=== PATIENT | male | born 1950 | race Caucasian/White ===

== ENCOUNTER 2017-06-06 14:00 | Inpatient (IN) | payer MEDICARE ==
[2017-06-06] MEDS ORDERED: HEPARIN SODIUM,PORCINE 5,000 UNIT/ML 1 ML VIAL IV STA (14:20)
[2017-06-06] MEDS ORDERED: NITROGLYCERIN SL TABS 0.4 MG TAB SUBLINGUAL STA (14:20)
[2017-06-06] MEDS ORDERED: ATORVASTATIN 80 MG TAB PO STA (14:28)
[2017-06-06] MEDS ORDERED: NALOXONE 0.4 MG/ML 1 ML VIAL IV PRN (14:31)
[2017-06-06 14:36] LABS: Basophils # (A) 0.1 k/uL (0-0.2); Basophils % (A) 1 %; Eosinophils # (A) 0.3 k/uL (0-0.7); Eosinophils % (A) 3 %; HGB 15.5 gm/dL (13.0-17.5); Lymphocytes # (A) 1.7 k/uL (1.0-4.8); Lymphocytes % (A) 17 %; MCH 31.9 pg (25.0-35.0); MCHC 33.7 g/dL (31.0-37.0); MCV 94.5 fL (80.0-100.0); Mean Platelet Volume 7.3; Monocytes # (A) 0.6 k/uL (0-1.0); Monocytes % (A) 6 %; Neutrophils # (A) 7.4 k/uL (1.3-7.7); Neutrophils % (A) 74 %; Platelet Count 209 k/uL (150-450); RBC 4.87 m/uL (4.30-5.90); RDW 13.5 % (11.5-15.5); WBC 10.1 k/uL (3.8-10.6)
--- NOTE | 2017-06-06 14:39 | ED ---
General Adult HPI - General Chief complaint: Chest Pain Stated complaint: chest pain Time Seen by Provider: 06/06/17 14:10 Source: patient, family, RN notes reviewed, old records reviewed Mode of arrival: EMS Limitations: no limitations - History of Present Illness Initial comments: 66-year-old male presenting with one hour history of anterior chest pain. Pain is nonradiating. Describes it as a squeezing pressure. Patient had an outpatient stress test earlier today, he states he left this feeling well, symptoms began abruptly approximately one hour ago. This was associated with diaphoresis and nausea. Patient has no known history of coronary artery disease. He is otherwise healthy, no chronic medical problems. Patient is a nonsmoker. - Related Data Home Medications Medication Instructions Recorded Confirmed Aspirin EC [Ecotrin Low Dose] 243 mg PO ONCE PRN 06/06/17 06/06/17 Allergies Allergy/AdvReac Type Severity Reaction Status Date / Time No Known Allergies Allergy Verified 06/06/17 14:19 Review of Systems ROS Statement: Those systems with pertinent positive or pertinent negative responses have been documented in the HPI. ROS Other: All systems not noted in ROS Statement are negative. Past Medical History Past Medical History: No Reported History, Cancer Additional Past Medical History / Comment(s): prostate History of Any Multi-Drug Resistant Organisms: None Reported Past Surgical History: Prostate Surgery Past Psychological History: No Psychological Hx Reported Smoking Status: Never smoker Past Alcohol Use History: None Reported Past Drug Use History: None Reported General Exam Limitations: no limitations General appearance: alert, in distress Head exam: Present: atraumatic Eye exam: Present: normal appearance, PERRL, EOMI ENT exam: Present: normal exam Neck exam: Present: normal inspection. Absent: tenderness, meningismus Respiratory exam: Present: normal lung sounds bilaterally. Absent: respiratory distress, wheezes Cardiovascular Exam: Present: regular rate, normal rhythm, normal heart sounds, other (Bilateral radial pulses, bilateral posterior tibial pulses, symmetric.) GI/Abdominal exam: Present: soft. Absent: distended, tenderness, guarding Extremities exam: Present: normal inspection, normal capillary refill. Absent: pedal edema Neurological exam: Present: alert, oriented X3, CN II-XII intact. Absent: motor sensory deficit Psychiatric exam: Present: normal affect, normal mood Skin exam: Present: warm, intact, diaphoretic. Absent: cyanosis Course Vital Signs 06/06/17 14:03 Temperature 97.2 F L Pulse Rate 83 Respiratory 18 Rate Blood Pressure 182/93 O2 Sat by Pulse 97 Oximetry - Reevaluation(s) Reevaluation #1: 06/06/17 14:15 EKG shows left bundle branch, only EKG shows fascicular block, findings discussed with Dr. Cazares, given the character the patient's pain and new EKG changes he will be taken to the [facility] as ST segment elevation OR. EKG Findings - EKG Comments: EKG Findings:: EKG obtained at 1411, sinus rhythm with occasional PVC, left axis deviation, left bundle branch block, ventricular rate 82, LA interval 194, QRS duration 148, QTC 476, this does not meet Scarbossa criteria. EKG obtained at 1423, sinus rhythm with frequent PVC left axis deviation, left bundle branch block, no progression of ischemic changes compared to EKG obtained at 1411, ventricular rate 76, LA interval 192, QRS duration 146, QTC 456. Medical Decision Making - Medical Decision Making 66-year-old male presenting with chest pain, nausea and diaphoresis. EKG shows left bundle which is new compared to EKG in 2014. Given the symptoms and EKG changes patient is taken to the [facility] for angiography. All laboratory studies and x-rays are pending. Case discussed with cardiology, Dr. Cazares, and accepting physician Dr. Martinez. Disposition Clinical Impression: Left bundle branch block (LBBB), Chest pain Disposition: ADMITTED IP TO THIS [facility] Condition: Serious Referrals: Chad Anders DO [Primary Care Provider] - 1-2 days Decision to Admit Reason: Admit from [facility] Decision Date: 06/06/17 Decision Time: 14:39
[2017-06-06] MEDS ORDERED: SODIUM CHLORIDE 0.9% 1,000 ML IV ONE (14:40)
[2017-06-06 14:42] LABS: Calcium 9.5 mg/dL (8.4-10.2); Potassium 4.2 mmol/L (3.5-5.1); Total Bilirubin 0.4 mg/dL (0.2-1.3); Total Protein 6.8 g/dL (6.3-8.2)
[2017-06-06] MEDS ORDERED: LIDOCAINE 2% INJ 20 MG/ML SQ ONE (14:43)
[2017-06-06] MEDS ORDERED: MIDAZOLAM 2 MG/2 ML VIAL ONE (14:44)
[2017-06-06 14:45] LABS: Partial Thromboplastin Time 22.3 sec (22.0-30.0)
--- NOTE | 2017-06-06 14:46 | XR ---
EXAMINATION TYPE: XR chest 1V portable DATE OF EXAM: 06/06/2017 COMPARISON: Chest x-ray and CTA chest March 17, 2013. HISTORY: Chest pain. ST elevated myocardial infarction. TECHNIQUE: Single AP portable frontal upright view of the chest is obtained. FINDINGS: There is no focal air space opacity, pleural effusion, or pneumothorax seen. The cardiac silhouette size is upper limits of normal. The osseous structures are intact. IMPRESSION: No acute process on current study.
[2017-06-06] MEDS ORDERED: MIDAZOLAM 2 MG/2 ML VIAL IV ONE (14:47)
[2017-06-06] MEDS ORDERED: fentaNYL (PF) 50 MCG/ML 2 ML AMP IV ONE (14:51)
[2017-06-06] MEDS ORDERED: fentaNYL (PF) 50 MCG/ML 2 ML AMP ONE (14:51)
[2017-06-06] MEDS ORDERED: BIVALIRUDIN BOLUS 250 MG/50 ML IV ONE (15:07)
[2017-06-06] MEDS ORDERED: PRASUGREL 10 MG TAB ONE (15:07)
[2017-06-06] MEDS ORDERED: BIVALIRUDIN 250 MG in SODIUM CHLORIDE 0.9% 40 ML IV ONE (15:08)
[2017-06-06] MEDS ORDERED: PRASUGREL 10 MG TAB PO ONE (15:09)
[2017-06-06 15:15] LABS: Creatine Kinase MB 3.1 ng/mL (0.0-2.4); Troponin I 0.064 ng/mL (0.000-0.034)
[2017-06-06] MEDS ORDERED: NITROGLYCERIN 1000MCG/10ML SYRINGE INTRACORON ONE (15:16)
[2017-06-06] MEDS ORDERED: IOPAMIDOL-370 125ML BTL INJ ONE (15:18)
[2017-06-06] MEDS ORDERED: MORPHINE SULFATE 4 MG/ML SYRINGE ONE (15:20)
[2017-06-06] MEDS ORDERED: MORPHINE SULFATE 4 MG/ML SYRINGE IV ONE (15:20)
[2017-06-06] MEDS ORDERED: IOPAMIDOL-370 100ML BTL INJ ONE (15:35)
[2017-06-06] MEDS ORDERED: ATROPINE SULFATE 0.1 MG/ML 10ML SYRINGE IV PRN (15:46)
[2017-06-06] MEDS ORDERED: MAG HYDROX/AL HYDROX/SIMETH 30 ML CUP PO PRN (15:46)
[2017-06-06] MEDS ORDERED: RX INFO: IV CONTRAST WAS GIVEN 1 EACH MISC MISCELLANE PRN (15:46)
[2017-06-06] MEDS ORDERED: ZOLPIDEM 5 MG TAB PO PRN (15:46)
[2017-06-06] MEDS ORDERED: NITROGLYCERIN SL TABS 0.4 MG TAB SUBLINGUAL PRN (15:46)
--- NOTE | 2017-06-06 15:48 | CC ---
CARDIAC CATHETERIZATION REPORT INDICATION: Acute ischemic syndrome. This is a 66-year-old gentleman who has been having episodes of exertional chest pressure and shortness of breath. He underwent a stress test in our hospital this morning wherein he walked for 6-1/2 minutes, did not have chest pain, and the EKG changes were inconclusive secondary to left bundle branch block. After going home he had lunch, was sleeping, and suddenly woke up and had severe chest pressure. He describes it as 8 out of 10 in intensity, associated with diaphoresis and shortness of breath. He came to the ER, where his EKG showed left bundle branch block, and the ER physician felt that the patient was having ST-segment elevation IL and this was a new onset left bundle branch block. However, his EKG from stress test also shows left bundle but his clinical presentation was consistent with an acute coronary syndrome. I advised the patient to undergo emergent cardiac catheterization. Understanding the risks and benefits, he wished to proceed with it. PROCEDURE NOTE: After obtaining informed consent, left heart catheterization and coronary angiogram are performed via the right femoral artery using standard Alessandra catheters. The patient tolerated the procedure well without any obvious immediate complications. Patient received moderate conscious sedation. Total sedation time was 13 minutes. FINDINGS: 1. HEMODYNAMICS: Left ventricular end-diastolic pressure is 10 to 12 mm. There is no significant gradient across the aortic valve. 2. LEFT VENTRICULOGRAM: Left ventriculogram was not performed. 3. ANGIOGRAPHIC DATA: 4. Left main coronary artery. Left main coronary artery is a normal-sized vessel and is free of stenosis. It divides into left anterior descending coronary artery, circumflex coronary artery and ramus intermedius. LAD shows mild atherosclerotic plaque, as does the circumflex coronary artery. Ramus intermedius appears totally occluded in its proximal part. There are no collaterals going to the distal part of the vessel. Right coronary artery is a large dominant vessel. It shows mild atherosclerotic plaque without any focal areas of stenosis. CONCLUSIONS: Occluded ramus intermedius, which is probably responsible for patient's chest pain and could be an acutely occluded vessel. Dr. Nevarez, the on-call picker feeder, has reviewed the angiographic data and will attempt angioplasty of the ramus. I discussed the findings with the patient. MMODL / IJN: [id number] /
--- NOTE | 2017-06-06 15:48 | P.CRDCN ---
History of Present Illness Consult date: 06/06/17 Requesting physician: Ashley Odom Consult reason: chest pain Chief complaint: Chest pain History of present illness: This is 66-year-old gentleman with no prior documented history of hypertension, nondiabetic, no high cholesterol, who presented to the hospital with severe midsternal chest pain. Patient described his pain as a tight squeezing feeling in his chest. He states that the symptoms started approximately an hour before coming to the emergency room. Patient was quite diaphoretic, he also was short of breath and nauseated. Earlier today patient was here at [facility] and underwent a stress echocardiographic study. He stated that during the stress test he was short of breath, no other significant symptoms. His EKG on arrival here showed a normal sinus rhythm with a left bundle-branch block pattern and nonspecific ST-T wave changes. Patient was given 4 baby aspirins as well as Lipitor, and he was initiated on IV heparin. Patient was seen by Dr. Cazares in the emergency room and recommended to go to the cardiac catheterization lab, the risks and the benefits were explained to the patient in detail. Past Medical History Past Medical History: No Reported History, Cancer Additional Past Medical History / Comment(s): prostate History of Any Multi-Drug Resistant Organisms: None Reported Past Surgical History: Prostate Surgery Past Psychological History: No Psychological Hx Reported Smoking Status: Never smoker Past Alcohol Use History: None Reported Past Drug Use History: None Reported Medications and Allergies Home Medications Medication Instructions Recorded Confirmed Type Aspirin EC [Ecotrin Low Dose] 243 mg PO ONCE PRN 06/06/17 06/06/17 History Allergies Allergy/AdvReac Type Severity Reaction Status Date / Time No Known Allergies Allergy Verified 06/06/17 14:19 Physical Exam Vitals: Vital Signs Temp Pulse Resp BP Pulse Ox 06/06/17 14:35 92 24 161/72 98 06/06/17 14:25 99 22 154/94 97 06/06/17 14:03 97.2 F L 83 18 182/93 97 Intake and Output 06/06/17 06/06/17 06/06/17 06:59 14:59 22:59 Intake Total 100 40 Balance 100 40 Intake: IV 100 40 Other: Weight 126.099 kg PHYSICAL EXAMINATION: HEENT: Head is atraumatic, normocephalic. Pupils equal, round. Neck is supple. There is no elevated jugular venous pressure. HEART EXAMINATION: Heart S1, S2 normal. No murmur or gallop heard. CHEST EXAMINATION:[ Lungs are clear to auscultation and precussion. Patient complaining of midsternal chest tightness rating it at an 8 on a scale of 1-10. Positive diaphoresis ABDOMEN: Soft, nontender. Bowel sounds are heard. No organomegaly noted. Positive nausea EXTREMITIES: 2+ peripheral pulses with no evidence of peripheral edema and no calf tenderness noted. NEUROLOGIC patient is awake, alert and oriented -3. . Results 06/06/17 14:25 06/06/17 14:25 Cardiac Enzymes 06/06/17 06/06/17 Range/Units 14:25 14:25 AST 25 (17-59) U/L CK-MB (CK-2) 3.1 H* (0.0-2.4) ng/mL Troponin I 0.064 H* (0.000-0.034) ng/mL Coagulation 06/06/17 Range/Units 14:25 PT 10.0 (9.0-12.0) sec APTT 22.3 (22.0-30.0) sec CBC 06/06/17 Range/Units 14:25 WBC 10.1 (3.8-10.6) k/uL RBC 4.87 (4.30-5.90) m/uL Hgb 15.5 (13.0-17.5) gm/dL Hct 46.0 (39.0-53.0) % Plt Count 209 (150-450) k/uL Comprehensive Metabolic Panel 06/06/17 Range/Units 14:25 Sodium 142 (137-145) mmol/L Potassium 4.2 (3.5-5.1) mmol/L Chloride 106 (98-107) mmol/L Carbon Dioxide 23 (22-30) mmol/L BUN 22 H (9-20) mg/dL Creatinine 1.14 (0.66-1.25) mg/dL Glucose 128 H (74-99) mg/dL Calcium 9.5 (8.4-10.2) mg/dL AST 25 (17-59) U/L ALT 18 L (21-72) U/L Alkaline Phosphatase 66 (38-126) U/L Total Protein 6.8 (6.3-8.2) g/dL Albumin 4.0 (3.5-5.0) g/dL Current Medications Generic Name Dose Route Start Last Admin Trade Name Freq PRN Reason Stop Dose Admin Naloxone HCl 0.2 mg 06/06/17 14:31 Narcan IV Q2M PRN Opioid Reversal Intake and Output 06/06/17 06/06/17 06/06/17 06:59 14:59 22:59 Intake Total 100 40 Balance 100 40 Intake: IV 100 40 Other: Weight 126.099 kg Patient Weight 06/07/17 06:59 Weight 126.099 kg 06/06/17 14:25 06/06/17 14:25 EKG Interpretations (text) EKG showed a normal sinus rhythm with a left bundle-branch block pattern and nonspecific ST-T wave changes Assessment and Plan Plan: Assessment and plan #1 symptoms of severe midsternal chest tightness and heaviness with associated diaphoresis nausea and shortness of breath, EKG shows a normal sinus rhythm with a left bundle-branch block pattern and nonspecific ST-T wave changes possible myocardial infarction. #2 Cardiac risk factors are negative for hypertension, no diabetes, no hyperlipidemia, patient is a nonsmoker. Plan Patient was advised to go to and her goal cardiac catheterization to rule out underlying coronary artery disease. The risks and benefits were explained to the patient and his in detail. He was initiated on IV heparin, patient was also given aspirin at 80 of Lipitor. Further recommendations will be based on these findings and the patient's clinical course. DNP note has been reviewed, I agree with a documented findings and plan of care. Patient was seen and examined.
[2017-06-06] MEDS ORDERED: SODIUM CHLORIDE 0.9% 1,000 ML IV SCH (16:00)
[2017-06-06 16:04] LABS: Glucose,Whole Blood 127 mg/dL (75-99)
--- NOTE | 2017-06-06 17:29 | PTCA ---
PERCUTANEOUSTRANS CORORONARY ANGIOGRAPHY DATE OF PROCEDURE: 06/06/2017 Mr. Parnell is a 66-year-old male who has been complaining of chest discomfort. He presented to the emergency room with persistent chest discomfort. His EKG showed left bundle branch block. He underwent cardiac catheterization by Dr. Cazares and was found to have totally occluded ramus intermedius. In view of that, recommendation was made regarding angioplasty and stenting. The procedure, as well as risks and complications, were discussed with the patient, who was in full understanding and agreement. PROCEDURE: A 6-Danish FL4 guiding catheter was introduced into the system. After cannulating the left main, a 0.014 advanced medium-weight J-wire was advanced across the lesion and positioned distally. Then a 2.5 x 12 mm Trek balloon was advanced. Two inflations at 10 atmospheres were done. Following that, a 2.25 x 18 mm Xience Alpine stent was deployed and post dilated at 16 atmospheres. Distal to it, a 2.25 x 8 mm Xience Alpine stent was deployed, post dilated at 14 atmospheres. Subsequently an inflation in the overlap segment at 16 atmospheres was done. Following that, the balloon and the guidewire were withdrawn back into the guiding catheter. Images were obtained and repeated. Those images revealed stable successful stenting. At that point, the guiding catheter, the balloon and the guidewire were removed. The sheath was removed. Hemostasis was obtained with deployment of an Angio-Seal. There was no immediate complication. Patient was returned to his room in stable condition. Of note, the patient had chest discomfort with the inflation that improved at the end of the procedure. RESULTS: Successful stenting of the ramus intermedius with reduction of stenosis from 100% to 0%. RECOMMENDATION: Patient will be continued on aspirin, Effient, beta carine, MARIEL inhibitor and statin. The importance of dual antiplatelet treatment was discussed with the patient and his family, who are in full understanding and agreement. DURATION OF PROCEDURE: 31 minutes. MMODL / IJN: [id number] /
--- NOTE | 2017-06-06 17:32 | LTR ---
June 06, 2017 To: Dr. Anders Re: Andrea Parnell (52) Dear Dr. Anders, I had the pleasure of performing coronary angioplasty on Mr. Parnell at [facility] on June 06, and a full copy of the procedure note will be forwarded to you. In brief, he underwent successful stenting of the ramus intermedius using a drug- eluting stent. I am hopeful this procedure will stabilize his status. Thank you again for allowing me to participate in his care. Please feel free to call with any questions. Sincerely yours, Latasha Nevarez MD MMFRIDAL / RIKKIN: [id number] /
[2017-06-06] MEDS ORDERED: ACETAMINOPHEN TAB 325 MG TAB PO PRN (18:42)
--- NOTE | 2017-06-06 18:51 | P.HPIM ---
History of Present Illness H&P Date: 06/06/17 Chief Complaint: chest pain Patient is a 66-year-old male with prostate cancer, prior tobacco abuse, and morbid obesity who presented to the ER with complaints of chest pain. Earlier in the day he underwent outpatient stress testing and had some shortness of breath but no significant abnormalities, after he arrived back home the chest pain started. On arrival to the ER his blood pressure was slightly elevated at 182/93. EKG showed left bundle branch block. His troponin was slightly elevated. His laboratory analysis was otherwise unremarkable. A code STEMI was called and cardiology proceeded to the ER. He went directly from the ER to the labor delivery rn and received a drug-eluting stent to the ramus intermedius. He has since been admitted to the ICU. Patient seen and examined at bedside in the ICU. He is currently chest pain- free and not short of breath. He denies any nausea or vomiting. He states that after he came back home from his stress test he got sudden onset chest pain with dyspnea. He became diaphoretic and nauseated and had left arm tingling. He has been having shortness of breath for the last 2 months but today shortness did not get better. His shortness of breath has been worse with exertion and better with rest up by his outpatient primary care provider set up stress test. He does suffer from chronic constipation. Review of Systems General: no fever/chills, no rigors, no weight loss/weight gain, + easy fatigability Eyes: no noticeable visual changes, no loss of vision ENT: no rhinorrhea, no congestion, no sore throat Cardiovascular: + chest pain, + palpitations, no preyncope/syncope, no edema, + diaphoresis Pulmonary: + shortness of breath, no wheezing, no cough Abdominal: no abdominal pain, no constipation, no diarrhea, no vomiting, no nausea Genitourinary: no dysuria, no urinary frequency, no unusual discharge/odor Neuro: no unusual paresthesias, no unusual paresis/paralysis, no headache Dermatologic: no unusual rashes, no unusual lesions, no unusual changes in nails Hematologic: no hemoptysis, no hematuria, no melena/hematochezia Psychiatric: no changes in mood or behaviors, no changes in sleep pattern Past Medical History Past Medical History: No Reported History, Cancer Additional Past Medical History / Comment(s): prostate History of Any Multi-Drug Resistant Organisms: None Reported Past Surgical History: Prostate Surgery, Tonsillectomy Past Psychological History: No Psychological Hx Reported Smoking Status: Former smoker Past Alcohol Use History: None Reported Past Drug Use History: None Reported Additional History: Lives at home with , no assistive devices, 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 No significant issues noted on an osteopathic structural exam other than those noted in the History and Physical/Consult. Vitals: Vital Signs Temp Pulse Resp BP Pulse Ox 06/06/17 18:00 63 12 140/78 99 06/06/17 17:40 62 16 140/78 98 06/06/17 17:20 54 L 20 129/74 98 06/06/17 17:15 51 L 11 L 129/74 99 06/06/17 17:00 51 L 15 122/66 98 06/06/17 16:45 59 L 15 128/66 96 06/06/17 16:30 57 L 16 127/68 96 06/06/17 16:20 11 L 06/06/17 16:15 62 16 122/73 96 06/06/17 16:00 98.0 F 65 14 119/68 97 06/06/17 14:35 92 24 161/72 98 06/06/17 14:25 99 22 154/94 97 06/06/17 14:03 97.2 F L 83 18 182/93 97 Intake and Output 06/06/17 06/06/17 06/06/17 06:59 14:59 22:59 Intake Total 100 240 Output Total 300 Balance 100 -60 Intake: IV 100 240 Sodium Chloride 0.9% 1, 200 000 ml @ 100 mls/hr IV . Q10H [facility] Rx#:[id number] Output: Urine 300 Other: Voiding Method Urinal Weight 126.099 kg 123.9 kg General: non toxic, no distress, appears at stated age, obese Derm: no unusual rashes/lesions no unusual ecchymoses, warm, dry Head: atraumatic, normocephalic, symmetric Eyes: EOMI, no lid lag, anicteric sclera, pupils equal round reactive to light ENT: Nose and ears atraumatic, no thrush, no pharyngeal erythema Neck: No thyromegaly, no cervical lymphadenopathy, trachea midline, supple Mouth: no lip lesion, mucus membranes moist Cardiovascular: S1S2 reg, no murmur, positive posterior tibial pulse bilateral, no edema, capillary refill less than 2 seconds Lungs: CTA bilateral, no rhonchi, no rales , no accessory muscle use Abdominal: soft, nontender to palpation, no guarding, no appreciable organomegaly, normal bowel sounds Ext: no gross muscle atrophy, muscle strength 5 out of 5 in all 4 extremities grossly, no contractures, Neuro: CN II-XI grossly intact, light touch intact all 4 extremities, finger to nose within normal limits, Psych: Alert, oriented, appropriate affect Results CBC & Chem 7: 06/06/17 14:25 06/06/17 14:25 Labs: Abnormal Lab Results - Last 24 Hours (Table) 06/06/17 06/06/17 06/06/17 Range/Units 14:25 14:25 16:00 BUN 22 H (9-20) mg/dL Glucose 128 H (74-99) mg/dL POC Glucose (mg/dL) 127 H (75-99) mg/dL ALT 18 L (21-72) U/L Total Creatine Kinase 191 H (55-170) U/L CK-MB (CK-2) 3.1 H* (0.0-2.4) ng/mL Troponin I 0.064 H* (0.000-0.034) ng/mL Chest x-ray: report reviewed Thrombosis Risk Factor Assmnt - DVT/VTE Prophylaxis DVT/VTE Prophylaxis: Pharmacologic Prophylaxis ordered Assessment and Plan Assessment: STEMI status post PCI to ramus intermedius -Aspirin, Lipitor, Effient line-no beta carine at this time due to low heart rate -Cardiology consultation -Check lipid profile and hemoglobin A1c for risk stratification Pretense of urgency -Patient states his blood pressure home is typically 130/90 -Continue with lisinopril -Follow blood pressures Morbid obesity -Structured outpatient weight loss Remote History of tobacco abuse -Continue with smoking cessation Surrogate decision-maker: CODE STATUS:Full DVT prophylaxis: Heparin Discussed with: Patient, nursing Anticipated discharge: 48-[address]: home A total of 60 minutes was spent on the care of this complex patient more than 50 % of the time was spent in counseling and care coordination.
[2017-06-07 05:53] LABS: Anion Gap 9 mmol/L; Carbon Dioxide 26 mmol/L (22-30); Chloride 105 mmol/L (98-107); Cholesterol 181 mg/dL (<200); Glucose 100 mg/dL (74-99); Potassium 4.9 mmol/L (3.5-5.1); Sodium 140 mmol/L (137-145); Triglycerides 81 mg/dL (<150)
[2017-06-07 05:54] LABS: Blood Urea Nitrogen 19 mg/dL (9-20); HDL Cholesterol 55 mg/dL (40-60); LDL Cholesterol,Calculated 110 mg/dL (0-99)
[2017-06-07] MEDS: ASPIRIN 81 MG PO SCH (08:24)
[2017-06-07] MEDS: LISINOPRIL 5 MG TAB PO SCH (08:24)
--- NOTE | 2017-06-07 09:32 | P.PN ---
Subjective Progress Note Date: 06/07/17 Principal diagnosis: chest pain Patient is a 66-year-old male with prostate cancer, prior tobacco abuse, and morbid obesity who presented to the ER with complaints of chest pain. Earlier in the day he underwent outpatient stress testing and had some shortness of breath but no significant abnormalities, after he arrived back home the chest pain started. On arrival to the ER his blood pressure was slightly elevated at 182/93. EKG showed left bundle branch block. His troponin was slightly elevated. His laboratory analysis was otherwise unremarkable. A code STEMI was called and cardiology proceeded to the ER. He went directly from the ER to the [facility] lab[facility] and received a drug-eluting stent to the ramus intermedius. He was than admitted to the ICU. His blood pressures improved overnight. Patient seen and examined at bedside. He denies any chest pain, shortness of breath, nausea, or vomiting. He has not had a bowel movement since being admitted to the hospital. He states he does not like to take medications and is concerned about the number of medications he will need to take on discharge. We discussed that his cholesterol profile is suboptimal that he would benefit from statin therapy but with diet and exercise this jez be able to be discontinued in the future. We did discuss the need for continued aspirin and Effient on discharge. Objective - Vital Signs Vital signs: Vital Signs Temp 98.1 F 06/07/17 08:00 Pulse 66 06/07/17 09:00 Resp 18 06/07/17 09:00 BP 136/81 06/07/17 09:00 Pulse Ox 96 06/07/17 09:00 Intake & Output 06/06/17 06/07/17 06/07/17 18:59 06:59 18:59 Intake Total 340 940 350 Output Total 300 1150 430 Balance 40 -210 -80 Weight 123.9 kg 123.6 kg Intake: IV 340 700 Sodium Chloride 0.9% 1, 200 700 000 ml @ 100 mls/hr IV . Q10H [facility] Rx#:[id number] Oral 240 350 Output: Urine 300 1150 430 Other: Voiding Method Urinal Urinal # Voids 0 - Exam General:, Obese, no distress, appears at stated age, nontoxic Derm: warm, dry Head: atraumatic, normocephalic, symmetric Eyes: EOMI, no lid lag, anicteric sclera Mouth: no lip lesion, mucus membranes moist Cardiovascular: S1S2 reg, no murmur, positive posterior tibial pulse bilateral, Lungs: CTA bilateral, no rhonchi, no rales , no accessory muscle use Abdominal: soft, nontender to palpation, no guarding, no appreciable organomegaly Ext: no gross muscle atrophy, no edema, no contractures Neuro: CN II-XI grossly intact, no focal neuro deficits Psych: Alert, oriented, appropriate affect - Labs CBC & Chem 7: 06/06/17 14:25 06/07/17 05:20 Labs: Abnormal Lab Results - Last 24 Hours (Table) 06/06/17 06/06/17 06/06/17 Range/Units 14:25 14:25 16:00 BUN 22 H (9-20) mg/dL Glucose 128 H (74-99) mg/dL POC Glucose (mg/dL) 127 H (75-99) mg/dL ALT 18 L (21-72) U/L Total Creatine Kinase 191 H (55-170) U/L CK-MB (CK-2) 3.1 H* (0.0-2.4) ng/mL Troponin I 0.064 H* (0.000-0.034) ng/mL LDL Cholesterol, Calc (0-99) mg/dL 06/07/17 Range/Units 05:20 BUN (9-20) mg/dL Glucose 100 H (74-99) mg/dL POC Glucose (mg/dL) (75-99) mg/dL ALT (21-72) U/L Total Creatine Kinase (55-170) U/L CK-MB (CK-2) (0.0-2.4) ng/mL Troponin I (0.000-0.034) ng/mL LDL Cholesterol, Calc 110 H (0-99) mg/dL Assessment and Plan Assessment: STEMI status post PCI to ramus intermedius -Aspirin, Lipitor, Effient, -no beta carine at this time due to low heart rate -Cardiology recs appreciated -await A1C Dyslipidemia - statin therapy Hypertensive urgency, improved -Patient states his blood pressure home is typically 130/90 -Continue with lisinopril -Follow blood pressures Morbid obesity -Structured outpatient weight loss Remote History of tobacco abuse -Continue with smoking cessation Transfer to [facility] in cardio in agreement DVT prophylaxis: Heparin Discussed with: Patient, nursing Anticipated discharge: [address]: home A total of 35 minutes was spent on the care of this complex patient more than 50 % of the time was spent in counseling and care coordination.
[2017-06-07 10:51] VITALS: BMI 39.1
[2017-06-07 11:17] LABS: Hemoglobin A1C 5.6 % (4.0-6.0)
[2017-06-07] MEDS: METOPROLOL TARTRATE 12.5 MG TAB PO SCH ×2 (11:59→21:12)
[2017-06-07] MEDS ORDERED: PRASUGREL 10 MG TAB PO SCH (12:00)
--- NOTE | 2017-06-07 12:18 | ECHOF ---
Referral Reason:pa MEASUREMENTS -------- HEIGHT: 177.8 cm WEIGHT: 123.4 kg BP: 140/70 RVIDd: 3.4 cm (< 3.3) IVSd: 1.3 cm (0.6 - 1.1) LVIDd: 5.3 cm (3.9 - 5.3) LVPWd: 1.2 cm (0.6 - 1.1) IVSs: 1.7 cm LVIDs: 3.6 cm LVPWs: 1.8 cm LA Diam: 4.0 cm (2.7 - 3.8) LAESV Index (A-L): 25.37 ml/m Ao Diam: 3.4 cm (2.0 - 3.7) AV Cusp: 2.4 cm (1.5 - 2.6) MV EXCURSION: 19.913 mm (> 18.000) MV EF SLOPE: 102 mm/s (70 - 150) EPSS: 1.0 cm MV E Efra: 0.65 m/s MV DecT: 323 ms MV A Efra: 0.65 m/s MV E/A Ratio: 1.01 RAP: 5.00 mmHg RVSP: 24.03 mmHg FINDINGS -------- Sinus rhythm. This was a technically adequate study. The left ventricular size is normal. There is mild concentric left ventricular hypertrophy. Overa ll left ventricular systolic function is low-normal with, an EF between 50 - 55 %. Septal wall jason on is delayed, and consistent with conduction delay/bundle branch block. The right ventricle is mildly enlarged. Normal LA size by volume 22+/-6 ml/m2. The right atrium is normal in size. The aortic valve is trileaflet and appears structurally normal. The mitral valve is normal. Mild tricuspid regurgitation present. Right ventricular systolic pressure is normal at < 35 mmHg. There is no pulmonic regurgitation present. The aortic root size is normal. Normal inferior vena cava with normal inspiratory collapse consistent with estimated right atrial pre ssure of 5 mmHg. There is no pericardial effusion. CONCLUSIONS -------- 1. Sinus rhythm. 2. This was a technically adequate study. 3. The left ventricular size is normal. 4. There is mild concentric left ventricular hypertrophy. 5. Septal wall motion is delayed, and consistent with conduction delay/bundle branch block. 6. The right ventricle is mildly enlarged. 7. Normal LA size by volume 22+/-6 ml/m2. 8. The right atrium is normal in size. 9. The aortic valve is trileaflet and appears structurally normal. 10. The mitral valve is normal. 11. Mild tricuspid regurgitation present. 12. Right ventricular systolic pressure is normal at < 35 mmHg. 13. There is no pulmonic regurgitation present. 14. The aortic root size is normal. 15. Normal inferior vena cava with normal inspiratory collapse consistent with estimated right atrial pressure of 5 mmHg. 16. There is no pericardial effusion. CONSUMER LOAN OFFICER: Tiffanie Orantes RDCS
[2017-06-07 12:24] LABS: Creatine Kinase MB 65.2 ng/mL (0.0-2.4); Troponin I 44.8 ng/mL (0.000-0.034)
[2017-06-07] MEDS ORDERED: CLOPIDOGREL 75 MG TAB PO STA (13:53)
--- NOTE | 2017-06-07 15:27 | P.PN ---
Subjective Progress Note Date: 06/07/17 This is 66-year-old gentleman with no prior documented history of hypertension, nondiabetic, no high cholesterol, who presented to the hospital with severe midsternal chest pain. Patient described his pain as a tight squeezing feeling in his chest. He states that the symptoms started approximately an hour before coming to the emergency room. Patient was quite diaphoretic, he also was short of breath and nauseated. Earlier today patient was here at [facility] and underwent a stress echocardiographic study. He stated that during the stress test he was short of breath, no other significant symptoms. His EKG on arrival here showed a normal sinus rhythm with a left bundle-branch block pattern and nonspecific ST-T wave changes. Patient was given 4 baby aspirins as well as Lipitor, and he was initiated on IV heparin. Patient was seen by Dr. Cazares in the emergency room and recommended to go to the cardiac catheterization lab, the risks and the benefits were explained to the patient in detail. 06/07/2017 Patient was taken to the cardiac catheterization lab yesterday by Dr. Cazares her he was found to have an occluded ramus intermediate, he underwent angioplasty and stenting of that vessel by Dr. Nevarez. Echocardiogram with Doppler study was performed which revealed an ejection fraction of 50-55%. Patient was seen and examined this morning, denies any chest pain or difficulty in breathing. Blood pressure 118/40 with a heart rate in the 60s, respirations 20. We will start the patient today on a low-dose of beta carine. Continue aspirin 81 mg daily, Lipitor 80 mg daily, patient was also on Effient, there is no longer a free month supply of Effient, and the cost to the patient is quite substantial, therefore from tomorrow we will give the patient a loading dose of Plavix, and discharge him home on Saturday with Plavix 75 mg daily. Patient is also on lisinopril 5 mg daily. Objective - Vital Signs Vital signs: Vital Signs Temp 97.9 F 06/07/17 12:00 Pulse 67 06/07/17 12:00 Resp 20 06/07/17 12:00 BP 118/49 06/07/17 15:17 Pulse Ox 97 06/07/17 15:17 Intake & Output 06/06/17 06/07/17 06/07/17 18:59 06:59 18:59 Intake Total 971 051 6147 Output Total 300 1150 1785 Balance 40 -210 -785 Weight 123.9 kg 123.6 kg 123.6 kg Intake: IV 340 700 Sodium Chloride 0.9% 1, 200 700 000 ml @ 100 mls/hr IV . Q10H [facility] Rx#:[id number] Oral 240 1000 Output: Urine 300 1150 1785 Other: Voiding Method Urinal Urinal Urinal # Voids 0 5 # Bowel Movements 1 - Exam PHYSICAL EXAMINATION: HEENT: Head is atraumatic, normocephalic. Pupils equal, round. Neck is supple. There is no elevated jugular venous pressure. HEART EXAMINATION: Heart S1, S2 normal. No murmur or gallop heard. CHEST EXAMINATION: Lungs are clear to auscultation and precussion. No chest wall tenderness is noted on palpation or with deep breathing. ABDOMEN: Soft, nontender. Bowel sounds are heard. No organomegaly noted. Right groin soft, no evidence of any hematoma. EXTREMITIES: 2+ peripheral pulses with no evidence of peripheral edema and no calf tenderness noted. NEUROLOGIC patient is awake, alert and oriented -3. . - Labs CBC & Chem 7: 06/06/17 14:25 06/07/17 05:20 Labs: Abnormal Lab Results - Last 24 Hours (Table) 06/06/17 06/07/17 06/07/17 Range/Units 16:00 05:20 05:20 Glucose 100 H (74-99) mg/dL POC Glucose (mg/dL) 127 H (75-99) mg/dL Total Creatine Kinase 934 H (55-170) U/L CK-MB (CK-2) 65.2 H* (0.0-2.4) ng/mL Troponin I 44.800 H* (0.000-0.034) ng/mL LDL Cholesterol, Calc 110 H (0-99) mg/dL Assessment and Plan Plan: Assessment and plan #1 acute myocardial infarction, status post angioplasty and stenting of the ramus intermediate artery. Echocardiogram with Doppler study revealed a normal left ventricular systolic function #2 hyperlipidemia Plan We'll add metoprolol 12-1/2 mg twice a day to the medication regime, if blood pressure and heart rate tolerate we will increase that tomorrow. Patient was initially started on Effient, but because of the cost the patient will incur on discharge we will give the patient a loading dose of Plavix tomorrow morning and initiate Plavix 75 mg daily. Plan for possible discharge home on Saturday. Patient's second troponin came back at 44.8. DNP note has been reviewed, I agree with a documented findings and plan of care. Patient was seen and examined.
[2017-06-07] MEDS: ATORVASTATIN 80 MG TAB PO SCH (21:12)
[2017-06-08 06:27] LABS: Anion Gap 10 mmol/L; Blood Urea Nitrogen 15 mg/dL (9-20); Calcium 9.5 mg/dL (8.4-10.2); Carbon Dioxide 25 mmol/L (22-30); Chloride 104 mmol/L (98-107); Glucose 100 mg/dL (74-99); Potassium 4.5 mmol/L (3.5-5.1); Sodium 139 mmol/L (137-145)
[2017-06-08] MEDS ORDERED: HEPARIN SODIUM,PORCINE 5,000 UNIT/ML 1 ML VIAL IV PRN (07:52)
[2017-06-08] MEDS ORDERED: HEPARIN SODIUM,PORCINE 5,000 UNIT/ML 1 ML VIAL IV ONE (07:52)
[2017-06-08] MEDS: ASPIRIN 81 MG PO SCH (07:59)
[2017-06-08] MEDS: METOPROLOL TARTRATE 12.5 MG TAB PO SCH (07:59)
[2017-06-08] MEDS ORDERED: HEPARIN SOD,PORK IN 0.45% NACL 25,000 UNIT in 0.45% NACL 1 500ML.BAG IV SCH (08:00)
[2017-06-08 08:30] LABS: Basophils # (A) 0.1 k/uL (0-0.2); Basophils % (A) 1 %; Eosinophils # (A) 0.2 k/uL (0-0.7); Eosinophils % (A) 2 %; HCT 47.6 % (39.0-53.0); HGB 16.5 gm/dL (13.0-17.5); Lymphocytes # (A) 1.7 k/uL (1.0-4.8); Lymphocytes % (A) 17 %; MCHC 34.7 g/dL (31.0-37.0); MCV 94.9 fL (80.0-100.0); Mean Platelet Volume 7.3; Monocytes # (A) 0.7 k/uL (0-1.0); Monocytes % (A) 6 %; Neutrophils # (A) 7.5 k/uL (1.3-7.7); Neutrophils % (A) 73 %; Platelet Count 207 k/uL (150-450); RBC 5.02 m/uL (4.30-5.90); RDW 13.5 % (11.5-15.5); WBC 10.2 k/uL (3.8-10.6)
[2017-06-08] MEDS ORDERED: CLOPIDOGREL 75 MG TAB PO ONE (09:00)
[2017-06-08] MEDS ORDERED: CLOPIDOGREL 75 MG TAB PO SCH (09:00)
[2017-06-08 09:14] LABS: Partial Thromboplastin Time 22.8 sec (22.0-30.0); Prothrombin Time 10.3 sec (9.0-12.0)
--- NOTE | 2017-06-08 09:41 | P.PN ---
Subjective Progress Note Date: 06/08/17 Principal diagnosis: chest pain Patient is a 66-year-old male with prostate cancer, prior tobacco abuse, and morbid obesity who presented to the ER with complaints of chest pain. Earlier in the day he underwent outpatient stress testing and had some shortness of breath but no significant abnormalities, after he arrived back home the chest pain started. On arrival to the ER his blood pressure was slightly elevated at 182/93. EKG showed left bundle branch block. His troponin was slightly elevated. His laboratory analysis was otherwise unremarkable. A code STEMI was called and cardiology proceeded to the ER. He went directly from the ER to the [facility] and received a drug-eluting stent to the ramus intermedius. He was than admitted to the ICU. His blood pressures improved overnight. On 06/07 he was able to be transferred to the selective care unit. Echo showed preserved ejection fraction. He went into A fib on the morning of 06/08 with a heart rate of 120. he was stated on a heparin gtt adn coumadin was started due to no insurnance coverage for medications. Patient seen and examined at bedside. This morning felt nauseated but better now. No chest pain, shortness of breath, palpitation. No nausea or vomiting. Objective - Vital Signs Vital signs: Vital Signs Temp 97.6 F 06/08/17 07:51 Pulse 120 H 06/08/17 07:51 Resp 16 06/08/17 07:51 BP 127/94 06/08/17 07:51 Pulse Ox 98 06/08/17 07:51 Intake & Output 06/07/17 06/08/17 06/08/17 18:59 06:59 18:59 Intake Total 1360 510 360 Output Total 2110 150 Balance -750 360 360 Weight 123.6 kg 121.2 kg Intake: IV 30 Invasive Line 2 30 Oral 1360 480 360 Output: Urine 2110 150 Other: Voiding Method Urinal Urinal # Voids 5 1 # Bowel Movements 1 - Exam General:, Obese, no distress, appears at stated age, nontoxic Derm: warm, dry Head: atraumatic, normocephalic, symmetric Eyes: EOMI, no lid lag, anicteric sclera Mouth: no lip lesion, mucus membranes moist Cardiovascular: S1S2 irreg, no murmur, positive posterior tibial pulse bilateral , Lungs: CTA bilateral, no rhonchi, no rales , no accessory muscle use Abdominal: soft, nontender to palpation, no guarding, no appreciable organomegaly Ext: no gross muscle atrophy, no edema, no contractures Neuro: CN II-XI grossly intact, no focal neuro deficits Psych: Alert, oriented, appropriate affect - Labs CBC & Chem 7: 06/08/17 05:53 06/08/17 05:57 Labs: Abnormal Lab Results - Last 24 Hours (Table) 06/07/17 06/08/17 Range/Units 05:20 05:57 Glucose 100 H (74-99) mg/dL Total Creatine Kinase 934 H (55-170) U/L CK-MB (CK-2) 65.2 H* (0.0-2.4) ng/mL Troponin I 44.800 H* (0.000-0.034) ng/mL Assessment and Plan Assessment: STEMI status post PCI to ramus intermedius -Aspirin, Lipitor, Effient, metorpolol -Cardiology recs appreciated -echo with preserved ejection fraction A fib with RVR - heparin gtt, plan on coumadin at discharge as patient does not have medication coverage - tele - metoprolol - cardio recs Dyslipidemia - statin therapy Hypertensive urgency, improved -Patient states his blood pressure home is typically 130/90 -Continue with lisinopril and metoprolol -Follow blood pressures Morbid obesity -Structured outpatient weight loss Remote History of tobacco abuse -Continue with smoking cessation DVT prophylaxis: Heparin Discussed with: Patient, nursing Anticipated discharge: [address]: home A total of 35 minutes was spent on the care of this complex patient more than 50 % of the time was spent in counseling and care coordination.
--- NOTE | 2017-06-08 10:28 | P.PN ---
Subjective Progress Note Date: 06/08/17 This is 66-year-old gentleman with no prior documented history of hypertension, nondiabetic, no high cholesterol, who presented to the hospital with severe midsternal chest pain. Patient described his pain as a tight squeezing feeling in his chest. He states that the symptoms started approximately an hour before coming to the emergency room. Patient was quite diaphoretic, he also was short of breath and nauseated. Earlier today patient was here at [facility] and underwent a stress echocardiographic study. He stated that during the stress test he was short of breath, no other significant symptoms. His EKG on arrival here showed a normal sinus rhythm with a left bundle-branch block pattern and nonspecific ST-T wave changes. Patient was given 4 baby aspirins as well as Lipitor, and he was initiated on IV heparin. Patient was seen by Dr. Cazares in the emergency room and recommended to go to the cardiac catheterization lab, the risks and the benefits were explained to the patient in detail. 06/07/2017 Patient was taken to the cardiac catheterization lab yesterday by Dr. Cazares her he was found to have an occluded ramus intermediate, he underwent angioplasty and stenting of that vessel by Dr. Nevarez. Echocardiogram with Doppler study was performed which revealed an ejection fraction of 50-55%. Patient was seen and examined this morning, denies any chest pain or difficulty in breathing. Blood pressure 118/40 with a heart rate in the 60s, respirations 20. We will start the patient today on a low-dose of beta carine. Continue aspirin 81 mg daily, Lipitor 80 mg daily, patient was also on Effient, there is no longer a free month supply of Effient, and the cost to the patient is quite substantial, therefore from tomorrow we will give the patient a loading dose of Plavix, and discharge him home on Saturday with Plavix 75 mg daily. Patient is also on lisinopril 5 mg daily. 06/08/2017 Patient was and examined this morning, went into atrial fibrillation with rapid ventricular response, after he received his beta carine heart rate down into the 80s and 90s. He continues to be in A. fib at the time of my examination. IV heparin drip was initiated. Patient will need to be initiated also on anticoagulation. Therefore he will be on a triple therapy for a period of time. He is not covered for xarelto, however Eliquis will be provided to the patient had no charge. Therefore we will initiate Eliquis on him. Overall the patient feels well, he denies any chest pain, no difficulty in breathing. Echocardiogram with Doppler study revealed an ejection fraction of 50-55%. CBC is normal. Sodium 139, potassium 4.5, BUN 15, creatinine 0.9. Objective - Vital Signs Vital signs: Vital Signs Temp 97.6 F 06/08/17 07:51 Pulse 120 H 06/08/17 07:51 Resp 16 06/08/17 07:51 BP 127/94 06/08/17 07:51 Pulse Ox 98 06/08/17 07:51 Intake & Output 06/07/17 06/08/17 06/08/17 18:59 06:59 18:59 Intake Total 1360 510 360 Output Total 2110 150 Balance -750 360 360 Weight 123.6 kg 121.2 kg Intake: IV 30 Invasive Line 2 30 Oral 1360 480 360 Output: Urine 2110 150 Other: Voiding Method Urinal Urinal # Voids 5 1 # Bowel Movements 1 - Exam PHYSICAL EXAMINATION: HEENT: Head is atraumatic, normocephalic. Pupils equal, round. Neck is supple. There is no elevated jugular venous pressure. HEART EXAMINATION: Heart S1, S2 irregularly irregular . No murmur or gallop heard. CHEST EXAMINATION: Lungs are clear to auscultation and precussion. No chest wall tenderness is noted on palpation or with deep breathing. ABDOMEN: Soft, nontender. Bowel sounds are heard. No organomegaly noted. Right groin soft, no evidence of any hematoma. EXTREMITIES: 2+ peripheral pulses with no evidence of peripheral edema and no calf tenderness noted. NEUROLOGIC patient is awake, alert and oriented -3. . - Labs CBC & Chem 7: 06/08/17 05:53 06/08/17 05:57 Labs: Abnormal Lab Results - Last 24 Hours (Table) 06/07/17 06/08/17 Range/Units 05:20 05:57 Glucose 100 H (74-99) mg/dL Total Creatine Kinase 934 H (55-170) U/L CK-MB (CK-2) 65.2 H* (0.0-2.4) ng/mL Troponin I 44.800 H* (0.000-0.034) ng/mL Assessment and Plan Plan: Assessment and plan #1 acute myocardial infarction, status post angioplasty and stenting of the ramus intermediate artery. Echocardiogram with Doppler study revealed a normal left ventricular systolic function #2 hyperlipidemia #3 paroxysmal atrial fibrillation Plan Patient has been initiated on IV heparin, we will start the patient on Eliquis discontinue the heparin. Continue metoprolol for heart rate control as well as post-[place], we will also continue baby aspirin along with Plavix. Patient will be on triple antiplatelet therapy on discharge. Plan for possible discharge home in 24-48 hours. DNP note has been reviewed, I agree with a documented findings and plan of care. Patient was seen and examined.
[2017-06-08] MEDS ORDERED: METOPROLOL TARTRATE 12.5 MG TAB PO STA (11:18)
[2017-06-08] MEDS: APIXABAN 2.5 MG TABLET PO SCH ×2 (12:16→19:42)
[2017-06-08] MEDS: LISINOPRIL 5 MG TAB PO SCH (15:35)
[2017-06-08] MEDS ORDERED: WARFARIN 7.5 MG TAB PO ONE (18:00)
[2017-06-08] MEDS: ATORVASTATIN 80 MG TAB PO SCH (19:42)
[2017-06-08] MEDS: METOPROLOL TARTRATE 25 MG TAB PO SCH (19:42)
[2017-06-09 05:44] VITALS: TEMP 97.1
[2017-06-09 06:49] LABS: Basophils # (A) 0.1 k/uL (0-0.2); Basophils % (A) 1 %; Eosinophils # (A) 0.2 k/uL (0-0.7); Eosinophils % (A) 2 %; HCT 50.1 % (39.0-53.0); HGB 16.3 gm/dL (13.0-17.5); Lymphocytes # (A) 1.8 k/uL (1.0-4.8); Lymphocytes % (A) 17 %; MCH 31.2 pg (25.0-35.0); MCHC 32.6 g/dL (31.0-37.0); MCV 95.6 fL (80.0-100.0); Mean Platelet Volume 7.6; Monocytes # (A) 0.7 k/uL (0-1.0); Monocytes % (A) 6 %; Neutrophils % (A) 74 %; Platelet Count 217 k/uL (150-450); RBC 5.24 m/uL (4.30-5.90); RDW 13.4 % (11.5-15.5); WBC 10.8 k/uL (3.8-10.6)
[2017-06-09] MEDS ORDERED: CLOPIDOGREL 75 MG TAB PO SCH (09:00)
--- NOTE | 2017-06-09 09:16 | P.PN ---
Subjective Progress Note Date: 06/09/17 Principal diagnosis: acute coronary event this is a pleasant 66-year-old gentleman presented to the hospital with a chest discomfort and underwent a heart catheterization and stenting of the ramus intermedius coronary artery. Subsequently he developed A. fib and he converted to normal sinus mechanism. From the cardiac vascular standpoint of view, he denies having any chest pain or discomfort or difficulty breathing or heart racing or fluttering. The patient can be discharged home. Objective - Vital Signs Vital signs: Vital Signs Temp 97.1 F L 06/09/17 04:00 Pulse 74 06/09/17 04:00 Resp 16 06/09/17 04:00 BP 112/65 06/09/17 04:00 Pulse Ox 98 06/09/17 04:00 Intake & Output 06/08/17 06/09/17 06/09/17 18:59 06:59 18:59 Intake Total 960 480 Output Total 100 300 Balance 860 180 Weight 121.5 kg Intake: Oral 960 480 Output: Urine 100 300 Other: Voiding Method Toilet Toilet Urinal Urinal # Voids 1 - Constitutional General appearance: Present: no acute distress - Respiratory Respiratory: bilateral: CTA - Cardiovascular Rhythm: regular Heart sounds: normal: S1, S2 - Labs CBC & Chem 7: 06/09/17 05:57 06/08/17 05:57 Labs: Abnormal Lab Results - Last 24 Hours (Table) 06/09/17 Range/Units 05:57 WBC 10.8 H (3.8-10.6) k/uL Neutrophils # 8.0 H (1.3-7.7) k/uL Assessment and Plan Assessment: assessment #1 CAD and status post a stenting of the ramus intermedius #2 paroxysmal atrial fibrillation Plan #1 continue the current medical treatment including dual antiplatelet as well as anticoagulation #2 the patient can be discharged home.
[2017-06-09] MEDS: APIXABAN 2.5 MG TABLET PO SCH (09:25)
[2017-06-09] MEDS: LISINOPRIL 5 MG TAB PO SCH (09:25)
[2017-06-09] MEDS: METOPROLOL TARTRATE 25 MG TAB PO SCH (09:25)
[2017-06-09] MEDS: ASPIRIN 81 MG PO SCH (09:26)
--- NOTE | 2017-06-09 09:29 | P.DS ---
Providers Date of admission: 06/06/17 14:31 Expected date of discharge: 06/09/17 Attending physician: Marvin Martinez MD Consults: 06/06/17 14:31 Consult Physician Stat Consulting Provider: Mateo Cazares Consult Reason/Comments: STEMI/ New LBBB Do you want consulting provider notified?: Already Contacted 06/06/17 15:46 Consult Physician Routine Consulting Provider: [facility] Consult Reason/Comments: Post Interventional patient Do you want consulting provider notified?: Already Contacted Primary care physician: Chad Anders - Discharge Diagnosis(es) (1) STEMI (ST elevation myocardial infarction) Current Visit: Yes Status: Acute (2) Left bundle branch block (LBBB) Current Visit: Yes Status: Acute (3) Dyslipidemia Current Visit: Yes Status: Acute (4) A-fib Current Visit: Yes Status: Acute (5) Hypertensive urgency Current Visit: Yes Status: Acute (6) Morbid obesity Current Visit: Yes Status: Acute Hospital Course: Patient is a 66-year-old male with prostate cancer, prior tobacco abuse, and morbid obesity who presented to the ER with complaints of chest pain. Earlier in the day he underwent outpatient stress testing and had some shortness of breath but no significant abnormalities, after he arrived back home the chest pain started. On arrival to the ER his blood pressure was slightly elevated at 182/93. EKG showed left bundle branch block. His troponin was slightly elevated. His laboratory analysis was otherwise unremarkable. A code STEMI was called and cardiology proceeded to the ER. He went directly from the ER to the labor relations officer and received a drug-eluting stent to the ramus intermedius. He was than admitted to the ICU. His blood pressures improved overnight. On 06/07 he was able to be transferred to the selective care unit. Echo showed preserved ejection fraction. He went into A fib on the morning of 06/08 with a heart rate of 120. He was stated on a heparin gtt and then transitioned to eliquis. He spontaneously converted to sinus rhythm. He was up ambulating and chest pain free. He was determined stable for discharge. He will need to be off work for 1 month. He will follow with Dr. Mckinley and Dr. Cazares. He has no prescription coverage at this time and was given a coupon for Eliquis and good RX coupon for plavix. He was discharged home in stable condition. Patient seen and examined at bedside. No chest pain, shortness of breath, nausea, or vomiting. Is and up and walking the hallways without difficulty. We did discuss resuming exercise after discharge. He is aware he needs to be off work. He is aware of the importance of taking his dual antiplatelet therapy. Vital signs reviewed and stable. General: non toxic, no distress, appears at stated age, obese Derm: warm, dry Head: atraumatic, normocephalic, symmetric Eyes: EOMI, no lid lag, anicteric sclera Mouth: no lip lesion, mucus membranes moist Cardiovascular: S1S2 reg, no murmur, positive posterior tibial pulse bilateral, Lungs: CTA bilateral, no rhonchi, no rales , no accessory muscle use Abdominal: soft, nontender to palpation, no guarding, no appreciable organomegaly Ext: no gross muscle atrophy, no edema, no contractures Neuro: CN II-XI grossly intact, no focal neuro deficits Psych: Alert, oriented, appropriate affect A total of 40 minutes of time were spent preparing this complex discharge summary . Pertinent Studies: Echocardiogram-preserved ejection fraction with EF 50-55%, mild LVH Procedures: Cardiac catheterization with PCI to ramus intermedius Patient Condition at Discharge: Serious Plan - Discharge Summary Discharge Rx Participant: No New Discharge Prescriptions: New Atorvastatin [Lipitor] 80 mg PO HS #30 tab Clopidogrel [Plavix] 75 mg PO DAILY #30 tab Lisinopril [Zestril] 5 mg PO DAILY #30 tab Metoprolol Tartrate [Lopressor] 12.5 mg PO BID #60 tab Nitroglycerin Sl Tabs [Nitrostat] 0.4 mg SUBLINGUAL Q5M PRN #25 tab PRN Reason: Chest Pain Apixaban [Eliquis] 2.5 mg PO BID #60 tablet Continue Aspirin EC [Ecotrin Low Dose] 243 mg PO ONCE PRN PRN Reason: Chest Pain Discharge Medication List Aspirin EC [Ecotrin Low Dose] 243 mg PO ONCE PRN 06/06/17 [History] Atorvastatin [Lipitor] 80 mg PO HS #30 tab 06/08/17 [Rx] Clopidogrel [Plavix] 75 mg PO DAILY #30 tab 06/08/17 [Rx] Lisinopril [Zestril] 5 mg PO DAILY #30 tab 06/08/17 [Rx] Metoprolol Tartrate [Lopressor] 12.5 mg PO BID #60 tab 06/08/17 [Rx] Nitroglycerin Sl Tabs [Nitrostat] 0.4 mg SUBLINGUAL Q5M PRN #25 tab 06/08/17 [Rx ] Apixaban [Eliquis] 2.5 mg PO BID #60 tablet 06/09/17 [Rx] Follow up Appointment(s)/Referral(s): Chad Anders DO [Primary Care Provider] - 1-2 days aMteo Cazares MD [STAFF PHYSICIAN] - 1 Week Patient Instructions/Handouts: A-fib (Atrial Fibrillation) (DC), Coronary Intravascular Stent Placement (DC) Activity/Diet/Wound Care/Special Instructions: Free 30 day coupon given to patient for Eliquis. Patient instructed to call [phone] to apply for patient assistance program. May obtain samples from [facility] Heart health diet Activity as tolerated Discharge/Stand Alone Forms: Work/School Release, Work/Release Restrictions Form, Work/School Release / Restrict
[2017-06-09 09:44] VITALS: BP 116/69; PULSE 73; RESP 18
== END 2017-06-09 11:55 | disposition home or self-care (01) | DRG 247 ==
LOC: EC 14:00 → 6ICU 14:31 → 6SEL 06-07 16:00
PROVIDERS: ADMIT Family Medicine; ATTEND Family Medicine
PROC: B2111ZZ Fluoroscopy of Multiple Coronary Arteries using Low Osmolar Contrast (ICD-10-PCS; 2017-06-06)
PROC: 027035Z Dilation of Coronary Artery, One Artery with Two Drug-eluting Intraluminal Devices, Percutaneous Approach (ICD-10-PCS; principal; 2017-06-06 14:35)
PROC: 4A023N7 Measurement of Cardiac Sampling and Pressure, Left Heart, Percutaneous Approach (ICD-10-PCS; 2017-06-06 14:35)
DX: I21.29 ST elevation (STEMI) myocardial infarction involving other sites (principal); E66.01 Morbid (severe) obesity due to excess calories; I48.0 Paroxysmal atrial fibrillation; I44.7 Left bundle-branch block, unspecified; E78.5 Hyperlipidemia, unspecified; I16.0 Hypertensive urgency; I25.10 Atherosclerotic heart disease of native coronary artery without angina pectoris; K59.09 Other constipation; I10 Essential (primary) hypertension; Z85.46 Personal history of malignant neoplasm of prostate; Z87.891 Personal history of nicotine dependence; Z82.49 Family history of ischemic heart disease and other diseases of the circulatory system; Z71.3 Dietary counseling and surveillance
CPT/HCPCS: 36415; 71045; 80048; 80053; 80061; 82550; 82553; 83036; 83735; 84484; 85025; 85610; 85730; 93005; 93306; 93458; 96374; 99285

== ENCOUNTER → 2017-06-06 | Outpatient (CLI) | payer MEDICARE ==
--- NOTE | 2017-06-06 22:30 | EST ---
EXERCISE STRESS DATE OF SERVICE: 06/06/17 AGE: 66 SEX: Male HT: 5'10" WT: 277 lb PROTOCOL: Stress echo/Jerrod protocol. STAGE: II DURATION OF EXERCISE: 6.20 minutes HEART RATE REST: 79 BLOOD PRESSURE REST: 138/85 MAXIMUM HEART RATE ACHIEVED: 140 MAXIMUM BLOOD PRESSURE: 168/54 85% MPHR: 132 100% MPHR: 155 METS: 7.5 INDICATIONS: Chest pain. CLINICAL INFORMATION: Chest pain. RESULTS: Baseline EKG revealed a left bundle branch block pattern with repolarization abnormality. Patient walked on a standard Jerrod protocol for 6 minutes and 20 seconds achieved a maximal heart rate of 140 beats per minute which is more than 85% of predicted maximal. He developed fatigue and shortness of breath but did not have angina. EKG remained inconclusive. By EKG criteria, this is an inconclusive stress test with underlying bundle branch block. Rare isolated PVCs were noted in the recovery. Baseline echo images revealed some asymmetric septal contractility. At peak exercise, there was improvement in contractility noted and the septal contractility remained somewhat asymmetric. There was improvement in left ventricular contractility noted in all segments except in the septum where there seems to be some asymmetric movement. IMPRESSION: 1. Fair exercise capacity with inconclusive stress test by EKG criteria. 2. Somewhat suboptimal images, but overall no clear-cut ischemia is noted on the stress echocardiogram. Septal contractility remains asymmetric and this may be related to underlying bundle branch block. MMODL / IJN: [id number] /
== END | disposition home or self-care (01) ==
LOC: RADNMMAIN 08:18
PROVIDERS: ATTEND Family Medicine
DX: R94.31 Abnormal electrocardiogram [ECG] [EKG] (principal); R07.9 Chest pain, unspecified
CPT/HCPCS: 93017; 93350

== ENCOUNTER → 2018-01-27 | Outpatient (CLI) | payer MEDICARE ==
--- NOTE | 2018-01-27 07:48 | MR ---
EXAMINATION TYPE: MR lumbar spine wo con DATE OF EXAM: 01/27/2018 COMPARISON: NONE HISTORY: Low back pain with radiculopathy per order. Constant lower back pain into buttocks and down legs for 3 months per patient. TECHNIQUE: Multiplanar, multisequence imaging of the lumbar spine is performed without IV contrast. FINDINGS: Sagittal images of the lumbar spine show vertebral body heights and alignment to appear sat isfactory. Multilevel disc desiccation is seen. There is multilevel mild disc space narrowing with re lative sparing of L3-L4 and L4-L5 levels. Multilevel small posterior disc herniations are seen on sag ittal images. In addition there is low intense projection causing significant spinal canal stenosis L 4-L5 level sagittal image 7 favoring facet arthropathy and projecting osteophyte. The conus medullari s is somewhat high in position ending at mid T12 level without suspicious signal or clumping of lumbo sacral nerve roots. The bone marrow signal intensity is within normal limits. Mild to minimal multil evel anterior spurring is seen. Axial images at T12-L1 level shows mild broad disc bulge minimally effacing anterior thecal sac, bila teral neural foramina are patent. Axial images at the L1-L2 level show mild to moderate broad disc bulge with right paracentral disc pr otrusion component effacing anterior thecal sac on axial image 22. Bilateral neural foramina remain p atent. Axial images at L2-L3 level show mild/moderate broad-based posterior disc protrusion effacing anterio r thecal sac and causing mild bilateral anterior inferior neural foraminal narrowing. Axial images at the L3-L4 level show mild facet degenerative changes bilaterally. There is mild broad disc bulge minimally effacing anterior thecal sac. There is mild to moderate bilateral anterior infe rior neural foraminal narrowing at this level identified. Some encroachment along inferior margin of both L3 nerves, right greater than left is felt present on sagittal images. Axial images at the L4-L5 level show advanced facet degenerative changes and ligamentum flavum hypert rophy with prominent osteophyte on the right significantly effacing posterior lateral aspect of spina l canal axial image 8. There is moderate broad-based posterior disc protrusion effacing anterior thec al sac. Spinal canal stenosis is noted with significant AP diameter compression on axial image 7. The re is mild to moderate bilateral anterior inferior neural foraminal narrowing encroachment along infe rior margin of both L4 nerves, right greater than left seen on sagittal images. Axial images at the L5-S1 level show mild right greater left facet degenerative changes. There is bro ad-based right paracentral disc protrusion minimally effacing anterior thecal sac. Right-sided neural foramina shows mild anterior inferior neural foraminal narrowing encroaching along inferior margin r ight L5 nerve sagittal image 10. Left-sided neural foramen is patent. No suspicious incidental retroperitoneal findings are seen. IMPRESSION: Multilevel degenerative changes in lumbar spine as detailed above, most prominent finding s are L3-L4 through the L5-S1 levels. Significant spinal canal effacement or stenosis due to facet ar thropathy noted L4-L5 level.
== END | disposition home or self-care (01) ==
LOC: RADMRIMAIN 05:59
PROVIDERS: ATTEND Family Medicine
DX: M48.061 Spinal stenosis, lumbar region without neurogenic claudication (principal); M99.73 Connective tissue and disc stenosis of intervertebral foramina of lumbar region; M51.26 Other intervertebral disc displacement, lumbar region; M47.817 Spondylosis without myelopathy or radiculopathy, lumbosacral region; M46.96 Unspecified inflammatory spondylopathy, lumbar region
CPT/HCPCS: 72148

== ENCOUNTER 2019-05-29 14:35 | Inpatient (IN) | payer MEDICARE ==
[2019-05-29] MEDS ORDERED: MORPHINE SULFATE 2 MG/ML SYRINGE IVP STA (14:42)
--- NOTE | 2019-05-29 14:45 | ED ---
General Adult HPI - General Stated complaint: chest pain Time Seen by Provider: 05/29/19 14:36 Source: patient, RN notes reviewed, old records reviewed - History of Present Illness Initial comments: 68-year-old male history of coronary artery disease presenting with substernal chest pain and pressure, initially 10 out of 10 this began approximately one hour prior to arrival. Patient has known history of coronary artery disease. He reports associated nausea and one episode of vomiting. He was diaphoretic. He was transported by EMS. Chest pain began while the patient was at work. He been given a total of 3 sublingual nitroglycerin by EMS with improvement in his pain. He was given 325 mg of aspirin and Zofran prior to arrival. He states this pain is very similar to previous [place]. He has been noncompliant with his m edications at home, is uncertain exactly when he has been prescribed but has not been taking these daily. Uncertain if he is on blood thinners. Not currently taking aspirin. - Related Data Home Medications Medication Instructions Recorded Confirmed Aspirin EC [Ecotrin Low Dose] 243 mg PO ONCE PRN 06/06/17 06/06/17 Previous Rx's Medication Instructions Recorded Atorvastatin [Lipitor] 80 mg PO HS #30 tab 06/08/17 Clopidogrel [Plavix] 75 mg PO DAILY #30 tab 06/08/17 Lisinopril [Zestril] 5 mg PO DAILY #30 tab 06/08/17 Metoprolol Tartrate [Lopressor] 12.5 mg PO BID #60 tab 06/08/17 Nitroglycerin Sl Tabs [Nitrostat] 0.4 mg SUBLINGUAL Q5M PRN #25 tab 06/08/17 Apixaban [Eliquis] 2.5 mg PO BID #60 tablet 06/09/17 Allergies Allergy/AdvReac Type Severity Reaction Status Date / Time No Known Allergies Allergy Verified 05/29/19 14:41 Review of Systems ROS Statement: Those systems with pertinent positive or pertinent negative responses have been documented in the HPI. ROS Other: All systems not noted in ROS Statement are negative. Past Medical History Past Medical History: Cancer, Pneumonia Additional Past Medical History / Comment(s): prostate cancer sx only, rt heel spur History of Any Multi-Drug Resistant Organisms: None Reported Past Surgical History: Prostate Surgery, Tonsillectomy Additional Past Surgical History / Comment(s): 06-06-17 heart cath w/2 stents to ramus.prostatectomy d/t cancer (2013) Past Anesthesia/Blood Transfusion Reactions: No Reported Reaction Smoking Status: Former smoker - Past Family History Father Family Medical History: Hypertension, Myocardial Infarction ([place]) Additional Family Medical History / Comment(s): Father with myocardial infarction at age 75 Mother Family Medical History: No Reported History Additional Family Medical History / Comment(s): broke her hip ended up in [facility]- age 95 General Exam General appearance: alert, in no apparent distress Head exam: Present: atraumatic, normocephalic Eye exam: Present: normal appearance, PERRL ENT exam: Present: normal exam Neck exam: Present: normal inspection. Absent: tenderness, meningismus Respiratory exam: Present: normal lung sounds bilaterally. Absent: respiratory distress, wheezes Cardiovascular Exam: Present: regular rate, normal rhythm GI/Abdominal exam: Present: soft. Absent: distended, tenderness, guarding Extremities exam: Present: normal inspection, normal capillary refill. Absent: pedal edema Neurological exam: Present: alert, oriented X3 Psychiatric exam: Present: normal affect, normal mood Skin exam: Present: warm, normal color, diaphoretic. Absent: cyanosis Course Vital Signs 05/29/19 05/29/19 05/29/19 14:36 15:03 15:16 Temperature 97.5 F L Pulse Rate 64 63 64 Respiratory 18 18 18 Rate Blood Pressure 112/61 120/70 108/92 O2 Sat by Pulse 97 98 98 Oximetry 05/29/19 05/29/19 05/29/19 15:29 15:43 15:53 Temperature Pulse Rate 61 60 62 Respiratory 18 18 18 Rate Blood Pressure 119/70 115/69 126/69 O2 Sat by Pulse 97 99 98 Oximetry 05/29/19 05/29/19 16:07 16:18 Temperature 97.7 F Pulse Rate 62 58 L Respiratory 18 18 Rate Blood Pressure 118/74 104/70 O2 Sat by Pulse 98 97 Oximetry - Reevaluation(s) Reevaluation #1: 05/29/19 16:10 Reevaluation #2: 05/29/19 16:47 Patient has improved pain, 1\10 on nitro infusion. EKG Findings - EKG Comments: EKG Findings:: EKG: Sinus rhythm with PVC, left axis deviation, left bundle branch block, rate of 87, DE interval 188, QRS duration 150, QTC 505 history of left bundle similar compared to previous EKG in May 2017. Medical Decision Making - Medical Decision Making 68-year-old male history of CAD noncompliant with medications presenting for evaluation of typical chest pain which began just shortly prior to arrival. EKG showed a left bundle branch block which the patient does have history of. This does not meet Scar[place] criteria. Chest x-ray performed showing concern for pulmonary edema. Patient remains symptomatic, is initiated on heparin and nitroglycerin infusion with significant improvement in his pain. Initial troponin is 0.024. Patient has normal CBC, stable hemoglobin, normal kidney function. I did discuss case both with the admitting physician Dr. Lorenzo. Patient will be admitted for serial enzymes, telemetry, cardiology consult. - Lab Data Result diagrams: 05/29/19 14:45 05/29/19 14:45 Lab Results 05/29/19 05/29/19 05/29/19 Range/Units 14:45 14:45 14:45 WBC 10.1 (3.8-10.6) k/uL RBC 4.69 (4.30-5.90) m/uL Hgb 15.0 (13.0-17.5) gm/dL Hct 45.1 (39.0-53.0) % MCV 96.1 (80.0-100.0) fL MCH 31.9 (25.0-35.0) pg MCHC 33.2 (31.0-37.0) g/dL RDW 12.9 (11.5-15.5) % Plt Count 223 (150-450) k/uL Neutrophils % 75 % Lymphocytes % 16 % Monocytes % 6 % Eosinophils % 2 % Basophils % 1 % Neutrophils # 7.6 (1.3-7.7) k/uL Lymphocytes # 1.6 (1.0-4.8) k/uL Monocytes # 0.6 (0-1.0) k/uL Eosinophils # 0.2 (0-0.7) k/uL Basophils # 0.1 (0-0.2) k/uL PT 10.3 (9.0-12.0) sec INR 1.0 (<1.2) APTT 22.7 (22.0-30.0) sec Sodium 138 (137-145) mmol/L Potassium 4.6 (3.5-5.1) mmol/L Chloride 107 (98-107) mmol/L Carbon Dioxide 19 L (22-30) mmol/L Anion Gap 12 mmol/L BUN 22 H (9-20) mg/dL Creatinine 1.18 (0.66-1.25) mg/dL Est GFR (CKD-EPI)AfAm 73 (>60 ml/min/1.73 sqM) Est GFR (CKD-EPI)NonAf 64 (>60 ml/min/1.73 sqM) Glucose 137 H (74-99) mg/dL Calcium 8.9 (8.4-10.2) mg/dL Magnesium 2.0 (1.6-2.3) mg/dL Total Bilirubin 0.5 (0.2-1.3) mg/dL AST 36 (17-59) U/L ALT 13 (4-49) U/L Alkaline Phosphatase 70 (38-126) U/L Troponin I (0.000-0.034) ng/mL NT-Pro-B Natriuret Pep pg/mL Total Protein 7.4 (6.3-8.2) g/dL Albumin 4.3 (3.5-5.0) g/dL 05/29/19 05/29/19 Range/Units 14:45 14:45 WBC (3.8-10.6) k/uL RBC (4.30-5.90) m/uL Hgb (13.0-17.5) gm/dL Hct (39.0-53.0) % MCV (80.0-100.0) fL MCH (25.0-35.0) pg MCHC (31.0-37.0) g/dL RDW (11.5-15.5) % Plt Count (150-450) k/uL Neutrophils % % Lymphocytes % % Monocytes % % Eosinophils % % Basophils % % Neutrophils # (1.3-7.7) k/uL Lymphocytes # (1.0-4.8) k/uL Monocytes # (0-1.0) k/uL Eosinophils # (0-0.7) k/uL Basophils # (0-0.2) k/uL PT (9.0-12.0) sec INR (<1.2) APTT (22.0-30.0) sec Sodium (137-145) mmol/L Potassium (3.5-5.1) mmol/L Chloride (98-107) mmol/L Carbon Dioxide (22-30) mmol/L Anion Gap mmol/L BUN (9-20) mg/dL Creatinine (0.66-1.25) mg/dL Est GFR (CKD-EPI)AfAm (>60 ml/min/1.73 sqM) Est GFR (CKD-EPI)NonAf (>60 ml/min/1.73 sqM) Glucose (74-99) mg/dL Calcium (8.4-10.2) mg/dL Magnesium (1.6-2.3) mg/dL Total Bilirubin (0.2-1.3) mg/dL AST (17-59) U/L ALT (4-49) U/L Alkaline Phosphatase (38-126) U/L Troponin I 0.024 (0.000-0.034) ng/mL NT-Pro-B Natriuret Pep 130 pg/mL Total Protein (6.3-8.2) g/dL Albumin (3.5-5.0) g/dL Critical Care Time Critical Care Time: Yes Total Critical Care Time: 35 Disposition Clinical Impression: Left bundle branch block (LBBB), Unstable angina pectoris Disposition: ADMITTED IP TO THIS [facility] Condition: Stable Is patient prescribed a controlled substance at d/c from ED?: No Decision to Admit Reason: Admit from EC Decision Date: 05/29/19 Decision Time: 16:11
[2019-05-29 14:58] LABS: Basophils # (A) 0.1 k/uL (0-0.2); Basophils % (A) 1 %; Eosinophils # (A) 0.2 k/uL (0-0.7); Eosinophils % (A) 2 %; HCT 45.1 % (39.0-53.0); Lymphocytes # (A) 1.6 k/uL (1.0-4.8); Lymphocytes % (A) 16 %; MCH 31.9 pg (25.0-35.0); MCHC 33.2 g/dL (31.0-37.0); MCV 96.1 fL (80.0-100.0); Monocytes # (A) 0.6 k/uL (0-1.0); Monocytes % (A) 6 %; Neutrophils # (A) 7.6 k/uL (1.3-7.7); Neutrophils % (A) 75 %; Platelet Count 223 k/uL (150-450); RBC 4.69 m/uL (4.30-5.90); RDW 12.9 % (11.5-15.5); WBC 10.1 k/uL (3.8-10.6)
[2019-05-29] MEDS ORDERED: NITROGLYCERIN-D5W PMX 50 MG in DEXTROSE/WATER 1 250ML.BAG IV ONE (14:59)
[2019-05-29] MEDS ORDERED: MORPHINE SULFATE 4 MG/ML SYRINGE IVP STA (15:00)
[2019-05-29] MEDS ORDERED: HEPARIN SODIUM,PORCINE 5,000 UNIT/ML 1 ML VIAL IV ONE (15:00)
[2019-05-29] MEDS ORDERED: HEPARIN SODIUM,PORCINE 5,000 UNIT/ML 1 ML VIAL IV PRN (15:00)
[2019-05-29] MEDS ORDERED: HEPARIN SOD,PORK IN 0.45% NACL 25,000 UNIT in 0.45% NACL 1 250ML.BAG IV SCH (15:00)
--- NOTE | 2019-05-29 15:02 | XR ---
EXAMINATION TYPE: XR chest 1V portable DATE OF EXAM: 05/29/2019 COMPARISON: Chest x-ray June 06, 2017. HISTORY: Chest pain. TECHNIQUE: Single frontal view of the chest is obtained. FINDINGS: The cardiac silhouette size is enlarged. There is poor inspiration with patchy bibasilar o pacities and increased bilateral and interstitial reticulonodular markings. Overlying EKG leads. The osseous structures are intact. IMPRESSION: Poor inspiration on current study. Cardiomegaly with mild interstitial edema and/or infi ltrates along with patchy right greater than left bibasilar atelectasis and/or infiltrate. Progress t wo-view chest x-ray advised.
[2019-05-29 15:08] LABS: Partial Thromboplastin Time 22.7 sec (22.0-30.0); Prothrombin Time 10.3 sec (9.0-12.0)
[2019-05-29 15:11] LABS: Albumin 4.3 g/dL (3.5-5.0); Calcium 8.9 mg/dL (8.4-10.2); Potassium 4.6 mmol/L (3.5-5.1); Total Bilirubin 0.5 mg/dL (0.2-1.3); Total Protein 7.4 g/dL (6.3-8.2)
[2019-05-29] MEDS ORDERED: ACETAMINOPHEN TAB 325 MG TAB PO PRN (16:03)
[2019-05-29] MEDS ORDERED: NALOXONE 0.4 MG/ML 1 ML VIAL IV PRN (16:03)
[2019-05-29] MEDS ORDERED: HYDROmorphone 0.5 MG/0.5 ML SYRINGE IVP PRN (16:03)
[2019-05-29] MEDS ORDERED: HYDROmorphone 0.5 MG/0.5 ML SYRINGE IVP STA (17:53)
[2019-05-29] MEDS: SODIUM CHLORIDE 0.9% 1,000 ML IV SCH (18:00)
[2019-05-29 18:31] LABS: Glucose,Whole Blood 123 mg/dL (75-99)
--- NOTE | 2019-05-29 22:10 | P.HPIM ---
History of Present Illness H&P Date: 05/29/19 Chief Complaint: Chest pain History of presenting complaint: This is a very pleasant 68 year patient of . Patient back in May 2017 had a coronary stent placed. Today while at work developed pressure across the chest. Rather significant. Became nauseated and dizzy lightheaded, broke out in a sweats felt tired. When down the left arm. Presented to the ER. Admitted with unstable angina. Starting IV heparin. Pain persisted was put on IV nitroglycerin drip. Moved to the ICU. Pain is then settled down. Cardiology was consulted. Currently chest pain-free. Patient does not take his cholesterol-lowering medication regularly Review of systems: GEN.: Tired EYES: None HEENT: None NECK: None RESPIRATORY: As above CARDIOVASCULAR: As above GASTROINTESTINAL: None GENITOURINARY: None MUSCULOSKELETAL: None LYMPHATICS: None HEMATOLOGICAL: None PSYCHIATRY: None NEUROLOGICAL: None Past medical history to include: Coronary artery disease with stent in May 2017, prostate cancer treated with surgery, hyperlipidemia, low back pain Social history: Patient smoked for about 20 years stopped in 2012. . 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 EYES: Pupils equal. Conjunctiva normal. HEENT: External appearance of nose and ears normal, oral cavity grossly normal. NECK: JVD not raised; masses not palpable. HEART: First and second heart sounds are normal; no edema. LUNGS: Respiratory rate normal; clear to auscultation. ABDOMEN: Soft, nontender, liver spleen not palpable, no masses palpable. PSYCH: Alert and oriented x3; mood and affect normal. NEUROLOGICAL: Cranial nerves grossly intact; no facial asymmetry, power and sensation grossly intact. LYMPHATICS: No lymph nodes palpable in the axilla and neck INVESTIGATIONS, reviewed in the clinical context: White count 10.1 hemoglobin 15 platelets 223 potassium 4.6 bun 23 creatinine 1.18 Troponin I 0.0-4 EKG tracing personally reviewed by me-left bundle-branch block, PVCs Chest x-ray film-not good quality. Some cardiomegaly Assessment: -Unstable angina in a patient with known coronary artery disease -Coronary artery disease a prior stent in May 2017 -Hyperlipidemia -Morbid obesity BMI 41.4 -IV heparin monitoring Plan: Patient is on IV heparin, nitroglycerin drip. We'll add aspirin, Lipitor, low- dose beta carine his heart rate is in the 60s. Spoke to nurse to keep the patient nothing by mouth after midnight for possible cardiac catheterization. Care was discussed the patient. Past Medical History Past Medical History: Cancer, Pneumonia Additional Past Medical History / Comment(s): prostate cancer sx only, rt heel spur History of Any Multi-Drug Resistant Organisms: None Reported Past Surgical History: Prostate Surgery, Tonsillectomy Additional Past Surgical History / Comment(s): 06-06-17 heart cath w/2 stents to ramus.prostatectomy d/t cancer (2012) Past Anesthesia/Blood Transfusion Reactions: No Reported Reaction Smoking Status: Former smoker - Past Family History Father Family Medical History: Hypertension, Myocardial Infarction ([place]) Additional Family Medical History / Comment(s): Father with myocardial infarction at age 75 Mother Family Medical History: No Reported History Additional Family Medical History / Comment(s): broke her hip ended up in [facility]- age 95 Medications and Allergies Home Medications Medication Instructions Recorded Confirmed Type Nitroglycerin Sl Tabs [Nitrostat] 0.4 mg SUBLINGUAL Q5M PRN #25 tab 06/08/17 05/29/19 Rx traMADol HCL [Ultram] 50 - 100 mg PO Q6H PRN 05/29/19 05/29/19 History Allergies Allergy/AdvReac Type Severity Reaction Status Date / Time No Known Allergies Allergy Verified 05/29/19 18:24 Physical Exam Vitals: Vital Signs Temp Pulse Pulse Resp BP BP Pulse Ox 05/29/19 20:00 97.8 F 59 L 8 L 105/68 92 L 05/29/19 19:30 64 19 105/68 94 L 05/29/19 19:00 62 17 105/68 94 L 05/29/19 18:30 97.6 F 61 15 116/68 96 05/29/19 18:27 68 17 05/29/19 17:08 97.7 F 73 16 119/71 96 05/29/19 16:50 66 19 97/65 95 05/29/19 16:40 68 13 78/49 95 05/29/19 16:30 64 17 104/70 96 05/29/19 16:20 65 18 104/70 95 05/29/19 16:18 97.7 F 58 L 18 104/70 97 05/29/19 16:10 58 L 14 118/74 98 05/29/19 16:07 62 18 118/74 98 05/29/19 16:00 65 9 L 126/69 99 05/29/19 15:53 62 18 126/69 98 05/29/19 15:50 68 22 126/69 99 05/29/19 15:43 60 18 115/69 99 05/29/19 15:40 60 11 L 119/70 96 05/29/19 15:30 78 9 L 97/80 97 05/29/19 15:29 61 18 119/70 97 05/29/19 15:20 61 9 L 108/92 98 05/29/19 15:16 64 18 108/92 98 05/29/19 15:10 67 10 L 120/70 98 05/29/19 15:03 63 18 120/70 98 05/29/19 15:00 65 12 112/61 98 05/29/19 14:50 68 11 L 112/61 98 05/29/19 14:40 98 05/29/19 14:36 97.5 F L 64 18 112/61 97 Intake and Output 05/29/19 05/29/19 05/29/19 06:59 14:59 22:59 Intake Total 43.100 Balance 43.100 Intake: IV 40 Sodium Chloride 0.9% 1, 40 000 ml @ 20 mls/hr IV . Q24H [facility] Rx#:[id number] Intake, IV Titration 3.100 Amount Nitroglycerin-D5w Pmx 50 3.100 mg In Dextrose/Water 1 250ml.bag @ 5 MCG/MIN 1.5 mls/hr IV .Q24H [facility] Rx#: [id number] Oral 0 Other: # Voids 0 Weight 129.274 kg 131 kg Results CBC & Chem 7: 05/29/19 14:45 05/29/19 14:45 Labs: Abnormal Lab Results - Last 24 Hours (Table) 05/29/19 05/29/19 Range/Units 14:45 18:29 Carbon Dioxide 19 L (22-30) mmol/L BUN 22 H (9-20) mg/dL Glucose 137 H (74-99) mg/dL POC Glucose (mg/dL) 123 H (75-99) mg/dL
[2019-05-29] MEDS ORDERED: METOPROLOL TARTRATE 12.5 MG TAB PO SCH (22:15)
[2019-05-29] MEDS: ATORVASTATIN 40 MG TAB PO SCH (22:41)
[2019-05-30 03:28] LABS: Basophils % (A) 0 %; Eosinophils # (A) 0.2 k/uL (0-0.7); Eosinophils % (A) 3 %; HGB 12.7 gm/dL (13.0-17.5); Lymphocytes # (A) 1.2 k/uL (1.0-4.8); Lymphocytes % (A) 14 %; MCH 32.2 pg (25.0-35.0); MCHC 33.4 g/dL (31.0-37.0); MCV 96.6 fL (80.0-100.0); Mean Platelet Volume 8.6; Monocytes # (A) 0.6 k/uL (0-1.0); Monocytes % (A) 7 %; Neutrophils # (A) 6.9 k/uL (1.3-7.7); Neutrophils % (A) 75 %; Platelet Count 188 k/uL (150-450); RBC 3.94 m/uL (4.30-5.90); RDW 13.2 % (11.5-15.5); WBC 9.1 k/uL (3.8-10.6)
[2019-05-30 04:29] LABS: Cholesterol 142 mg/dL (<200); HDL Cholesterol 51 mg/dL (40-60); LDL Cholesterol,Calculated 69 mg/dL (0-99); Triglycerides 112 mg/dL (<150)
[2019-05-30] MEDS: traMADol 50 MG TAB PO PRN ×3 (04:50→23:26)
[2019-05-30] MEDS ORDERED: ATORVASTATIN 80 MG TAB PO STA (07:52)
[2019-05-30] MEDS ORDERED: ALPRAZolam 0.25 MG TAB PO PRN (07:52)
[2019-05-30] MEDS ORDERED: NITROGLYCERIN SL TABS 0.4 MG TAB SUBLINGUAL PRN ×2 (07:52→10:13)
[2019-05-30] MEDS ORDERED: ASPIRIN 325 MG TAB PO STA (07:52)
[2019-05-30] MEDS ORDERED: SODIUM CHLORIDE 0.9% 1,000 ML in EMPTY BAG 1 BAG IV ONE (07:52)
[2019-05-30] MEDS ORDERED: ALPRAZolam 0.5 MG TAB PO PRN (07:52)
[2019-05-30] MEDS ORDERED: fentaNYL (PF) 50 MCG/ML 2 ML AMP ONE (08:58)
[2019-05-30] MEDS ORDERED: VERAPAMIL 2.5 MG/ML 2 ML AMP ONE (08:58)
[2019-05-30] MEDS ORDERED: LIDOCAINE 1% INJ 10MG/ML (20 ML MDV) ONE (08:58)
--- NOTE | 2019-05-30 09:07 | ECHOF ---
Referral Reason:increasing trops MEASUREMENTS -------- HEIGHT: 177.8 cm WEIGHT: 130.6 kg BP: 86/52 RVIDd: 3.5 cm (< 3.3) IVSd: 1.3 cm (0.6 - 1.1) LVIDd: 5.4 cm (3.9 - 5.3) LVPWd: 1.2 cm (0.6 - 1.1) IVSs: 1.8 cm LVIDs: 3.9 cm LVPWs: 1.7 cm LAESV Index (A-L): 33.34 ml/m IVSd: 1.6 cm (0.6 - 1.1) LVIDd: 6.4 cm (3.9 - 5.3) LVPWd: 1.1 cm (0.6 - 1.1) IVSs: 2.3 cm LVIDs: 5.0 cm LVPWs: 1.7 cm EDV(Teich): 208 ml ESV(Teich): 119 ml EF(Teich): 42 % %FS: 21 % SV(Teich): 88 ml Ao Diam: 3.7 cm (2.0 - 3.7) AV Cusp: 2.5 cm (1.5 - 2.6) MV EXCURSION: 22.126 mm (> 18.000) MV EF SLOPE: 90 mm/s (70 - 150) EPSS: 0.9 cm MV E Efra: 0.70 m/s MV DecT: 213 ms MV A Efra: 0.81 m/s MV E/A Ratio: 0.85 RAP: 5.00 mmHg RVSP: 25.41 mmHg FINDINGS -------- Sinus rhythm. This was a technically difficult study with suboptimal apical views. The left ventricular size is normal. There is mild concentric left ventricular hypertrophy. Overa ll left ventricular systolic function is mild-moderately impaired with, an EF between 40 - 45 %. Mi tral Doppler inflow pattern suggests diastolic filling abnormality 12.06. Basal lateral LV wall mot ion is hypokinetic. Basal inferior LV wall motion is hypokinetic. Mid lateral LV wall motion is hypokinetic. Mid inferior LV wall motion is hypokinetic. Apical lateral LV wall motion is hypo kinetic. The right ventricle is mildly enlarged. LA is midly dilated 29-33ml/m2. The right atrium is mildly enlarged. xx ml of Lumason was utilized for enhancement of images. Interatrial and interventricular septum intact. There is mild aortic valve sclerosis. There is no evidence of aortic regurgitation. There is no e vidence of aortic stenosis. Mild mitral annular calcification present. Mild mitral regurgitation is present. Mild tricuspid regurgitation present. There is no evidence of pulmonary hypertension. There is no pulmonic regurgitation present. The aortic root size is normal. IVC Not well visulized. There is no pericardial effusion. CONCLUSIONS -------- 1. Sinus rhythm. 2. This was a technically difficult study with suboptimal apical views. 3. The left ventricular size is normal. 4. There is mild concentric left ventricular hypertrophy. 5. Overall left ventricular systolic function is mild-moderately impaired with, an EF between 40 - 45 %. 6. Mitral Doppler inflow pattern suggest diastolic filling abnormality 12.06. 7. Basal lateral LV wall motion is hypokinetic. 8. Basal inferior LV wall motion is hypokinetic. 9. Mid lateral LV wall motion is hypokinetic. 10. Mid inferior LV wall motion is hypokinetic. 11. The right ventricle is mildly enlarged. 12. LA is midly dilated 29-33ml/m2. 13. The right atrium is mildly enlarged. 14. xx ml of Lumason was utilized for enhancement of images. 15. There is mild aortic valve sclerosis. 16. Mild mitral regurgitation is present. 17. Mild tricuspid regurgitation present. 18. There is no pulmonic regurgitation present. 19. IVC Not well visulized. 20. There is no pericardial effusion. SENIOR VICE PRESIDENT & GENERAL COUNSEL: Myran Villegas RDCS
[2019-05-30] MEDS ORDERED: fentaNYL (PF) 50 MCG/ML 2 ML AMP IVP ONE (09:16)
[2019-05-30] MEDS ORDERED: SODIUM CHLORIDE 0.9% 500 ML 500 ML IV ONE (09:17)
[2019-05-30] MEDS ORDERED: LIDOCAINE 1% INJ 10MG/ML (20 ML MDV) SQ ONE (09:23)
[2019-05-30] MEDS ORDERED: VERAPAMIL SYRINGE (5 MG/10 ML) INTRAARTER ONE (09:25)
[2019-05-30] MEDS ORDERED: MIDAZOLAM 2 MG/2 ML VIAL IVP ONE (09:26)
[2019-05-30] MEDS ORDERED: PRASUGREL 10 MG TAB ONE (09:35)
[2019-05-30] MEDS ORDERED: PRASUGREL 10 MG TAB PO ONE (09:37)
[2019-05-30] MEDS ORDERED: BIVALIRUDIN 250 MG in SODIUM CHLORIDE 0.9% 50 ML IV ONE (09:38)
[2019-05-30] MEDS ORDERED: BIVALIRUDIN BOLUS 250 MG/50 ML IV ONE (09:38)
[2019-05-30] MEDS ORDERED: IOPAMIDOL-370 125ML BTL INJ ONE ×2 (09:48→10:07)
--- NOTE | 2019-05-30 09:53 | CONS ---
CONSULTATION Mr. Parnell is a 68-year-old gentleman who is seen for cardiac evaluation. This patient was admitted through the emergency room with a complaint of chest discomfort. The patient was at work and he started having substernal chest discomfort. The pain was associated with some nausea and diaphoresis. As the pain persisted, he came to the emergency room. The patient was given three sublingual nitroglycerine by EMS with some improvement in the pain. The patient was in the emergency room and was started on nitroglycerin drip and was admitted. The patient has a history of prior myocardial infarction. He is noncompliant with medication. He is not even sure he is taking aspirin or Lipitor. He has been regularly followed by Dr. Heart. EKG showed evidence of left bundle branch block pattern. Initial EKG was unremarkable, however, subsequently, troponins showed a troponin of 4 and 30. The patient remains asymptomatic while in the hospital. HOME MEDICATIONS: The patient has not been taking his medications regularly. PAST MEDICAL HISTORY: Includes a history of prostate cancer, right heel spur, and a history of prior stent placement. PHYSICAL EXAMINATION: At present, reveal a 68-year-old obesely-built gentleman who is not in any acute distress. The patient's blood pressure is 110/70 mmHg. HEENT and neck examinations are unremarkable. Neck is supple. There is no increasing jugular venous pressure. Both the carotid pulses are felt. There is no bruit. Chest is symmetrical. Heart, the PMI is not felt. First and second heart sounds are normal. Lungs are clinically clear to auscultation and percussion. Abdomen was negative. Extremities, peripheral pulsations are 2+. Initial troponin was 0.024. Subsequent troponin is 4.46 and 30.0. The patient's proBNP level is 130. EKG shows left bundle branch block pattern with intermittent PVCs and PACs are noted. FINAL IMPRESSION: This patient's history is suggestive of non-ST segment elevation myocardial infarction. The patient has a past history of a stent to the ramus intermediate branch. The patient's EKG shows left bundle branch block so it is difficult to conclude left bundle branch block pattern is old. The patient is advised further evaluation with a cardiac catheterization for definite diagnosis and further management. MMODL / IJN: [id number] /
[2019-05-30] MEDS ORDERED: RX INFO: IV CONTRAST WAS GIVEN 1 EACH MISC MISCELLANE PRN (10:13)
[2019-05-30] MEDS ORDERED: ATROPINE SULFATE 0.1 MG/ML 10ML SYRINGE IV PRN (10:13)
[2019-05-30] MEDS ORDERED: MAG HYDROX/AL HYDROX/SIMETH 30 ML CUP PO PRN (10:13)
[2019-05-30] MEDS ORDERED: SODIUM CHLORIDE 0.9% 1,000 ML IV SCH (10:15)
--- NOTE | 2019-05-30 11:14 | CC ---
CARDIAC CATHETERIZATION REPORT Mr. Parnell is a 68-year-old male who 2 years ago underwent stenting of the ramus intermedius. The patient has not been compliant with his medication, stopped all his medication. He presented with symptoms of chest discomfort. He has an underlying left bundle branch block and was found to have an elevation of troponin. In view of that, recommendation made regarding cardiac catheterization. The procedure as well as risks, and complications were discussed with the patient who is in full understanding and agreement. PROCEDURE: Patient was brought to manager cath lab in a fasting state after receiving fentanyl and Benadryl and achieving moderate conscious sedated state. Using Xylocaine anesthesia and Seldinger technique, a 6-Turkmen sheath was introduced in the right radial artery. Selective right and left coronary angiography performed using 5-Turkmen 3 and half bend right and left Alessandra catheter and a 6-Turkmen FL 3.5 guiding catheter. After obtaining images of the coronary arteries, angioplasty and stenting were performed. Following that, catheter and sheath were removed. Hemostasis was obtained with deployment of a TR band. There was no immediate complications. Patient was returned to his room in stable condition. The right Alessandra catheter was used to cross the aortic valve and left ventricular end-diastolic pressure was calculated. FINDINGS: Left main: This is a short size vessel bifurcating left circumflex, left anterior descending artery and ramus intermedius. Left main coronary artery has no evidence of high-grade stenosis. Left anterior descending artery: This is a large-sized vessel reaching towards the apex with a wraparound the apex segment giving rise to a moderate diagonal branch. The left anterior descending artery and its branches have no evidence of obstructive coronary artery disease. Left circumflex: This is a nondominant vessel, large in caliber, giving rise to 2 obtuse marginal branches. The left circumflex as well as branches have no evidence of obstructive coronary artery disease. Ramus intermedius: This is a moderately-sized vessel reaching to the apical lateral wall. The mid segment of the ramus intermedius at the site of the distal stent has a 99% stenosis with appearance suggestive of acute thrombus. The rest of the vessel has no high-grade stenosis. Right coronary artery: This is a large dominant vessel, bifurcating distally into PDA and posterolateral segment and branches. The right PDA has a 20% to 30% plaque. The rest of the vessel has no high-grade stenosis. LEFT VENTRICULOGRAM: Left ventricular was not performed. HEMODYNAMICS: There was no gradient across the aortic valve. The left ventricle end-diastolic pressure was 12 to 14 mmHg. CONCLUSION: 1. Critical stenosis involving the ramus intermedius. 2. Mild disease in the right PDA. RECOMMENDATION: In view of findings and anatomy, I have recommend proceeding with angioplasty and stenting of the ramus intermedius. The procedures, risks, and complications were discussed with the patient who is in full understanding and agreement. MMODL / IJN: [id number] /
--- NOTE | 2019-05-30 11:14 | PTCA ---
PERCUTANEOUSTRANS CORORONARY ANGIOGRAPHY Mr. Parnell is a 68-year-old male with known history of coronary artery disease who has prior history of percutaneous revascularization, presented with a myocardial infarction, underwent cardiac catheterization, was found to have critical stenosis involving the ramus intermedius. In view of that, recommendations made regarding angioplasty and stenting, the procedure as well as risks and complications were discussed with the patient who is in full understanding and agreement. PROCEDURE DETAILS: Using the 6-Angolan FL 3.5 guiding catheter and after cannulating the left main a 0.014 balanced medium weight J-wire was advanced into the left circumflex and positioned distally. Subsequently another 0.014 balanced medium weight J-wire was advanced into the ramus intermedius and positioned distally. Subsequently a 2.25 x 12 mm Trek balloon was advanced and one inflation at 8 atmospheres was done. After removing the balloon, a 2.5 x 12 mm Xience Luly stent was advanced, deployed and postdilated at 14 atmospheres. After the last inflation, after appropriate wait, the balloon and the guidewire were withdrawn back in the guiding catheter. Images were obtained and repeated. Those images reveal stable successful stenting. At that point, the guiding catheter, the balloon and the guidewire were removed. The sheath was removed. Hemostasis was obtained with deployment of a TR band. There was no immediate complication. Patient is returned to his room in stable condition. Of note, the patient received Angiomax per protocol as well as oral loading dose of Effient. He had no chest discomfort or EKG changes with the inflations. RESULTS: Successful stenting of the ramus intermedius with reduction of stenosis from 99% to 0%. RECOMMENDATION: Patient will be continued on aspirin, Effient, beta blockers and statin. The importance of dual antiplatelet treatment were discussed with the patient and he is full understanding and agreement. DURATION OF PROCEDURE: 36 minutes. MMODL / IJN: [id number] /
--- NOTE | 2019-05-30 11:20 | LTR ---
DATE OF SERVICE: 05/30/[address] Anders: I had the pleasure of performing cardiac catheterization and coronary angioplasty and stenting on Mr. Parnell at [facility] on May 29 and a full copy of procedure note will be forwarded to you. In brief, he was found to have critical stenosis involving the ramus intermedius, underwent successful stenting of that vessel using drug-eluting stent. I am hopeful that this procedure will stabilize his status and thank you again for allowing me to participate in his care. Please feel free to call for any questions. Sincerely yours, MMANATOLY / IJN: [id number] /
[2019-05-30] MEDS: ASPIRIN 81 MG PO SCH (12:12)
[2019-05-30] MEDS: SODIUM CHLORIDE 0.9% 1,000 ML IV SCH (16:23)
--- NOTE | 2019-05-30 17:14 | P.PN ---
Progress Note - Text Progress Note Date: 05/30/19 Chief Complaint: Chest pain History of presenting complaint: This is a very pleasant 68 year patient of . Patient back in May 2017 had a coronary stent placed. Today while at work developed pressure across the chest. Rather significant. Became nauseated and dizzy lightheaded, broke out in a sweats felt tired. When down the left arm. Presented to the ER. Admitted with unstable angina. Starting IV heparin. Pain persisted was put on IV nitroglycerin drip. Moved to the ICU. Pain is then settled down. Cardiology was consulted. Currently chest pain-free. Patient does not take his cholesterol-lowering medication regularly Today-rule in for acute [place]. underwent cardiac catheterization. Angioplasty stenting done to ramus intermedius. Currently chest pain-free. Review of systems: Was done for constitutional, cardiovascular, GI, pulmonary. relevant finding as above Active Medications Acetaminophen (Tylenol Tab) 650 mg PO Q6HR PRN PRN Reason: Mild Pain or Fever > 100.5 Last Admin: 05/30/19 05:47 Dose: 650 mg Documented by: Al Hydroxide/Mg Hydroxide (Maalox) 30 ml PO Q4HR PRN PRN Reason: Heartburn Alprazolam (Xanax) 0.25 mg PO Q6HR PRN PRN Reason: Mild Anxiety Alprazolam (Xanax) 0.5 mg PO Q6HR PRN PRN Reason: Moderate Anxiety Aspirin (Aspirin) 81 mg PO DAILY [facility] Last Admin: 05/30/19 12:12 Dose: Not Given Documented by: Atorvastatin Calcium (Lipitor) 40 mg PO HS [facility] Last Admin: 05/29/19 22:41 Dose: 40 mg Documented by: Atropine Sulfate (Atropine) 0.5 mg IV ONCE PRN PRN Reason: Symptomatic Bradycardia Hydromorphone HCl (Dilaudid) 0.5 mg IVP Q3HR PRN PRN Reason: Moderate Pain Last Admin: 05/29/19 16:11 Dose: 0.5 mg Documented by: Sodium Chloride (Saline 0.9%) 1,000 mls @ 20 mls/hr IV .Q24H [facility] Last Admin: 05/30/19 16:23 Dose: Not Given Documented by: Metoprolol Tartrate (Lopressor) 25 mg PO BID [facility] Miscellaneous Information (Rx Info: Iv Contrast Was Given) 1 each MISCELLANE DAILY PRN PRN Reason: Per Protocol Stop: 06/01/19 10:13 Naloxone HCl (Narcan) 0.2 mg IV Q2M PRN PRN Reason: Opioid Reversal Nitroglycerin (Nitrostat) 0.4 mg SUBLINGUAL Q5M PRN PRN Reason: Chest Pain Nitroglycerin (Nitrostat) 0.4 mg SUBLINGUAL Q5M PRN PRN Reason: Chest Pain Prasugrel (Effient) 10 mg PO DAILY [facility] Tramadol HCl (Ultram) 100 mg PO QID PRN PRN Reason: Mild to Moderate Pain Last Admin: 05/30/19 04:50 Dose: 100 mg Documented by: Zolpidem Tartrate (Ambien) 5 mg PO HS PRN PRN Reason: Insomnia Physical examination: VITAL SIGNS: 98, 77, 20, blood pressure 120/62, 96% on room air GENERAL: Laying in bed, comfortable EYES: Pupils equal. Conjunctiva normal. HEENT: External appearance of nose and ears normal, oral cavity grossly normal. NECK: JVD not raised; masses not palpable. HEART: First and second heart sounds are normal; no edema. LUNGS: Respiratory rate normal; clear to auscultation. ABDOMEN: Soft, nontender, liver spleen not palpable, no masses palpable. : Alert and oriented x3; mood and affect normal. INVESTIGATIONS, reviewed in the clinical context: White count 9.1 hemoglobin 12.7 Troponin I 4.4, 30.7, LDL 69 Previous testing White count 10.1 hemoglobin 15 platelets 223 potassium 4.6 bun 23 creatinine 1.18 Troponin I 0.0-4 EKG tracing personally reviewed by me-left bundle-branch block, PVCs Chest x-ray film-not good quality. Some cardiomegaly Assessment: -Non-ST elevation, acute myocardial infarction -Angioplasty stenting to ramus intermedius -Coronary artery disease a prior stent in May 2017 -Hyperlipidemia -Morbid obesity BMI 41.4 -Morbid obesity BMI 40.8 Plan: Patient is currently on aspirin, Lipitor, Lopressor, Effient. We will add a small dose of MARIEL inhibitor
[2019-05-30] MEDS: ATORVASTATIN 40 MG TAB PO SCH (20:08)
[2019-05-30] MEDS: METOPROLOL TARTRATE 25 MG TAB PO SCH (20:08)
[2019-05-30] MEDS: LISINOPRIL 2.5 MG TAB PO SCH (20:08)
[2019-05-30] MEDS: ZOLPIDEM 5 MG TAB PO PRN (23:26)
[2019-05-31 05:18] LABS: African American GFR (CKD) >90 (>60 ml/min/1.73 sqM); Anion Gap 5 mmol/L; Blood Urea Nitrogen 16 mg/dL (9-20); Calcium 8.7 mg/dL (8.4-10.2); Carbon Dioxide 24 mmol/L (22-30); Chloride 105 mmol/L (98-107); Glucose 92 mg/dL (74-99); Non-African American GFR(CKD) >90 (>60 ml/min/1.73 sqM); Potassium 4.7 mmol/L (3.5-5.1); Sodium 134 mmol/L (137-145)
[2019-05-31] MEDS: METOPROLOL TARTRATE 25 MG TAB PO SCH ×2 (08:19→21:54)
[2019-05-31] MEDS: PRASUGREL 10 MG TAB PO SCH (08:19)
[2019-05-31] MEDS: ASPIRIN 81 MG PO SCH (08:19)
[2019-05-31] MEDS: traMADol 50 MG TAB PO PRN ×2 (08:43→21:53)
--- NOTE | 2019-05-31 11:29 | PN ---
PROGRESS NOTE This patient came with non-Q-wave myocardial infarction and underwent stent to the intermediate branch. He is doing well. Denies any chest pain or shortness of breath. Blood pressure is 115/63 mmHg, heart rate is 70 per minute. First and second heart sounds are normal. Lungs are clear to auscultation and percussion. We will ambulate the patient. If the patient is doing well, he can be discharged home tomorrow. MMODL / IJN: [id number] /
[2019-05-31 12:15] VITALS: BMI 40.5
[2019-05-31] MEDS: SODIUM CHLORIDE 0.9% 1,000 ML IV SCH (18:53)
--- NOTE | 2019-05-31 20:12 | P.PN ---
Progress Note - Text Progress Note Date: 05/31/19 Chief Complaint: Chest pain History of presenting complaint: This is a very pleasant 68 year patient of . Patient back in May 2017 had a coronary stent placed. Today while at work developed pressure across the chest. Rather significant. Became nauseated and dizzy lightheaded, broke out in a sweats felt tired. When down the left arm. Presented to the ER. Admitted with unstable angina. Starting IV heparin. Pain persisted was put on IV nitroglycerin drip. Moved to the ICU. Pain is then settled down. Cardiology was consulted. Currently chest pain-free. Patient does not take his cholesterol-lowering medication regularly. Ruled in acute [place]. cardiac catheterization- Angioplasty stenting done to ramus intermedius. Today-chest pain-free. Feeling better. Breathing stable. Out of bed.. Review of systems: Was done for constitutional, cardiovascular, GI, pulmonary. relevant finding as above Active Medications Acetaminophen (Tylenol Tab) 650 mg PO Q6HR PRN PRN Reason: Mild Pain or Fever > 100.5 Last Admin: 05/30/19 05:47 Dose: 650 mg Documented by: Al Hydroxide/Mg Hydroxide (Maalox) 30 ml PO Q4HR PRN PRN Reason: Heartburn Alprazolam (Xanax) 0.25 mg PO Q6HR PRN PRN Reason: Mild Anxiety Alprazolam (Xanax) 0.5 mg PO Q6HR PRN PRN Reason: Moderate Anxiety Aspirin (Aspirin) 81 mg PO DAILY [facility] Last Admin: 05/31/19 08:19 Dose: 81 mg Documented by: Atorvastatin Calcium (Lipitor) 40 mg PO [facility] Last Admin: 05/30/19 20:08 Dose: 40 mg Documented by: Atropine Sulfate (Atropine) 0.5 mg IV ONCE PRN PRN Reason: Symptomatic Bradycardia Hydromorphone HCl (Dilaudid) 0.5 mg IVP Q3HR PRN PRN Reason: Moderate Pain Last Admin: 05/29/19 16:11 Dose: 0.5 mg Documented by: Sodium Chloride (Saline 0.9%) 1,000 mls @ 20 mls/hr IV .Q24H [facility] Last Admin: 05/31/19 18:53 Dose: Not Given Documented by: Lisinopril (Zestril) 2.5 mg PO [facility] Last Admin: 05/30/19 20:08 Dose: 2.5 mg Documented by: Metoprolol Tartrate (Lopressor) 25 mg PO BID [facility] Last Admin: 05/31/19 08:19 Dose: 25 mg Documented by: Miscellaneous Information (Rx Info: Iv Contrast Was Given) 1 each MISCELLANE DAILY PRN PRN Reason: Per Protocol Stop: 06/01/19 10:13 Naloxone HCl (Narcan) 0.2 mg IV Q2M PRN PRN Reason: Opioid Reversal Nitroglycerin (Nitrostat) 0.4 mg SUBLINGUAL Q5M PRN PRN Reason: Chest Pain Nitroglycerin (Nitrostat) 0.4 mg SUBLINGUAL Q5M PRN PRN Reason: Chest Pain Prasugrel (Effient) 10 mg PO DAILY [facility] Last Admin: 05/31/19 08:19 Dose: 10 mg Documented by: Tramadol HCl (Ultram) 100 mg PO QID PRN PRN Reason: Mild to Moderate Pain Last Admin: 05/31/19 08:43 Dose: 100 mg Documented by: Zolpidem Tartrate (Ambien) 5 mg PO HS PRN PRN Reason: Insomnia Last Admin: 05/30/19 23:26 Dose: 5 mg Documented by: Physical examination: VITAL SIGNS: 98.2, 60, 15, blood pressure 160-64, 97% on room air GENERAL: Sitting up, comfortable EYES: Pupils equal. Conjunctiva normal. HEENT: External appearance of nose and ears normal, oral cavity grossly normal. NECK: JVD not raised; masses not palpable. HEART: First and second heart sounds are normal; no edema. LUNGS: Respiratory rate normal; clear to auscultation. ABDOMEN: Soft, nontender, liver spleen not palpable, no masses palpable. : Alert and oriented x3; mood and affect normal. INVESTIGATIONS, reviewed in the clinical context: White count 9.1 hemoglobin 12.7 Troponin I 4.4, 30.7, LDL 69 Previous testing White count 10.1 hemoglobin 15 platelets 223 potassium 4.6 bun 23 creatinine 1.18 Troponin I 0.0-4 EKG tracing personally reviewed by me-left bundle-branch block, PVCs Chest x-ray film-not good quality. Some cardiomegaly Assessment: -Non-ST elevation, acute myocardial infarction -Angioplasty stenting to ramus intermedius -Coronary artery disease a prior stent in May 2017 -Hyperlipidemia -Morbid obesity BMI 41.4 -Morbid obesity BMI 40.8 Plan: Stable. No cardiac symptoms. Continue current medication treatment plan. Encouraged to ambulate.
[2019-05-31] MEDS: LISINOPRIL 2.5 MG TAB PO SCH (21:53)
[2019-05-31] MEDS: ATORVASTATIN 40 MG TAB PO SCH (21:54)
[2019-05-31] MEDS: ZOLPIDEM 5 MG TAB PO PRN (21:54)
[2019-06-01 05:39] LABS: HGB 15.1 gm/dL (13.0-17.5); MCH 33.1 pg (25.0-35.0); MCHC 34.4 g/dL (31.0-37.0); MCV 96.4 fL (80.0-100.0); Mean Platelet Volume 8.1; Platelet Count 204 k/uL (150-450); RBC 4.56 m/uL (4.30-5.90); RDW 13.1 % (11.5-15.5)
[2019-06-01 06:17] LABS: African American GFR (CKD) >90 (>60 ml/min/1.73 sqM); Anion Gap 12 mmol/L; Blood Urea Nitrogen 19 mg/dL (9-20); Calcium 9.1 mg/dL (8.4-10.2); Carbon Dioxide 19 mmol/L (22-30); Chloride 105 mmol/L (98-107); Glucose 98 mg/dL (74-99); Non-African American GFR(CKD) 81 (>60 ml/min/1.73 sqM); Potassium 4.6 mmol/L (3.5-5.1); Sodium 136 mmol/L (137-145)
[2019-06-01] MEDS: PRASUGREL 10 MG TAB PO SCH (08:25)
[2019-06-01] MEDS: METOPROLOL TARTRATE 25 MG TAB PO SCH (08:27)
[2019-06-01] MEDS: ASPIRIN 81 MG PO SCH (08:27)
[2019-06-01 10:33] VITALS: TEMP 98.1
--- NOTE | 2019-06-01 10:42 | PN ---
PROGRESS NOTE Andrea is a 68-year-old gentleman known to me from my outpatient factors, who presented to hospital complaining of chest pain. Patient has known coronary artery disease and has been taking his medications regularly. His initial EKG showed sinus rhythm with left bundle branch block. His troponins came back elevated due to which he is admitted to hospital and underwent cardiac catheterization and angioplasty of the ramus intermedius. This was done on the at 10:00 and the patient has been doing well since that time. An echocardiogram showed an ejection fraction of 40% to 45%. The patient has been doing well and is ready to go home. On exam, comfortable at rest. Vital signs are stable. There is no jugular venous distention. Chest exam reveals good air entry bilaterally. Heart exam reveals first and second heart sounds. No gallop. Exam of extremities did not reveal any edema. Peripheral pulses are felt. The patient used to be on prasugrel, metoprolol Lipitor and Zestril which he stopped taking. ASSESSMENT: 1. Acute myocardial infarction secondary to restenosis of ramus intermedius, probably due to noncompliance. 2. Ischemic cardiomyopathy. The patient is stable for discharge. Followup with me in a week's time. MMODL / IJN: [id number] /
[2019-06-01 12:05] VITALS: BP 114/79; PULSE 62; RESP 10
--- NOTE | 2019-06-01 22:46 | P.DS ---
Providers Date of admission: 05/29/19 16:03 Expected date of discharge: 06/01/19 Attending physician: Salvador Lorenzo Consults: 05/29/19 16:09 Consult Physician Urgent Consulting Provider: Tejal Smith Consult Reason/Comments: Unstable angina Do you want consulting provider notified?: Already Contacted 05/30/19 10:13 Consult Physician Routine Consulting Provider: Cardiology Harshad Consult Reason/Comments: Post Interventional patient Do you want consulting provider notified?: Already Contacted Primary care physician: Chad Anders [place] [facility] Course: Chief Complaint: Chest pain History of presenting complaint: This is a very pleasant 68 year patient of . Patient back in May 2017 had a coronary stent placed. Today while at work developed pressure across the chest. Rather significant. Became nauseated and dizzy lightheaded, broke out in a sweats felt tired. When down the left arm. Presented to the ER. Adm itted with unstable angina. Starting IV heparin. Pain persisted was put on IV nitroglycerin drip. Moved to the ICU. Pain is then settled down. Cardiology was consulted. Currently chest pain-free. Patient does not take his cholesterol-lowering medication regularly. Ruled in acute SC. cardiac catheterization- Angioplasty stenting done to ramus intermedius. Today-no cardiac symptoms. Has been out of bed. Cleared by cardiac surgery. Discussed with patient. Consultation: Cardiogenic associates Physical examination: VITAL SIGNS: 98.1, 62, 13, 119/82, 95% on room air GENERAL: Sitting up, comfortable EYES: Pupils equal. Conjunctiva normal. HEENT: External appearance of nose and ears normal, oral cavity grossly normal. NECK: JVD not raised; masses not palpable. HEART: First and second heart sounds are normal; no edema. LUNGS: Respiratory rate normal; clear to auscultation. ABDOMEN: Soft, nontender, liver spleen not palpable, no masses palpable. : Alert and oriented x3; mood and affect normal. INVESTIGATIONS, reviewed in the clinical context: White count 9.1 hemoglobin 12.7 Troponin I 4.4, 30.7, LDL 69 Previous testing White count 10.1 hemoglobin 15 platelets 223 potassium 4.6 bun 23 creatinine 1.18 Troponin I 0.0-4 EKG tracing personally reviewed by me-left bundle-branch block, PVCs Chest x-ray film-not good quality. Some cardiomegaly Assessment: -Non-ST elevation, acute myocardial infarction -Angioplasty stenting to ramus intermedius -Coronary artery disease a prior stent in May 2017 -Hyperlipidemia -Morbid obesity BMI 40. 6 Disposition: Home Patient Condition at Discharge: Stable Plan - Discharge Summary Discharge Rx Participant: Yes New Discharge Prescriptions: New Aspirin 81 mg PO DAILY #30 chew Prasugrel [Effient] 10 mg PO DAILY #30 tab Atorvastatin [Lipitor] 40 mg PO HS #30 tab Metoprolol Tartrate [Lopressor] 25 mg PO BID #60 tab Nitroglycerin Sl Tabs [Nitrostat] 0.4 mg SUBLINGUAL Q5M PRN #25 tab PRN Reason: Chest Pain Lisinopril [Zestril] 2.5 mg PO HS #30 tab Melatonin 3 mg PO HS PRN #15 tablet PRN Reason: Insomnia Continue traMADol HCL [Ultram] 50 - 100 mg PO Q6H PRN PRN Reason: Pain Discontinued Nitroglycerin Sl Tabs [Nitrostat] 0.4 mg SUBLINGUAL Q5M PRN #25 tab PRN Reason: Chest Pain Discharge Medication List traMADol HCL [Ultram] 50 - 100 mg PO Q6H PRN 05/29/19 [History] Aspirin 81 mg PO DAILY #30 chew 06/01/19 [Rx] Atorvastatin [Lipitor] 40 mg PO HS #30 tab 06/01/19 [Rx] Lisinopril [Zestril] 2.5 mg PO HS #30 tab 06/01/19 [Rx] Melatonin 3 mg PO HS PRN #15 tablet 06/01/19 [Rx] Metoprolol Tartrate [Lopressor] 25 mg PO BID #60 tab 06/01/19 [Rx] Nitroglycerin Sl Tabs [Nitrostat] 0.4 mg SUBLINGUAL Q5M PRN #25 tab 06/01/19 [Rx] Prasugrel [Effient] 10 mg PO DAILY #30 tab 06/01/19 [Rx] Follow up Appointment(s)/Referral(s): Chda Anders DO [Primary Care Provider] - 1-2 days Mateo Cazares MD [Family Provider] - 1 Week Discharge Disposition: HOME SELF-CARE
== END 2019-06-01 14:45 | disposition home or self-care (01) | DRG 247 ==
LOC: EC 14:35 → 3SCARD 16:03 → 2SICU 18:43
PROVIDERS: ADMIT Hospitalist; ATTEND Hospitalist
PROC: B2111ZZ Fluoroscopy of Multiple Coronary Arteries using Low Osmolar Contrast (ICD-10-PCS; principal; 2019-05-30 08:23)
PROC: 027034Z Dilation of Coronary Artery, One Artery with Drug-eluting Intraluminal Device, Percutaneous Approach (ICD-10-PCS; principal; 2019-05-30 08:23)
PROC: 4A023N7 Measurement of Cardiac Sampling and Pressure, Left Heart, Percutaneous Approach (ICD-10-PCS; principal; 2019-05-30 08:23)
DX: I21.4 Non-ST elevation (NSTEMI) myocardial infarction (principal); Z68.41 Body mass index [BMI] 40.0-44.9, adult; I25.10 Atherosclerotic heart disease of native coronary artery without angina pectoris; E66.01 Morbid (severe) obesity due to excess calories; E78.5 Hyperlipidemia, unspecified; I25.2 Old myocardial infarction; I25.5 Ischemic cardiomyopathy; I44.7 Left bundle-branch block, unspecified; Z79.01 Long term (current) use of anticoagulants; Z79.02 Long term (current) use of antithrombotics/antiplatelets; Z82.49 Family history of ischemic heart disease and other diseases of the circulatory system; Z85.46 Personal history of malignant neoplasm of prostate; Z87.891 Personal history of nicotine dependence; Z91.19 Patient's noncompliance with other medical treatment and regimen; Z95.5 Presence of coronary angioplasty implant and graft; T46.6X6A Underdosing of antihyperlipidemic and antiarteriosclerotic drugs, initial encounter; Z91.128 Patient's intentional underdosing of medication regimen for other reason; I49.3 Ventricular premature depolarization; I49.1 Atrial premature depolarization
CPT/HCPCS: 36415; 71045; 80048; 80053; 80061; 83735; 83880; 84484; 85025; 85027; 85347; 85610; 85730; 93005; 93306; 93458; 96365; 96375; 96376; 99291

== ENCOUNTER → 2020-04-12 | Outpatient (CLI) | payer MEDICARE ==
[2020-04-12 15:09] LABS: Chol/HDL Ratio 3.76; LDL Cholesterol,Calculated 85.2 mg/dL (0.0-131.0); VLDL Calculation 19.8 mg/dL (5.00-40.00)
== END | disposition home or self-care (01) ==
LOC: LABWHC1 07:48
PROVIDERS: ATTEND Internal Medicine Cardiovascular Disease
DX: E78.2 Mixed hyperlipidemia (principal)
CPT/HCPCS: 36415; 80061; 84450; 84460

== ENCOUNTER → 2020-05-25 | Outpatient (CLI) | payer MEDICARE ==
[2020-05-25 09:54] LABS: ALT 13 U/L (4-49); AST 31 U/L (17-59); African American GFR (CKD) 84 (>60 ml/min/1.73 sqM); Albumin 4.5 g/dL (3.5-5.0); Alkaline Phosphatase 65 U/L (38-126); Anion Gap 7 mmol/L; Blood Urea Nitrogen 29 mg/dL (9-20); Calcium 9.4 mg/dL (8.4-10.2); Carbon Dioxide 27 mmol/L (22-30); Chloride 103 mmol/L (98-107); Glucose 103 mg/dL (74-99); Non-African American GFR(CKD) 72 (>60 ml/min/1.73 sqM); Potassium 4.9 mmol/L (3.5-5.1); Sodium 137 mmol/L (137-145); Total Bilirubin 0.8 mg/dL (0.2-1.3); Total Protein 7.5 g/dL (6.3-8.2)
--- NOTE | 2020-05-25 11:24 | CT ---
EXAMINATION TYPE: CT abdomen pelvis w con DATE OF EXAM: 05/25/2020 COMPARISON: None. HISTORY: Pelvis mass CT DLP: 1798 mGycm, Automated Exposure Control for Dose Reduction was Utilized. CONTRAST: CT scan of the abdomen and pelvis is performed with oral and with IV Contrast, patient injected with 100 ml mL of Isovue 300. FINDINGS: LUNG BASES: Mild bibasilar linear scarring and/or atelectasis. LIVER/GB: Liver diffusely low dense suggesting diffuse fatty infiltration. PANCREAS: No significant abnormality is seen. SPLEEN: No significant abnormality is seen. ADRENALS: No significant abnormality is seen. KIDNEYS: No significant abnormality is seen. BOWEL: Oral contrast reaches level of the sigmoid colon. No suspicious small or large bowel dilatatio n is seen. PROSTATE/SEMINAL VESICLES: Prostate not seen suspected surgically absent. Few scattered bilateral pel jonatan phleboliths LYMPH NODES: No greater than 1cm abdominal or pelvic lymph nodes are appreciated. OSSEOUS STRUCTURES: No significant abnormality is seen. OTHER: Lung the level of the right external iliac vessels there is 4.4 x 6.3 cm x 4.9 cm thin-walled cyst or cystic lesion axial image 76 and coronal image 68. Some local mass effect on the right aspect of bladder wall is noted. Small fat-containing right inguinal hernia. IMPRESSION: Confirmation of 6.3 cm right pelvic mass favored cystic lesion or more likely thin-walled fluid collection. Suspect prostate is surgically absent. Findings would strongly favor seroma or lym phocele. Other etiologies such as abscess and/or hematoma not entirely excluded.
[2020-05-26 02:23] LABS: PSA Annual Screen <0.1 ng/mL (0.0-4.0)
== END ==
LOC: RADCTMAIN 08:42
PROVIDERS: ATTEND Family Medicine
DX: R19.00 Intra-abdominal and pelvic swelling, mass and lump, unspecified site (principal)
CPT/HCPCS: 80053; 74177; 36415; G0103; Q9967

== ENCOUNTER → 2020-06-22 | Outpatient (CLI) | payer MEDICARE ==
[2020-06-22 18:10] LABS: African American GFR (CKD) 89.2 (60.0-200.0); Anion Gap 10.1 mmol/L (4.00-12.00); Calcium 9.8 mg/dL (8.7-10.3); Carbon Dioxide 21.9 mmol/L (21.6-31.8); Potassium 5.4 mmol/L (3.5-5.5)
[2020-06-22 18:46] LABS: HCT 45.4 % (39.6-50.0); HGB 14.5 g/dL (13.0-17.0); MCHC 31.9 g/dL (32.0-37.0); MCV 100.2 fL (80.0-97.0); Mean Platelet Volume 10.9 fL (9.5-12.2); Platelet Count 242 X 10*3/uL (140-440); RBC 4.53 X 10*6/uL (4.40-5.60); RDW 13.7 % (11.5-14.5); WBC 10.46 X 10*3/uL (4.50-10.00)
== END | disposition home or self-care (01) ==
LOC: LABWHC1 10:21
PROVIDERS: ATTEND Internal Medicine Cardiovascular Disease
DX: I48.11 Longstanding persistent atrial fibrillation (principal)
CPT/HCPCS: 36415; 80048; 84443; 85027

== ENCOUNTER → 2020-09-05 | Outpatient (CLI) | payer MEDICARE ==
[2020-09-05 10:17] LABS: HGB 14.4 gm/dL (13.0-17.5); MCHC 34.3 g/dL (31.0-37.0); MCV 96.1 fL (80.0-100.0); Mean Platelet Volume 7.6; Platelet Count 243 k/uL (150-450); RBC 4.37 m/uL (4.30-5.90); RDW 13.1 % (11.5-15.5)
[2020-09-05 10:29] LABS: Potassium 5.1 mmol/L (3.5-5.1)
== END | disposition home or self-care (01) ==
LOC: LABPAT 09:38
PROVIDERS: ATTEND Internal Medicine Cardiovascular Disease
DX: Z01.812 Encounter for preprocedural laboratory examination (principal); I48.11 Longstanding persistent atrial fibrillation
CPT/HCPCS: 36415; 80051; 82565; 84520; 85027

== ENCOUNTER 2020-09-12 10:51 | Inpatient (IN) | payer MEDICARE ==
--- NOTE | 2020-09-12 12:04 | ED ---
Chest Pain HPI - General Chief Complaint: Chest Pain Stated Complaint: Chest pain/SOB Time Seen by Provider: 09/12/20 11:16 Source: patient Mode of arrival: ambulatory Limitations: no limitations - History of Present Illness Initial Comments: Patient is a 69-year-old male with history of A. fib, hypertension, heart disease, presenting to the emergency Department with complaints of increased shortness of breath over the past week. He states yesterday he had some very mild chest pain, he denies a chest pain today. He states he has a scheduled heart cath in [address] Cazares. He states they're doing this to further investigate his A. fib. He states he's been feeling shortness of breath for the past couple weeks, been worse over the past couple days. He states he feels worse when he was sitting up or standing. He denies any dizziness, he does admit to decreased appetite, fatigue. He denies any nausea or vomiting, no abdominal pain. He states he's been trying to drink enough fluids. He denies a headache, no blurry vision. He has no further complaints at this time. Upon arrival to the ER, his vitals are stable. - Related Data Home Medications Medication Instructions Recorded Confirmed traMADol HCL [Ultram] 50 - 100 mg PO Q6H PRN 05/29/19 09/12/20 Apixaban [Eliquis] 5 mg PO BID 09/09/20 09/12/20 Amiodarone HCl [Pacerone] 200 mg PO BID 09/12/20 09/12/20 Atorvastatin [Lipitor] 40 mg PO DAILY 09/12/20 09/12/20 Metoprolol Tartrate [Lopressor] 50 mg PO BID 09/12/20 09/12/20 lisinopriL [Zestril] 2.5 mg PO DAILY 09/12/20 09/12/20 Previous Rx's Medication Instructions Recorded Nitroglycerin Sl Tabs [Nitrostat] 0.4 mg SUBLINGUAL Q5M PRN #25 tab 06/01/19 Prasugrel [Effient] 10 mg PO DAILY #30 tab 06/01/19 Allergies Allergy/AdvReac Type Severity Reaction Status Date / Time No Known Allergies Allergy Verified 09/12/20 14:07 Review of Systems ROS Statement: Those systems with pertinent positive or pertinent negative responses have been documented in the HPI. ROS Other: All systems not noted in ROS Statement are negative. EKG Findings - EKG Comments: EKG Findings:: Wide QRS rhythm with premature supraventricular complexes, left axis deviation, left BBB, no signs of acute ST segment elevation. This is similar to his previous on 05/29/2019. Ventricular rate 93, QRS duration 160, QT 398. Past Medical History Past Medical History: Atrial Fibrillation, Cancer, Hyperlipidemia, Hypertension, Myocardial Infarction (ID), Pneumonia Additional Past Medical History / Comment(s): prostate cancer sx only, rt heel spur Last Myocardial Infarction Date:: unknown History of Any Multi-Drug Resistant Organisms: None Reported Past Surgical History: Heart Catheterization With Stent, Prostate Surgery, Tonsillectomy Additional Past Surgical History / Comment(s): 06-06-17 heart cath w/2 stents to ramus 05/28/18 heart stent.prostatectomy d/t cancer (2012) Past Anesthesia/Blood Transfusion Reactions: No Reported Reaction Date of Last Stent Placement:: 2018 Past Psychological History: No Psychological Hx Reported Smoking Status: Former smoker Past Alcohol Use History: None Reported Past Drug Use History: None Reported - Past Family History Father Family Medical History: Hypertension, Myocardial Infarction (ID) Additional Family Medical History / Comment(s): Father with myocardial infarction at age 75 Mother Family Medical History: No Reported History Additional Family Medical History / Comment(s): broke her hip ended up in [facility]- age 89 General Exam - General Exam Comments Initial Comments: GENERAL: Patient is well-developed and well-nourished. Patient is nontoxic and in no acute distress. HEAD: Atraumatic, normocephalic. EYES: Pupils equal round and reactive to light, extraocular movements intact, sclera anicteric, conjunctiva are normal. Eyelids were unremarkable. ENT: TMs normal, nares patent, oropharynx clear without exudates. Moist mucous membranes. NECK: Normal range of motion, supple without lymphadenopathy or JVD. LUNGS: Unlabored respirations. Breath sounds clear to auscultation bilaterally and equal. No wheezes rales or rhonchi. HEART: Regular rate and rhythm without murmurs, rubs or gallops. ABDOMEN: Soft, nontender, normoactive bowel sounds. No guarding, no rebound. No masses appreciated. : Deferred MUSCULOSKELETAL: Normal extremities with adequate strength and normal range of motion, no pitting or edema. No clubbing or cyanosis. NEUROLOGICAL: Patient is alert and oriented x 3. Motor and sensory are also intact. Cranial nerves II through XII grossly intact. Symmetrical smile. Normal speech, normal gait. PSYCH: Normal mood, normal affect. SKIN: Warm, Dry, normal turgor, no rashes or lesions noted. Limitations: no limitations Course Vital Signs 09/12/20 09/12/20 09/12/20 11:09 11:52 13:00 Temperature 97.9 F Pulse Rate 96 82 82 Respiratory 20 20 18 Rate Blood Pressure 116/72 113/83 108/72 O2 Sat by Pulse 99 96 97 Oximetry 09/12/20 09/12/20 09/12/20 14:00 15:00 15:59 Temperature 98.1 F Pulse Rate 80 81 78 Respiratory 20 15 18 Rate Blood Pressure 107/70 109/69 105/65 O2 Sat by Pulse 96 97 99 Oximetry Chest Pain [facility] Patient is 69-year-old male with history of A. fib, heart disease, presenting with increasing shortness of breath over the last couple days, he had some chest pain yesterday but none today. His EKG shows no acute ST segment elevations, consistent with his old EKGs. He is on Eliquis. Labs are within normal limits, troponin is normal, BNP is 2600. Rapid Covid is not detected. Chest x- ray showing patch perihilar R upper lobe opacities suggestive of edema maybe represent heart failure, pneumonia is also not excluded. CT angios the chest shows no evidence of PE, correlate for pneumonia, edema or hemorrhage. It is unclear if this is pneumonia versus CHF. Patient will be admitted, given 1 dose of Lasix and started on antibiotics. Patient accepted by Dr. Lorenzo. Case discussed with Dr. Bustos. Disposition Clinical Impression: Dyspnea, Pneumonia, CHF (congestive heart failure) Disposition: ADMITTED IP TO THIS HOSP Condition: Stable Decision Date: 09/12/20 Decision Time: 15:01
[2020-09-12 12:07] LABS: Basophils % (A) 0 %; Eosinophils # (A) 0.3 k/uL (0-0.7); Eosinophils % (A) 3 %; HCT 37.5 % (39.0-53.0); HGB 12.7 gm/dL (13.0-17.5); Lymphocytes # (A) 1.1 k/uL (1.0-4.8); Lymphocytes % (A) 11 %; MCH 32.2 pg (25.0-35.0); MCHC 33.8 g/dL (31.0-37.0); MCV 95.4 fL (80.0-100.0); Mean Platelet Volume 8.1; Monocytes # (A) 0.7 k/uL (0-1.0); Monocytes % (A) 7 %; Neutrophils # (A) 7.2 k/uL (1.3-7.7); Neutrophils % (A) 77 %; Platelet Count 227 k/uL (150-450); RBC 3.94 m/uL (4.30-5.90); RDW 13.1 % (11.5-15.5); WBC 9.3 k/uL (3.8-10.6)
--- NOTE | 2020-09-12 12:24 | XR ---
EXAMINATION TYPE: XR chest 2V DATE OF EXAM: 09/12/2020 History: Shortness of breath Comparison: 05/29/2019 TECHNIQUE: Frontal and lateral views of the chest are obtained. FINDINGS: Heart size is mildly enlarged. Overlying leads. Patchy perihilar and upper lobe airspace o pacities. Patchy left basilar airspace opacity. These findings may represent edema versus infection. Probable small bilateral pleural effusions. Degenerative changes of the thoracic spine. IMPRESSION: 1. Cardiomegaly. Patchy perihilar upper lobe airspace opacities suggestive of edema. Small bilateral pleural effusions. These findings may represent congestive heart failure. Superimposed infectious/inf lammatory process, such as pneumonia is not excluded. 2. Left basilar airspace opacity suggestive of atelectasis or developing pneumonia.
[2020-09-12 12:26] LABS: Albumin 3.6 g/dL (3.5-5.0); Calcium 8.9 mg/dL (8.4-10.2); Magnesium 2.1 mg/dL (1.6-2.3); Potassium 4.6 mmol/L (3.5-5.1); Total Bilirubin 0.8 mg/dL (0.2-1.3); Total Protein 6.3 g/dL (6.3-8.2)
[2020-09-12 12:27] LABS: INR 1.1 (<1.2); Partial Thromboplastin Time 26.6 sec (22.0-30.0); Prothrombin Time 11.5 sec (9.0-12.0)
--- NOTE | 2020-09-12 14:34 | CT ---
EXAMINATION TYPE: CT chest angio for PE DATE OF EXAM: 09/12/2020 COMPARISON: Chest x-ray 09/12/2020 HISTORY: Shortness of breath and chest pain. CT DLP: 995.6 mGycm Automated exposure control for dose reduction was used. CONTRAST: CT Chest for pulmonary embolism performed with with IV Contrast, patient injected with 100 mL of Isov ue 370. Three-dimensional reconstructions performed on an alternate workstation. FINDINGS: LUNGS: The lungs show bilateral airspace disease in the upper and lower lobes. Bilateral pleural eff usions are normal. There is no pneumothorax seen. The tracheobronchial tree is patent. MEDIASTINUM: There is satisfactory enhancement of the pulmonary artery and its branches, there is no CT evidence for pulmonary embolism. There is superior mediastinal adenopathy, axial image 35 shows a paratracheal node measuring 11 mm in short axis, shotty nodes are present, suspect some hilar adenop athy. No pericardial effusion is seen. Heart is at the upper limit of normal for size. There are p rominent epicardial fat pads AORTA: No additional significant abnormality is seen. OTHER: There is thoracic spondylosis.. IMPRESSION: Correlate for pneumonia, edema or hemorrhage, there are minimal pleural effusions. No evident pulmona ry embolus. Mediastinal adenopathy, follow-up suggested.
[2020-09-12] MEDS ORDERED: PNEUMONIA PROTOCOL UTILIZED 1 EACH MISC PO PRN (14:57)
[2020-09-12] MEDS ORDERED: FUROSEMIDE 10 MG/ML 2 ML VIAL IV ONE (14:59)
[2020-09-12] MEDS ORDERED: NITROGLYCERIN SL TABS 0.4 MG TAB SUBLINGUAL PRN (17:28)
[2020-09-12] MEDS: AMIODARONE 200 MG TAB PO SCH (20:49)
[2020-09-12] MEDS: APIXABAN 5 MG TAB PO SCH (20:49)
[2020-09-12] MEDS: METOPROLOL TARTRATE 50 MG TAB PO SCH (20:49)
--- NOTE | 2020-09-12 21:05 | P.HPIM ---
History of Present Illness H&P Date: 09/12/20 Chief Complaint: Short of breath History of presenting complaint: This is a very pleasant 69 year patient of . Patient back in May 2017 had a coronary stent placed. May 2019 Ruled in acute [place]. cardiac catheterization- Angioplasty stenting done to ramus intermedius. Patient now presents with 3 weeks history of shortness of breath with exertion. Gets rather exhausted and tired. No chest process such. No fever no chills. A slight dry cough. No orthopnea. No edema. Decreased appetite tired and rundown. He does follow with Dr. Alva Pandya. He was scheduled for a cardiac cath and 3 days to further investigate his A. fib. Review of systems: GEN.: Tired, decreased appetite EYES: None HEENT: None NECK: None RESPIRATORY: As above CARDIOVASCULAR: As above GASTROINTESTINAL: None GENITOURINARY: None MUSCULOSKELETAL: None LYMPHATICS: None HEMATOLOGICAL: None PSYCHIATRY: None NEUROLOGICAL: None Past medical history to include: Coronary artery disease with stent in May 2017, May 2019, prostate cancer treated with surgery, hyperlipidemia, low back pain Social history: Patient smoked for about 20 years stopped in 2012. . Grand Scribe Physical examination: VITAL SIGNS: 98.5, 90, 16, 112/69, 94% room air GENERAL: BMI 38.7, laying in bed EYES: Pupils equal. Conjunctiva normal. HEENT: External appearance of nose and ears normal, oral cavity grossly normal. NECK: JVD not raised; masses not palpable. HEART: First and second heart sounds are normal; no edema. LUNGS: Respiratory rate normal; clear to auscultation. ABDOMEN: Soft, nontender, liver spleen not palpable, no masses palpable. PSYCH: Alert and oriented x3; mood and affect normal. NEUROLOGICAL: Cranial nerves grossly intact; no facial asymmetry, power and s ensation grossly intact. LYMPHATICS: No lymph nodes palpable in the axilla and neck INVESTIGATIONS, reviewed in the clinical context: WBC 9.3 hemoglobin 12.7 platelets 227 potassium 4.6 creatinine 1.10 Troponin I less than 0.012, proBNP 2660 Pro-calcitonin 0.012 COVID 19 negative EKG tracing personally reviewed by me-left bundle-branch block Assessment and plan: -This is a patient presents for 3 weeks of shortness of breath with exertion. Tired. No fever no chills. Has a dry cough. Decrease appetite. This could be atypical pneumonia. Patient started with IV ceftriaxone Zithromax. We'll get a pulmonary consultation. Note that the patient is on amiodarone-we will do a high resolution CT chest in the morning for pulmonary fibrosis -Coronary artery disease with stent to ramus intermedius in May 2019 Rule out underlying coronary ischemia. Troponin is negative. Continue Effient -Chronic left bundle branch block -Persistent atrial fibrillation, rate controlled Telemetry. Continue eliquis -Hyperlipidemia Lipitor -Obesity BMI 38.7 Weight loss measures, follow with PCP Resume medications. 2-D echocardiogram. Height resolution CT chest. Consultation to pulmonary and cardiology. Care was discussed with the patient. Questions answered. Past Medical History Past Medical History: Atrial Fibrillation, Cancer, Hyperlipidemia, Hypertension, Myocardial Infarction ([place]), Pneumonia Additional Past Medical History / Comment(s): prostate cancer sx only, rt heel spur Last Myocardial Infarction Date:: unknown History of Any Multi-Drug Resistant Organisms: None Reported Past Surgical History: Heart Catheterization With Stent, Prostate Surgery, Tonsillectomy Additional Past Surgical History / Comment(s): 06-06-17 heart cath w/2 stents to ramus 05/28/18 heart stent.prostatectomy d/t cancer (2012) Past Anesthesia/Blood Transfusion Reactions: No Reported Reaction Date of Last Stent Placement:: 2018 Past Psychological History: No Psychological Hx Reported Smoking Status: Former smoker Past Alcohol Use History: None Reported Additional Past Alcohol Use History / Comment(s): started smoking 2000(cigars) and quit 2012 Past Drug Use History: None Reported - Past Family History Father Family Medical History: Hypertension, Myocardial Infarction (ND) Additional Family Medical History / Comment(s): Father with myocardial infarction at age 75 Mother Family Medical History: No Reported History Additional Family Medical History / Comment(s): broke her hip ended up in [facility]- age 89 Medications and Allergies Home Medications Medication Instructions Recorded Confirmed Type traMADol HCL [Ultram] 50 - 100 mg PO Q6H PRN 05/29/19 09/12/20 History Nitroglycerin Sl Tabs [Nitrostat] 0.4 mg SUBLINGUAL Q5M PRN #25 tab 06/01/19 09/12/20 Rx Prasugrel [Effient] 10 mg PO DAILY #30 tab 06/01/19 09/12/20 Rx Apixaban [Eliquis] 5 mg PO BID 09/09/20 09/12/20 History Amiodarone HCl [Pacerone] 200 mg PO BID 09/12/20 09/12/20 History Atorvastatin [Lipitor] 40 mg PO DAILY 09/12/20 09/12/20 History Metoprolol Tartrate [Lopressor] 50 mg PO BID 09/12/20 09/12/20 History lisinopriL [Zestril] 2.5 mg PO DAILY 09/12/20 09/12/20 History Allergies Allergy/AdvReac Type Severity Reaction Status Date / Time No Known Allergies Allergy Verified 09/12/20 14:07 Physical Exam Vitals: Vital Signs Temp Pulse Pulse Resp BP BP Pulse Ox 09/12/20 19:01 98.5 F 90 16 112/69 94 L 09/12/20 16:22 97.7 F 80 20 118/74 94 L 09/12/20 15:59 98.1 F 78 18 105/65 99 09/12/20 15:00 81 15 109/69 97 09/12/20 14:00 80 20 107/70 96 09/12/20 13:00 82 18 108/72 97 09/12/20 11:52 82 20 113/83 96 09/12/20 11:09 97.9 F 96 20 116/72 99 Intake and Output 09/12/20 09/12/20 09/12/20 06:59 14:59 22:59 Intake Total 240 Balance 240 Intake: Oral 240 Other: Weight 122.47 kg 122.47 kg Results CBC & Chem 7: 09/12/20 11:46 09/12/20 11:46 Labs: Abnormal Lab Results - Last 24 Hours (Table) 09/12/20 09/12/20 09/12/20 Range/Units 11:46 11:46 15:39 RBC 3.94 L (4.30-5.90) m/uL Hgb 12.7 L (13.0-17.5) gm/dL Hct 37.5 L (39.0-53.0) % Sodium 136 L (137-145) mmol/L BUN 21 H (9-20) mg/dL Glucose 116 H (74-99) mg/dL Procalcitonin 0.12 H (0.02-0.09) ng/mL Thrombosis Risk Factor Assmnt - Choose All That Apply Any of the Below Risk Factors Present?: No Each Risk Factor Represents 2 Points: Age 61-74 years Thrombosis Risk Factor Assessment Total Risk Factor Score: 2 Thrombosis Risk Factor Assessment Level: Low Risk
[2020-09-12] MEDS ORDERED: LORazepam 0.5 MG TAB PO PRN (21:32)
--- NOTE | 2020-09-13 07:57 | XR ---
EXAMINATION TYPE: XR chest 2V DATE OF EXAM: 09/13/2020 COMPARISON: 09/12/2020 HISTORY: Pneumonia TECHNIQUE: Frontal and lateral views of the chest are obtained. FINDINGS: Heart size is at the upper limits of normal. Overlying leads. Decreased patchy airspace op acities at the upper lobes and left lung base. Small left pleural effusion. No right pleural effusion . No pneumothorax. Degenerative changes of the thoracic spine. IMPRESSION: 1. Patchy airspace opacities have decreased since prior exam. Consider resolving pneumonia.
[2020-09-13] MEDS ORDERED: SODIUM CHLORIDE 0.9% 1,000 ML IV STA (08:37)
--- NOTE | 2020-09-13 08:44 | CT ---
EXAMINATION TYPE: CT chest wo con DATE OF EXAM: 09/13/2020 COMPARISON: CTA chest from yesterday and March 17, 2013. HISTORY: Rule out pulmonary fibrosis. Patient on amiodarone CT DLP: 289 mGycm. Automated Exposure Control for Dose Reduction was Utilized. TECHNIQUE: CT scan of the thorax is performed without IV contrast. High resolution protocol with 1 m m images obtained in 10 mm intervals in both supine and prone technique FINDINGS: LUNGS: Multifocal areas of groundglass opacities and organizing consolidations bilaterally are redemo nstrated somewhat obscuring background findings. Mild bibasilar linear scarring and/or atelectasis is seen. Mild scattered areas of peripheral linear scarring and/or atelectasis bilaterally. No signific ant bronchiectasis or honeycoming. Transvaginal left pleural effusion improved from prior. Resolution of right-sided effusion. MEDIASTINUM: Lack of IV contrast an technique noted to limit evaluation for mediastinal and especiall y hilar adenopathy. There are no definitive greater than 1 cm mediastinal lymph nodes. No cardiomeg kuldip or pericardial effusion is seen. Coronary artery calcifications in the LAD and first diagonal red emonstrated. OTHER: Multilevel spurring in the spine. IMPRESSION: Mild bibasilar linear scarring and/or atelectasis. Mild to minimal scattered peripheral l inear scarring. Improving bilateral multifocal ground glass opacities and consolidations from one day earlier.
[2020-09-13] MEDS: AZITHROMYCIN 500 MG TAB PO SCH (09:17)
[2020-09-13] MEDS: APIXABAN 5 MG TAB PO SCH ×2 (09:18→21:15)
[2020-09-13] MEDS: ATORVASTATIN 40 MG TAB PO SCH (09:18)
[2020-09-13] MEDS: AMIODARONE 200 MG TAB PO SCH ×2 (09:18→21:14)
[2020-09-13] MEDS: METOPROLOL TARTRATE 50 MG TAB PO SCH ×2 (09:18→22:15)
[2020-09-13] MEDS: PRASUGREL 10 MG TAB PO SCH (09:19)
--- NOTE | 2020-09-13 11:08 | P.CRDCN ---
History of Present Illness History of present illness: HISTORY OF PRESENTING ILLNESS This is a pleasant 69-year-old male past medical history significant for coronary artery disease status post PCI to ramus intermedius, chronic persistent atrial fibrillation (on Eliquis), hypertension, ischemic cardiomyopathy. He follows in the office with Dr. Cazares. We have been asked to see in consultation for atrial fibrillatio. Patient is seen and examined at bedside, no acute distress. He is lying flat in bed. Patient presents emergency department with complaints of shortness of breath, fatigue, tired, feeling exhausted, dry cough for the past 3 weeks. Patient denies chest pain, orthopnea, PND, palpitations, lightheadedness, dizziness, fever or chills. Denies sick contacts. Patient was started on IV ceftriaxone and Zithromax for possible pneumonia. CT chest revealed concern for pneumonia, edema or hemorrhage, there are minimal pleural effusion. No pulmonary embolism. Repeat CT chest 09/13/2020 revealed mild bibasilar linear scarring or atelectasis. Improving bilateral multifocal groundglass opacities and consolidations from one day earlier. He is a former smoker. Denies family history of heart disease. Laboratory data reviewed, WBC 9.3, hemoglobin 12.7, platelets 227, sodium 136, potassium 4.6, BUN 21, serum creatinine 1.10, magnesium 2.1, troponin negative 1, proBNP 2660, pro- calcitonin is mildly elevated, COVID-19 PCR negative. Patient recently followed up with Dr. Cazares in 09/02/2020, patient underwent echocardiogram in 06/22/2020 which revealed severe LV dysfunction with EF 25- 30%, mild mitral regurgitation, mild tricuspid regurgitation. The plan was to perform a HOMER and cardioversion this , September 15 2020, LV function does not improve it would be recommended to perform a cardiac catheterization for him for AICD. DIAGNOSTICS EKG reveals atrial fibrillation, left bundle branch block, heart rate 93. Prior EKG with similar findings Telemetry tracings indicate atrial fibrillation, with controlled rates, heart rate in the 80s. Current home cardiac medications include amiodarone 200 mg twice day, Eliquis 5 mg twice a day, atorvastatin 40 mg daily, lisinopril 2.5 mg daily, Toprol titrate 50 mg twice a day, Prasugrel 10 mg daily Most recent echocardiogram in the office 06/22/2020- severe LV dysfunction with EF 25-30%, mild mitral regurgitation, mild tricuspid regurgitation. Previous echocardiogram 05/30/2019EF is 40-45% Most recent cardiac catheterization 05/2019 revealed a critical stenosis involving the ramus intermedius with stent placed, mild diseae in the right PDA Holter monitor at 06/22/2020 revealed underlying rhythm is atrial fibrillation with an average heart rate of 88 bpm, heart rate. From 56 beats per minutes to 130 beats per minutes. Frequent PVCs are noted. REVIEW OF SYSTEMS At the time of my exam: CONSTITUTIONAL: Denies fever or chills. +fatigue +exhaustion +tiredness CARDIOVASCULAR: +shortness of breath, Denies chest pain, orthopnea, PND or palpitations. RESPIRATORY: Denies cough. GASTROINTESTINAL: Denies abdominal pain, diarrhea, constipation, nausea or vomiting. MUSCULOSKELETAL: Denies myalgias. NEUROLOGIC: Denies numbness, tingling, headacbe or weakness. ENDOCRINE: Denies fatigue, weight change, polydipsia or polyurina. GENITOURINARY: Denies burning, hematuria or urgency with micturation. HEMATOLOGIC: Denies history of anemia or bleeding. PHYSICAL EXAMINATION Blood pressure 111/68 heart rate 70 afebrile and maintaining oxygen saturation on room air CONSTITUTIONAL: No apparent distress. HEENT: Head is normocephalic. Pupils are equal, round. Sclerae anicteric. Mucous membranes of the mouth are moist. No JVD. No carotid bruit. CHEST EXAMINATION: Lungs are clear to auscultation. No chest wall tenderness is noted on palpation or with deep breathing. HEART EXAMINATION: Regular rate and rhythm. S1, S2 heard. No murmurs, gallops or rub. ABDOMEN: Soft, nontender. Positive bowel sounds. EXTREMITIES: 2+ peripheral pulses, no lower extremity edema and no calf tenderness. NEUROLOGIC EXAMINATION: Patient is awake, alert and oriented x3. ASSESSMENT Shortness of breath, fatigue, decreased appetite, dry cough - currently being treated for Pneumonia Coronary artery disease status post PCI ramus intermedius 05/2019 Chronic persistent atrial fibrillation on Eliquis Hyperlipidemia Hypertension PLAN Repeat EKG this morning Repeat Echocardiogram ordered, will follow up on results Pulmonary is consulted Will start IV fluids and monitor patient Will hold off on HOMER/Cardioversion at this time. Continue amiodarone, Eliquis, atorvastatin, metoprolol titrate, lisinopril. Further recommendations based on clinical course Nurse Practitioner note has been reviewed, I agree with a documented findings and plan of care. Patient was seen and examined. Past Medical History Past Medical History: Atrial Fibrillation, Cancer, Hyperlipidemia, Hypertension, Myocardial Infarction ([place]), Pneumonia Additional Past Medical History / Comment(s): prostate cancer sx only, rt heel spur Last Myocardial Infarction Date:: unknown History of Any Multi-Drug Resistant Organisms: None Reported Past Surgical History: Heart Catheterization With Stent, Prostate Surgery, Tonsillectomy Additional Past Surgical History / Comment(s): 06-06-17 heart cath w/2 stents to ramus 05/28/18 heart stent.prostatectomy d/t cancer (2013) Past Anesthesia/Blood Transfusion Reactions: No Reported Reaction Date of Last Stent Placement:: 2018 Past Psychological History: No Psychological Hx Reported Smoking Status: Former smoker Past Alcohol Use History: None Reported Additional Past Alcohol Use History / Comment(s): started smoking 2000(cigars) and quit 2012 Past Drug Use History: None Reported - Past Family History Father Family Medical History: Hypertension, Myocardial Infarction ([place]) Additional Family Medical History / Comment(s): Father with myocardial i nfarction at age 75 Mother Family Medical History: No Reported History Additional Family Medical History / Comment(s): broke her hip ended up in [facility]- age 89 Medications and Allergies Home Medications Medication Instructions Recorded Confirmed Type traMADol HCL [Ultram] 50 - 100 mg PO Q6H PRN 05/29/19 09/12/20 History Nitroglycerin Sl Tabs [Nitrostat] 0.4 mg SUBLINGUAL Q5M PRN #25 tab 06/01/19 09/12/20 Rx Prasugrel [Effient] 10 mg PO DAILY #30 tab 06/01/19 09/12/20 Rx Apixaban [Eliquis] 5 mg PO BID 09/09/20 09/12/20 History Amiodarone HCl [Pacerone] 200 mg PO BID 09/12/20 09/12/20 History Atorvastatin [Lipitor] 40 mg PO DAILY 09/12/20 09/12/20 History Metoprolol Tartrate [Lopressor] 50 mg PO BID 09/12/20 09/12/20 History lisinopriL [Zestril] 2.5 mg PO DAILY 09/12/20 09/12/20 History Allergies Allergy/AdvReac Type Severity Reaction Status Date / Time No Known Allergies Allergy Verified 09/12/20 14:07 Physical Exam Vitals: Vital Signs Temp Pulse Pulse Resp BP BP Pulse Ox 09/13/20 07:05 98.5 F 50 L 16 111/68 94 L 09/13/20 00:25 99.2 F 70 20 104/64 93 L 09/12/20 19:01 98.5 F 90 16 112/69 94 L 09/12/20 16:22 97.7 F 80 20 118/74 94 L 09/12/20 15:59 98.1 F 78 18 105/65 99 09/12/20 15:00 81 15 109/69 97 09/12/20 14:00 80 20 107/70 96 09/12/20 13:00 82 18 108/72 97 09/12/20 11:52 82 20 113/83 96 09/12/20 11:09 97.9 F 96 20 116/72 99 Intake and Output 09/12/20 09/13/20 09/13/20 22:59 06:59 14:59 Intake Total 240 Balance 240 Intake: Oral 240 Other: Voiding Method Toilet Urinal Weight 122.47 kg 119.7 kg Results 09/12/20 11:46 09/12/20 11:46 Cardiac Enzymes 09/12/20 09/12/20 Range/Units 11:46 11:46 AST 25 (17-59) U/L Troponin I <0.012 (0.000-0.034) ng/mL Coagulation 09/12/20 Range/Units 11:46 PT 11.5 (9.0-12.0) sec APTT 26.6 (22.0-30.0) sec CBC 09/12/20 Range/Units 11:46 WBC 9.3 (3.8-10.6) k/uL RBC 3.94 L (4.30-5.90) m/uL Hgb 12.7 L (13.0-17.5) gm/dL Hct 37.5 L (39.0-53.0) % Plt Count 227 (150-450) k/uL Comprehensive Metabolic Panel 09/12/20 Range/Units 11:46 Sodium 136 L (137-145) mmol/L Potassium 4.6 (3.5-5.1) mmol/L Chloride 107 (98-107) mmol/L Carbon Dioxide 22 (22-30) mmol/L BUN 21 H (9-20) mg/dL Creatinine 1.10 (0.66-1.25) mg/dL Glucose 116 H (74-99) mg/dL Calcium 8.9 (8.4-10.2) mg/dL AST 25 (17-59) U/L ALT 9 (4-49) U/L Alkaline Phosphatase 62 (38-126) U/L Total Protein 6.3 (6.3-8.2) g/dL Albumin 3.6 (3.5-5.0) g/dL Current Medications Generic Name Dose Route Start Last Admin Trade Name Freq PRN Reason Stop Dose Admin Amiodarone HCl 200 mg 09/12/20 21:00 09/13/20 09:18 Amiodarone 200 Mg Tab PO 200 mg BID LUCAS Administration Apixaban 5 mg 09/12/20 21:00 09/13/20 09:18 Apixaban 5 Mg Tab PO 5 mg BID LUCAS Administration Protocol Atorvastatin Calcium 40 mg 09/13/20 09:00 09/13/20 09:18 Atorvastatin 40 Mg Tab PO 40 mg DAILY LUCAS Administration Azithromycin 500 mg 09/13/20 09:00 09/13/20 09:17 Azithromycin 500 Mg Tab PO 09/17/20 09:01 500 mg DAILY LUCAS Administration Sodium Chloride 1,000 mls @ 75 mls/hr 09/13/20 08:37 09/13/20 09:18 Saline 0.9% IV 09/13/20 21:56 75 mls/hr .[id number] STA Administration Lisinopril 2.5 mg 09/13/20 09:00 09/13/20 09:19 Lisinopril 2.5 Mg Tab PO 2.5 mg DAILY LUCAS Administration Lorazepam 0.5 mg 09/12/20 21:32 Lorazepam 0.5 Mg Tab PO ONCE PRN Anxiety Metoprolol Tartrate 50 mg 09/12/20 21:00 09/13/20 09:18 Metoprolol Tartrate 50 Mg Tab PO 50 mg BID LUCAS Administration Miscellaneous Information 1 each 09/12/20 14:57 Pneumonia Protocol Utilized 1 Each Misc PO ONCE PRN Per Protocol Nitroglycerin 0.4 mg 09/12/20 17:28 Nitroglycerin Sl Tabs 0.4 Mg Tab SUBLINGUAL Q5M PRN Chest Pain Prasugrel 10 mg 09/13/20 09:00 09/13/20 09:19 Prasugrel 10 Mg Tab PO 10 mg DAILY LUCAS Administration Intake and Output 09/12/20 09/13/20 09/13/20 22:59 06:59 14:59 Intake Total 240 Balance 240 Intake: Oral 240 Other: Voiding Method Toilet Urinal Weight 122.47 kg 119.7 kg 09/12/20 11:46 09/12/20 11:46
--- NOTE | 2020-09-13 12:01 | ECHOF ---
Referral Reason:Assess LV function MEASUREMENTS -------- HEIGHT: 152.4 cm WEIGHT: 119.3 kg BP: 104/64 RVIDd: 3.1 cm (< 3.3) IVSd: 1.0 cm (0.6 - 1.1) LVIDd: 5.8 cm (3.9 - 5.3) LVPWd: 1.4 cm (0.6 - 1.1) IVSs: 1.3 cm LVIDs: 4.4 cm LVPWs: 1.5 cm LAESV Index (A-L): 60.34 ml/m Ao Diam: 2.6 cm (2.0 - 3.7) AV Cusp: 1.6 cm (1.5 - 2.6) LA Diam: 4.2 cm (2.7 - 3.8) MV EXCURSION: 21.020 mm (> 18.000) MV EF SLOPE: 73 mm/s (70 - 150) EPSS: 1.6 cm RAP: 5.00 mmHg RVSP: 29.16 mmHg FINDINGS -------- Atrial fibrillation. This was a techncally difficult study with suboptimal views, , Lumason utilized for enhancement of im ages. The left ventricular size is normal. There is severe global hypokinesis of LV . Overall left vent ricular systolic function is severely impaired with, an EF < 20%. The right ventricle is normal in size. LA is severely dilated >40 ml/m2 The right atrial size is normal. The aortic valve is trileaflet, and appears structurally normal. No aortic stenosis or regurgitation. Mild mitral regurgitation is present. Mild tricuspid regurgitation present. Right ventricular systolic pressure is normal at < 35 mmHg. Trace/mild (physiologic) pulmonic regurgitation. The aortic root size is normal. There is no pericardial effusion. CONCLUSIONS -------- 1. This was a techncally difficult study with suboptimal views, , Lumason utilized for enhancement of images. 2. The left ventricular size is normal. 3. There is severe global hypokinesis of LV . 4. Overall left ventricular systolic function is severely impaired with, an EF < 20%. 5. The right ventricle is normal in size. 6. LA is severely dilated >40 ml/m2 7. The right atrial size is normal. 8. The aortic valve is trileaflet, and appears structurally normal. No aortic stenosis or regurgitati on. 9. Mild mitral regurgitation is present. 10. Mild tricuspid regurgitation present. 11. Trace/mild (physiologic) pulmonic regurgitation. 12. The aortic root size is normal. 13. There is no pericardial effusion. [employer] ENGINEER: Jael Carlisle RDCS
[2020-09-13] MEDS: FUROSEMIDE 10 MG/ML 4 ML VIAL IV SCH ×2 (12:49→16:37)
[2020-09-13] MEDS: POTASSIUM CHLORIDE ER 20 MEQ TAB.ER PO SCH (12:50)
[2020-09-13] MEDS ORDERED: LACTULOSE 20 GM/30 ML CUP PO ONE (13:35)
--- NOTE | 2020-09-13 14:46 | P.CNPUL ---
History of Present Illness Consult date: 09/13/20 Reason for consult: dyspnea History of present illness: This is a 69-year-old male patient, known history of CAD, known history of ischemic cardiomyopathy with an ejection fraction of 20%, coming in for worsening dyspnea. He denied having any chest pain. He was quite exhausted, tired and he had some slight cough without any significant sputum production. No angina. No palpitation. The patient was started on a combination of antibiotics utilizing a combination of Rocephin and Zithromax. His white cell count was at 9.3 as was nonelevated. BUN was 21 with a creatinine of 1.1. His proBNP level was 2660 and a proton syndrome and level was nonelevated at 0.12. The CT angiogram showed areas of scattered groundglass pulmonary infiltrates bilaterally. Overnight the testing is been negative patient has taken his COVID-19 vaccination. Cultures are negative thus far and the patient is responding nicely to diuretics. He is currently on Lasix 40 mg IV every 8 hours. A repeat chest x-ray was done that showed presence of patchy airspace pulmonary infiltrates although this was improving compared to the earlier chest x-ray was done on admission. Cardiac the patient is on room air oxygen. His cardiac rhythm is in atrial fibrillation. The echocardiogram shows an ejection fraction of less than 20%. Most of any chronic lung disease. No cervical emphysema and asthma. He is a nonsmoker. No supple with fibrosis. Review of Systems Constitutional: Reports fatigue, Reports weakness Eyes: denies as per HPI, denies blurred vision, denies bulging eye, denies decreased vision, denies diplopia, denies discharge, denies dry eye, denies irritation, denies itching, denies pain, denies photophobia, denies loss of peripheral vision, denies loss of vision, denies tunnel vision/blind spots Ears: deny: decreased hearing, ear discharge, earache, tinnitus Ears, nose, mouth and throat: Reports as per HPI Breasts: absent: as per HPI, gynecomastia Cardiovascular: Reports decreased exercise tolerance, Reports dyspnea on exertion, Reports irregular heart beat, Reports shortness of breath Respiratory: Reports dyspnea Gastrointestinal: Reports as per HPI Genitourinary: Reports as per HPI Musculoskeletal: Reports as per HPI Musculoskeletal: absent: ankle pain, ankle stiffness, ankle swelling Integumentary: Reports as per HPI Neurological: Reports as per HPI Psychiatric: Reports as per HPI Endocrine: Reports as per HPI Hematologic/Lymphatic: Reports as per HPI Allergic/Immunologic: Reports as per HPI Past Medical History Past Medical History: Atrial Fibrillation, Cancer, Heart Failure, Hyperlipidemia, Hypertension, Myocardial Infarction ([place]), Pneumonia Additional Past Medical History / Comment(s): prostate cancer sx only, rt heel spur Last Myocardial Infarction Date:: unknown History of Any Multi-Drug Resistant Organisms: None Reported Past Surgical History: Heart Catheterization With Stent, Prostate Surgery, Tonsillectomy Additional Past Surgical History / Comment(s): 06-06-17 heart cath w/2 stents to ramus 05/28/18 heart stent.prostatectomy d/t cancer (2012) Past Anesthesia/Blood Transfusion Reactions: No Reported Reaction Date of Last Stent Placement:: 2018 Past Psychological History: No Psychological Hx Reported Smoking Status: Former smoker Past Alcohol Use History: None Reported Past Drug Use History: None Reported - Past Family History Father Family Medical History: Hypertension, Myocardial Infarction ([place]) Additional Family Medical History / Comment(s): Father with myocardial infarction at age 75 Mother Family Medical History: No Reported History Additional Family Medical History / Comment(s): broke her hip ended up in [facility]- age 89 Medications and Allergies Home Medications Medication Instructions Recorded Confirmed Type traMADol HCL [Ultram] 50 - 100 mg PO Q6H PRN 05/29/19 09/12/20 History Nitroglycerin Sl Tabs [Nitrostat] 0.4 mg SUBLINGUAL Q5M PRN #25 tab 06/01/19 09/12/20 Rx Prasugrel [Effient] 10 mg PO DAILY #30 tab 06/01/19 09/12/20 Rx Apixaban [Eliquis] 5 mg PO BID 09/09/20 09/12/20 History Amiodarone HCl [Pacerone] 200 mg PO BID 09/12/20 09/12/20 History Atorvastatin [Lipitor] 40 mg PO DAILY 09/12/20 09/12/20 History Metoprolol Tartrate [Lopressor] 50 mg PO BID 09/12/20 09/12/20 History lisinopriL [Zestril] 2.5 mg PO DAILY 09/12/20 09/12/20 History Allergies Allergy/AdvReac Type Severity Reaction Status Date / Time No Known Allergies Allergy Verified 09/12/20 14:07 Physical Exam Vitals: Vital Signs Temp Pulse Pulse Resp BP BP Pulse Ox 09/13/20 13:55 98.1 F 70 16 106/66 93 L 09/13/20 07:05 98.5 F 50 L 16 111/68 94 L 09/13/20 00:25 99.2 F 70 20 104/64 93 L 09/12/20 19:01 98.5 F 90 16 112/69 94 L 09/12/20 16:22 97.7 F 80 20 118/74 94 L 09/12/20 15:59 98.1 F 78 18 105/65 99 09/12/20 15:00 81 15 109/69 97 Intake and Output 09/12/20 09/13/20 09/13/20 22:59 06:59 14:59 Intake Total 240 Balance 240 Intake: Oral 240 Other: Voiding Method Toilet Urinal # Voids 3 # Bowel Movements 1 Weight 122.47 kg 119.7 kg Blood pressure 111/68 heart rate 70 afebrile and maintaining oxygen saturation on room air CONSTITUTIONAL: No apparent distress. HEENT: Head is normocephalic. Pupils are equal, round. Sclerae anicteric. Mucous membranes of the mouth are moist. No JVD. No carotid bruit. CHEST EXAMINATION: Lungs are clear to auscultation. No chest wall tenderness is noted on palpation or with deep breathing. HEART EXAMINATION: Regular rate and rhythm. S1, S2 heard. No murmurs, gallops or rub. ABDOMEN: Soft, nontender. Positive bowel sounds. EXTREMITIES: 2+ peripheral pulses, no lower extremity edema and no calf tenderness. NEUROLOGIC EXAMINATION: Patient is awake, alert and oriented x3. Results - Laboratory Findings CBC and BMP: 09/12/20 11:46 09/12/20 11:46 PT/INR, D-dimer PT 11.5 sec (9.0-12.0) 09/12/20 11:46 INR 1.1 (<1.2) 09/12/20 11:46 Abnormal lab findings: Abnormal Labs 09/12/20 09/12/20 09/12/20 11:46 11:46 15:39 RBC 3.94 L Hgb 12.7 L Hct 37.5 L Sodium 136 L BUN 21 H Glucose 116 H Procalcitonin 0.12 H - Diagnostic Findings Chest x-ray: image reviewed CT scan - chest: image reviewed Assessment and Plan Plan: 1 bilateral pulmonary infiltrates, most likely consistent with CHF/interstitial edema/groundglass pulmonary infiltrates bilaterally rather than pneumonia. Patient is responding nicely to diuretics. He is currently on room air oxygen. His proBNP level was nonelevated. He has no leukocytosis. He has no fever. No significant sputum production. He is rather responding rapidly to diuretics and the patient is currently on Lasix 40 mg every 12 hours 2 coronary artery disease with previous coronary stenting 3 chronic atrial fibrillation which probably contributing to this patient's cardiomyopathy, rate is controlled for now 4 cardiomyopathy, likely ischemic with an ejection fraction of less than 20% 5 history of prostate cancer with a previous prostatectomy 6 hypertension 7 hyperlipidemia maintained on Lipitor and outpatient basis Plan Continue diuretics Repeat a chest x-ray in the morning and anticipate significant improvement in his chest x-ray which again supports the concept of CHF/interstitial edema rather than pneumonia. Meanwhile the patient is covered with antibiotics. Considered cardioversion which will help with his cardiomyopathy, this with the left upper cardiology Continue anticoagulation with Eliquis Continue Effient Echocardiogram was noted CAT scan of the chest was noted Case will be discussed with cardiology
--- NOTE | 2020-09-13 18:01 | P.PN ---
Progress Note - Text Progress Note Date: 09/13/20 Chief Complaint: Short of breath History of presenting complaint: This is a very pleasant 69 year patient of . Patient back in May 2017 had a coronary stent placed. May 2019 Ruled in acute OR. cardiac catheterization- Angioplasty stenting done to ramus intermedius. Patient now presents with 3 weeks history of shortness of breath with exertion. Gets rather exhausted and tired. No chest process such. No fever no chills. A slight dry cough. No orthopnea. No edema. Decreased appetite tired and rundown. He does follow with Dr. Alva Pandya. He was scheduled for a cardiac cath and 3 days to further investigate his A. fib. Patient be treated for CHF, questionable pneumonia. Today: Laying in bed. Short of breath with activity. Did have his breakfast. No fever no chills. On antibiotics and IV Lasix Review of systems: Was done for constitutional, cardiovascular, GI, pulmonary. relevant finding as above Active Medications Amiodarone HCl (Amiodarone 200 Mg Tab) 200 mg PO BID [facility] Last Admin: 09/13/20 09:18 Dose: 200 mg Documented by: Apixaban (Apixaban 5 Mg Tab) 5 mg PO BID [facility]; Protocol Last Admin: 09/13/20 09:18 Dose: 5 mg Documented by: Atorvastatin Calcium (Atorvastatin 40 Mg Tab) 40 mg PO DAILY [facility] Last Admin: 09/13/20 09:18 Dose: 40 mg Documented by: Azithromycin (Azithromycin 500 Mg Tab) 500 mg PO DAILY [facility] Stop: 09/17/20 09:01 Last Admin: 09/13/20 09:17 Dose: 500 mg Documented by: Furosemide (Furosemide 10 Mg/Ml 4 Ml Vial) 40 mg IV Q8HR [facility] Last Admin: 09/13/20 16:37 Dose: Not Given Documented by: Lisinopril (Lisinopril 2.5 Mg Tab) 2.5 mg PO DAILY [facility] Last Admin: 09/13/20 09:19 Dose: 2.5 mg Documented by: Lorazepam (Lorazepam 0.5 Mg Tab) 0.5 mg PO ONCE PRN PRN Reason: Anxiety Metoprolol Tartrate (Metoprolol Tartrate 50 Mg Tab) 50 mg PO BID [facility] Last Admin: 09/13/20 09:18 Dose: 50 mg Documented by: Miscellaneous Information (Pneumonia Protocol Utilized 1 Each Misc) 1 each PO ONCE PRN PRN Reason: Per Protocol Nitroglycerin (Nitroglycerin Sl Tabs 0.4 Mg Tab) 0.4 mg SUBLINGUAL Q5M PRN PRN Reason: Chest Pain Potassium Chloride (Potassium Chloride Er 20 Meq Tab.Er) 20 meq PO DAILY [facility] Last Admin: 09/13/20 12:50 Dose: 20 meq Documented by: Prasugrel (Prasugrel 10 Mg Tab) 10 mg PO DAILY [facility] Last Admin: 09/13/20 09:19 Dose: 10 mg Documented by: Past medical history to include: Coronary artery disease with stent in May 2017, May 2019, prostate cancer treated with surgery, hyperlipidemia, low back pain Social history: Patient smoked for about 20 years stopped in 2012. . 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 Conjunctiva normal. HEENT: External appearance of nose and ears normal, oral cavity grossly normal. NECK: JVD not raised; masses not palpable. HEART: First and second heart sounds are normal; no edema. LUNGS: Respiratory rate normal; clear to auscultation. ABDOMEN: Soft, nontender, liver spleen not palpable, no masses palpable. PSYCH: Alert and oriented x3; mood and affect normal. INVESTIGATIONS, reviewed in the clinical context: High resolution CT chest: Mild bibasilar laying in scarring. Improving bilateral multifocal groundglass opacities. 2-D echocardiogram: A. fib. EF less than 20% WBC 9.3 hemoglobin 12.7 platelets 227 potassium 4.6 creatinine 1.10 Troponin I less than 0.012, proBNP 2660 Pro-calcitonin 0.012 COVID 19 negative EKG tracing personally reviewed by me-left bundle-branch block Assessment and plan: -Acute congestive heart failure exacerbation from systolic dysfunction. EF less than 25%, slow to respond IV Lasix. Add Aldactone -Questionable pneumonia, with elevated procalcitonin Continue antibiotics for now -Coronary artery disease with stent to ramus intermedius in May 2019 Sister, Lopressor effient -Chronic left bundle branch block -Persistent atrial fibrillation, rate controlled Telemetry. Continue eliquis -Hyperlipidemia Lipitor -Obesity BMI 38.7 Weight loss measures, follow with PCP Repeat proBNP, procalcitonin, BMP in the morning. Care was discussed with the patient. Add Aldactone
[2020-09-13] MEDS: SPIRONOLACTONE 25 MG TAB PO SCH (18:16)
[2020-09-14] MEDS: FUROSEMIDE 10 MG/ML 4 ML VIAL IV SCH (00:13)
[2020-09-14 04:59] LABS: Basophils # (A) 0.1 k/uL (0-0.2); Basophils % (A) 1 %; Eosinophils # (A) 0.4 k/uL (0-0.7); Eosinophils % (A) 4 %; HCT 38.3 % (39.0-53.0); HGB 13.1 gm/dL (13.0-17.5); Lymphocytes # (A) 1.1 k/uL (1.0-4.8); Lymphocytes % (A) 11 %; MCH 32.6 pg (25.0-35.0); MCHC 34.3 g/dL (31.0-37.0); MCV 94.9 fL (80.0-100.0); Mean Platelet Volume 7.8; Monocytes # (A) 0.8 k/uL (0-1.0); Monocytes % (A) 8 %; Neutrophils % (A) 76 %; Platelet Count 262 k/uL (150-450); RBC 4.03 m/uL (4.30-5.90); WBC 10.6 k/uL (3.8-10.6)
[2020-09-14 05:10] LABS: African American GFR (CKD) 59 (>60 ml/min/1.73 sqM); Anion Gap 8 mmol/L; Blood Urea Nitrogen 22 mg/dL (9-20); Calcium 8.9 mg/dL (8.4-10.2); Carbon Dioxide 25 mmol/L (22-30); Chloride 103 mmol/L (98-107); Glucose 119 mg/dL (74-99); Non-African American GFR(CKD) 51 (>60 ml/min/1.73 sqM); Potassium 4.1 mmol/L (3.5-5.1); Sodium 136 mmol/L (137-145)
[2020-09-14] MEDS ORDERED: SODIUM CHLORIDE 0.9% 1,000 ML IV SCH (08:30)
[2020-09-14] MEDS: FUROSEMIDE 40 MG TAB PO SCH ×2 (09:35→17:43)
[2020-09-14] MEDS: SPIRONOLACTONE 25 MG TAB PO SCH (09:35)
[2020-09-14] MEDS: AZITHROMYCIN 500 MG TAB PO SCH (09:35)
[2020-09-14] MEDS: POTASSIUM CHLORIDE ER 20 MEQ TAB.ER PO SCH (09:35)
[2020-09-14] MEDS: APIXABAN 5 MG TAB PO SCH ×2 (09:35→20:59)
[2020-09-14] MEDS: PRASUGREL 10 MG TAB PO SCH (09:35)
[2020-09-14] MEDS: ATORVASTATIN 40 MG TAB PO SCH (09:35)
[2020-09-14] MEDS: AMIODARONE 200 MG TAB PO SCH ×2 (09:35→20:59)
--- NOTE | 2020-09-14 09:55 | XR ---
EXAMINATION TYPE: XR chest 2V DATE OF EXAM: 09/14/2020 COMPARISON: 09/13/2020 HISTORY: Shortness of breath TECHNIQUE: Frontal and lateral views of the chest are obtained. Findings: Heart size is at the within normal limits. Overlying leads. Stable mild patchy airspace op acities at the upper lobes and left lung base. Small left pleural effusion. No right pleural effusion . No pneumothorax. Degenerative changes of the thoracic spine. IMPRESSION: 1. Patchy airspace opacities are stable since prior exam. Consider resolving pneumonia.
--- NOTE | 2020-09-14 10:16 | P.PN ---
Subjective Progress Note Date: 09/14/20 This is a 69-year-old male patient, known history of CAD, known history of isch emic cardiomyopathy with an ejection fraction of 20%, coming in for worsening dyspnea. He denied having any chest pain. He was quite exhausted, tired and he had some slight cough without any significant sputum production. No angina. No palpitation. The patient was started on a combination of antibiotics utilizing a combination of Rocephin and Zithromax. His white cell count was at 9.3 as was nonelevated. BUN was 21 with a creatinine of 1.1. His proBNP level was 2660 and a proton syndrome and level was nonelevated at 0.12. The CT angiogram showed areas of scattered groundglass pulmonary infiltrates bilaterally. Overnight the testing is been negative patient has taken his COVID-19 va ccination. Cultures are negative thus far and the patient is responding nicely to diuretics. He is currently on Lasix 40 mg IV every 8 hours. A repeat chest x-ray was done that showed presence of patchy airspace pulmonary infiltrates although this was improving compared to the earlier chest x-ray was done on admission. Cardiac the patient is on room air oxygen. His cardiac rhythm is in atrial fibrillation. The echocardiogram shows an ejection fraction of less than 20%. Most of any chronic lung disease. No cervical emphysema and asthma. He is a nonsmoker. No supple with fibrosis. 09/14/2020, the patient is feeling better. Less short of breath. Diuresing well. No significant cough sputum production chest tightness or wheezing. He was switched to oral Lasix. He remains in atrial fibrillation. The plan is to undergo cardioversion tomorrow. He remains on long-term and to coagulation with Eliquis. Aldactone was added to his regimen. He is on oral Lasix for now. No nausea. No vomiting. No chest pain. No other new complaints otherwise for now. Note that on today's blood work, creatinine is up to 1.4 Objective - Vital Signs Vital signs: Vital Signs Temp 98.1 F 09/14/20 07:30 Pulse 84 09/14/20 09:25 Resp 18 09/14/20 07:30 BP 96/63 09/14/20 09:25 Pulse Ox 93 L 09/14/20 09:25 Intake & Output 09/13/20 09/14/2021 18:59 06:59 18:59 Intake Total 350 Balance 350 Weight 120.9 kg Intake: Oral 350 Other: Voiding Method Toilet Toilet Urinal Urinal # Voids 3 4 # Bowel Movements 1 - Exam CONSTITUTIONAL: No apparent distress. maintaining oxygen saturation on room air Head exam was generally normal. There was no scleral icterus or corneal arcus. Mucous membranes were moist. HEENT: Head is normocephalic. Pupils are equal, round. Sclerae anicteric. Mucous membranes of the mouth are moist. No JVD. No carotid bruit. CHEST EXAMINATION: Lungs are clear to auscultation. No chest wall tenderness is noted on palpation or with deep breathing. HEART EXAMINATION: Regular rate and rhythm. S1, S2 heard. No murmurs, gallops or rub. ABDOMEN: Soft, nontender. Positive bowel sounds. EXTREMITIES: 2+ peripheral pulses, no lower extremity edema and no calf tenderness. NEUROLOGIC EXAMINATION: Patient is awake, alert and oriented x3. - Labs CBC & Chem 7: 09/14/20 04:34 09/14/20 04:34 Labs: Abnormal Lab Results - Last 24 Hours (Table) 09/14/20 09/14/20 Range/Units 04:34 04:34 RBC 4.03 L (4.30-5.90) m/uL Hct 38.3 L (39.0-53.0) % Neutrophils # 8.0 H (1.3-7.7) k/uL Sodium 136 L (137-145) mmol/L BUN 22 H (9-20) mg/dL Creatinine 1.42 H (0.66-1.25) mg/dL Glucose 119 H (74-99) mg/dL Microbiology - Last 24 Hours (Table) 09/12/20 15:35 Blood Culture - Preliminary Blood No Growth after 24 hours 09/12/20 15:10 Blood Culture - Preliminary Blood No Growth after 24 hours Assessment and Plan Plan: 1 bilateral pulmonary infiltrates, most likely consistent with CHF/interstitial edema/groundglass pulmonary infiltrates bilaterally rather than pneumonia. Patient is responding nicely to diuretics. He is currently on room air oxygen. His proBNP level was nonelevated. He has no leukocytosis. He has no fever. No significant sputum production. He is responding rapidly to diuretics and chest x-rays improved his creatinine is up to 1.4. He was switched to oral Lasix. 2 coronary artery disease with previous coronary stenting 3 chronic atrial fibrillation which probably contributing to this patient's cardiomyopathy, rate is controlled for now 4 cardiomyopathy, likely ischemic with an ejection fraction of less than 20% 5 history of prostate cancer with a previous prostatectomy 6 hypertension 7 hyperlipidemia maintained on Lipitor and outpatient basis 8 acute kidney injury, cardiorenal factors investigation with diuresis, current creatinine is up to 1.4. Plan Continue diuretics, clinically improving and the patient is on oral Lasix for now. Discouraged the use of IV fluids based on his underlying cardiomyopathy. Creatinine was ultimately settled down as the patient is taken off the IV Lasix Monitor renal function Complete a course of Zithromax Considered cardioversion which will help with his cardiomyopathy, this with the left upper cardiology Continue anticoagulation with Eliquis Continue Effient Echocardiogram was noted CAT scan of the chest was noted Complete a course of antibiotics. Patient is currently on room air oxygen. Pulmonary critical care services we'll sign off.
[2020-09-14] MEDS: METOPROLOL TARTRATE 50 MG TAB PO SCH ×2 (11:53→20:59)
--- NOTE | 2020-09-14 15:47 | PN ---
PROGRESS NOTE Andrea Parnell is a gentleman with atrial fibrillation, moderate ventricular rate and probable nonischemic cardiomyopathy. He has not had a cardiac cath, but LV function has deteriorated significantly since his atrial fib was noted. There was a question of pneumonia, but clinically looks more like heart failure. We diuresed him aggressively. Creatinine has gone up. He feels better in terms of the breathing, but he also feels a bit dehydrated. I will cautiously hydrate him today. Continue rate control with current medications and he will have a transesophageal echo and electrical cardioversion tomorrow by Dr. Cazares. The patient understands the rationale, risks, benefits, options. Vitals signs are stable. No JVD. S1-S2 heard normally with irregularity in rhythm. Short systolic murmur. Lungs are clear. Abdomen is soft. Lower extremity edema is improved. IMPRESSION: 1. Systolic congestive heart failure with exacerbation which is improving. 2. Atrial fib moderate ventricular rate. 3. Probable nonischemic cardiomyopathy. 4. Bronchitis/pneumonia. RECOMMENDATIONS: Continue rate control. Back off on diuresis and proceed with a HOMER cardioversion tomorrow. MMODL / IJN: [id number] /
--- NOTE | 2020-09-14 19:42 | P.PN ---
Progress Note - Text Progress Note Date: 09/14/20 Chief Complaint: Short of breath History of presenting complaint: This is a very pleasant 69 year patient of . Patient back in May 2017 had a coronary stent placed. May 2019 Ruled in acute LA. cardiac catheterization- Angioplasty stenting done to ramus intermedius. Patient now presents with 3 weeks history of shortness of breath with exertion. Gets rather exhausted and tired. No chest process such. No fever no chills. A slight dry cough. No orthopnea. No edema. Decreased appetite tired and rundown. He does follow with Dr. Alva Pandya. He was scheduled for a cardiac cath and 3 days to further investigate his A. fib. Patient be treated for CHF, questionable pneumonia. Started on IV Lasix and Zithromax and ceftriaxone. Today: Breathing a bit better. A bit tired. Was a bit dizzy this morning. Given some IV fluids. IV Lasix changed to by mouth Lasix. Telemetry: Sinus tachycardia with a left bundle-branch block pattern Review of systems: Was done for constitutional, cardiovascular, GI, pulmonary. relevant finding as above Active Medications Amiodarone HCl (Amiodarone 200 Mg Tab) 200 mg PO BID [facility] Last Admin: 09/14/20 09:35 Dose: 200 mg Documented by: Apixaban (Apixaban 5 Mg Tab) 5 mg PO BID [facility]; Protocol Last Admin: 09/14/20 09:35 Dose: 5 mg Documented by: Atorvastatin Calcium (Atorvastatin 40 Mg Tab) 40 mg PO DAILY [facility] Last Admin: 09/14/20 09:35 Dose: 40 mg Documented by: Azithromycin (Azithromycin 500 Mg Tab) 500 mg PO DAILY [facility] Stop: 09/17/20 09:01 Last Admin: 09/14/20 09:35 Dose: 500 mg Documented by: Furosemide (Furosemide 40 Mg Tab) 40 mg PO BID@0900,1600 [facility] Last Admin: 09/14/20 17:43 Dose: 40 mg Documented by: Lisinopril (Lisinopril 2.5 Mg Tab) 2.5 mg PO DAILY [facility] Last Admin: 09/14/20 09:35 Dose: 2.5 mg Documented by: Lorazepam (Lorazepam 0.5 Mg Tab) 0.5 mg PO ONCE PRN PRN Reason: Anxiety Metoprolol Tartrate (Metoprolol Tartrate 50 Mg Tab) 50 mg PO BID [facility] Last Admin: 09/14/20 11:53 Dose: 50 mg Documented by: Miscellaneous Information (Pneumonia Protocol [facility] 1 each PO ONCE PRN PRN Reason: Per Protocol Nitroglycerin (Nitroglycerin Sl Tabs 0.4 Mg Tab) 0.4 mg SUBLINGUAL Q5M PRN PRN Reason: Chest Pain Potassium Chloride (Potassium Chloride Er 20 Meq Tab.Er) 20 meq PO DAILY [facility] Last Admin: 09/14/20 09:35 Dose: 20 meq Documented by: Prasugrel (Prasugrel 10 Mg Tab) 10 mg PO DAILY [facility] Last Admin: 09/14/20 09:35 Dose: 10 mg Documented by: Spironolactone (Spironolactone 25 Mg Tab) 25 mg PO DAILY [facility] Last Admin: 09/14/20 09:35 Dose: 25 mg Documented by: Past medical history to include: Coronary artery disease with stent in May 2017, May 2019, prostate cancer treated with surgery, hyperlipidemia, low back pain Social history: Patient smoked for about 20 years stopped in 2012. . [employer] Physical examination: VITAL SIGNS: 98.3, 71, 18, 99 with 64, 92% on room air GENERAL: Laying in bed, awake EYES: Pupils equal. Conjunctiva normal. HEENT: External appearance of nose and ears normal, oral cavity grossly normal. NECK: JVD not raised; masses not palpable. HEART: First and second heart sounds are normal; no edema. LUNGS: Respiratory rate normal; clear to auscultation. ABDOMEN: Soft, nontender, liver spleen not palpable, no masses palpable. PSYCH: Alert and oriented x3; mood and affect normal. INVESTIGATIONS, reviewed in the clinical context: September 14: WBC 10.6 and globin 13.1 platelets 262 potassium 4.1 BUN 22 creatinine 1.[address] chest: Mild bibasilar laying in scarring. Improving bilateral multifocal groundglass opacities. 2-D echocardiogram: A. fib. EF less than 20% WBC 9.3 hemoglobin 12.7 platelets 227 potassium 4.6 creatinine 1.10 Troponin I less than 0.012, proBNP 2660 Pro-calcitonin 0.012 COVID 19 negative EKG tracing personally reviewed by me-left bundle-branch block Assessment and plan: -Acute congestive heart failure exacerbation from systolic dysfunction. EF less than 25%, : Back to IV Lasix-changed to by mouth Lasix. Aldactone -Questionable pneumonia, with elevated procalcitonin Continue antibiotics for now -Acute kidney injury, prerenal from diuretics: New diagnosis Follow BMP. -Coronary artery disease with stent to ramus intermedius in May 2019 , Lopressor effient -Chronic left bundle branch block -Persistent atrial fibrillation, rate controlled Telemetry. Continue eliquis -Hyperlipidemia Lipitor -Obesity BMI 38.7 Weight loss measures, follow with PCP Follow BMP. Lasix changed to by mouth. Blood pressure running on the lower side. Hold Zestril. Patient is given some fluids by cardiology. Care was discussed with the patient. Given the complexity and severity of patient's condition expect the patient to be in the hospital at least for 2 overnights
[2020-09-15] MEDS ORDERED: MELATONIN 3 MG TABLET PO PRN (01:05)
[2020-09-15 05:04] LABS: African American GFR (CKD) 62 (>60 ml/min/1.73 sqM); Anion Gap 10 mmol/L; Blood Urea Nitrogen 26 mg/dL (9-20); Calcium 8.9 mg/dL (8.4-10.2); Carbon Dioxide 23 mmol/L (22-30); Chloride 103 mmol/L (98-107); Glucose 116 mg/dL (74-99); Non-African American GFR(CKD) 54 (>60 ml/min/1.73 sqM); Potassium 4.5 mmol/L (3.5-5.1); Sodium 136 mmol/L (137-145)
[2020-09-15] MEDS: AZITHROMYCIN 500 MG TAB PO SCH (09:12)
[2020-09-15] MEDS: PRASUGREL 10 MG TAB PO SCH (09:12)
[2020-09-15] MEDS: ATORVASTATIN 40 MG TAB PO SCH (09:13)
[2020-09-15] MEDS: POTASSIUM CHLORIDE ER 20 MEQ TAB.ER PO SCH (09:13)
[2020-09-15] MEDS: METOPROLOL TARTRATE 50 MG TAB PO SCH ×2 (09:14→21:00)
[2020-09-15] MEDS: SPIRONOLACTONE 25 MG TAB PO SCH (09:14)
[2020-09-15] MEDS: APIXABAN 5 MG TAB PO SCH ×2 (09:15→21:00)
[2020-09-15] MEDS: FUROSEMIDE 40 MG TAB PO SCH ×2 (09:15→15:56)
[2020-09-15] MEDS: AMIODARONE 200 MG TAB PO SCH ×2 (09:15→21:00)
[2020-09-15] MEDS ORDERED: LIDOCAINE 1% INJ 10MG/ML (20 ML MDV) ONE (11:40)
[2020-09-15] MEDS ORDERED: ONDANSETRON 4 MG/2 ML VIAL ONE (11:40)
[2020-09-15] MEDS ORDERED: MIDAZOLAM 2 MG/2 ML VIAL ONE (11:40)
[2020-09-15] MEDS ORDERED: ETOMIDATE 2 MG/ML 10 ML VIAL ONE (11:40)
[2020-09-15] MEDS ORDERED: SODIUM CHLORIDE 0.9% 1,000 ML IV ONE ×2 (11:40)
--- NOTE | 2020-09-15 11:45 | P.PN ---
Subjective Progress Note Date: 09/15/20 This is a 69-year-old male patient, known history of CAD, known history of ischemic cardiomyopathy with an ejection fraction of 20%, coming in for worsening dyspnea. He denied having any chest pain. He was quite exhausted, tired and he had some slight cough without any significant sputum production. No angina. No palpitation. The patient was started on a combination of antibiotics utilizing a combination of Rocephin and Zithromax. His white cell count was at 9.3 as was nonelevated. BUN was 21 with a creatinine of 1.1. His proBNP level was 2660 and a proton syndrome and level was nonelevated at 0.12. The CT angiogram showed areas of scattered groundglass pulmonary infiltrates bilaterally. Overnight the testing is been negative patient has taken his COVID-19 vaccination. Cultures are negative thus far and the patient is responding nicely to diuretics. He is currently on Lasix 40 mg IV every 8 hours. A repeat chest x-ray was done that showed presence of patchy airspace pulmonary infiltrates although this was improving compared to the earlier chest x-ray was done on admission. Cardiac the patient is on room air oxygen. His cardiac rhythm is in atrial fibrillation. The echocardiogram shows an ejection fraction of less than 20%. Most of any chronic lung disease. No cervical emphysema and asthma. He is a nonsmoker. No supple with fibrosis. 09/14/2020, the patient is feeling better. Less short of breath. Diuresing well. No significant cough sputum production chest tightness or wheezing. He was switched to oral Lasix. He remains in atrial fibrillation. The plan is to undergo cardioversion tomorrow. He remains on long-term and to coagulation with Eliquis. Aldactone was added to his regimen. He is on oral Lasix for now. No nausea. No vomiting. No chest pain. No other new complaints otherwise for now. Note that on today's blood work, creatinine is up to 1.4 The patient is seen today 09/15/2020 in follow-up on the regular medical floor. He is currently resting flat in bed. Awake and alert in no acute distress. No worsening shortness of breath, cough or congestion. Maintaining O2 saturation in the 90s on room air. He's afebrile. Remains in atrial fibrillation. Rate in the 110s. The plan is for HOMER and probable cardioversion today. Blood cultures reveal no growth. Sputum culture pending. Sodium 136. Potassium 4.5. Creatinine 1.35. He is anticoagulated with Eliquis. Objective - Vital Signs Vital signs: Vital Signs Temp 98.4 F 09/15/20 07:00 Pulse 103 H 09/15/20 09:15 Resp 18 09/15/20 07:00 BP 114/71 09/15/20 09:15 Pulse Ox 93 L 09/15/20 07:00 Intake & Output 09/14/20 09/15/20 09/15/20 18:59 06:59 18:59 Intake Total 350 Output Total 920 Balance -920 350 Weight 117.1 kg Intake: Oral 350 Output: Urine 920 Other: Voiding Method Toilet Toilet Urinal Urinal # Voids 3 4 # Bowel Movements 1 - Exam GENERAL EXAM: Alert, pleasant 69-year-old gentleman, on room air, comfortable in no apparent distress. HEAD: Normocephalic. EYES: Normal reaction of pupils, equal size. NOSE: Clear with pink turbinates. THROAT: No erythema or exudates. NECK: No masses, no JVD. CHEST: No chest wall deformity. LUNGS: Equal air entry with crackles in the posterior bases. CVS: S1 and S2 normal with no audible murmur, irregular rhythm. ABDOMEN: No hepatosplenomegaly, normal bowel sounds, no guarding or rigidity. SPINE: No scoliosis or deformity SKIN: No rashes CENTRAL NERVOUS SYSTEM: No focal deficits, tone is normal in all 4 extremities. EXTREMITIES: There is no peripheral edema. No clubbing, no cyanosis. Peripheral pulses are intact. - Labs CBC & Chem 7: 09/14/20 04:34 09/15/20 03:40 Labs: Abnormal Lab Results - Last 24 Hours (Table) 09/15/20 Range/Units 03:40 Sodium 136 L (137-145) mmol/L BUN 26 H (9-20) mg/dL Creatinine 1.35 H (0.66-1.25) mg/dL Glucose 116 H (74-99) mg/dL Microbiology - Last 24 Hours (Table) 09/12/20 15:35 Blood Culture - Preliminary Blood No Growth after 48 hours 09/12/20 15:10 Blood Culture - Preliminary Blood No Growth after 48 hours 09/14/20 08:08 Gram Stain - Preliminary Sputum Sputum Culture - Preliminary Assessment and Plan Assessment: 1 bilateral pulmonary infiltrates, most likely consistent with CHF/interstitial edema/groundglass pulmonary infiltrates bilaterally rather than pneumonia. Patient is responding nicely to diuretics. He is currently on room air oxygen. His proBNP level was nonelevated. He has no leukocytosis. He has no fever. Sputum culture pending. He is responding rapidly to diuretics and chest x-rays improved his creatinine is up to 1.4. He was switched to oral Lasix. 2 coronary artery disease with previous coronary stenting 3 chronic atrial fibrillation which probably contributing to this patient's cardiomyopathy, rate is controlled for now 4 cardiomyopathy, likely ischemic with an ejection fraction of less than 20% 5 history of prostate cancer with a previous prostatectomy 6 hypertension 7 hyperlipidemia maintained on Lipitor and outpatient basis 8 acute kidney injury, cardiorenal factors investigation with diuresis, current creatinine is up to 1.35. Plan The patient was seen and evaluated by Dr. Sandra Christie from the pulmonary standpoint Follow-up pro-calcitonin 0.12 Plan is for HOMER/cardioversion today I, the cosigning physician, performed a history & physical examination of the patient. Lungs sounds faint crackles in the posterior bases. Maintaining good O2 saturations in the 90s on room air. I discussed the assessment and plan of care with my nurse practitioner, Yesenia Ybarra. I attest to the above note as dictated by her.
[2020-09-15] MEDS ORDERED: SODIUM CHLORIDE 0.9% 1,000 ML IV SCH (12:15)
--- NOTE | 2020-09-15 13:05 | P.PN ---
Subjective This is a pleasant 69-year-old male past medical history significant for coronary artery disease status post PCI to ramus intermedius, chronic persistent atrial fibrillation (on Eliquis), hypertension, history of ischemic cardiomyopathy. He follows in the office with Dr. Cazares. We have been asked to see in consultation for atrial fibrillatio. Patient is seen and examined at bedside, no acute distress. He is lying flat in bed. Patient presents emergency department with complaints of shortness of breath, fatigue, tired, feeling exhausted, dry cough for the past 3 weeks. Patient denies chest pain, orthopnea, PND, palpitations, lightheadedness, dizziness, fever or chills. Denies sick contacts. Patient was started on IV ceftriaxone and Zithromax for possible pneumonia. CT chest revealed concern for pneumonia, edema or hemorrhage, there are minimal pleural effusion. No pulmonary embolism. Repeat CT chest 09/13/2020 revealed mild bibasilar linear scarring or atelectasis. Improving bilateral multifocal groundglass opacities and consolidations from one day earlier. He is a former smoker. Denies family history of heart disease. Patient recently followed up with Dr. Cazares in 09/02/2020, patient underwent echocardiogram in 06/22/2020 which revealed severe LV dysfunction with EF 25- 30%, mild mitral regurgitation, mild tricuspid regurgitation. The plan was to perform a HOMER and cardioversion this , September 15 2020, LV function does not improve it would be recommended to perform a cardiac catheterization for him for AICD. DIAGNOSTICS EKG reveals atrial fibrillation, left bundle branch block, heart rate 93. Prior EKG with similar findings Echocardiogram 09/13/2020 revealed an EF of less than 20%, LA severely dilated, mild mitral regurgitation, mild tricuspid regurgitation. Severe global hypokinesis of LV Most recent echocardiogram in the office 06/22/2020- severe LV dysfunction with EF 25-30%, mild mitral regurgitation, mild tricuspid regurgitation. Previous echocardiogram 05/30/2019EF is 40-45% Most recent cardiac catheterization 05/2019 revealed a critical stenosis involving the ramus intermedius with stent placed, mild diseae in the right PDA 09/15/2020: Patient seen and examined at bedside, no acute distress. He does state that he does feel "not great". Blood pressure 114/71, heart rate 60, afebrile, maintain ing saturations on room air. He is currently being maintained on Eliquis 5 mg twice day, amiodarone 200 mg twice a day, atorvastatin 40 mg daily, Lasix 40 mg PO BID, metoprolol titrate 50 mg twice a day, present to 10 mg daily, spironolactone 25 mg daily, potassium chloride 20 mg daily. Telemetry tracings indicate atrial fibrillation, with controlled rates. PHYSICAL EXAMINATION CONSTITUTIONAL: No apparent distress. CHEST EXAMINATION: Lungs are clear to auscultation. No chest wall tenderness is noted on palpation or with deep breathing. HEART EXAMINATION: Regular rate and rhythm. S1, S2 heard. No murmurs, gallops or rub. ABDOMEN: Soft, nontender. Positive bowel sounds. EXTREMITIES: 2+ peripheral pulses, no lower extremity edema and no calf tenderness. NEUROLOGIC EXAMINATION: Patient is awake, alert and oriented x3. ASSESSMENT Shortness of breath, fatigue, decreased appetite, dry cough - currently being treated for Pneumonia Coronary artery disease status post PCI ramus intermedius 05/2019 Probably non-ischemic cardiomyopathy- he has had a cardiac cath, but LV function has deteriorated specifically since his atrial fibrillation was noted. Non- ischemic until proven otherwise Acute systolic heart failure exacerbation with reduced ejection fraction Chronic persistent atrial fibrillation on Eliquis Hyperlipidemia Hypertension PLAN Plan for HOMER cardioversion with Dr. Cazares today. Continue current cardiac medications Patient is at risk for sudden cardiac and will need a LifeVest prior to discharge Further recommendations based on clinical course. Objective - Vital Signs Vital signs: Vital Signs Temp 98.4 F 09/15/20 07:00 Pulse 60 09/15/20 12:38 Resp 16 09/15/20 12:38 BP 117/63 09/15/20 12:38 Pulse Ox 92 L 09/15/20 12:38 Intake & Output 09/14/20 09/15/20 09/15/20 18:59 06:59 18:59 Intake Total 350 125 Output Total 920 Balance -920 350 125 Weight 117.1 kg Intake: IV 125 Oral 350 Output: Urine 920 Other: Voiding Method Toilet Toilet Urinal Urinal # Voids 3 4 # Bowel Movements 1 - Labs CBC & Chem 7: 09/14/20 04:34 09/15/20 03:40 Labs: Abnormal Lab Results - Last 24 Hours (Table) 09/15/20 Range/Units 03:40 Sodium 136 L (137-145) mmol/L BUN 26 H (9-20) mg/dL Creatinine 1.35 H (0.66-1.25) mg/dL Glucose 116 H (74-99) mg/dL Microbiology - Last 24 Hours (Table) 09/12/20 15:35 Blood Culture - Preliminary Blood No Growth after 48 hours 09/12/20 15:10 Blood Culture - Preliminary Blood No Growth after 48 hours 09/14/20 08:08 Gram Stain - Preliminary Sputum Sputum Culture - Preliminary
[2020-09-15 15:26] VITALS: RESP 18
--- NOTE | 2020-09-15 16:55 | P.PN ---
Progress Note - Text Progress Note Date: 09/15/20 Chief Complaint: Short of breath History of presenting complaint: This is a very pleasant 69 year patient of . Patient back in May 2017 had a coronary stent placed. May 2019 Ruled in acute [place]. cardiac catheterization- Angioplasty stenting done to ramus intermedius. Patient now presents with 3 weeks history of shortness of breath with exertion. Gets rather exhausted and tired. No chest process such. No fever no chills. A slight dry cough. No orthopnea. No edema. Decreased appetite tired and rundown. He does follow with Dr. Alva Pandya. He was scheduled for a cardiac cath and 3 days to further investigate his A. fib. Patient be treated for CHF, questionable pneumonia. Started on IV Lasix and Zithromax and ceftriaxone. Today: Patient was cardioverted this morning. Postprocedure laying in bed. Breathing stable. Family present. A bit tired. Review of systems: Was done for constitutional, cardiovascular, GI, pulmonary. relevant finding as above Active Medications Amiodarone HCl (Amiodarone 200 Mg Tab) 200 mg PO BID [facility] Last Admin: 09/15/20 09:15 Dose: 200 mg Documented by: Apixaban (Apixaban 5 Mg Tab) 5 mg PO BID [facility]; Protocol Last Admin: 09/15/20 09:15 Dose: 5 mg Documented by: Atorvastatin Calcium (Atorvastatin 40 Mg Tab) 40 mg PO DAILY [facility] Last Admin: 09/15/20 09:13 Dose: 40 mg Documented by: Azithromycin (Azithromycin 500 Mg Tab) 500 mg PO DAILY [facility] Stop: 09/17/20 09:01 Last Admin: 09/15/20 09:12 Dose: 500 mg Documented by: Furosemide (Furosemide 40 Mg Tab) 40 mg PO BID@0900,1600 [facility] Last Admin: 09/15/20 15:56 Dose: 40 mg Documented by: Sodium Chloride (Saline 0.9%) 1,000 mls @ 20 mls/hr IV .Q24H [facility] Last Admin: 09/15/20 15:45 Dose: Not Given Documented by: Lorazepam (Lorazepam 0.5 Mg Tab) 0.5 mg PO ONCE PRN PRN Reason: Anxiety Melatonin (Melatonin 3 Mg Tablet) 3 mg PO HS PRN PRN Reason: Insomnia Metoprolol Tartrate (Metoprolol Tartrate 50 Mg Tab) 50 mg PO BID [facility] Last Admin: 09/15/20 09:14 Dose: 50 mg Documented by: Miscellaneous Information (Pneumonia Protocol Utilized 1 Each [facility] 1 each PO ONCE PRN PRN Reason: Per Protocol Nitroglycerin (Nitroglycerin Sl Tabs 0.4 Mg Tab) 0.4 mg SUBLINGUAL Q5M PRN PRN Reason: Chest Pain Potassium Chloride (Potassium Chloride Er 20 Meq Tab.Er) 20 meq PO DAILY [facility] Last Admin: 09/15/20 09:13 Dose: 20 meq Documented by: Prasugrel (Prasugrel 10 Mg Tab) 10 mg PO DAILY [facility] Last Admin: 09/15/20 09:12 Dose: 10 mg Documented by: Spironolactone (Spironolactone 25 Mg Tab) 25 mg PO DAILY [facility] Last Admin: 09/15/20 09:14 Dose: 25 mg Documented by: Past medical history to include: Coronary artery disease with stent in May 2017, May 2019, prostate cancer treated with surgery, hyperlipidemia, low back pain Social history: Patient smoked for about 20 years stopped in 2012. . 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 Conjunctiva normal. HEENT: External appearance of nose and ears normal, oral cavity grossly normal. NECK: JVD not raised; masses not palpable. HEART: First and second heart sounds are normal; no edema. LUNGS: Respiratory rate normal; clear to auscultation. ABDOMEN: Soft, nontender, liver spleen not palpable, no masses palpable. PSYCH: Alert and oriented x3; mood and affect normal. INVESTIGATIONS, reviewed in the clinical context: September 15 dose: BUN 26 creatinine 1.35 September 14: WBC 10.6 and globin 13.1 platelets 262 potassium 4.1 BUN 22 creatinine 1.[address] chest: Mild bibasilar laying in scarring. Improving bilateral multifocal groundglass opacities. 2-D echocardiogram: A. fib. EF less than 20% WBC 9.3 hemoglobin 12.7 platelets 227 potassium 4.6 creatinine 1.10 Troponin I less than 0.012, proBNP 2660 Pro-calcitonin 0.012 COVID 19 negative EKG tracing personally reviewed by me-left bundle-branch block Assessment and plan: -Acute congestive heart failure exacerbation from systolic dysfunction. EF less than 25%, : Stabilized IV Lasix-changed to by mouth Lasix. Aldactone. LifeVest being arranged -Questionable pneumonia, with elevated procalcitonin Continue antibiotics for now -Acute kidney injury, prerenal from diuretics: Follow BMP. -Coronary artery disease with stent to ramus intermedius in May 2019 , Lopressor effient -Chronic left bundle branch block -Persistent atrial fibrillation, rate controlled-cardioverted sinus rhythm DC cardioversion today on September 15 Continue eliquis -Hyperlipidemia Lipitor -Obesity BMI 38.7 Weight loss measures, follow with PCP Continue current medication treatment plan. Increase activity as tolerated. Discussed with the patient. LifeVest being arranged
[2020-09-16 07:47] VITALS: BP 106/67; TEMP 97.7
[2020-09-16] MEDS: APIXABAN 5 MG TAB PO SCH (08:03)
[2020-09-16] MEDS: POTASSIUM CHLORIDE ER 20 MEQ TAB.ER PO SCH (08:03)
[2020-09-16] MEDS: SPIRONOLACTONE 25 MG TAB PO SCH (08:03)
[2020-09-16] MEDS: ATORVASTATIN 40 MG TAB PO SCH (08:03)
[2020-09-16] MEDS: AMIODARONE 200 MG TAB PO SCH (08:04)
[2020-09-16] MEDS: AZITHROMYCIN 500 MG TAB PO SCH (08:04)
[2020-09-16] MEDS: PRASUGREL 10 MG TAB PO SCH (08:04)
[2020-09-16] MEDS: FUROSEMIDE 40 MG TAB PO SCH (08:04)
[2020-09-16] MEDS: METOPROLOL TARTRATE 50 MG TAB PO SCH (08:04)
[2020-09-16] MEDS ORDERED: ASPIRIN 81 MG PO SCH (09:00)
[2020-09-16 11:04] LABS: African American GFR (CKD) 55 (>60 ml/min/1.73 sqM); Anion Gap 10 mmol/L; Blood Urea Nitrogen 34 mg/dL (9-20); Calcium 9.5 mg/dL (8.4-10.2); Carbon Dioxide 24 mmol/L (22-30); Chloride 100 mmol/L (98-107); Glucose 194 mg/dL (74-99); Non-African American GFR(CKD) 47 (>60 ml/min/1.73 sqM); Sodium 134 mmol/L (137-145)
--- NOTE | 2020-09-16 13:29 | P.PN ---
Subjective This is a pleasant 69-year-old male past medical history significant for coronary artery disease status post PCI to ramus intermedius, chronic persistent atrial fibrillation (on Eliquis), hypertension, history of ischemic cardiomyopathy. He follows in the office with Dr. Cazares. We have been asked to see in consultation for atrial fibrillatio. Patient is seen and examined at bedside, no acute distress. He is lying flat in bed. Patient presents emergency department with complaints of shortness of breath, fatigue, tired, feeling exhausted, dry cough for the past 3 weeks. Patient denies chest pain, orthopnea, PND, palpitations, lightheadedness, dizziness, fever or chills. Denies sick contacts. Patient was started on IV ceftriaxone and Zithromax for possible pneumonia. CT chest revealed concern for pneumonia, edema or hemorrhage, there are minimal pleural effusion. No pulmonary embolism. Repeat CT chest 09/13/2020 revealed mild bibasilar linear scarring or atelectasis. Improving bilateral multifocal groundglass opacities and consolidations from one day earlier. He is a former smoker. Denies family history of heart disease. Patient recently followed up with Dr. Cazares in 09/02/2020, patient underwent echocardiogram in 06/22/2020 which revealed severe LV dysfunction with EF 25- 30%, mild mitral regurgitation, mild tricuspid regurgitation. The plan was to perform a HOMER and cardioversion this , September 15 2020, LV function does not improve it would be recommended to perform a cardiac catheterization for him for AICD. DIAGNOSTICS EKG reveals atrial fibrillation, left bundle branch block, heart rate 93. Prior EKG with similar findings Echocardiogram 09/13/2020 revealed an EF of less than 20%, LA severely dilated, mild mitral regurgitation, mild tricuspid regurgitation. Severe global hypokinesis of LV Most recent echocardiogram in the office 06/22/2020- severe LV dysfunction with EF 25-30%, mild mitral regurgitation, mild tricuspid regurgitation. Previous echocardiogram 05/30/2019EF is 40-45% Most recent cardiac catheterization 05/2019 revealed a critical stenosis involving the ramus intermedius with stent placed, mild diseae in the right PDA 09/15/2020:Patient underwent HOMER cardioversion with Dr. Cazares with conversion to sinus rhythm 09/16/2020: Patient seen and examined at bedside, no acute distress. He is feeling a little better today. He is currently still maintaining sinus rhythm heart rate in the 60s 70s. Blood pressure 106/67, heart rate 66, afebrile, maintaining saturations on room air. Sodium 134, potassium 5, BUN 34, serum creatinine 1.5 PHYSICAL EXAMINATION CONSTITUTIONAL: No apparent distress. CHEST EXAMINATION: Lungs are clear to auscultation. No chest wall tenderness is noted on palpation or with deep breathing. HEART EXAMINATION: Regular rate and rhythm. S1, S2 heard. No murmurs, gallops or rub. ABDOMEN: Soft, nontender. Positive bowel sounds. EXTREMITIES: 2+ peripheral pulses, no lower extremity edema and no calf tenderness. NEUROLOGIC EXAMINATION: Patient is awake, alert and oriented x3. ASSESSMENT Shortness of breath, fatigue, decreased appetite, dry cough - currently being treated for Pneumonia Coronary artery disease status post PCI ramus intermedius 05/2019 Probably non-ischemic cardiomyopathy- he has had a cardiac cath, but LV function has deteriorated specifically since his atrial fibrillation was noted. Non- ischemic until proven otherwise Acute systolic heart failure exacerbation with reduced ejection fraction Chronic persistent atrial fibrillation on Eliquis Hyperlipidemia Hypertension Acute Kidney Injury PLAN: Recommend continuing spironolactone 25 mg daily, aspirin 81 mg daily, Lasix 40 mg daily, Eliquis 5 mg twice daily, metoprolol tartrate 50 mg twice a day, amiodarone 200 mg twice day, atorvastatin 40 mg daily Will discontinue patient's Prasugrel Lisinopril on hold due to CINDY Patient having a follow-up BMP within 5 days. Patient is at risk for sudden cardiac and will need a LifeVest prior to discharge. From cardiology perspective, patient stable to be discharged home with a LifeVest, which is at the patient's bedside. Follow up with Dr. Cazares within one week. Objective - Vital Signs Vital signs: Vital Signs Temp 97.7 F 09/16/20 07:47 Pulse 64 09/16/20 08:00 Resp 18 09/16/20 07:47 BP 106/67 09/16/20 07:47 Pulse Ox 92 L 09/16/20 07:47 Intake & Output 09/15/20 09/16/20 09/16/20 18:59 06:59 18:59 Intake Total 100 Balance 100 Weight 117.4 kg Intake: IV 100 Other: Voiding Method Toilet Urinal # Voids 2 3 # Bowel Movements 1 - Labs CBC & Chem 7: 09/14/20 04:34 09/16/20 10:25 Labs: Abnormal Lab Results - Last 24 Hours (Table) 09/16/20 Range/Units 10:25 Sodium 134 L (137-145) mmol/L BUN 34 H (9-20) mg/dL Creatinine 1.50 H (0.66-1.25) mg/dL Glucose 194 H (74-99) mg/dL Microbiology - Last 24 Hours (Table) 09/14/20 08:08 Gram Stain - Final Sputum Sputum Culture - Final 09/12/20 15:10 Blood Culture - Preliminary Blood No Growth after 72 hours 09/12/20 15:35 Blood Culture - Preliminary Blood No Growth after 72 hours
[2020-09-16 14:41] VITALS: PULSE 68
--- NOTE | 2020-09-16 15:53 | P.DS ---
Providers Date of admission: 09/14/20 12:25 Expected date of discharge: 09/16/20 Attending physician: Salvador Lorenzo Consults: 09/12/20 20:59 Consult Physician Routine Consulting Provider: Loida Flores Consult Reason/Comments: Abnormal CT chest Do you want consulting provider notified?: Yes 09/13/20 08:22 Consult Physician Routine Consulting Provider: Latasha Nevarez Consult Reason/Comments: A-Fib Do you want consulting provider notified?: Already Contacted Primary care physician: Chad Anders [facility] Course: Chief Complaint: Short of breath History of presenting complaint: This is a very pleasant 69 year patient of . Patient back in May 2017 had a coronary stent placed. May 2019 Ruled in acute [place]. cardiac cat heterization- Angioplasty stenting done to ramus intermedius. Patient now presents with 3 weeks history of shortness of breath with exertion. Gets rather exhausted and tired. No chest process such. No fever no chills. A slight dry cough. No orthopnea. No edema. Decreased appetite tired and rundown. He does follow with Dr. Alva Pandya. He was scheduled for a cardiac cath and 3 days to further investigate his A. fib. Patient be treated for CHF, questionable pneumonia. Started on IV Lasix and Zithromax and ceftriaxone. September 15: Patient was cardioverted this morning. Postprocedure laying in bed. Breathing stable. Family present. A bit tired. September 16: Doing better. Breathing better. Received a LifeVest. MARIEL inhibitor to be held because of renal function. She'll be followed as an outpatient. Questions were answered. cardiac catheterization possibly as an outpatient. Remained in sinus rhythm. Discussion and discharge planning more than 35 minutes Consultation: Dr. BETY Smith from cardiology Past medical history to include: Coronary artery disease with stent in May 2017, May 2019, prostate cancer treated with surgery, hyperlipidemia, low back pain Social history: Patient smoked for about 20 years stopped in 2012. . 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 Conjunctiva normal. HEENT: External appearance of nose and ears normal, oral cavity grossly normal. NECK: JVD not raised; masses not palpable. HEART: First and second heart sounds are normal; no edema. LUNGS: Respiratory rate normal; clear to auscultation. ABDOMEN: Soft, nontender, liver spleen not palpable, no masses palpable. PSYCH: Alert and oriented x3; mood and affect normal. INVESTIGATIONS, reviewed in the clinical context: September 16: Potassium 5 creatinine 1.50 September 15 dose: BUN 26 creatinine 1.35 September 14: WBC 10.6 and globin 13.1 platelets 262 potassium 4.1 BUN 22 creatinine 1.[address] chest: Mild bibasilar laying in scarring. Improving bilateral multifocal groundglass opacities. 2-D echocardiogram: A. fib. EF less than 20% WBC 9.3 hemoglobin 12.7 platelets 227 potassium 4.6 creatinine 1.10 Troponin I less than 0.012, proBNP 2660 Pro-calcitonin 0.012 COVID 19 negative EKG tracing personally reviewed by me-left bundle-branch block Assessment and plan: -Acute congestive heart failure exacerbation from systolic dysfunction. EF less than 25%,, secondary to ischemic cardiomyopathy IV Lasix-changed to by mouth Lasix. Aldactone. LifeVest given -Questionable pneumonia, with elevated procalcitonin Complete 3 days of Zithromax -Acute kidney injury, prerenal from diuretics: Follow BMP. -Coronary artery disease with stent to ramus intermedius in May 2019 , Lopressor effient -Chronic left bundle branch block -Persistent atrial fibrillation, rate controlled-cardioverted sinus rhythm DC cardioversion on September 15 Continue eliquis -Hyperlipidemia Lipitor -Obesity BMI 38.7 Weight loss measures, follow with PCP Disposition: Home Plan - Discharge Summary Discharge Rx Participant: Yes New Discharge Prescriptions: New Spironolactone [Aldactone] 25 mg PO DAILY 30 Days #30 tab Aspirin 81 mg PO DAILY #0 chew Furosemide [Lasix] 40 mg PO DAILY #30 tab Melatonin 3 mg PO HS PRN tablet PRN Reason: Insomnia Azithromycin [Zithromax] 500 mg PO DAILY #3 tab Continue traMADol HCL [Ultram] 50 - 100 mg PO Q6H PRN PRN Reason: Pain Nitroglycerin Sl Tabs [Nitrostat] 0.4 mg SUBLINGUAL Q5M PRN #25 tab PRN Reason: Chest Pain Apixaban [Eliquis] 5 mg PO BID Metoprolol Tartrate [Lopressor] 50 mg PO BID Amiodarone HCl [Pacerone] 200 mg PO BID Atorvastatin [Lipitor] 40 mg PO DAILY Discontinued Prasugrel [Effient] 10 mg PO DAILY #30 tab lisinopriL [Zestril] 2.5 mg PO DAILY Discharge Medication List traMADol HCL [Ultram] 50 - 100 mg PO Q6H PRN 05/29/19 [History] Nitroglycerin Sl Tabs [Nitrostat] 0.4 mg SUBLINGUAL Q5M PRN #25 tab 06/01/19 [Rx] Apixaban [Eliquis] 5 mg PO BID 09/09/20 [History] Amiodarone HCl [Pacerone] 200 mg PO BID 09/12/20 [History] Atorvastatin [Lipitor] 40 mg PO DAILY 09/12/20 [History] Metoprolol Tartrate [Lopressor] 50 mg PO BID 09/12/20 [History] Aspirin 81 mg PO DAILY #0 chew 09/16/20 [Rx] Azithromycin [Zithromax] 500 mg PO DAILY #3 tab 09/16/20 [Rx] Furosemide [Lasix] 40 mg PO DAILY #30 tab 09/16/20 [Rx] Melatonin 3 mg PO HS PRN tablet 09/16/20 [Rx] Spironolactone [Aldactone] 25 mg PO DAILY 30 Days #30 tab 09/16/20 [Rx] Follow up Appointment(s)/Referral(s): Chad Anders DO [Primary Care Provider] - 1-2 days Mateo Cazares MD [STAFF PHYSICIAN] - 09/21/20 9:45 am Patient Instructions/Handouts: A-fib (Atrial Fibrillation) (GEN), Heart Healthy Diet (GEN) Activity/Diet/Wound Care/Special Instructions: bmp - 5 days
== END 2020-09-16 14:22 | disposition home or self-care (01) | DRG 291 ==
LOC: EC 10:51 → 6NMEDSUR 15:08 → OBSVTOIN 09-14 12:25
PROVIDERS: ADMIT Hospitalist; ATTEND Hospitalist
PROC: 5A2204Z Restoration of Cardiac Rhythm, Single (ICD-10-PCS; principal; 2020-09-15 12:00)
PROC: B246ZZ4 Ultrasonography of Right and Left Heart, Transesophageal (ICD-10-PCS; principal; 2020-09-15 12:00)
DX: I11.0 Hypertensive heart disease with heart failure (principal); J18.9 Pneumonia, unspecified organism; I48.19 Other persistent atrial fibrillation; N17.9 Acute kidney failure, unspecified; Z85.46 Personal history of malignant neoplasm of prostate; E66.9 Obesity, unspecified; I42.8 Other cardiomyopathies; Z68.38 Body mass index [BMI] 38.0-38.9, adult; J84.10 Pulmonary fibrosis, unspecified; I50.23 Acute on chronic systolic (congestive) heart failure; E78.5 Hyperlipidemia, unspecified; E86.0 Dehydration; E87.6 Hypokalemia; I25.10 Atherosclerotic heart disease of native coronary artery without angina pectoris; I25.2 Old myocardial infarction; I25.5 Ischemic cardiomyopathy; Z79.01 Long term (current) use of anticoagulants; I44.7 Left bundle-branch block, unspecified; J40 Bronchitis, not specified as acute or chronic; I08.1 Rheumatic disorders of both mitral and tricuspid valves; M54.5 Low back pain; T50.2X5A Adverse effect of carbonic-anhydrase inhibitors, benzothiadiazides and other diuretics, initial encounter; Z20.822 Contact with and (suspected) exposure to COVID-19; Z90.89 Acquired absence of other organs; Z79.02 Long term (current) use of antithrombotics/antiplatelets; Z79.899 Other long term (current) drug therapy; Z82.49 Family history of ischemic heart disease and other diseases of the circulatory system; Z87.891 Personal history of nicotine dependence; Z90.79 Acquired absence of other genital organ(s); Z95.5 Presence of coronary angioplasty implant and graft; Z87.01 Personal history of pneumonia (recurrent); Z98.890 Other specified postprocedural states
CPT/HCPCS: 36415; 71046; 71250; 71275; 80048; 80053; 83735; 83880; 84145; 84484; 85025; 85610; 85730; 87040; 87070; 87205; 87449; 87635; 92960; 93005; 93306; 93312; 93320; 93325; 94760; 99285

== ENCOUNTER → 2020-09-22 | Outpatient (CLI) | payer MEDICARE ==
[2020-09-22 20:30] LABS: African American GFR (CKD) 59.4 (60.0-200.0); Anion Gap 9.7 mmol/L (4.00-12.00); BUN/Creat Ratio 19.29 Ratio (12.00-20.00); Calcium 8.7 mg/dL (8.7-10.3); Carbon Dioxide 19.3 mmol/L (21.6-31.8); Non-African American GFR(CKD) 51.3 (60.0-200.0); Potassium 4.7 mmol/L (3.5-5.5)
== END | disposition home or self-care (01) ==
LOC: LABWHC1 08:48
PROVIDERS: ATTEND Internal Medicine Cardiovascular Disease
DX: I50.22 Chronic systolic (congestive) heart failure (principal)
CPT/HCPCS: 36415; 80048

== ENCOUNTER → 2020-10-04 | Day surgery (SDC) | payer MEDICARE ==
[2020-10-03 08:34] VITALS: BMI 38.0
[~2020-10-04] MED LIST: ALPRAZolam 0.25 MG TAB PO PRN; ALPRAZolam 0.5 MG TAB PO PRN; ASPIRIN 325 MG TAB PO STA; HEPARIN SODIUM,PORCINE 10,000 UNIT in SODIUM CHLORIDE 0.9% 1,000 ML IRRIGATION PRN; HEPARIN SODIUM,PORCINE 2,500 UNIT in SODIUM CHLORIDE 0.9% 250 ML IRRIGATION PRN; IOPAMIDOL-370 125ML BTL INJ ONE; LIDOCAINE 1% INJ 10MG/ML (20 ML MDV) SQ ONE; MIDAZOLAM 2 MG/2 ML VIAL IV ONE; NITROGLYCERIN SL TABS 0.4 MG TAB SUBLINGUAL PRN; RX INFO: IV CONTRAST WAS GIVEN 1 EACH MISC MISCELLANE PRN; SODIUM CHLORIDE 0.9% 1,000 ML IV SCH; SODIUM CHLORIDE 0.9% 1,000 ML in EMPTY BAG 1 BAG IV ONE
--- NOTE | 2020-10-04 08:52 | CC ---
CARDIAC CATHETERIZATION REPORT PROCEDURE: Cardiac catheterization. INDICATION: Cardiomyopathy with congestive heart failure in a patient with known coronary artery disease status post prior revascularization. PROCEDURE NOTE: After obtaining informed consent, left heart catheterization and coronary angiogram were performed via the right femoral artery using standard Alessandra catheters. The patient tolerated the procedure well without any obvious immediate complications. A femoral angiogram was performed and Angio-Seal was deployed for hemostasis. HEMODYNAMICS: Left ventricular end-diastolic pressure is 11 mm. There is no significant gradient across the aortic valve. LEFT VENTRICULOGRAM: Not performed. ANGIOGRAPHIC DATA: The left main coronary artery is a normal-sized vessel and is free of stenosis. Divides into left anterior descending coronary artery and circumflex coronary artery. LAD and its branches are free of significant stenosis. Circumflex coronary artery is a codominant vessel and gives off a high OM branch at a ramus intermedius that was previously stented and the stent appears patent. Right coronary artery is a large codominant system that shows mild nonobstructive disease, divides into PDA and PLV. The PLV branch has mild to moderate diffuse disease. CONCLUSIONS: 1. Patent stent within the ramus intermedius. 2. Mild to moderate nonobstructive disease involving the PLV and mid to distal LAD. PLAN: Patient's cardiomyopathy seems to be unrelated to underlying ischemic heart disease. The patient has reverted back to atrial fibrillation but has controlled ventricular rate. His cardiomyopathy could be related to the atrial fibrillation or could be nonischemic cardiomyopathy. I am going to refer him to EP for ablation. MMODL / IJN: [id number] /
[2020-10-04 19:48] VITALS: BP 101/56; PULSE 76; RESP 16
== END ==
LOC: CATHCVL 05:42
PROVIDERS: ATTEND Internal Medicine Cardiovascular Disease
DX: I42.9 Cardiomyopathy, unspecified (principal); I25.5 Ischemic cardiomyopathy; I25.10 Atherosclerotic heart disease of native coronary artery without angina pectoris; I48.19 Other persistent atrial fibrillation; I11.0 Hypertensive heart disease with heart failure; I50.22 Chronic systolic (congestive) heart failure; Z79.01 Long term (current) use of anticoagulants; Z79.82 Long term (current) use of aspirin; F17.210 Nicotine dependence, cigarettes, uncomplicated
CPT/HCPCS: 93458; C1769 ×2; C1760; C1894; J2250; J2001; Q9967

== ENCOUNTER → 2020-10-17 | Outpatient (CLI) | payer MEDICARE ==
[2020-10-17 10:19] LABS: HCT 41.6 % (39.0-53.0); HGB 13.4 gm/dL (13.0-17.5); Hypochromasia Slight; MCH 31.6 pg (25.0-35.0); MCHC 32.2 g/dL (31.0-37.0); MCV 98.2 fL (80.0-100.0); Mean Platelet Volume 8.4; Platelet Count 394 k/uL (150-450); RBC 4.24 m/uL (4.30-5.90); RDW 13.5 % (11.5-15.5); WBC 10.2 k/uL (3.8-10.6)
[2020-10-17 10:32] LABS: Potassium 4.5 mmol/L (3.5-5.1)
== END | disposition home or self-care (01) ==
LOC: LABPAT 08:27
PROVIDERS: ATTEND Internal Medicine Clinical Cardiac Electrophysiology
DX: Z01.812 Encounter for preprocedural laboratory examination (principal); I48.11 Longstanding persistent atrial fibrillation
CPT/HCPCS: 36415; 80051; 82565; 84520; 85027

== ENCOUNTER 2020-10-20 08:22 | Day surgery (SDC) | payer MEDICARE ==
[2020-10-18 13:45] VITALS: BMI 36.6
[~2020-10-20 08:22] MED LIST changes: -ALPRAZolam 0.25 MG TAB PO PRN; -ALPRAZolam 0.5 MG TAB PO PRN; -ASPIRIN 325 MG TAB PO STA; -HEPARIN SODIUM,PORCINE 10,000 UNIT in SODIUM CHLORIDE 0.9% 1,000 ML IRRIGATION PRN; -HEPARIN SODIUM,PORCINE 2,500 UNIT in SODIUM CHLORIDE 0.9% 250 ML IRRIGATION PRN; -IOPAMIDOL-370 125ML BTL INJ ONE; +LACTATED RINGERS 1,000 ML IV SCH; -LIDOCAINE 1% INJ 10MG/ML (20 ML MDV) SQ ONE; -MIDAZOLAM 2 MG/2 ML VIAL IV ONE; -NITROGLYCERIN SL TABS 0.4 MG TAB SUBLINGUAL PRN; -RX INFO: IV CONTRAST WAS GIVEN 1 EACH MISC MISCELLANE PRN; -SODIUM CHLORIDE 0.9% 1,000 ML in EMPTY BAG 1 BAG IV ONE
[2020-10-20] MEDS ORDERED: FUROSEMIDE 10 MG/ML 2 ML VIAL ONE (12:01)
[2020-10-20] MEDS ORDERED: fentaNYL (PF) 50 MCG/ML 2 ML AMP ONE (12:01)
[2020-10-20] MEDS ORDERED: LIDOCAINE 1% INJ 10MG/ML (20 ML MDV) ONE (12:01)
[2020-10-20] MEDS ORDERED: PROTAMINE SULFATE 10 MG/ML 5 ML VIAL IV ONE (12:01)
[2020-10-20] MEDS ORDERED: PROPOFOL 10 MG/ML 20 ML VIAL IV ONE (12:01)
[2020-10-20] MEDS ORDERED: NEOSTIGMINE 1 MG/ML 10 ML VIAL ONE (12:01)
[2020-10-20] MEDS ORDERED: MIDAZOLAM 2 MG/2 ML VIAL ONE (12:01)
[2020-10-20] MEDS ORDERED: HEPARIN SODIUM,PORCINE 10,000 UNIT/ML 1 ML VIAL ONE (12:01)
[2020-10-20] MEDS ORDERED: GLYCOPYRROLATE 0.2 MG/ML 2 ML VIAL ONE (12:01)
[2020-10-20] MEDS ORDERED: PHENYLEPHRINE-0.9% NACL SYG 1,000 MCG/10 ML SYRINGE ONE (12:01)
[2020-10-20] MEDS ORDERED: SUCCINYLCHOLINE CHLORIDE 100 MG/5 ML SYR IV ONE (12:01)
[2020-10-20] MEDS ORDERED: HEPARIN SOD,PORK IN 0.45% NACL 25,000 UNIT in 0.45% NACL 1 250ML.BAG IV ONE (12:13)
[2020-10-20] MEDS ORDERED: HEPARIN SODIUM (1,000 UNIT/ML) 1,000 UNIT in SODIUM CHLORIDE 0.9% 1,000 ML IRRIGATION ONE (12:14)
[2020-10-20] MEDS ORDERED: LIDOCAINE 1% INJ 10MG/ML (20 ML MDV) SQ ONE (12:46)
[2020-10-20] MEDS ORDERED: IOPAMIDOL-370 100ML BTL INJ ONE (15:00)
[2020-10-20] MEDS ORDERED: ACETAMINOPHEN TAB 325 MG TAB PO PRN (15:54)
[2020-10-20] MEDS ORDERED: ACETAMINOPHEN IV (For NPO) 1,000 MG in EMPTY BAG 1 BAG IVPB ONE (15:54)
--- NOTE | 2020-10-20 16:02 | P.PRLE ---
RE: Andrea Parnell Dear Dr. Anders Mr. Parnell underwent in A. fib ablation with only vein isolation, linear ablation of the left atrial roof and a left atrial septum Following that he underwent electrical cardioversion He is already failed amiodarone I'm adding entrusted to his current regimen since he is severe cardio myopathy and he will continue anticoagulation spironolactone and beta blockers as before and will follow with you and Dr. aarti rivas It is quite likely that in the future he may require a second procedure for residual atrial tachycardias Thank you for entrusting me with the care of the patient Warm regards Sincerely Rudy Deal
--- NOTE | 2020-10-20 16:09 | P.EPPROC ---
- EP Procedure Note Electrophysiology Procedure Note: PROCEDURE A. fib ablation DIAGNOSIS Atrial fibrillation, symptomatic, refractory to therapy Persistent, drug refractory Associated severe cardio myopathy underlying left bundle branch block RESULT No left atrial appendage mass seen on intracardiac echo, very large left and right atria that deserves a [place] 1 transseptal needle in the future Successful A. fib ablation/pulmonary vein isolation of all veins using cryo- ablation Complete entrance block in all 4 veins confirmed Linear ablation performed first to the cryo balloon and a small residual Was closed with RF ablation Linear ablation in the left atrial septum posterior to the transseptal No evidence for phrenic nerve injury Esophageal deflection YES Electrical cardioversion with a synchronized shock across the chest YES PROCEDURE DETAILS Patient was brought to the EP lab in a fasting state. Written informed consent was obtained prior to the procedure. Procedure performed under general anesthesia After initial muscle relaxant use, muscle relaxants were not given thereafter in order to assess phrenic nerve during procedure. Patient prepped and draped as per protocol Full cryo-set up with standard preparation of the cryoablation tools done. Femoral Venous access obtained on the right and left groins Venous and arterial Sheaths placed. Diagnostic catheters for the high right atrium, phrenic nerve stimulation and pacing, His bundle, RV and coronary sinus placed Intracardiac echo catheter placed. Long sheath placed in the right atrium Left and right transseptal catheterization performed under intracardiac echo guidance. Intravenous heparin with aCT above 300 Later, catheter positioning and balloon positioning in the left atrium, under intracardiac echo guidance Diagnostic EP study with HRA and Coronary sinus pacing and recording Baseline measurements AH 99, HV 43 Atrial pacing performed from the high right atrium and the coronary sinus RV pacing Transseptal catheterization performed RA pressure 16/7/11 LA pressure 33/7/22 Transseptal catheterization performed with standard sheath. The cryoablation sheath was then placed with an over the wire exchange without any acute complications. All 4 pulmonary veins were isolated in the following sequence: Left superior followed by left inferior followed by right superior followed by right inferior The cryo-ablation balloon was placed at the os of each vein 1.5 mL of IV dye was injected to confirm an occluded vein Goal during cryoablation was to achieve complete occlusion of the pulmonary vein, achieve -30 degrees C at 30 seconds and achieve -40 degrees C at 60 seconds and a time to effect of less than 60-90 seconds, . If not the balloon was repositioned to obtain this result After completion of Cryoblation with durations from 180-240 seconds, entrance block was confirmed with the Attain circular catheter in a roving fashion around the antrum of the pulmonary veins Phrenic nerve pacing was performed from the SVC, right innominate vein area and diaphragm voltage was monitored. Diaphragmatic contractions were also monitored manually for strength of contraction. Parameter goals for each cryo freeze Complete occlusion of the appropriate vein -30 degrees C by 30 seconds -40 degrees C by 60 seconds Minimum between minus 40-55 degrees C Thaw time greater than 10 seconds Balloon visualized by intracardiac echo The esophagus was intubated. Esophageal Temperature monitoring with a CIRCA catheter formed. Esophageal deflection for hypothermia of the esophagus below 30 degrees C Left superior pulmonary vein Complete isolation, entrance block Left inferior pulmonary vein Complete isolation, entrance block Right superior pulmonary vein, during phrenic nerve pacing Complete isolation, entrance block Right inferior pulmonary vein, during phrenic nerve pacing Complete isolation, entrance block Cryo balloon was used to perform RF ablation in the upper LV posterior wall and left atrial roof At the end of the procedure the Achieve catheter was once again used to check for entrance block Phrenic nerve stimulation was performed to confirm diaphragmatic stimulation the end of the procedure Cine fluoroscopy was performed at the very end of the procedure to confirm movement of both diaphragms with inspiration and expiration Sheaths were exchanged RF ablation catheter placed in the left atrium 3-D electro-anatomic mapping performed Voltage mapping performed Veins completely isolated Roof of the left atrium and a small. Linear ablation in the left atrial roof was performed and the roof line was completed Linear ablation was performed of the left atrial septum posterior to the transseptal along complex fractionated electrograms. This time is joint to the left atrial roof and to the right inferior pulmonary vein Subsequently the patient remained in her organized atrial fibrillation Twelve-lead EKG suggested an atrial tachycardia but intracardiac electrograms were consistent with atrial fibrillation At 200 J by phasic shock was used to defibrillated the patient in sinus rhythm Delivered energy 270 J Successful resumption to sinus rhythm AV node Wenckebach block 450 ms Sinus recovery times at 605 100 ms were 1031 and 1110 ms AH 99, HV 43 At the end of the procedure the patient was extubated Heparin was reversed Venous sheaths were removed and hemostasis assured, Vascade closure devices used PROCEDURES PERFORMED Diagnostic EP study CS pacing and recording Left and right transseptal catheterization 3D mapping) Intracardiac echocardiography Pulmonary vein isolation with transseptal and comprehensive EPS, [id number] Left atrial roof line, +[id number] Linear ablation, left atrium, +[id number] Electrical cardioversion with a synchronized shock across the chest [id number]
[2020-10-20 17:39] VITALS: RESP 18
[2020-10-20] MEDS: APIXABAN 5 MG TAB PO SCH (20:17)
[2020-10-20] MEDS: METOPROLOL TARTRATE 50 MG TAB PO SCH (20:17)
[2020-10-20] MEDS: SACUBITRIL/VALSARTAN 24 MG-26 MG TABLET PO SCH (20:17)
[2020-10-21 05:22] LABS: African American GFR (CKD) 81 (>60 ml/min/1.73 sqM); Anion Gap 6 mmol/L; Blood Urea Nitrogen 21 mg/dL (9-20); Calcium 8.3 mg/dL (8.4-10.2); Carbon Dioxide 19 mmol/L (22-30); Chloride 108 mmol/L (98-107); Glucose 127 mg/dL (74-99); Non-African American GFR(CKD) 70 (>60 ml/min/1.73 sqM); Sodium 133 mmol/L (137-145)
[2020-10-21] MEDS ORDERED: FUROSEMIDE 20 MG TAB PO STA (07:54)
[2020-10-21 07:55] VITALS: PULSE 74
[2020-10-21] MEDS: SACUBITRIL/VALSARTAN 24 MG-26 MG TABLET PO SCH (08:43)
[2020-10-21] MEDS: METOPROLOL TARTRATE 50 MG TAB PO SCH (08:43)
[2020-10-21] MEDS: APIXABAN 5 MG TAB PO SCH (08:43)
[2020-10-21] MEDS ORDERED: SPIRONOLACTONE 25 MG TAB PO SCH (09:00)
[2020-10-21] MEDS ORDERED: ATORVASTATIN 40 MG TAB PO SCH (09:00)
[2020-10-21 14:37] VITALS: BP 102/66; TEMP 98
--- NOTE | 2020-10-21 19:44 | DS ---
DISCHARGE SUMMARY Mr. Parnell is a patient of Dr. Cazares who has severe cardiomyopathy. He underwent an atrial fibrillation ablation yesterday. Thereafter, I started him on Entresto. His blood pressure has tolerated this very well. He will be continued on all of his other than cardiomyopathy medications. He does have severe cardiomyopathy. He remains in sinus rhythm. His EKG is normal. On examination, his heart sounds S1, S2 are normal. Lungs revealed bilateral crackles at the bases. Extremities are warm and groins have healed well. IMPRESSION: 1. Persistent atrial fibrillation, status post AF ablation. 2. Severe cardiomyopathy with congestive heart failure class 2-3. PLAN: 1. Continue heart failure medications. 2. Add Entresto 24/26 p.o. daily. 3. Follow up with Dr. Cazares in a week and JUNIOR in a week. If he can tolerate it, the dose of Entresto can be maximized and long-acting and metoprolol will be switched to a long-acting drug 100 mg p.o. daily in the future. Anticoagulation is to continue lifelong. MMODL / IJN: [id number] /
== END 2020-10-21 16:05 | disposition home or self-care (01) ==
LOC: CATHEP 08:22 → 6NMEDSUR 16:11 → CATHEP 10-21 16:05
PROVIDERS: ATTEND Internal Medicine Clinical Cardiac Electrophysiology
DX: I48.91 Unspecified atrial fibrillation (principal); I25.10 Atherosclerotic heart disease of native coronary artery without angina pectoris; I50.9 Heart failure, unspecified; Z87.891 Personal history of nicotine dependence; Z85.46 Personal history of malignant neoplasm of prostate; I42.9 Cardiomyopathy, unspecified
CPT/HCPCS: 92960; 93662; 93613; 93656; 93657; C1894 ×2; C1769 ×4; C1760; C1730 ×2; C1759; C1893; C1733; C1766; C1732; J2250; J2720; J1644 ×3; J1940; J2710; J2001; J3010; J0131; J2370; J0330; J2704; Q9967; 80048; 83735

== ENCOUNTER 2020-10-22 05:02 | Inpatient (IN) | payer MEDICARE ==
--- NOTE | 2020-10-22 05:27 | ED ---
Chest Pain HPI - General Chief Complaint: Chest Pain Stated Complaint: WILLIAM, chest pain Time Seen by Provider: 10/22/20 05:06 Source: EMS Mode of arrival: EMS Limitations: no limitations - Related Data Home Medications Medication Instructions Recorded Confirmed Apixaban [Eliquis] 5 mg PO BID 09/09/20 10/20/20 Atorvastatin [Lipitor] 40 mg PO DAILY 09/12/20 10/20/20 Metoprolol Tartrate [Lopressor] 50 mg PO BID 09/12/20 10/20/20 Previous Rx's Medication Instructions Recorded Nitroglycerin Sl Tabs [Nitrostat] 0.4 mg SUBLINGUAL Q5M PRN #25 tab 06/01/19 Spironolactone [Aldactone] 25 mg PO DAILY 30 Days #30 tab 09/16/20 Allergies Allergy/AdvReac Type Severity Reaction Status Date / Time No Known Allergies Allergy Verified 10/22/20 05:09 Review of Systems ROS Statement: Those systems with pertinent positive or pertinent negative responses have been documented in the HPI. ROS Other: All systems not noted in ROS Statement are negative. EKG Findings - EKG Comments: EKG Findings:: EKG shows sinus rhythm 85 MT 192 QRS 162 QTC 549 Past Medical History Past Medical History: Atrial Fibrillation, Cancer, Heart Failure, Hearing Disorder / Deafness, Hyperlipidemia, Hypertension, Myocardial Infarction ([place]), Pneumonia Additional Past Medical History / Comment(s): See Dr Deal's H&P. Hx Prostate cancer, right heel spur. Bilateral hearing aid use. Last Myocardial Infarction Date:: unknown History of Any Multi-Drug Resistant Organisms: None Reported Past Surgical History: Ablation, Heart Catheterization, Heart Catheterization With Stent, Prostate Surgery, Tonsillectomy Additional Past Surgical History / Comment(s): Heart cath w/2 stents (2017), heart stent 06/06/2018), Prostatectomy due to cancer (2012). Past Anesthesia/Blood Transfusion Reactions: No Reported Reaction Date of Last Stent Placement:: 2018 Past Psychological History: No Psychological Hx Reported Smoking Status: Former smoker Past Alcohol Use History: None Reported Past Drug Use History: None Reported - Past Family History Father Family Medical History: Hypertension, Myocardial Infarction ([place]) Additional Family Medical History / Comment(s): Father with myocardial infarcti on at age 75. Mother Family Medical History: No Reported History Additional Family Medical History / Comment(s): Broke her hip ended up in [facility] age 89. General Exam Limitations: no limitations Course Vital Signs 10/22/20 10/22/20 10/22/20 05:04 05:48 06:13 Temperature 97.6 F Pulse Rate 83 81 91 Respiratory 24 20 22 Rate Blood Pressure 122/78 90/55 116/66 O2 Sat by Pulse 97 94 L 94 L Oximetry Disposition Clinical Impression: Bilateral pneumonia, Chest pain, NSTEMI (non-ST elevated myocardial infarction) Disposition: ADMITTED IP TO THIS HOSP Condition: Fair Is patient prescribed a controlled substance at d/c from ED?: No Referrals: Chad Anders DO [Primary Care Provider] - 1-2 days
[2020-10-22 05:30] LABS: Basophils % (A) 0 %; Eosinophils # (A) 0.2 k/uL (0-0.7); Eosinophils % (A) 2 %; HCT 37.5 % (39.0-53.0); HGB 12.4 gm/dL (13.0-17.5); Lymphocytes # (A) 0.9 k/uL (1.0-4.8); Lymphocytes % (A) 7 %; MCH 31.7 pg (25.0-35.0); MCHC 33.2 g/dL (31.0-37.0); MCV 95.5 fL (80.0-100.0); Mean Platelet Volume 7.3; Monocytes # (A) 0.7 k/uL (0-1.0); Monocytes % (A) 5 %; Neutrophils # (A) 10.1 k/uL (1.3-7.7); Neutrophils % (A) 84 %; Platelet Count 342 k/uL (150-450); RBC 3.92 m/uL (4.30-5.90); RDW 14.2 % (11.5-15.5)
[2020-10-22 05:39] LABS: INR 1.2 (<1.2); Partial Thromboplastin Time 29.2 sec (22.0-30.0); Prothrombin Time 12.6 sec (9.0-12.0)
[2020-10-22 05:44] LABS: ALT 10 U/L (4-49); AST 36 U/L (17-59); African American GFR (CKD) >90 (>60 ml/min/1.73 sqM); Albumin 3.1 g/dL (3.5-5.0); Alkaline Phosphatase 78 U/L (38-126); Anion Gap 8 mmol/L; Blood Urea Nitrogen 19 mg/dL (9-20); Calcium 8.5 mg/dL (8.4-10.2); Carbon Dioxide 19 mmol/L (22-30); Chloride 106 mmol/L (98-107); Glucose 137 mg/dL (74-99); Lipase 53 U/L (23-300); Non-African American GFR(CKD) 85 (>60 ml/min/1.73 sqM); Potassium 3.8 mmol/L (3.5-5.1); Sodium 133 mmol/L (137-145); Total Bilirubin 0.6 mg/dL (0.2-1.3)
[2020-10-22] MEDS ORDERED: SODIUM CHLORIDE 0.9% 500 ML 500 ML IV ONE (05:50)
--- NOTE | 2020-10-22 05:57 | XR ---
EXAMINATION TYPE: XR chest 2V DATE OF EXAM: 10/22/2020 COMPARISON: 09/14/2020 HISTORY: Chest pain TECHNIQUE: 2 views FINDINGS: Heart is enlarged. There is some patchy infiltrates in both lower lobes. There is no defini te heart failure. There are chest leads. Bony thorax is intact. IMPRESSION: Cardiomegaly. There is new bilateral lower lobe pneumonia compared to old exam. No obviou s heart failure.
[2020-10-22] MEDS ORDERED: PNEUMONIA PROTOCOL UTILIZED 1 EACH MISC PO PRN (06:18)
[2020-10-22] MEDS ORDERED: AZITHROMYCIN 500 MG in SODIUM CHLORIDE 0.9% 250 ML IVPB STA (06:18)
[2020-10-22] MEDS ORDERED: NITROGLYCERIN SL TABS 0.4 MG TAB SUBLINGUAL PRN (11:12)
[2020-10-22] MEDS: METOPROLOL TARTRATE 50 MG TAB PO SCH ×2 (12:07→20:33)
[2020-10-22] MEDS: ATORVASTATIN 40 MG TAB PO SCH (12:07)
[2020-10-22] MEDS: SPIRONOLACTONE 25 MG TAB PO SCH (12:07)
[2020-10-22] MEDS: APIXABAN 5 MG TAB PO SCH ×2 (12:07→20:33)
[2020-10-22] MEDS ORDERED: FUROSEMIDE 10 MG/ML 10 ML VIAL IV STA (12:30)
--- NOTE | 2020-10-22 13:26 | P.HPIM ---
History of Present Illness H&P Date: 10/22/20 Chief Complaint: Short of breath History of presenting complaint: very pleasant 69 year patient of . May 2017 had a coronary stent placed. May 2019 Ruled in acute [place]. cardiac catheterization- Angioplasty stenting done to ramus intermedius. Recent admission for CHF and was cardioverted. Went back into A. fib. CHF EF less than 25% 10/04/2020: Cardiac catheterization: Patent stent within the ramus intermedius. Mild to moderate nonobstructive disease involving the PLV and mid to distal LAD. 10/21/2020 i.e. yesterday patient underwent ablation by Dr. Rudy Deal and with discharge. Patient states that he was short of breath when he was here and was not feeling very ago. At home he progressively became more short of breath. And 3:00 in the morning decided to come in. Could not sleep. No edema. Minimal cough. No fever no chills. Question about pneumonia in the ER and given IV antibiotics. Tired. Review of systems: GEN.: Tired, decreased appetite EYES: None HEENT: None NECK: None RESPIRATORY: As above CARDIOVASCULAR: As above GASTROINTESTINAL: None GENITOURINARY: None MUSCULOSKELETAL: None LYMPHATICS: None HEMATOLOGICAL: None PSYCHIATRY: None NEUROLOGICAL: None Past medical history to include: Coronary artery disease with stent in May 2017, May 2019, prostate cancer treated with surgery, hyperlipidemia, low back pain, atrial fibrillation Social history: Patient smoked for about 20 years stopped in 2012. . 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 Conjunctiva normal. HEENT: External appearance of nose and ears normal, oral cavity grossly normal. NECK: JVD questionably raised; masses not palpable. HEART: First and second heart sounds are normal; no edema. LUNGS: Respiratory rate increased; decreased breath sound ABDOMEN: Soft, nontender, liver spleen not palpable, no masses palpable. PSYCH: Alert and oriented x3; mood and affect tired NEUROLOGICAL: Cranial nerves grossly intact; no facial asymmetry, power and sensation grossly intact. LYMPHATICS: No lymph nodes palpable in the axilla and neck INVESTIGATIONS, reviewed in the clinical context: WBC 12 hemoglobin 12.4 platelets 342 potassium 3.8. 19 creatinine 0.92 Troponin I 1.75, proBNP 1620 Coronavirus [PCR]: Not detected EKG tracing personally reviewed by me-normal sinus rhythm, left bundle-branch block, rate 85 Chest x-ray film personally reviewed by me-infiltrates possible venous prominence Previous testing 2-D echocardiogram: Justo santos. EF less than 20% Assessment and plan: -Probable bilateral pneumonia, suspect gram-negative organism. Patient has recently been in the hospital. Change antibiotics to IV cefepime 1 g every 12 -Acute on chronic congestive heart failure exacerbation from systolic dysfunction. EF less than 25%,, secondary to ischemic cardiomyopathy and contribution from A. fib IV Lasix 40 mg every 8. Aldactone. -Coronary artery disease with stent to ramus intermedius in May 2019 , Lopressor effient -Chronic left bundle branch block -Persistent atrial fibrillation,, ablation on October 21. Sinus rhythm eliquis -Hyperlipidemia Lipitor -Obesity BMI 36.2 Weight loss measures, follow with PCP Change IV antibiotics to IV cefepime 1 g every 12. IV Lasix. Repeat chest x- rays labs in the morning. Check pro-calcitonin. Care was discussed with the patient. Cardiac consultation. Given the complexity and severity of patient's condition expect the patient to be in the hospital at least for 2 overnights Past Medical History Past Medical History: Atrial Fibrillation, Cancer, Heart Failure, Hearing Disorder / Deafness, Hyperlipidemia, Hypertension, Myocardial Infarction ([place]), Pneumonia Additional Past Medical History / Comment(s): See Dr Deal's H&P. Hx Prostate cancer, right heel spur. Bilateral hearing aid use. Last Myocardial Infarction Date:: unknown History of Any Multi-Drug Resistant Organisms: None Reported Past Surgical History: Ablation, Heart Catheterization, Heart Catheterization With Stent, Prostate Surgery, Tonsillectomy Additional Past Surgical History / Comment(s): Heart cath w/2 stents (2017), heart stent 06/06/2018), Prostatectomy due to cancer (2012). Past Anesthesia/Blood Transfusion Reactions: No Reported Reaction Date of Last Stent Placement:: 2018 Past Psychological History: No Psychological Hx Reported Smoking Status: Former smoker Past Alcohol Use History: None Reported Past Drug Use History: None Reported - Past Family History Father Family Medical History: Hypertension, Myocardial Infarction ([place]) Additional Family Medical History / Comment(s): Father with myocardial infarction at age 75. Mother Family Medical History: No Reported History Additional Family Medical History / Comment(s): Broke her hip ended up in [facility]- age 89. Medications and Allergies Home Medications Medication Instructions Recorded Confirmed Type Nitroglycerin Sl Tabs [Nitrostat] 0.4 mg SUBLINGUAL Q5M PRN #25 tab 06/01/19 10/22/20 Rx Apixaban [Eliquis] 5 mg PO BID 09/09/20 10/22/20 History Atorvastatin [Lipitor] 40 mg PO DAILY 09/12/20 10/22/20 History Metoprolol Tartrate [Lopressor] 50 mg PO BID 09/12/20 10/22/20 History Spironolactone [Aldactone] 25 mg PO DAILY 30 Days #30 tab 09/16/20 10/22/20 Rx Allergies Allergy/AdvReac Type Severity Reaction Status Date / Time No Known Allergies Allergy Verified 10/22/20 10:56 Physical Exam Vitals: Vital Signs Temp Pulse Pulse Resp BP BP Pulse Ox 10/22/20 08:00 98.2 F 75 97/62 95 10/22/20 07:01 98.2 F 81 20 123/67 95 10/22/20 06:41 98.4 F 86 20 100/60 97 10/22/20 06:13 91 22 116/66 94 L 10/22/20 05:48 81 20 90/55 94 L 10/22/20 05:04 97.6 F 83 24 122/78 97 Intake and Output 10/21/20 10/22/20 10/22/20 22:59 06:59 14:59 Intake Total 0 Output Total 75 Balance -75 Intake: Oral 0 Output: Urine 75 Other: Weight 114.305 kg Results CBC & Chem 7: 10/22/20 05:19 10/22/20 05:19 Labs: Abnormal Lab Results - Last 24 Hours (Table) 10/22/20 10/22/20 10/22/20 Range/Units 05:19 05:19 05:19 WBC 12.0 H (3.8-10.6) k/uL RBC 3.92 L (4.30-5.90) m/uL Hgb 12.4 L (13.0-17.5) gm/dL Hct 37.5 L (39.0-53.0) % Neutrophils # 10.1 H (1.3-7.7) k/uL Lymphocytes # 0.9 L (1.0-4.8) k/uL PT 12.6 H (9.0-12.0) sec INR 1.2 H (<1.2) Sodium 133 L (137-145) mmol/L Carbon Dioxide 19 L (22-30) mmol/L Glucose 137 H (74-99) mg/dL Troponin I (0.000-0.034) ng/mL Total Protein 6.0 L (6.3-8.2) g/dL Albumin 3.1 L (3.5-5.0) g/dL 10/22/20 Range/Units 05:19 WBC (3.8-10.6) k/uL RBC (4.30-5.90) m/uL Hgb (13.0-17.5) gm/dL Hct (39.0-53.0) % Neutrophils # (1.3-7.7) k/uL Lymphocytes # (1.0-4.8) k/uL PT (9.0-12.0) sec INR (<1.2) Sodium (137-145) mmol/L Carbon Dioxide (22-30) mmol/L Glucose (74-99) mg/dL Troponin I 1.750 H* (0.000-0.034) ng/mL Total Protein (6.3-8.2) g/dL Albumin (3.5-5.0) g/dL
[2020-10-22] MEDS: IPRATROPIUM-ALBUTEROL 3 ML NEB INHALATION PRN (15:56)
[2020-10-22] MEDS: CEFEPIME 1 GM in SODIUM CHLORIDE 0.9% 50 ML IVPB SCH ×2 (17:41→21:01)
[2020-10-22] MEDS: FUROSEMIDE 10 MG/ML 4 ML VIAL IV SCH (17:42)
--- NOTE | 2020-10-22 19:50 | P.CRDCN ---
History of Present Illness History of present illness: HISTORY OF PRESENTING ILLNESS This is a pleasant 69-year-old male past medical history significant for coronary artery disease status post PCI to ramus intermedius, chronic persistent atrial fibrillation (on Eliquis), hypertension, history of ischemic cardiomyopathy. He follows in the office with Dr. Cazares. Patient has been having worsening shortness breath with fairly minimal activity since September 2020. Unfortunately his ejection fraction has decreased to less than 20% by most recent echo 09/13/2020 with additional mild mitral regurgitation. Patient therefore had diagnostic left heart catheterization performed 10/04/2020 which showed patent stent ramus and mild to moderate nonobstructive disease of the PLV and distal LAD. Therefore he has been treated as a worsening nonischemic ca rdiomyopathy. This was felt possibly related to A. fib and therefore underwent HOMER and cardioversion however failed amiodarone and therefore was set up for an ablation. Patient underwent successful pulmonary vein isolation ablation 10/20/2020. He was cardioverted back to normal sinus rhythm. During catheterization right atrial pressure was measured at 16 and left atrial pressures were elevated at 33/7/22. Afterwards he admitted to continued dyspnea which was fairly chronic however this worsened upon going home. He also admitted to some chest pressure which has since resolved. The chest pressure was worse with his shortness of breath. Patient had EKG which shows sinus rhythm with frequent PACs, left bundle branch block. Chest x-ray showed hepatomegaly with new bilateral lower lobe pneumonia. Blood work shows hemoglobin 12.4, white blood cell count 12.0, platelets 342, sodium 133, carbon dioxide 19, BUN 19, creatinine 0.9, troponin 1.75, proBNP 1620, albumin 3.1, coronavirus negative. REVIEW OF SYSTEMS At the time of my exam: CONSTITUTIONAL: Denies fever or chills. CARDIOVASCULAR: + chest pain, +shortness of breath, +orthopnea, +PND, no palpitations. RESPIRATORY: Denies cough. GASTROINTESTINAL: Denies abdominal pain, diarrhea, constipation, nausea or vomiting. MUSCULOSKELETAL: Denies myalgias. NEUROLOGIC: Denies numbness, tingling or weakness. ENDOCRINE: Denies fatigue, weight change, polydipsia or polyurina. GENITOURINARY: Denies burning, hematuria or urgency with micturation. HEMATOLOGIC: Denies history of anemia or bleeding. PHYSICAL EXAMINATION Vital signs reviewed. CONSTITUTIONAL: No apparent distress. HEENT: Head is normocephalic. Pupils are equal, round. Sclerae anicteric. Mucous membranes of the mouth are moist. No JVD. No carotid bruit. CHEST EXAMINATION: Lungs are clear to auscultation. Bilateral crackles at bases HEART EXAMINATION: Regular rate and rhythm. S1, S2 heard. No murmurs, gallops or rub. ABDOMEN: Soft, nontender. Positive bowel sounds. EXTREMITIES: 2+ peripheral pulses, no lower extremity edema and no calf tenderness. NEUROLOGIC EXAMINATION: Patient is awake, alert and oriented x3. ASSESSMENT 1. Acute on chronic systolic heart failure 2. Bilateral pneumonia 3. Status post atrial fibrillation pulmonary vein isolation ablation 4. Elevated troponin, likely related to A. fib ablation however rule out [place] 5. Worsened ejection fraction less than 20%, nonischemic with recent heart catheterization showing nonischemic cardiomyopathy 6. Coronary artery disease status post PCI in the past 7. Persistent atrial fibrillation status post A. fib ablation 8. Hypertension, borderline hypotensive PLAN Patient with worsened shortness breath as well as chest pain. Troponins mildly elevated and may be related to recent ablation however rule out any cardiac event however less likely given recent relatively normal left heart catheterization. Continue to trend troponins. Patient's main symptoms of shortness breath appear related to heart failure with elevated left atrial pressures noted during A. fib ablation. Continue with diuresis. Hopefully place patient back on heart failure regimen however has not been able to tolerate heart failure regimen and may be concerning for advancing towards stage D heart failure. Patient does have left bundle branch block and hopeful BiV AICD at some point however continue with guideline directed medical therapy. Past Medical History Past Medical History: Atrial Fibrillation, Cancer, Heart Failure, Hearing Disorder / Deafness, Hyperlipidemia, Hypertension, Myocardial Infarction ([place]), Pneumonia Additional Past Medical History / Comment(s): See Dr Deal's H&P. Hx Prostate cancer, right heel spur. Bilateral hearing aid use. Last Myocardial Infarction Date:: unknown History of Any Multi-Drug Resistant Organisms: None Reported Past Surgical History: Ablation, Heart Catheterization, Heart Catheterization With Stent, Prostate Surgery, Tonsillectomy Additional Past Surgical History / Comment(s): Heart cath w/2 stents (2017), heart stent 06/06/2018), Prostatectomy due to cancer (2012). Past Anesthesia/Blood Transfusion Reactions: No Reported Reaction Date of Last Stent Placement:: 2018 Past Psychological History: No Psychological Hx Reported Smoking Status: Former smoker Past Alcohol Use History: None Reported Past Drug Use History: None Reported - Past Family History Father Family Medical History: Hypertension, Myocardial Infarction ([place]) Additional Family Medical History / Comment(s): Father with myocardial infarction at age 75. Mother Family Medical History: No Reported History Additional Family Medical History / Comment(s): Broke her hip ended up in [facility]- age 89. Medications and Allergies Home Medications Medication Instructions Recorded Confirmed Type Nitroglycerin Sl Tabs [Nitrostat] 0.4 mg SUBLINGUAL Q5M PRN #25 tab 06/01/19 10/22/20 Rx Apixaban [Eliquis] 5 mg PO BID 09/09/20 10/22/20 History Atorvastatin [Lipitor] 40 mg PO DAILY 09/12/20 10/22/20 History Metoprolol Tartrate [Lopressor] 50 mg PO BID 09/12/20 10/22/20 History Spironolactone [Aldactone] 25 mg PO DAILY 30 Days #30 tab 09/16/20 10/22/20 Rx Allergies Allergy/AdvReac Type Severity Reaction Status Date / Time No Known Allergies Allergy Verified 10/22/20 10:56 Physical Exam Vitals: Vital Signs Temp Pulse Pulse Resp BP BP Pulse Ox 10/22/20 18:10 96 10/22/20 16:11 82 10/22/20 16:00 79 107/64 86 L 10/22/20 15:56 80 10/22/20 12:00 78 109/71 97 10/22/20 08:00 98.2 F 75 97/62 95 10/22/20 07:01 98.2 F 81 20 123/67 95 10/22/20 06:41 98.4 F 86 20 100/60 97 10/22/20 06:13 91 22 116/66 94 L 10/22/20 05:48 81 20 90/55 94 L 10/22/20 05:04 97.6 F 83 24 122/78 97 Intake and Output 10/22/20 10/22/20 10/22/20 06:59 14:59 22:59 Intake Total 240 240 Output Total 175 1301 Balance 65 -1061 Intake: Oral 240 240 Output: Urine 175 1300 Stool 1 Other: Weight 114.305 kg 114.305 kg Results 10/22/20 05:19 10/22/20 05:19 Cardiac Enzymes 10/22/20 10/22/20 Range/Units 05:19 05:19 AST 36 (17-59) U/L Troponin I 1.750 H* (0.000-0.034) ng/mL Coagulation 10/22/20 Range/Units 05:19 PT 12.6 H (9.0-12.0) sec APTT 29.2 (22.0-30.0) sec CBC 10/22/20 Range/Units 05:19 WBC 12.0 H (3.8-10.6) k/uL RBC 3.92 L (4.30-5.90) m/uL Hgb 12.4 L (13.0-17.5) gm/dL Hct 37.5 L (39.0-53.0) % Plt Count 342 (150-450) k/uL Comprehensive Metabolic Panel 10/22/20 Range/Units 05:19 Sodium 133 L (137-145) mmol/L Potassium 3.8 (3.5-5.1) mmol/L Chloride 106 (98-107) mmol/L Carbon Dioxide 19 L (22-30) mmol/L BUN 19 (9-20) mg/dL Creatinine 0.92 (0.66-1.25) mg/dL Glucose 137 H (74-99) mg/dL Calcium 8.5 (8.4-10.2) mg/dL AST 36 (17-59) U/L ALT 10 (4-49) U/L Alkaline Phosphatase 78 (38-126) U/L Total Protein 6.0 L (6.3-8.2) g/dL Albumin 3.1 L (3.5-5.0) g/dL Current Medications Generic Name Dose Route Start Last Admin Trade Name Freq PRN Reason Stop Dose Admin Albuterol/Ipratropium 3 ml 10/22/20 06:18 10/22/20 15:56 Ipratropium-Albuterol 3 Ml Neb INHALATION 3 ml RT-Q4H PRN Administration shortness of breath Apixaban 5 mg 10/22/20 11:15 10/22/20 12:07 Apixaban 5 Mg Tab PO 5 mg BID LUCAS Administration Protocol Atorvastatin Calcium 40 mg 10/22/20 11:15 10/22/20 12:07 Atorvastatin 40 Mg Tab PO 40 mg DAILY LUCAS Administration Furosemide 40 mg 10/22/20 16:00 10/22/20 17:42 Furosemide 10 Mg/Ml 4 Ml Vial IV 40 mg Q8HR LUCAS Administration Cefepime HCl 1 gm/ Sodium 50 mls @ 12.5 mls/hr 10/22/20 13:30 10/22/20 17:41 Chloride IVPB 12.5 mls/hr Q12HR LUCAS Administration Metoprolol Tartrate 50 mg 10/22/20 11:15 10/22/20 12:07 Metoprolol Tartrate 50 Mg Tab PO 50 mg BID LUCAS Administration Miscellaneous Information 1 each 10/22/20 06:18 Pneumonia Protocol Utilized 1 Each Misc PO ONCE PRN Per Protocol Nitroglycerin 0.4 mg 10/22/20 11:12 Nitroglycerin Sl Tabs 0.4 Mg Tab SUBLINGUAL Q5M PRN Chest Pain Spironolactone 25 mg 10/22/20 11:15 10/22/20 12:07 Spironolactone 25 Mg Tab PO 25 mg DAILY LUCAS Administration Intake and Output 10/22/20 10/22/20 10/22/20 06:59 14:59 22:59 Intake Total 240 240 Output Total 175 1301 Balance 65 -1061 Intake: Oral 240 240 Output: Urine 175 1300 Stool 1 Other: Weight 114.305 kg 114.305 kg Patient Weight 10/23/20 06:59 Weight 114.305 kg 10/22/20 05:19 10/22/20 05:19
[2020-10-23] MEDS: IPRATROPIUM-ALBUTEROL 3 ML NEB INHALATION PRN ×2 (07:33→15:10)
[2020-10-23 07:36] LABS: Basophils # (A) 0.1 k/uL (0-0.2); Basophils % (A) 1 %; Eosinophils # (A) 0.4 k/uL (0-0.7); Eosinophils % (A) 3 %; HCT 41.3 % (39.0-53.0); HGB 13.4 gm/dL (13.0-17.5); Hypochromasia Slight; Lymphocytes # (A) 1.1 k/uL (1.0-4.8); Lymphocytes % (A) 9 %; MCH 31.7 pg (25.0-35.0); MCHC 32.5 g/dL (31.0-37.0); MCV 97.7 fL (80.0-100.0); Mean Platelet Volume 8.2; Monocytes # (A) 0.7 k/uL (0-1.0); Monocytes % (A) 6 %; Neutrophils # (A) 9.6 k/uL (1.3-7.7); Neutrophils % (A) 80 %; Platelet Count 350 k/uL (150-450); RBC 4.23 m/uL (4.30-5.90)
[2020-10-23 07:53] LABS: Calcium 8.9 mg/dL (8.4-10.2); Potassium 3.7 mmol/L (3.5-5.1)
--- NOTE | 2020-10-23 08:27 | XR ---
EXAMINATION TYPE: XR chest 2V DATE OF EXAM: 10/23/2020 COMPARISON: 10/22/2020 HISTORY: 69 years Male. STUDY INDICATION GIVEN: Follow-up pneumonia, CHF . TECHNIQUE: AP and lateral chest radiographs FINDINGS AND IMPRESSION: Multifocal bilateral opacities are again demonstrated with no significant change, could be on the bas is of multifocal pneumonia and/or atelectasis. Mild pulmonary edema. No pneumothorax. Trace left pleural effusion. Cardiomediastinal silhouette normal in size. Generalized osteopenia. Degenerative changes in the spine. No significant change.
[2020-10-23] MEDS: CEFEPIME 1 GM in SODIUM CHLORIDE 0.9% 50 ML IVPB SCH ×2 (08:58→20:25)
[2020-10-23] MEDS: FUROSEMIDE 10 MG/ML 4 ML VIAL IV SCH ×3 (08:59→20:25)
[2020-10-23] MEDS: METOPROLOL TARTRATE 50 MG TAB PO SCH ×2 (08:59→20:25)
[2020-10-23] MEDS: APIXABAN 5 MG TAB PO SCH ×2 (08:59→20:25)
[2020-10-23] MEDS: SPIRONOLACTONE 25 MG TAB PO SCH (08:59)
[2020-10-23] MEDS: ATORVASTATIN 40 MG TAB PO SCH (08:59)
[2020-10-23] MEDS ORDERED: AZITHROMYCIN 500 MG TAB PO SCH (09:00)
--- NOTE | 2020-10-23 13:58 | P.PN ---
Progress Note - Text Progress Note Date: 10/23/20 Chief Complaint: Short of breath History of presenting complaint: very pleasant 69 year patient of . May 2017 had a coronary stent placed. May 2019 Ruled in acute [place]. cardiac catheterization- Angioplasty stenting done to ramus intermedius. Recent admission for CHF and was cardioverted. Went back into A. fib. CHF EF less than 25% 10/04/2020: Cardiac catheterization: Patent stent within the ramus intermedius. Mild to moderate nonobstructive disease involving the PLV and mid to distal LAD. 10/21/2020 i.e. yesterday patient underwent ablation by Dr. Rudy Deal and with discharge. Patient states that he was short of breath when he was here and was not feeling very ago. At home he progressively became more short of breath. And 3:00 in the morning decided to come in. Could not sleep. No edema. Minimal cough. No fever no chills. Question about pneumonia in the ER and given IV antibiotics. Tired. Admitted with pneumonia, acute CHF exacerbation. Started on IV cefepime. IV Lasix. October 23: Sitting at the edge of the bed. Family present.. Breathing better. IV Lasix. IV cefepime. Had a lengthy discussion with the patient about his overall status. Patient will need AICD down the road. Questions answered. Decrease IV Lasix Review of systems: Was done for constitutional, cardiovascular, GI, pulmonary. relevant finding as above Active Medications Albuterol/Ipratropium (Ipratropium-Albuterol 3 Ml Neb) 3 ml INHALATION RT-Q4H PRN PRN Reason: shortness of breath Last Admin: 10/23/20 07:33 Dose: 3 ml Documented by: Apixaban (Apixaban 5 Mg Tab) 5 mg PO BID [facility]; Protocol Last Admin: 10/23/20 08:59 Dose: 5 mg Documented by: Atorvastatin Calcium (Atorvastatin 40 Mg Tab) 40 mg PO DAILY [facility] Last Admin: 10/23/20 08:59 Dose: 40 mg Documented by: Furosemide (Furosemide 10 Mg/Ml 4 Ml Vial) 40 mg IV Q8HR [facility] Last Admin: 10/23/20 08:59 Dose: 40 mg Documented by: Cefepime HCl 1 gm/ Sodium (Chloride) 50 mls @ 12.5 mls/hr IVPB Q12HR [facility] Last Admin: 10/23/20 08:58 Dose: 12.5 mls/hr Documented by: Metoprolol Tartrate (Metoprolol Tartrate 50 Mg Tab) 50 mg PO BID [facility] Last Admin: 10/23/20 08:59 Dose: 50 mg Documented by: Miscellaneous Information (Pneumonia Protocol Utilized 1 Each [facility]) 1 each PO ONCE PRN PRN Reason: Per Protocol Nitroglycerin (Nitroglycerin Sl Tabs 0.4 Mg Tab) 0.4 mg SUBLINGUAL Q5M PRN PRN Reason: Chest Pain Spironolactone (Spironolactone 25 Mg Tab) 25 mg PO DAILY [facility] Last Admin: 10/23/20 08:59 Dose: 25 mg Documented by: Past medical history to include: Coronary artery disease with stent in May 2017, May 2019, prostate cancer t reated with surgery, hyperlipidemia, low back pain, atrial fibrillation Social history: Patient smoked for about 20 years stopped in 2012. . 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 Conjunctiva normal. NECK: JVD questionably raised; masses not palpable. HEART: First and second heart sounds are normal; no edema. LUNGS: Respiratory rate increased; decreased breath sound ABDOMEN: Soft, nontender, liver spleen not palpable, no masses palpable. PSYCH: Alert and oriented x3; mood and affect tired INVESTIGATIONS, reviewed in the clinical context: October 23: WBC 12 hemoglobin 13.4 potassium 3.7 creatinine 1.16. BNP 2170 procalcitonin 0.16 Chest x-ray film personally reviewed by me-[October 23]: Patchy infiltrates WBC 12 hemoglobin 12.4 platelets 342 potassium 3.8. 19 creatinine 0.92 Troponin I 1.75, 1.2 proBNP 1620 Coronavirus [PCR]: Not detected EKG tracing personally reviewed by me-normal sinus rhythm, left bundle-branch block, rate 85 Chest x-ray film personally reviewed by me-infiltrates possible venous prominence Previous testing 2-D echocardiogram: A. fib. EF less than 20% Assessment and plan: -Probable bilateral pneumonia, suspect gram-negative organism.: Slow to respond Patient has recently been in the hospital. IV cefepime 1 g every 12. Follow procalcitonin -Acute on chronic congestive heart failure exacerbation from systolic dysfunction. EF less than 25%,, secondary to ischemic cardiomyopathy and contribution from A. fib: Slow to respond IV Lasix 40 mg every 12. Fluid restriction. Aldactone. -Coronary artery disease with stent to ramus intermedius in May 2019 , Lopressor effient -Troponin anemia, likely from hemodynamic mismatch. Doubt acute [place] -Chronic left bundle branch block -Persistent atrial fibrillation,, ablation on October 21. Sinus rhythm eliquis -Hyperlipidemia Lipitor -Obesity BMI 36.2 Weight loss measures, follow with PCP Care was discussed at length with patient February the bedside. Questions answered. Discussed with Dr. Tapia. Change Lasix to 40 mg IV every 12. Continue IV cefepime. Repeat CBC BMP, procalcitonin in the morning. Total time spent today about 40 minutes with over 25 minutes of discussion
--- NOTE | 2020-10-23 14:22 | P.PN ---
Subjective HISTORY OF PRESENTING ILLNESS This is a pleasant 69-year-old male past medical history significant for coronary artery disease status post PCI to ramus intermedius, chronic persistent atrial fibrillation (on Eliquis), hypertension, history of ischemic cardiomyopathy. He follows in the office with Dr. Cazares. Patient has been having worsening shortness breath with fairly minimal activity since September 2020. Unfortunately his ejection fraction has decreased to less than 20% by most recent echo 09/13/2020 with additional mild mitral regurgitation. Patient therefore had diagnostic left heart catheterization performed 10/04/2020 which showed patent stent ramus and mild to moderate nonobstructive disease of the PLV and distal LAD. Therefore he has been treated as a worsening nonischemic cardiomyopathy. This was felt possibly related to A. fib and therefore underwent HOMER and cardioversion however failed amiodarone and therefore was set up for an ablation. Patient underwent successful pulmonary vein isolation ablation 10/20/2020. He was cardioverted back to normal sinus rhythm. During catheterization right atrial pressure was measured at 16//11 and left atrial pressures were elevated at 33/7/22. Afterwards he admitted to continued dyspnea which was fairly chronic however this worsened upon going home. He also admitted to some chest pressure which has since resolved. The chest pressure was worse with his shortness of breath. Patient had EKG which shows sinus rhythm with frequent PACs, left bundle branch block. Chest x-ray showed hepatomegaly with new bilateral lower lobe pneumonia. Blood work shows hemoglobin 12.4, white blood cell count 12.0, platelets 342, sodium 133, carbon dioxide 19, BUN 19, creatinine 0.9, troponin 1.75, proBNP 1620, albumin 3.1, coronavirus negative. 10/23 Patient seen and examined. Patient has diuresed well and states himself that he feels he is down 6 pounds. He admits to some improvement in his orthopnea is able to lie in bed at approximately 20 angle however still does get dramatical ly short of breath with minimal activity such as walking the bathroom. Denies any fevers, chills, cough. He still states he does not feel "as best or close to it". He has been diuresed with Lasix 40 mg IV twice a day. REVIEW OF SYSTEMS At the time of my exam: CONSTITUTIONAL: Denies fever or chills. CARDIOVASCULAR: + chest pain, +shortness of breath, +orthopnea, +PND, no palpitations. RESPIRATORY: Denies cough. GASTROINTESTINAL: Denies abdominal pain, diarrhea, constipation, nausea or vomiting. MUSCULOSKELETAL: Denies myalgias. NEUROLOGIC: Denies numbness, tingling or weakness. ENDOCRINE: Denies fatigue, weight change, polydipsia or polyurina. GENITOURINARY: Denies burning, hematuria or urgency with micturation. HEMATOLOGIC: Denies history of anemia or bleeding. PHYSICAL EXAMINATION Vital signs reviewed. CONSTITUTIONAL: No apparent distress. HEENT: Head is normocephalic. Pupils are equal, round. Sclerae anicteric. Mucous membranes of the mouth are moist. No JVD. No carotid bruit. CHEST EXAMINATION: Lungs are clear to auscultation. Bilateral crackles at bases HEART EXAMINATION: Regular rate and rhythm. S1, S2 heard. No murmurs, gallops or rub. ABDOMEN: Soft, nontender. Positive bowel sounds. EXTREMITIES: 2+ peripheral pulses, no lower extremity edema and no calf tenderness. NEUROLOGIC EXAMINATION: Patient is awake, alert and oriented x3. ASSESSMENT 1. Acute on chronic systolic heart failure 2. Bilateral pneumonia 3. Status post atrial fibrillation pulmonary vein isolation ablation 4. Elevated troponin, likely related to A. fib ablation however rule out CA 5. Worsened ejection fraction less than 20%, nonischemic with recent heart catheterization showing nonischemic cardiomyopathy 6. Coronary artery disease status post PCI in the past 7. Persistent atrial fibrillation status post A. fib ablation 8. Hypertension, borderline hypotensive PLAN Elevated troponin likely related to A. fib ablation with gradual decrease, no further chest pain noted and chest pain likely related to heart failure, congestion. We will recheck 2-D echo to evaluate for any possible complications from A. fib ablation. Also to evaluate for left ventricular function. Blood pressure is borderline however we will add low-dose losartan 12.5 milligrams daily in attempt to afterload reduce. If he is unable to tolerate blood pressure regimen, heart failure regimen he may be advancing to end-stage heart failure. Objective - Vital Signs Vital signs: Vital Signs Temp 97.9 F 10/23/20 08:00 Pulse 51 L 10/23/20 12:00 Resp 20 10/23/20 04:00 BP 106/66 10/23/20 12:00 Pulse Ox 91 L 10/23/20 12:00 Intake & Output 10/22/20 10/23/20 10/23/20 18:59 06:59 18:59 Intake Total 480 50 240 Output Total 1476 700 875 Balance -415 -741 -146 Weight 114.305 kg 112 kg Intake: Intake, IV Titration 50 Amount Cefepime 1 gm In Sodium 50 Chloride 0.9% 50 ml @ 12. 5 mls/hr IVPB Q12HR [facility] Rx#:[id number] Oral 480 240 Output: Urine 1475 700 875 Stool 1 Other: # Voids 1 - Labs CBC & Chem 7: 10/23/20 06:56 10/23/20 06:56 Labs: Abnormal Lab Results - Last 24 Hours (Table) 10/22/20 10/22/20 10/23/20 Range/Units 05:19 21:40 06:56 WBC (3.8-10.6) k/uL RBC (4.30-5.90) m/uL Neutrophils # (1.3-7.7) k/uL Sodium (137-145) mmol/L BUN (9-20) mg/dL Glucose (74-99) mg/dL Troponin I 1.200 H* (0.000-0.034) ng/mL Procalcitonin 0.14 H 0.16 H (0.02-0.09) ng/mL 10/23/20 10/23/20 Range/Units 06:56 06:56 WBC 12.0 H (3.8-10.6) k/uL RBC 4.23 L (4.30-5.90) m/uL Neutrophils # 9.6 H (1.3-7.7) k/uL Sodium 136 L (137-145) mmol/L BUN 21 H (9-20) mg/dL Glucose 127 H (74-99) mg/dL Troponin I (0.000-0.034) ng/mL Procalcitonin (0.02-0.09) ng/mL Microbiology - Last 24 Hours (Table) 10/22/20 06:36 Blood Culture - Preliminary Blood No Growth after 24 hours 10/22/20 06:20 Blood Culture - Preliminary Blood No Growth after 24 hours
[2020-10-23] MEDS: LOSARTAN 25 MG TAB PO SCH (17:45)
[2020-10-24 08:14] LABS: Basophils # (A) 0.1 k/uL (0-0.2); Basophils % (A) 1 %; Eosinophils # (A) 0.5 k/uL (0-0.7); Eosinophils % (A) 5 %; HCT 40.8 % (39.0-53.0); HGB 13.4 gm/dL (13.0-17.5); Lymphocytes # (A) 1.1 k/uL (1.0-4.8); Lymphocytes % (A) 11 %; MCH 31.9 pg (25.0-35.0); MCHC 32.9 g/dL (31.0-37.0); Mean Platelet Volume 8.2; Monocytes # (A) 0.5 k/uL (0-1.0); Monocytes % (A) 5 %; Neutrophils # (A) 7.5 k/uL (1.3-7.7); Neutrophils % (A) 76 %; Platelet Count 365 k/uL (150-450); RBC 4.21 m/uL (4.30-5.90); RDW 13.8 % (11.5-15.5); WBC 9.9 k/uL (3.8-10.6)
[2020-10-24 08:22] LABS: Calcium 8.9 mg/dL (8.4-10.2); Potassium 4.1 mmol/L (3.5-5.1)
[2020-10-24] MEDS: LOSARTAN 25 MG TAB PO SCH (08:57)
[2020-10-24] MEDS: SPIRONOLACTONE 25 MG TAB PO SCH (08:57)
[2020-10-24] MEDS: METOPROLOL TARTRATE 50 MG TAB PO SCH ×2 (08:57→20:37)
[2020-10-24] MEDS: APIXABAN 5 MG TAB PO SCH ×2 (08:57→20:37)
[2020-10-24] MEDS: FUROSEMIDE 10 MG/ML 4 ML VIAL IV SCH (08:57)
[2020-10-24] MEDS: ATORVASTATIN 40 MG TAB PO SCH (08:57)
[2020-10-24] MEDS: CEFEPIME 1 GM in SODIUM CHLORIDE 0.9% 50 ML IVPB SCH ×2 (08:59→20:37)
--- NOTE | 2020-10-24 11:43 | ECHOF ---
Referral Reason:S/p Afib ablation, rule out complication, LV func MEASUREMENTS -------- HEIGHT: 177.8 cm WEIGHT: 111.1 kg BP: 91/56 RVIDd: 3.5 cm (< 3.3) IVSd: 0.9 cm (0.6 - 1.1) LVIDd: 6.4 cm (3.9 - 5.3) LVPWd: 1.1 cm (0.6 - 1.1) IVSs: 1.1 cm LVIDs: 5.8 cm LVPWs: 1.7 cm LA Diam: 4.1 cm (2.7 - 3.8) LAESV Index (A-L): 40.80 ml/m Ao Diam: 3.3 cm (2.0 - 3.7) AV Cusp: 2.3 cm (1.5 - 2.6) MV EXCURSION: 18.069 mm (> 18.000) MV EF SLOPE: 179 mm/s (70 - 150) EPSS: 1.4 cm RAP: 5.00 mmHg RVSP: 30.86 mmHg FINDINGS -------- This was a technically adequate study. The left ventricle is moderately dilated. There is borderline concentric left ventricular hypertrop hy. Overall left ventricular systolic function is severely impaired with, an EF < 20%. The right ventricle is mildly enlarged. LA is severely dilated >40 ml/m2 The right atrium is normal in size. Interatrial and interventricular septum intact. The aortic valve is trileaflet, and appears structurally normal. No aortic stenosis or regurgitation. Mild mitral regurgitation is present. Mild tricuspid regurgitation present. Right ventricular systolic pressure is normal at < 35 mmHg. Trace/mild (physiologic) pulmonic regurgitation. The aortic root size is normal. Normal inferior vena cava with normal inspiratory collapse consistent with estimated right atrial pre ssure of 5 mmHg. There is no pericardial effusion. CONCLUSIONS -------- 1. The left ventricle is moderately dilated. 2. There is borderline concentric left ventricular hypertrophy. 3. Overall left ventricular systolic function is severely impaired with, an EF < 20%. 4. The right ventricle is mildly enlarged. 5. LA is severely dilated >40 ml/m2 6. The aortic valve is trileaflet, and appears structurally normal. No aortic stenosis or regurgitati on. 7. Mild mitral regurgitation is present. 8. Mild tricuspid regurgitation present. 9. Trace/mild (physiologic) pulmonic regurgitation. 10. There is no pericardial effusion. SALON MANAGER: Tiffanie Orantes RDCS
--- NOTE | 2020-10-24 12:15 | P.PN ---
Subjective HISTORY OF PRESENTING ILLNESS This is a pleasant 69-year-old male past medical history significant for coronary artery disease status post PCI to ramus intermedius, chronic persistent atrial fibrillation (on Eliquis), hypertension, history of ischemic cardiomyopathy. He follows in the office with Dr. Cazares. Patient has been having worsening shortness breath with fairly minimal activity since September 2020. Unfortunately his ejection fraction has decreased to less than 20% by most recent echo 09/13/2020 with additional mild mitral regurgitation. Patient therefore had diagnostic left heart catheterization performed 10/04/2020 which showed patent stent ramus and mild to moderate nonobstructive disease of the PLV and distal LAD. Therefore he has been treated as a worsening nonischemic cardiomyopathy. This was felt possibly related to A. fib and therefore underwent HOMER and cardioversion however failed amiodarone and therefore was set up for an ablation. Patient underwent successful pulmonary vein isolation ablation 10/20/2020. He was cardioverted back to normal sinus rhythm. During catheterization right atrial pressure was measured at 16/ and left atrial pressures were elevated at 33/7/22. Afterwards he admitted to continued dyspnea which was fairly chronic however this worsened upon going home. He also admitted to some chest pressure which has since resolved. The chest pressure was worse with his shortness of breath. EKG which shows sinus rhythm with frequent PACs, left bundle branch block. Chest x-ray showed hepatomegaly with new bilateral lower lobe pneumonia. Blood work shows hemoglobin 12.4, white blood cell count 12.0, platelets 342, sodium 133, carbon dioxide 19, BUN 19, creatinine 0.9, troponin 1.75, proBNP 1620, albumin 3.1, coronavirus negative. 10/24/2020 Patient seen and examined resting comfortably lying completely flat in bed in no acute distress. He continues to complain of a mildly productive cough. He has no shortness of breath or chest pain. Telemetry tracings reviewed. He is taking sinus mechanism with frequent PACs. Blood pressure 88/52 heart rate 103 afebrile maintaining oxygen saturation on nasal cannula. PHYSICAL EXAMINATION CONSTITUTIONAL: No apparent distress. HEENT: Head is normocephalic. Pupils are equal, round. Sclerae anicteric. Mucous membranes of the mouth are moist. No JVD. No carotid bruit. CHEST EXAMINATION: Lungs are clear to auscultation. Bilateral crackles at bases HEART EXAMINATION: Regular rate and rhythm. S1, S2 heard. No murmurs, gallops or rub. EXTREMITIES: 2+ peripheral pulses, no lower extremity edema and no calf tenderness. ASSESSMENT Bilateral pneumonia Status post atrial fibrillation pulmonary vein isolation ablation Elevated troponin, related to extensive A. fib ablation Nonischemic cardiomyopathy Coronary artery disease status post PCI in the past Persistent atrial fibrillation status post A. fib ablation Hypertension, borderline hypotensive PLAN Elevated troponin secondary to extensive cardiac ablation. Encourage incentive spirometer use. Add amiodarone 400 mg daily for one month and then decrease to 200 mg daily. Discontinue losartan. Is continue IV diuretics. Increase activity and ambulation in the halls. Further recommendations to follow based upon clinical course. Nurse Practitioner note has been reviewed, I agree with a documented findings and plan of care. Patient was seen and examined. Objective - Vital Signs Vital signs: Vital Signs Temp 98.1 F 10/24/20 04:05 Pulse 103 H 10/24/20 04:05 Resp 20 10/24/20 04:05 BP 104/66 10/24/20 04:05 Pulse Ox 92 L 10/24/20 04:05 Intake & Output 10/23/20 10/24/20 10/24/20 18:59 06:59 18:59 Intake Total 480 120 300 Output Total 925 850 800 Balance -445 730 -500 Weight 111.3 kg Intake: Oral 480 120 300 Output: Urine 925 850 800 Other: Voiding Method Toilet Urinal # Voids 2 - Labs CBC & Chem 7: 10/24/20 07:31 10/24/20 07:31 Labs: Abnormal Lab Results - Last 24 Hours (Table) 10/23/20 10/24/20 10/24/20 Range/Units 06:56 07:31 07:31 RBC 4.21 L (4.30-5.90) m/uL Sodium 135 L (137-145) mmol/L BUN 26 H (9-20) mg/dL Glucose 122 H (74-99) mg/dL Procalcitonin 0.16 H (0.02-0.09) ng/mL Microbiology - Last 24 Hours (Table) 10/22/20 06:36 Blood Culture - Preliminary Blood No Growth after 48 hours 10/22/20 06:20 Blood Culture - Preliminary Blood No Growth after 48 hours
--- NOTE | 2020-10-24 12:41 | P.PN ---
Progress Note - Text Progress Note Date: 10/24/20 Chief Complaint: Short of breath History of presenting complaint: very pleasant 69 year patient of . May 2017 had a coronary stent placed. May 2019 Ruled in acute [place]. cardiac catheterization- Angioplasty stenting done to ramus intermedius. Recent admission for CHF and was cardioverted. Went back into A. fib. CHF EF less than 25% 10/04/2020: Cardiac catheterization: Patent stent within the ramus intermedius. Mild to moderate nonobstructive disease involving the PLV and mid to distal LAD. 10/21/2020 i.e. yesterday patient underwent ablation by Dr. Rudy Deal and with discharge. Patient states that he was short of breath when he was here and was not feeling very ago. At home he progressively became more short of breath. And 3:00 in the morning decided to come in. Could not sleep. No edema. Minimal cough. No fever no chills. Question about pneumonia in the ER and given IV antibiotics. Tired. Admitted with pneumonia, acute CHF exacerbation. Started on IV cefepime. IV Lasix. October 23: Sitting at the edge of the bed. Family present.. Breathing better. IV Lasix. IV cefepime. Had a lengthy discussion with the patient about his overall status. Patient will need AICD down the road. Questions answered. Decrease IV Lasix October 24: Declining in bed. Tired. Breathing better. On IV Lasix 40 mg every 12-discontinued by cardiology today.. IV cefepime. Slight cough. Had 2-D echocardiogram Review of systems: Was done for constitutional, cardiovascular, GI, pulmonary. relevant finding as above Active Medications Albuterol/Ipratropium (Ipratropium-Albuterol 3 Ml Neb) 3 ml INHALATION RT-Q4H PRN PRN Reason: shortness of breath Last Admin: 10/23/20 15:10 Dose: 3 ml Documented by: Amiodarone HCl (Amiodarone 200 Mg Tab) 400 mg PO DAILY [facility] Apixaban (Apixaban 5 Mg Tab) 5 mg PO BID [facility]; Protocol Last Admin: 10/24/20 08:57 Dose: 5 mg Documented by: Atorvastatin Calcium (Atorvastatin 40 Mg Tab) 40 mg PO DAILY [facility] Last Admin: 10/24/20 08:57 Dose: 40 mg Documented by: Cefepime HCl 1 gm/ Sodium (Chloride) 50 mls @ 12.5 mls/hr IVPB Q12HR [facility] Last Admin: 10/24/20 08:59 Dose: 12.5 mls/hr Documented by: Metoprolol Tartrate (Metoprolol Tartrate 50 Mg Tab) 50 mg PO BID [facility] Last Admin: 10/24/20 08:57 Dose: 50 mg Documented by: Miscellaneous Information (Pneumonia Protocol Utilized 1 Each Misc) 1 each PO ONCE PRN PRN Reason: Per Protocol Nitroglycerin (Nitroglycerin Sl Tabs 0.4 Mg Tab) 0.4 mg SUBLINGUAL Q5M PRN PRN Reason: Chest Pain Spironolactone (Spironolactone 25 Mg Tab) 25 mg PO DAILY [facility] Last Admin: 10/24/20 08:57 Dose: 25 mg Documented by: Past medical history to include: Coronary artery disease with stent in May 2017, May 2019, prostate cancer treated with surgery, hyperlipidemia, low back pain, atrial fibrillation Social history: Patient smoked for about 20 years stopped in 2012. . 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 Conjunctiva normal. NECK: JVD not raised; masses not palpable. HEART: First and second heart sounds are normal; no edema. LUNGS: Respiratory rate increased; decreased breath sound ABDOMEN: Soft, nontender, liver spleen not palpable, no masses palpable. PSYCH: Alert and oriented x3; mood and affect tired INVESTIGATIONS, reviewed in the clinical context: October 24: WBC 9 hemoglobin 13.4 potassium 4.1 creatinine 1.24 2-D echocardiogram [October 24]: EF less than 20%. No pericardial effusion. October 23: WBC 12 hemoglobin 13.4 potassium 3.7 creatinine 1.16. BNP 2170 procalcitonin 0.16 Chest x-ray film personally reviewed by me-[October 23]: Patchy infiltrates WBC 12 hemoglobin 12.4 platelets 342 potassium 3.8. 19 creatinine 0.92 Troponin I 1.75, 1.2 proBNP 1620 Coronavirus [PCR]: Not detected EKG tracing personally reviewed by me-normal sinus rhythm, left bundle-branch block, rate 85 Chest x-ray film personally reviewed by me-infiltrates possible venous prominence Previous testing 2-D echocardiogram: A. fib. EF less than 20% Assessment and plan: -Probable bilateral pneumonia, suspect gram-negative organism.: Improving Patient has recently been in the hospital. IV cefepime 1 g every 12. Follow procalcitonin -Acute on chronic congestive heart failure exacerbation from systolic dysfunction. EF less than 25%,, secondary to ischemic cardiomyopathy and contribution from A. fib: Slow to respond IV Lasix 40 mg every 12. Fluid restriction. Aldactone. -Coronary artery disease with stent to ramus intermedius in May 2019 , Lopressor effient -Troponin anemia, likely from hemodynamic mismatch. Doubt acute [place] -Chronic left bundle branch block -Persistent atrial fibrillation,, ablation on October 21. Sinus rhythm eliquis -Hyperlipidemia Lipitor -Obesity BMI 36.2 Weight loss measures, follow with PCP 2-D echocardiogram results noted. IV Lasix discontinued by cardiology. We will change of address clerk to oral antibiotics in the morning. Repeat procalcitonin. Follow with cardiology.
[2020-10-24] MEDS: AMIODARONE 200 MG TAB PO SCH (12:47)
[2020-10-24 14:12] VITALS: BMI 35.2
[2020-10-24 21:26] VITALS: RESP 18; TEMP 98.1
[2020-10-25] MEDS: IPRATROPIUM-ALBUTEROL 3 ML NEB INHALATION PRN ×2 (07:37→10:53)
[2020-10-25] MEDS: APIXABAN 5 MG TAB PO SCH (08:44)
[2020-10-25] MEDS: ATORVASTATIN 40 MG TAB PO SCH (08:44)
[2020-10-25] MEDS: AMIODARONE 200 MG TAB PO SCH (08:44)
[2020-10-25] MEDS: SPIRONOLACTONE 25 MG TAB PO SCH (08:44)
[2020-10-25] MEDS: METOPROLOL TARTRATE 50 MG TAB PO SCH (08:44)
[2020-10-25 08:53] LABS: Calcium 9.1 mg/dL (8.4-10.2); Potassium 3.5 mmol/L (3.5-5.1)
[2020-10-25] MEDS ORDERED: CEFDINIR 300 MG CAP PO SCH (09:00)
--- NOTE | 2020-10-25 09:10 | P.PN ---
Subjective HISTORY OF PRESENTING ILLNESS This is a pleasant 69-year-old male past medical history significant for coronary artery disease status post PCI to ramus intermedius, chronic persistent atrial fibrillation (on Eliquis), hypertension, history of ischemic cardiomyopathy. He follows in the office with Dr. Cazares. Patient has been having worsening shortness breath with fairly minimal activity since September 2020. Unfortunately his ejection fraction has decreased to less than 20% by most recent echo 09/13/2020 with additional mild mitral regurgitation. Patient therefore had diagnostic left heart catheterization performed 10/04/2020 which showed patent stent ramus and mild to moderate nonobstructive disease of the PLV and distal LAD. Therefore he has been treated as a worsening nonischemic cardiomyopathy. This was felt possibly related to A. fib and therefore underwent HOMER and cardioversion however failed amiodarone and therefore was set up for an ablation. Patient underwent successful pulmonary vein isolation ablation 10/20/2020. He was cardioverted back to normal sinus rhythm. During catheterization right atrial pressure was measured at 16// and left atrial pressures were elevated at 33/7/22. Afterwards he admitted to continued dyspnea which was fairly chronic however this worsened upon going home. He also admitted to some chest pressure which has since resolved. The chest pressure was worse with his shortness of breath. EKG which shows sinus rhythm with frequent PACs, left bundle branch block. Chest x-ray showed hepatomegaly with new bilateral lower lobe pneumonia. Blood work shows hemoglobin 12.4, white blood cell count 12.0, platelets 342, sodium 133, carbon dioxide 19, BUN 19, creatinine 0.9, troponin 1.75, proBNP 1620, albumin 3.1, coronavirus negative. 10/25/2020 Patient seen and examined resting comfortably lying completely flat in bed in no acute distress. He is going in and out of afib intermittently through the day yesterday. Currently he is in SR. Blood pressure stable on current medical regimen. Labs pending. PHYSICAL EXAMINATION CONSTITUTIONAL: No apparent distress. HEENT: Head is normocephalic. Pupils are equal, round. Sclerae anicteric. Mucous membranes of the mouth are moist. No JVD. No carotid bruit. CHEST EXAMINATION: Lungs are clear to auscultation. Bilateral crackles at bases HEART EXAMINATION: Regular rate and rhythm. S1, S2 heard. No murmurs, gallops or rub. EXTREMITIES: 2+ peripheral pulses, no lower extremity edema and no calf tenderness. ASSESSMENT Bilateral pneumonia Status post atrial fibrillation pulmonary vein isolation ablation Elevated troponin, related to extensive A. fib ablation Nonischemic cardiomyopathy Coronary artery disease status post PCI in the past Persistent atrial fibrillation status post A. fib ablation Hypertension, borderline hypotensive PLAN He cannot tolerate MARIEL/ARB or entresto due to blood pressures at this time. Possibly can be initiated with Dr. Cazares in the office down the line. Clinically stable on current medical regimen. Continue amiodarone at current dose for 1 month. Then decrease by half. He can be discharged from a cardiac perspective. Nurse Practitioner note has been reviewed, I agree with a documented findings and plan of care. Patient was seen and examined. Objective - Vital Signs Vital signs: Vital Signs Temp 98.1 F 10/25/20 04:00 Pulse 72 10/25/20 07:48 Resp 18 10/25/20 04:00 BP 100/64 10/25/20 04:00 Pulse Ox 91 L 10/25/20 04:00 Intake & Output 10/24/20 10/25/20 10/25/20 18:59 06:59 18:59 Intake Total 540 360 Output Total 802 Balance -262 360 Weight 111.3 kg 111.4 kg Intake: Oral 540 360 Output: Urine 800 Stool 2 Other: Voiding Method Toilet Urinal # Voids 2 - Labs CBC & Chem 7: 10/24/20 07:31 10/25/20 08:02 Labs: Abnormal Lab Results - Last 24 Hours (Table) 10/24/20 Range/Units 07:31 Procalcitonin 0.12 H (0.02-0.09) ng/mL Microbiology - Last 24 Hours (Table) 10/24/20 12:15 Gram Stain - Preliminary Sputum Sputum Culture - Preliminary 10/22/20 06:36 Blood Culture - Preliminary Blood No Growth after 48 hours 10/22/20 06:20 Blood Culture - Preliminary Blood No Growth after 48 hours
[2020-10-25 12:49] VITALS: BP 113/64; PULSE 80
--- NOTE | 2020-10-25 16:22 | P.DS ---
Providers Date of admission: 10/22/20 06:18 Expected date of discharge: 10/25/20 Attending physician: Salvador Lorenzo Consults: 10/22/20 06:18 Consult Physician Routine Consulting Provider: Latasha Nevarez Consult Reason/Comments: cp Do you want consulting provider notified?: Yes Primary care physician: Chad Anders [facility] Course: Chief Complaint: Short of breath History of presenting complaint: very pleasant 69 year patient of . May 2017 had a coronary stent placed. May 2019 Ruled in acute [place]. cardiac catheterization- Angioplasty stenting done to ramus intermedius. Recent admission for CHF and was cardioverted. Went back into A. fib. CHF EF less than 25% 10/04/2020: Cardiac catheterization: Patent stent within the ramus intermedius. Mild to moderate nonobstructive disease involving the PLV and mid to distal LAD. 10/21/2020 i.e. yesterday patient underwent ablation by Dr. Rudy Deal and with discharge. Patient states that he was short of breath when he was here and was not feeling very ago. At home he progressively became more short of breath. And 3:00 in the morning decided to come in. Could not sleep. No edema. Minimal cough. No fever no chills. Question about pneumonia in the ER and given IV antibiotics. Tired. Admitted with pneumonia, acute CHF exacerbation. Started on IV cefepime. IV Lasix. October 23: Sitting at the edge of the bed. Family present.. Breathing better. IV Lasix. IV cefepime. Had a lengthy discussion with the patient about his overall status. Patient will need AICD down the road. Questions answered. Decrease IV Lasix October 24: Declining in bed. Tired. Breathing better. On IV Lasix 40 mg every 12-discontinued by cardiology today.. IV cefepime. Slight cough. Had 2-D echocardiogram October 25: Patient feeling better. Breathing better. Up to the bathroom. and daughter present. Care was discussed questions answered. Cleared by cardiology for DC. Follow-up with Dr. Pandya and Dr. Rudy Deal. Discussion and discharge planning more than 35 minutes Consultation: [facility]iology associates Past medical history to include: Coronary artery disease with stent in May 2017, May 2019, prostate cancer treated with surgery, hyperlipidemia, low back pain, atrial fibrillation Social history: Patient smoked for about 20 years stopped in 2012. . 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 Conjunctiva normal. NECK: JVD not raised; masses not palpable. HEART: First and second heart sounds are normal; no edema. LUNGS: Respiratory rate normal; decreased breath sound ABDOMEN: Soft, nontender, liver spleen not palpable, no masses palpable. PSYCH: Alert and oriented x3; mood and affect normal INVESTIGATIONS, reviewed in the clinical context: October 25: Potassium 3.5 creatinine 1.07 procalcitonin 0.11 October 24: WBC 9 hemoglobin 13.4 potassium 4.1 creatinine 1.24 2-D echocardiogram [October 24]: EF less than 20%. No pericardial effusion. October 23: WBC 12 hemoglobin 13.4 potassium 3.7 creatinine 1.16. BNP 2170 procalcitonin 0.16 Chest x-ray film personally reviewed by me-[October 23]: Patchy infiltrates WBC 12 hemoglobin 12.4 platelets 342 potassium 3.8. 19 creatinine 0.92 Troponin I 1.75, 1.2 proBNP 1620 Coronavirus [PCR]: Not detected EKG tracing personally reviewed by me-normal sinus rhythm, left bundle-branch block, rate 85 Chest x-ray film personally reviewed by me-infiltrates possible venous prominence Previous testing 2-D echocardiogram: A. fib. EF less than 20% Assessment and plan: - bilateral pneumonia, suspect gram-negative organism.: Improving Patient has recently been in the hospital. IV cefepime 1 g every 12. Complete course of oral Omnicef -Acute on chronic congestive heart failure exacerbation from systolic dysfunction. EF less than 25%,, secondary to ischemic cardiomyopathy and contribution from A. fib: IV Lasix 40 mg every 12. Fluid restriction. Aldactone. -Coronary artery disease with stent to ramus intermedius in May 2019 , Lopressor effient -Troponin anemia, likely from hemodynamic mismatch. Doubt acute [place] -Chronic left bundle branch block -Persistent atrial fibrillation,, ablation on October 21. Sinus rhythm eliquis -Hyperlipidemia Lipitor -Obesity BMI 36.2 Weight loss measures, follow with PCP Disposition: Home Patient Condition at Discharge: Fair Plan - Discharge Summary Discharge Rx Participant: Yes New Discharge Prescriptions: New Amiodarone [Cordarone] 400 mg PO DAILY #180 tab Cefdinir [Omnicef] 300 mg PO BID #6 cap Continue Nitroglycerin Sl Tabs [Nitrostat] 0.4 mg SUBLINGUAL Q5M PRN #25 tab PRN Reason: Chest Pain Apixaban [Eliquis] 5 mg PO BID Metoprolol Tartrate [Lopressor] 50 mg PO BID Spironolactone [Aldactone] 25 mg PO DAILY 30 Days #30 tab Atorvastatin [Lipitor] 40 mg PO DAILY Discharge Medication List Nitroglycerin Sl Tabs [Nitrostat] 0.4 mg SUBLINGUAL Q5M PRN #25 tab 06/01/19 [Rx] Apixaban [Eliquis] 5 mg PO BID 09/09/20 [History] Atorvastatin [Lipitor] 40 mg PO DAILY 09/12/20 [History] Metoprolol Tartrate [Lopressor] 50 mg PO BID 09/12/20 [History] Spironolactone [Aldactone] 25 mg PO DAILY 30 Days #30 tab 09/16/20 [Rx] Amiodarone [Cordarone] 400 mg PO DAILY #180 tab 10/25/20 [Rx] Cefdinir [Omnicef] 300 mg PO BID #6 cap 10/25/20 [Rx] Follow up Appointment(s)/Referral(s): Chad Anders DO [Primary Care Provider] - 1-2 days Mateo Cazares MD [STAFF PHYSICIAN] - 2 Weeks Patient Instructions/Handouts: Amiodarone (By mouth), Bacterial Pneumonia (DC), Shortness of Breath (DC) Activity/Diet/Wound Care/Special Instructions: Discharge/Stand Alone Forms: Who Do I Call?, Help In The Home
== END 2020-10-25 15:42 | disposition home or self-care (01) | DRG 177 ==
LOC: EC 05:02 → 3SCARD 06:18
PROVIDERS: ADMIT Hospitalist; ATTEND Hospitalist
DX: J15.6 Pneumonia due to other Gram-negative bacteria (principal); I50.23 Acute on chronic systolic (congestive) heart failure; I48.19 Other persistent atrial fibrillation; I42.8 Other cardiomyopathies; I11.0 Hypertensive heart disease with heart failure; Z79.01 Long term (current) use of anticoagulants; Z97.4 Presence of external hearing-aid; H91.90 Unspecified hearing loss, unspecified ear; E78.5 Hyperlipidemia, unspecified; Z87.01 Personal history of pneumonia (recurrent); Z87.891 Personal history of nicotine dependence; Z20.822 Contact with and (suspected) exposure to COVID-19; I25.10 Atherosclerotic heart disease of native coronary artery without angina pectoris; Z95.5 Presence of coronary angioplasty implant and graft; I25.2 Old myocardial infarction; I44.7 Left bundle-branch block, unspecified; E66.9 Obesity, unspecified; Z68.36 Body mass index [BMI] 36.0-36.9, adult; Z82.49 Family history of ischemic heart disease and other diseases of the circulatory system; D64.9 Anemia, unspecified; Z85.46 Personal history of malignant neoplasm of prostate; Z79.899 Other long term (current) drug therapy
CPT/HCPCS: 36415; 71046; 80048; 80053; 83690; 83735; 83880; 84145; 84484; 85025; 85610; 85730; 87040; 87070; 87205; 87635; 93005; 93306; 94640; 94760; 99285

== ENCOUNTER 2020-10-28 00:22 | Inpatient (IN) | payer MEDICARE ==
[2020-10-28] MEDS ORDERED: IPRATROPIUM-ALBUTEROL 3 ML NEB INHALATION STA (00:24)
[2020-10-28] MEDS ORDERED: SODIUM CHLORIDE 0.9% 1,000 ML IV STA (00:24)
--- NOTE | 2020-10-28 00:29 | ED ---
SOB HPI - General Stated Complaint: WILLIAM Time Seen by Provider: 10/28/20 00:23 Source: RN notes reviewed, old records reviewed - History of Present Illness Initial Comments: This is a 70-year-old male to the ER today for evaluation regards to worsening shortness of breath, weakness and exertional shortness of breath after being t reated for pneumonia. Patient is on antibiotics at home for pneumonia. Symptoms just have not gotten better if she feels like he is getting worse. He is without current chest pain. Occasionally does feel feverish. No travel history or sick contacts. No other complaints MD Complaint: shortness of breath, cough, anxiety -: days(s) Severity: severe Severity scale (1-10): 8 Consistency: constant Improves With: nothing Worsens With: nothing Known History Of: congestive heart failure, recurrent pneumonia Context: recent URI, anxiety, recent illness Associated Symptoms: fever, cough, sputum production Treatments Prior to Arrival: none - Related Data Home Medications Medication Instructions Recorded Confirmed Apixaban [Eliquis] 5 mg PO BID 09/09/20 10/22/20 Atorvastatin [Lipitor] 40 mg PO DAILY 09/12/20 10/22/20 Metoprolol Tartrate [Lopressor] 50 mg PO BID 09/12/20 10/22/20 Previous Rx's Medication Instructions Recorded Nitroglycerin Sl Tabs [Nitrostat] 0.4 mg SUBLINGUAL Q5M PRN #25 tab 06/01/19 Spironolactone [Aldactone] 25 mg PO DAILY 30 Days #30 tab 09/16/20 Amiodarone [Cordarone] 400 mg PO DAILY #180 tab 10/25/20 Cefdinir [Omnicef] 300 mg PO BID #6 cap 10/25/20 Allergies Allergy/AdvReac Type Severity Reaction Status Date / Time No Known Allergies Allergy Verified 10/22/20 10:56 Review of Systems ROS Statement: Those systems with pertinent positive or pertinent negative responses have been documented in the HPI. ROS Other: All systems not noted in ROS Statement are negative. Past Medical History Past Medical History: Atrial Fibrillation, Cancer, Heart Failure, Hearing D isorder / Deafness, Hyperlipidemia, Hypertension, Myocardial Infarction ([place]), Pneumonia Additional Past Medical History / Comment(s): See Dr Deal's H&P. Hx Prostate cancer, right heel spur. Bilateral hearing aid use. Last Myocardial Infarction Date:: unknown History of Any Multi-Drug Resistant Organisms: None Reported Past Surgical History: Ablation, Heart Catheterization, Heart Catheterization With Stent, Prostate Surgery, Tonsillectomy Additional Past Surgical History / Comment(s): Heart cath w/2 stents (2017), heart stent 06/06/2018), Prostatectomy due to cancer (2012). Past Anesthesia/Blood Transfusion Reactions: No Reported Reaction Date of Last Stent Placement:: 2018 Past Psychological History: No Psychological Hx Reported Smoking Status: Former smoker Past Alcohol Use History: None Reported Past Drug Use History: None Reported - Past Family History Father Family Medical History: Hypertension, Myocardial Infarction ([place]) Additional Family Medical History / Comment(s): Father with myocardial infarction at age 75. Mother Family Medical History: No Reported History Additional Family Medical History / Comment(s): Broke her hip ended up in [facility]- age 95. General Exam General appearance: alert, in no apparent distress, anxious Head exam: Present: atraumatic, normocephalic, normal inspection Eye exam: Present: normal appearance, PERRL, EOMI. Absent: scleral icterus, conjunctival injection, periorbital swelling ENT exam: Present: normal exam, mucous membranes moist Neck exam: Present: normal inspection. Absent: tenderness, meningismus, lymphadenopathy Respiratory exam: Present: respiratory distress, rhonchi, accessory muscle use, decreased breath sounds, prolonged expiratory. Absent: wheezes, rales, stridor Cardiovascular Exam: Present: regular rate, normal rhythm, normal heart sounds. Absent: systolic murmur, diastolic murmur, rubs, gallop, clicks GI/Abdominal exam: Present: soft, normal bowel sounds. Absent: distended, tenderness, guarding, rebound, rigid Extremities exam: Present: normal inspection, full ROM, normal capillary refill. Absent: tenderness, pedal edema, joint swelling, calf tenderness Back exam: Present: normal inspection Neurological exam: Present: alert, oriented X3, CN II-XII intact Psychiatric exam: Present: normal affect, normal mood Skin exam: Present: warm, dry, intact, normal color. Absent: rash Course Vital Signs 10/28/20 10/28/20 00:55 01:36 Temperature 98.2 F Pulse Rate 69 Respiratory 18 20 Rate Blood Pressure 108/69 O2 Sat by Pulse 91 L Oximetry - Reevaluation(s) Reevaluation #1: 10/28/20 02:29 Medical record is reviewed Reevaluation #2: 10/28/20 02:29 Patient improved on O2 still short of breath, still with cough Reevaluation #3: 10/28/20 02:29 Spoke with patient regarding findings here in the ER questions answered - Consultations Consultation #1: Spoke with Dr. Lorenzo agrees to admit the patient Medical Decision Making - Medical Decision Making 70 female to the ER for evaluation he is presented today for worsening shortness of breath found to be hypoxic with increased oxygen requirement worsening bilateral pneumonia. Will admit for treatment of pneumonia and supportive care - Lab Data Result diagrams: 10/28/20 01:21 10/28/20 01:21 Lab Results 10/28/20 10/28/20 10/28/20 Range/Units 01:21 01:21 01:21 WBC 12.2 H (3.8-10.6) k/uL RBC 4.08 L (4.30-5.90) m/uL Hgb 12.9 L (13.0-17.5) gm/dL Hct 38.5 L (39.0-53.0) % MCV 94.6 (80.0-100.0) fL MCH 31.6 (25.0-35.0) pg MCHC 33.4 (31.0-37.0) g/dL RDW 13.7 (11.5-15.5) % Plt Count 325 (150-450) k/uL MPV 8.0 Neutrophils % 81 % Lymphocytes % 8 % Monocytes % 6 % Eosinophils % 3 % Basophils % 1 % Neutrophils # 10.0 H (1.3-7.7) k/uL Lymphocytes # 0.9 L (1.0-4.8) k/uL Monocytes # 0.7 (0-1.0) k/uL Eosinophils # 0.4 (0-0.7) k/uL Basophils # 0.1 (0-0.2) k/uL PT 12.5 H (9.0-12.0) sec INR 1.2 H (<1.2) APTT 24.7 (22.0-30.0) sec Sodium 132 L (137-145) mmol/L Potassium 4.6 (3.5-5.1) mmol/L Chloride 103 (98-107) mmol/L Carbon Dioxide 21 L (22-30) mmol/L Anion Gap 8 mmol/L BUN 22 H (9-20) mg/dL Creatinine 1.04 (0.66-1.25) mg/dL Est GFR (CKD-EPI)AfAm 85 (>60 ml/min/1.73 sqM) Est GFR (CKD-EPI)NonAf 73 (>60 ml/min/1.73 sqM) Glucose 117 H (74-99) mg/dL Plasma Lactic Acid Timur (0.7-2.0) mmol/L Calcium 8.8 (8.4-10.2) mg/dL Magnesium 2.1 (1.6-2.3) mg/dL Total Bilirubin 1.0 (0.2-1.3) mg/dL AST 37 (17-59) U/L ALT 15 (4-49) U/L Alkaline Phosphatase 81 (38-126) U/L Creatine Kinase 63 (55-170) U/L Troponin I (0.000-0.034) ng/mL Total Protein 6.9 (6.3-8.2) g/dL Albumin 3.6 (3.5-5.0) g/dL 10/28/20 10/28/20 Range/Units 01:21 01:21 WBC (3.8-10.6) k/uL RBC (4.30-5.90) m/uL Hgb (13.0-17.5) gm/dL Hct (39.0-53.0) % MCV (80.0-100.0) fL MCH (25.0-35.0) pg MCHC (31.0-37.0) g/dL RDW (11.5-15.5) % Plt Count (150-450) k/uL MPV Neutrophils % % Lymphocytes % % Monocytes % % Eosinophils % % Basophils % % Neutrophils # (1.3-7.7) k/uL Lymphocytes # (1.0-4.8) k/uL Monocytes # (0-1.0) k/uL Eosinophils # (0-0.7) k/uL Basophils # (0-0.2) k/uL PT (9.0-12.0) sec INR (<1.2) APTT (22.0-30.0) sec Sodium (137-145) mmol/L Potassium (3.5-5.1) mmol/L Chloride (98-107) mmol/L Carbon Dioxide (22-30) mmol/L Anion Gap mmol/L BUN (9-20) mg/dL Creatinine (0.66-1.25) mg/dL Est GFR (CKD-EPI)AfAm (>60 ml/min/1.73 sqM) Est GFR (CKD-EPI)NonAf (>60 ml/min/1.73 sqM) Glucose (74-99) mg/dL Plasma Lactic Acid Timur 1.4 (0.7-2.0) mmol/L Calcium (8.4-10.2) mg/dL Magnesium (1.6-2.3) mg/dL Total Bilirubin (0.2-1.3) mg/dL AST (17-59) U/L ALT (4-49) U/L Alkaline Phosphatase (38-126) U/L Creatine Kinase (55-170) U/L Troponin I 0.119 H* (0.000-0.034) ng/mL Total Protein (6.3-8.2) g/dL Albumin (3.5-5.0) g/dL - EKG Data -: EKG Interpreted by Me (EKG is sinus rhythm 69 MA 28 QRS 164 QTC 488) - Radiology Data Radiology results: report reviewed (Chest x-ray shows bilateral pneumonia, ards, worse than prior), image reviewed Critical Care Time Critical Care Time: Yes Total Critical Care Time: 31 Disposition Clinical Impression: Bilateral pneumonia, Dyspnea, CHF (congestive heart failure), Hypoxia Disposition: ADMITTED IP TO THIS HOSP Condition: Serious Referrals: Chad Anders DO [Primary Care Provider] - 1-2 days
--- NOTE | 2020-10-28 01:34 | XR ---
EXAMINATION TYPE: XR chest 1V DATE OF EXAM: 10/28/2020 COMPARISON: 10/23/2020 HISTORY: Pneumonia. Short of breath. TECHNIQUE: Single view FINDINGS: There is patchy pulmonary interstitial and airspace infiltrates. Heart is borderline enlarg ed. Bony thorax is intact. There is slight blunting of the costophrenic angles. IMPRESSION: Patchy bilateral pneumonia with small pleural effusions. This could relate to developing RDS. Pneumonia slightly worse than recent exam. Congestive heart failure not excluded.
[2020-10-28 01:41] LABS: Basophils # (A) 0.1 k/uL (0-0.2); Basophils % (A) 1 %; Eosinophils # (A) 0.4 k/uL (0-0.7); Eosinophils % (A) 3 %; HCT 38.5 % (39.0-53.0); HGB 12.9 gm/dL (13.0-17.5); Lymphocytes # (A) 0.9 k/uL (1.0-4.8); Lymphocytes % (A) 8 %; MCH 31.6 pg (25.0-35.0); MCHC 33.4 g/dL (31.0-37.0); MCV 94.6 fL (80.0-100.0); Monocytes # (A) 0.7 k/uL (0-1.0); Monocytes % (A) 6 %; Neutrophils % (A) 81 %; Platelet Count 325 k/uL (150-450); RBC 4.08 m/uL (4.30-5.90); RDW 13.7 % (11.5-15.5); WBC 12.2 k/uL (3.8-10.6)
[2020-10-28 01:57] LABS: INR 1.2 (<1.2); Partial Thromboplastin Time 24.7 sec (22.0-30.0); Prothrombin Time 12.5 sec (9.0-12.0)
[2020-10-28 01:58] LABS: Albumin 3.6 g/dL (3.5-5.0); Calcium 8.8 mg/dL (8.4-10.2); Magnesium 2.1 mg/dL (1.6-2.3); Potassium 4.6 mmol/L (3.5-5.1); Total Protein 6.9 g/dL (6.3-8.2)
[2020-10-28] MEDS ORDERED: NALOXONE 0.4 MG/ML 1 ML VIAL IV PRN (02:26)
[2020-10-28] MEDS ORDERED: ACETAMINOPHEN TAB 325 MG TAB PO PRN (02:26)
[2020-10-28] MEDS ORDERED: ONDANSETRON 4 MG/2 ML VIAL IVP PRN (02:26)
[2020-10-28] MEDS ORDERED: LEVOFLOXACIN 750MG-D5W PMX 750 MG in DEXTROSE/WATER 1 150ML.BAG IVPB STA (02:26)
[2020-10-28] MEDS: PIPERACILLIN-TAZOBACTAM 3.375 GM in SODIUM CHLORIDE 0.9% 100 ML IVPB STA ×2 (03:05→03:06)
[2020-10-28] MEDS: SODIUM CHLORIDE 0.9% 1,000 ML IV SCH ×2 (03:07→17:30)
[2020-10-28 03:28] LABS: C Reactive Protein 17.2 mg/dL (<1.0)
[2020-10-28] MEDS ORDERED: LEVOFLOXACIN 750MG-D5W PMX 750 MG in DEXTROSE/WATER 1 150ML.BAG IVPB ONE (07:15)
[2020-10-28] MEDS ORDERED: AMIODARONE 200 MG TAB PO SCH (10:15)
[2020-10-28] MEDS: ATORVASTATIN 40 MG TAB PO SCH (10:39)
[2020-10-28] MEDS: APIXABAN 5 MG TAB PO SCH ×2 (10:39→20:42)
[2020-10-28] MEDS: SPIRONOLACTONE 25 MG TAB PO SCH (10:39)
[2020-10-28] MEDS: METOPROLOL TARTRATE 50 MG TAB PO SCH ×2 (10:39→20:42)
[2020-10-28] MEDS: PIPERACILLIN-TAZOBACTAM 3.375 GM in SODIUM CHLORIDE 0.9% 100 ML IVPB SCH ×2 (11:30→18:09)
[2020-10-28] MEDS ORDERED: RX INFO: IV CONTRAST WAS GIVEN 1 EACH MISC MISCELLANE PRN (12:01)
[2020-10-28] MEDS ORDERED: FUROSEMIDE 40 MG TAB PO SCH (12:15)
--- NOTE | 2020-10-28 13:01 | P.CRDCN ---
History of Present Illness History of present illness: HISTORY OF PRESENTING ILLNESS This is a pleasant 70-year-old male past medical history significant for chronic persistent atrial fibrillation on eliquis s/p ablation, chronic systolic heart failure, hypertension, dyslipidemia and coronary artery disease s/p PCI of the ramus. He follows in the office with Dr. Cazares. We have been asked to see in consultation for elevated troponin. He presented to the hospital with worsening shortness of breath. He was seen and evaluated earlier this week for similar symptoms. He was sent home on antibiotics 3 days ago with no improvement. He is seen and examined resting comfortably in bed in no acute distress. He is coughing, no significant sputum production with associated shortness of breath. He was previously on amiodarone prior to his ablation on 10/20. It was discontinued thereafter. However, it was resumed on previous admission. So he had a 2 day break off amiodarone. EKG on arrival reveals SR with left bundle branch block. Chest xray reveals patchy bilateral pneumonia with small pleural effusion looks worse than previous exam. Laboratory data reviewed, WBC 12.2, hgb 12.9, plt 325, sodium 132, potassium 4.6, creatinine 1.04, magnesium 2.1, lactate 931, troponin 0.119, 0.110, 0.090, CRP 17.2, NTproBNP 3160. Current daily cardiac medication include eliquis 5 mg BID, lipitor 40 mg daily, lopressor 50 mg BID and aldactone 25 mg daily. Echocardiogram obtained 10/24/2020 revealed severely impaired LV function with EF less than 20%, severely dilated LA, mild MR, mild TR. REVIEW OF SYSTEMS At the time of my exam: CONSTITUTIONAL: Denies fever or chills. CARDIOVASCULAR: Denies chest pain, shortness of breath, orthopnea, PND or palpitations. RESPIRATORY: Complains of shortness of breath and cough. GASTROINTESTINAL: Denies abdominal pain, diarrhea, constipation, nausea or vomiting. MUSCULOSKELETAL: Denies myalgias. NEUROLOGIC: Denies numbness, tingling, headache or weakness. ENDOCRINE: Denies fatigue, weight change, polydipsia or polyurina. GENITOURINARY: Denies burning, hematuria or urgency with micturation. HEMATOLOGIC: Denies history of anemia or bleeding. PHYSICAL EXAMINATION Blood pressure 105/56 heart rate 59 afebrile and maintaining oxygen saturation on nasal cannula. CONSTITUTIONAL: No apparent distress. HEENT: Head is normocephalic. Pupils are equal, round. Sclerae anicteric. Mucous membranes of the mouth are moist. No JVD. No carotid bruit. CHEST EXAMINATION: Lungs are clear to auscultation. No chest wall tenderness is noted on palpation or with deep breathing. HEART EXAMINATION: Regular rate and rhythm. S1, S2 heard. No murmurs, gallops or rub. ABDOMEN: Soft, nontender. EXTREMITIES: 2+ peripheral pulses, no lower extremity edema and no calf tenderness. NEUROLOGIC EXAMINATION: Patient is awake, alert and oriented x3. ASSESSMENT Atypical pneumonia Chronic systolic heart failure Chronic persistent atrial fibrillation s/p ablation, currently in SR Coronary artery disease s/p PCI ramus Hypertension Dyslipidemia PLAN Xray images reviewed, pneumonia is bilateral and diffuse. Unlikely to be related to recent intubation. Consideration for amiodarone induced. Discontinue amiodarone. Obtain CT of the chest w/wo contrast. Request pulmonary evaluation. Thank you kindly for this consultation. Nurse Practitioner note has been reviewed, I agree with a documented findings and plan of care. Patient was seen and examined. Past Medical History Past Medical History: Atrial Fibrillation, Cancer, Heart Failure, Hearing Disorder / Deafness, Hyperlipidemia, Hypertension, Myocardial Infarction ([place]), Pneumonia Additional Past Medical History / Comment(s): See Dr Deal's H&P. Hx Prostate cancer, right heel spur. Bilateral hearing aid use. Last Myocardial Infarction Date:: unknown History of Any Multi-Drug Resistant Organisms: None Reported Past Surgical History: Ablation, Heart Catheterization, Heart Catheterization With Stent, Prostate Surgery, Tonsillectomy Additional Past Surgical History / Comment(s): Heart cath w/2 stents (2017), heart stent 06/06/2018), Prostatectomy due to cancer (2012). Past Anesthesia/Blood Transfusion Reactions: No Reported Reaction Date of Last Stent Placement:: 2018 Past Psychological History: No Psychological Hx Reported Smoking Status: Former smoker Past Alcohol Use History: None Reported Additional Past Alcohol Use History / Comment(s): Started smoking 2000(cigars) and quit 2012. Past Drug Use History: None Reported - Past Family History Father Family Medical History: Hypertension, Myocardial Infarction ([place]) Additional Family Medical History / Comment(s): Father with myocardial infarction at age 75. Mother Family Medical History: No Reported History Additional Family Medical History / Comment(s): Broke her hip ended up in [facility]- age 89. Medications and Allergies Home Medications Medication Instructions Recorded Confirmed Type Nitroglycerin Sl Tabs [Nitrostat] 0.4 mg SUBLINGUAL Q5M PRN #25 tab 06/01/19 10/28/20 Rx Apixaban [Eliquis] 5 mg PO BID 09/09/20 10/28/20 History Atorvastatin [Lipitor] 40 mg PO DAILY 09/12/20 10/28/20 History Metoprolol Tartrate [Lopressor] 50 mg PO BID 09/12/20 10/28/20 History Spironolactone [Aldactone] 25 mg PO DAILY 30 Days #30 tab 09/16/20 10/28/20 Rx Cefdinir [Omnicef] 300 mg PO BID #6 cap 10/25/20 10/28/20 Rx Allergies Allergy/AdvReac Type Severity Reaction Status Date / Time No Known Allergies Allergy Verified 10/28/20 09:11 Physical Exam Vitals: Vital Signs Temp Pulse Pulse Resp BP BP Pulse Ox 10/28/20 11:33 98.0 F 59 L 18 105/56 92 L 10/28/20 08:04 99.0 F 63 16 101/58 99 10/28/20 08:00 63 16 10/28/20 03:20 98.9 F 70 18 114/61 92 L 10/28/20 03:03 66 21 10/28/20 02:00 64 18 116/57 93 L 10/28/20 01:36 20 10/28/20 00:55 98.2 F 69 18 108/69 91 L Intake and Output 10/27/20 10/28/20 10/28/20 22:59 06:59 14:59 Other: Weight 111.9 kg 111.9 kg Results 10/28/20 01:21 10/28/20 01:21 Cardiac Enzymes 10/28/20 10/28/20 10/28/20 Range/Units 01:21 01:21 01:21 AST 37 (17-59) U/L Lactate Dehydrogenase 931 H (313-618) U/L Troponin I 0.119 H* (0.000-0.034) ng/mL 10/28/20 10/28/20 Range/Units 05:13 07:32 AST (17-59) U/L Lactate Dehydrogenase (313-618) U/L Troponin I 0.110 H* 0.090 H* (0.000-0.034) ng/mL Coagulation 10/28/20 Range/Units 01:21 PT 12.5 H (9.0-12.0) sec APTT 24.7 (22.0-30.0) sec CBC 10/28/20 Range/Units 01:21 WBC 12.2 H (3.8-10.6) k/uL RBC 4.08 L (4.30-5.90) m/uL Hgb 12.9 L (13.0-17.5) gm/dL Hct 38.5 L (39.0-53.0) % Plt Count 325 (150-450) k/uL Comprehensive Metabolic Panel 10/28/20 Range/Units 01:21 Sodium 132 L (137-145) mmol/L Potassium 4.6 (3.5-5.1) mmol/L Chloride 103 (98-107) mmol/L Carbon Dioxide 21 L (22-30) mmol/L BUN 22 H (9-20) mg/dL Creatinine 1.04 (0.66-1.25) mg/dL Glucose 117 H (74-99) mg/dL Calcium 8.8 (8.4-10.2) mg/dL AST 37 (17-59) U/L ALT 15 (4-49) U/L Alkaline Phosphatase 81 (38-126) U/L Total Protein 6.9 (6.3-8.2) g/dL Albumin 3.6 (3.5-5.0) g/dL Current Medications Generic Name Dose Route Start Last Admin Trade Name Freq PRN Reason Stop Dose Admin Acetaminophen 650 mg 10/28/20 02:26 Acetaminophen Tab 325 Mg Tab PO Q6HR PRN Mild Pain or Fever > 100.5 Amiodarone HCl 400 mg 10/28/20 10:15 10/28/20 10:39 Amiodarone 200 Mg Tab PO 400 mg DAILY LUCAS Administration Apixaban 5 mg 10/28/20 10:15 10/28/20 10:39 Apixaban 5 Mg Tab PO 5 mg BID LUCAS Administration Protocol Atorvastatin Calcium 40 mg 10/28/20 10:15 10/28/20 10:39 Atorvastatin 40 Mg Tab PO 40 mg DAILY LUCAS Administration Sodium Chloride 1,000 mls @ 130 mls/hr 10/28/20 02:30 10/28/20 03:07 Saline 0.9% IV Not Given .[id number] LUCAS Piperacillin Sod/Tazobactam 100 mls @ 25 mls/hr 10/28/20 11:00 10/28/20 11:30 Sod 3.375 gm/ Sodium Chloride IVPB 25 mls/hr Q8H LUCAS Administration Levofloxacin 750 mg/ IV 150 mls @ 100 mls/hr 10/29/20 09:00 Solution IVPB Q24H LUCAS Metoprolol Tartrate 50 mg 10/28/20 10:15 10/28/20 10:39 Metoprolol Tartrate 50 Mg Tab PO 50 mg BID LUCAS Administration Naloxone HCl 0.2 mg 10/28/20 02:26 Naloxone 0.4 Mg/Ml 1 Ml Vial IV Q2M PRN Opioid Reversal Ondansetron HCl 4 mg 10/28/20 02:26 Ondansetron 4 Mg/2 Ml Vial IVP Q8HR PRN Nausea And Vomiting Spironolactone 25 mg 10/28/20 10:15 10/28/20 10:39 Spironolactone 25 Mg Tab PO 25 mg DAILY LUCAS Administration Intake and Output 10/27/20 10/28/20 10/28/20 22:59 06:59 14:59 Other: Weight 111.9 kg 111.9 kg Patient Weight 10/29/20 06:59 Weight 111.9 kg 10/28/20 01:21 10/28/20 01:21
--- NOTE | 2020-10-28 14:23 | CT ---
EXAMINATION TYPE: CT chest wo/w con DATE OF EXAM: 10/28/2020 COMPARISON: 09/13/2020 HISTORY: Atypical pneumonia, cough CT DLP: 1192.7 mGycm Automated exposure control for dose reduction was used. TECHNIQUE: CT scan of the chest is performed without and with IV Contrast, patient injected with 100 mL of Isovu e 300. MIP Images are created on CT scanner and reviewed. 3D reconstructed images are created on an independent workstation and reviewed. FINDINGS: LUNGS: Diffuse bilateral infiltrates are seen in there is interstitial thickening as well. There is s ome areas of increased density along the interstitial infiltrates. No pneumothorax. There is a small bilateral pleural effusion. Findings have progressed prior exam. MEDIASTINUM: There are no greater than 1 cm hilar or mediastinal lymph nodes. Heart size is enlarged. Aorta of normal caliber. Atherosclerotic change is noted. Coronary artery calcification noted. Centr al pulmonary arteries enhance normally. Artifact limits assessment remaining vasculature. Ulnar embol ism in this distribution not excluded. OTHER: Atrophic and degenerative changes of the spine. Liver and spleen may be slightly increased in attenuation could be associated with amiodarone exposure. IMPRESSION: 1. Progressive diffuse bilateral infiltrates correlate for diffuse pneumonia, ARDS or pulmonary edema . Small bilateral pleural effusions. Amiodarone toxicity would also be in the differential diagnosis with this constellation of pulmonary findings. 2. No central pulmonary embolism. Secondary and distal branches limited by artifact and technique. Pu lmonary embolism in this distribution not excluded.
[2020-10-28] MEDS: FUROSEMIDE 10 MG/ML 4 ML VIAL IV SCH ×2 (16:58→20:42)
--- NOTE | 2020-10-28 17:09 | P.CNPUL ---
History of Present Illness Consult date: 10/28/20 History of present illness: 60-year-old male patient hospitalized for an acute shortness of breath and the pulmonary Pressure was requested. The patient is known to us. In fact the patient has had several hospitalization for development of bilateral pulmonary infiltrates and decompensated heart failure. He was discharged from the hospital on 10/25/2020 to be readmitted 3 days following his discharge and the patient was getting progressively more weak and short of breath especially with minimal amount of activity and sometimes even at rest. At that point, he de cided to come into the hospital. He was unable to move or do any form of physical exertion. She has limited copyof his sputum production. No chest pain. No palpitations. No syncope. No swelling in lower extremities. Nevertheless, the patient is known to have coronary artery disease and the efraín wise has undergone previous cardiac catheterization and stenting of the ramus intermedius and he is known to have [id number] nonobstructive disease involving mid to distal LAD and PLV. The patient also has cardiomyopathy with an ejection fraction of less than 25% and he was being contemplated for an AICD placement. At the same time the patient had issues with chronic persistent atrial fibrillation during an earlier admission, the patient underwent a cardioversion with subsequent A. fib ablation on 10/20/2020 and currently he is still in normal sinus rhythm. His EKG showing a left bundle branch block with sinus rhythm with frequent PACs. During this current admission, the patient was found to have an elevated proBNP level of 3160. Troponin was elevated at 0.119. Creatinine of 1.04 with a sodium level of 132 and a white cell count of 12.2. The patient has been essentially on the same medication. The chest x-ray showed diffuse bilateral pulmonary infiltrates. Furthermore, a computed tomography scan of the chest was done with contrast that showed diffuse bilateral infiltr ates and some areas of increased density along with interstitial infiltrates and consolidation. There was small bilateral pleural effusion. The findings have obviously progressed since his last evaluation of CAT scan from 09/13/2020. The pleural effusions were small. No central pulmonary embolism. The patient's Prograf level is 0.11. COVID-19 testing is negative and the patient has been fully vaccinated 06/27. Lactic acid level is at 1.4. Normal coagulation profile.. Currently the patient on oxygen at 6 L per minute with a pulse ox of 92%. Review of Systems Constitutional: Reports fatigue, Reports weakness Eyes: denies as per HPI, denies blurred vision, denies bulging eye, denies decreased vision, denies diplopia, denies discharge, denies dry eye, denies irritation, denies itching, denies pain, denies photophobia, denies loss of peripheral vision, denies loss of vision, denies tunnel vision/blind spots Ears: deny: decreased hearing, ear discharge, earache, tinnitus Ears, nose, mouth and throat: Reports as per HPI Breasts: absent: as per HPI, gynecomastia Cardiovascular: Reports decreased exercise tolerance, Reports dyspnea on exertion, Reports irregular heart beat, Reports shortness of breath Respiratory: Reports dyspnea, orthopnea, limited cough. No significant sputum production. Marked limitation of exercise capacity because of shortness of breath. Gastrointestinal: Reports as per HPI Genitourinary: Reports as per HPI Musculoskeletal: Reports as per HPI Musculoskeletal: absent: ankle pain, ankle stiffness, ankle swelling Integumentary: Reports as per HPI Neurological: Reports as per HPI Psychiatric: Reports as per HPI Endocrine: Reports as per HPI Hematologic/Lymphatic: Reports as per HPI Past Medical History Past Medical History: Atrial Fibrillation, Cancer, Heart Failure, Hearing Disorder / Deafness, Hyperlipidemia, Hypertension, Myocardial Infarction ([place]), Pneumonia Additional Past Medical History / Comment(s): See Dr Deal's H&P. Hx Prostate cancer, right heel spur. Bilateral hearing aid use. Last Myocardial Infarction Date:: unknown History of Any Multi-Drug Resistant Organisms: None Reported Past Surgical History: Ablation, Heart Catheterization, Heart Catheterization With Stent, Prostate Surgery, Tonsillectomy Additional Past Surgical History / Comment(s): Heart cath w/2 stents (2017), heart stent 06/06/2018), Prostatectomy due to cancer (2012). Past Anesthesia/Blood Transfusion Reactions: No Reported Reaction Date of Last Stent Placement:: 2018 Past Psychological History: No Psychological Hx Reported Smoking Status: Former smoker Past Alcohol Use History: None Reported Additional Past Alcohol Use History / Comment(s): Started smoking 2000(cigars) and quit 2012. Past Drug Use History: None Reported - Past Family History Father Family Medical History: Hypertension, Myocardial Infarction ([place]) Additional Family Medical History / Comment(s): Father with myocardial in farction at age 75. Mother Family Medical History: No Reported History Additional Family Medical History / Comment(s): Broke her hip ended up in [facility]- age 89. Medications and Allergies Home Medications Medication Instructions Recorded Confirmed Type Nitroglycerin Sl Tabs [Nitrostat] 0.4 mg SUBLINGUAL Q5M PRN #25 tab 06/01/19 10/28/20 Rx Apixaban [Eliquis] 5 mg PO BID 09/09/20 10/28/20 History Atorvastatin [Lipitor] 40 mg PO DAILY 09/12/20 10/28/20 History Metoprolol Tartrate [Lopressor] 50 mg PO BID 09/12/20 10/28/20 History Spironolactone [Aldactone] 25 mg PO DAILY 30 Days #30 tab 09/16/20 10/28/20 Rx Cefdinir [Omnicef] 300 mg PO BID #6 cap 10/25/20 10/28/20 Rx Allergies Allergy/AdvReac Type Severity Reaction Status Date / Time No Known Allergies Allergy Verified 10/28/20 09:11 Physical Exam Vitals: Vital Signs Temp Pulse Pulse Resp BP BP Pulse Ox 10/28/20 15:58 98.2 F 66 18 102/61 93 L 10/28/20 14:00 59 L 18 10/28/20 11:33 98.0 F 59 L 18 105/56 92 L 10/28/20 08:04 99.0 F 63 16 101/58 99 10/28/20 08:00 63 16 10/28/20 03:20 98.9 F 70 18 114/61 92 L 10/28/20 03:03 66 21 10/28/20 02:00 64 18 116/57 93 L 10/28/20 01:36 20 10/28/20 00:55 98.2 F 69 18 108/69 91 L Intake and Output 10/28/20 10/28/20 10/28/20 06:59 14:59 22:59 Other: Weight 111.9 kg 111.9 kg CONSTITUTIONAL: No patient is a mild degree of respiratory distress even at rest. The patient is currently on 6 L of oxygen by nasal cannula with pulse ox of 92%. Not using excessive muscle breathing. Awake and alert and following commands and answering questions appropriately. Head exam was generally normal. There was no scleral icterus or corneal arcus. Mucous membranes were moist. HEENT: Head is normocephalic. Pupils are equal, round. Sclerae anicteric. Mucous membranes of the mouth are moist. No JVD. No carotid bruit. CHEST EXAMINATION: Lungs are showing cardiomegaly and lower lung priest bilaterally. No chest wall tenderness is noted on palpation or with deep breathing. HEART EXAMINATION: Regular rate and rhythm. S1, S2 heard. No murmurs, gallops or rub. ABDOMEN: Soft, nontender. Positive bowel sounds. EXTREMITIES: 2+ peripheral pulses, no lower extremity edema and no calf tenderness. Neurologically, the patient is awake and alert and the patient does not have any focal neurological deficit. Cranial nerves are essentially intact. Results - Laboratory Findings CBC and BMP: 10/28/20 01:10/28/20 01:21 PT/INR, D-dimer PT 12.5 sec (9.0-12.0) H 10/28/20 01:21 INR 1.2 (<1.2) H 10/28/20 01:21 Abnormal lab findings: Abnormal Labs 10/28/20 10/28/20 10/28/20 01:21 01:21 01:21 WBC 12.2 H RBC 4.08 L Hgb 12.9 L Hct 38.5 L Neutrophils # 10.0 H Lymphocytes # 0.9 L PT 12.5 H INR 1.2 H Sodium 132 L Carbon Dioxide 21 L BUN 22 H Glucose 117 H Lactate Dehydrogenase Troponin I C-Reactive Protein 10/28/20 10/28/20 10/28/20 01:21 01:21 05:13 WBC RBC Hgb Hct Neutrophils # Lymphocytes # PT INR Sodium Carbon Dioxide BUN Glucose Lactate Dehydrogenase 931 H Troponin I 0.119 H* 0.110 H* C-Reactive Protein 17.2 H 10/28/20 07:32 WBC RBC Hgb Hct Neutrophils # Lymphocytes # PT INR Sodium Carbon Dioxide BUN Glucose Lactate Dehydrogenase Troponin I 0.090 H* C-Reactive Protein - Diagnostic Findings Chest x-ray: image reviewed CT scan - chest: image reviewed Assessment and Plan Plan: 1 acute hypoxic respiratory failure with development of extensive bilateral pulmonary infiltrates which has gone significantly worse since the last CAT scan of the chest from last month. The findings are most consistent with CHF/interstitial edema/groundglass pulmonary infiltrates in addition to areas of consolidation bilaterally rather than pneumonia. The patient's has a mildly elevated pro calcitonin level of 0.11. The proBNP level is elevated at 3160. He has responded nicely to diuretics in the past. No significant leukocytosis. No fever. No signs of septicemia. 2 coronary artery disease with previous coronary stenting. Please refer to the most recent cardiac catheterization. Currently has some troponin leaks without any acute EKG abnormalities 3 chronic atrial fibrillation post-ablation current cardiac rhythm is sinus 4 CHF with severe cardiomyopathy and ejection fraction of less than 20%, does not have an AICD for the time being. This is a nonischemic cardiomyopathy 5 5 history of prostate cancer with a previous prostatectomy 6 hypertension 7 hyperlipidemia maintained on Lipitor plan Start the patient on Lasix 40 mg IV every 12 hours monitor urine output and oxygenation Monitor chest x-ray findings Continue Zosyn and Levaquin Suspicion for an infection or pneumonia being a bacterial or viral or atypical is low at this point in time. Focused 11 is mildly elevated. COVID-19 testing is been negative Resume all medications from home We'll continue to follow
--- NOTE | 2020-10-28 20:53 | P.HPIM ---
History of Present Illness H&P Date: 10/28/20 Chief Complaint: Short of breath, tired History of presenting complaint: This is a very pleasant 70 year patient of . May 2017 had a coronary stent placed. May 2019 Ruled in acute ID. cardiac catheterization- Angioplasty stenting done to ramus intermedius. Recent admission for CHF and was cardioverted. Went back into A. fib. CHF EF less than 25% . 10/04/2020: Cardiac catheterization: Patent stent within the ramus intermedius. Mild to moderate nonobstructive disease involving the PLV and mid to distal LAD.10/21/2020 underwent successful outpatient ablation by Dr. Rudy Deal Admitted from October 22 through October 25. Treated with pneumonia with IV cefepime, discharge on Omnicef. Also treated for CHF [EF less than 20%] exacerbation. On the day of discharge, was feeling much better. It only a slight cough. Breathing much improved. No edema. Was cleared by currently. Patient now presented increase in shortness of breath. Slight cough. No fever no chills. Feels totally beat up. Very tired. No edema. Review of systems: GEN.: Tired, no fever no chills EYES: None HEENT: None NECK: None RESPIRATORY: As above CARDIOVASCULAR: As above GASTROINTESTINAL: None GENITOURINARY: None MUSCULOSKELETAL: None LYMPHATICS: None HEMATOLOGICAL: None PSYCHIATRY: None NEUROLOGICAL: None Past medical history to include: Coronary artery disease with stent in May 2017, May 2019, prostate cancer treated with surgery, hyperlipidemia, low back pain, atrial fibrillation. CHF EF less than 20% Social history: Patient smoked for about 20 years stopped in 2012. . 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 Conjunctiva normal. HEENT: External appearance of nose and ears normal, oral cavity grossly normal. NECK: JVD raised; masses not palpable. HEART: First and second heart sounds are normal; no edema. LUNGS: Respiratory rate increased; decreased breath sound ABDOMEN: Soft, nontender, liver spleen not palpable, no masses palpable. PSYCH: Alert and oriented x3; mood and affect anxious NEUROLOGICAL: Cranial nerves grossly intact; no facial asymmetry, power and sensation grossly intact. LYMPHATICS: No lymph nodes palpable in the axilla and nec INVESTIGATIONS, reviewed in the clinical context: WBC 12.2, hemoglobin 12.9, platelets 325, potassium 4.6, creatinine 1.04 Troponin I 0.119, 0.110. ProBNP 3160 EKG tracing personally reviewed by me-sinus rhythm, left bundle-branch block Chest x-ray film personally reviewed by me-bilateral infiltrates, edema cannot be ruled out Computed tomography scan chest: Diffuse bilateral infiltrates and small bilateral pleural effusion. No obvious PE Previous testing 2-D echocardiogram [October 24]: EF less than 20%. No pericardial effusion. Assessment and plan: - Patient on recent admission had pneumonia responded well to IV cefepime. Patient was discharged Omnicef. Now presents with increasing shortness of breath. Minimal cough. No fever no chills. On IV Zosyn, IV Levaquin. Check pro-calcitonin. -Acute on chronic congestive heart failure exacerbation from systolic dysfunction. EF less than 20%,, secondary to ischemic cardiomyopathy IV Lasix 40 mg every 12. Fluid restriction. Aldactone. -Coronary artery disease with stent to ramus intermedius in May 2019 , Lopressor effient -Troponinemia, likely from CHF Note for further intervention -Chronic left bundle branch block -Paroxysmal atrial fibrillation,, ablation on October 21/2021. Sinus rhythm eliquis -Hyperlipidemia Lipitor -Obesity BMI 35.4 Weight loss measures, follow with PCP We'll check procalcitonin today and tomorrow. DC IV fluids. IV Lasix. IV Levaquin and Zosyn. Consultation to cardiology and pulmonary. Care was discussed with the patient. Check BMP in the morning. Given the complexity and severity of patient's condition expect the patient to be in the hospital at least for 2 overnights Past Medical History Past Medical History: Atrial Fibrillation, Cancer, Heart Failure, Hearing Disorder / Deafness, Hyperlipidemia, Hypertension, Myocardial Infarction (ID), Pneumonia Additional Past Medical History / Comment(s): See Dr Deal's H&P. Hx Prostate cancer, right heel spur. Bilateral hearing aid use. Last Myocardial Infarction Date:: unknown History of Any Multi-Drug Resistant Organisms: None Reported Past Surgical History: Ablation, Heart Catheterization, Heart Catheterization With Stent, Prostate Surgery, Tonsillectomy Additional Past Surgical History / Comment(s): Heart cath w/2 stents (2017), heart stent 06/06/2018), Prostatectomy due to cancer (2012). Past Anesthesia/Blood Transfusion Reactions: No Reported Reaction Date of Last Stent Placement:: 2018 Past Psychological History: No Psychological Hx Reported Smoking Status: Former smoker Past Alcohol Use History: None Reported Additional Past Alcohol Use History / Comment(s): Started smoking 2000(cigars) and quit 2012. Past Drug Use History: None Reported - Past Family History Father Family Medical History: Hypertension, Myocardial Infarction (ID) Additional Family Medical History / Comment(s): Father with myocardial infarction at age 75. Mother Family Medical History: No Reported History Additional Family Medical History / Comment(s): Broke her hip ended up in [facility]- age 89. Medications and Allergies Home Medications Medication Instructions Recorded Confirmed Type Nitroglycerin Sl Tabs [Nitrostat] 0.4 mg SUBLINGUAL Q5M PRN #25 tab 06/01/19 10/28/20 Rx Apixaban [Eliquis] 5 mg PO BID 09/09/20 10/28/20 History Atorvastatin [Lipitor] 40 mg PO DAILY 09/12/20 10/28/20 History Metoprolol Tartrate [Lopressor] 50 mg PO BID 09/12/20 10/28/20 History Spironolactone [Aldactone] 25 mg PO DAILY 30 Days #30 tab 09/16/20 10/28/20 Rx Cefdinir [Omnicef] 300 mg PO BID #6 cap 10/25/20 10/28/20 Rx Allergies Allergy/AdvReac Type Severity Reaction Status Date / Time No Known Allergies Allergy Verified 10/28/20 09:11 Physical Exam Vitals: Vital Signs Temp Pulse Pulse Resp BP BP Pulse Ox 10/28/20 08:04 99.0 F 63 16 101/58 99 10/28/20 08:00 63 16 10/28/20 03:20 98.9 F 70 18 114/61 92 L 10/28/20 03:03 66 21 10/28/20 02:00 64 18 116/57 93 L 10/28/20 01:36 20 10/28/20 00:55 98.2 F 69 18 108/69 91 L Intake and Output 10/27/20 10/28/20 10/28/20 22:59 06:59 14:59 Other: Weight 111.9 kg Results CBC & Chem 7: 10/28/20 01:21 10/28/20 01:21 Labs: Abnormal Lab Results - Last 24 Hours (Table) 10/28/20 10/28/20 10/28/20 Range/Units 01: 01: 01:21 WBC 12.2 H (3.8-10.6) k/uL RBC 4.08 L (4.30-5.90) m/uL Hgb 12.9 L (13.0-17.5) gm/dL Hct 38.5 L (39.0-53.0) % Neutrophils # 10.0 H (1.3-7.7) k/uL Lymphocytes # 0.9 L (1.0-4.8) k/uL PT 12.5 H (9.0-12.0) sec INR 1.2 H (<1.2) Sodium 132 L (137-145) mmol/L Carbon Dioxide 21 L (22-30) mmol/L BUN 22 H (9-20) mg/dL Glucose 117 H (74-99) mg/dL Lactate Dehydrogenase (313-618) U/L Troponin I (0.000-0.034) ng/mL C-Reactive Protein (<1.0) mg/dL 10/28/20 10/28/20 10/28/20 Range/Units 01: 01: 05:13 WBC (3.8-10.6) k/uL RBC (4.30-5.90) m/uL Hgb (13.0-17.5) gm/dL Hct (39.0-53.0) % Neutrophils # (1.3-7.7) k/uL Lymphocytes # (1.0-4.8) k/uL PT (9.0-12.0) sec INR (<1.2) Sodium (137-145) mmol/L Carbon Dioxide (22-30) mmol/L BUN (9-20) mg/dL Glucose (74-99) mg/dL Lactate Dehydrogenase 931 H (313-618) U/L Troponin I 0.119 H* 0.110 H* (0.000-0.034) ng/mL C-Reactive Protein 17.2 H (<1.0) mg/dL 10/28/20 Range/Units 07:32 WBC (3.8-10.6) k/uL RBC (4.30-5.90) m/uL Hgb (13.0-17.5) gm/dL Hct (39.0-53.0) % Neutrophils # (1.3-7.7) k/uL Lymphocytes # (1.0-4.8) k/uL PT (9.0-12.0) sec INR (<1.2) Sodium (137-145) mmol/L Carbon Dioxide (22-30) mmol/L BUN (9-20) mg/dL Glucose (74-99) mg/dL Lactate Dehydrogenase (313-618) U/L Troponin I 0.090 H* (0.000-0.034) ng/mL C-Reactive Protein (<1.0) mg/dL
[2020-10-29] MEDS: PIPERACILLIN-TAZOBACTAM 3.375 GM in SODIUM CHLORIDE 0.9% 100 ML IVPB SCH ×2 (04:39→11:14)
[2020-10-29] MEDS: SODIUM CHLORIDE 0.9% 1,000 ML IV SCH (06:18)
--- NOTE | 2020-10-29 07:34 | XR ---
EXAMINATION TYPE: XR chest 1V DATE OF EXAM: 10/29/2020 COMPARISON: CT and radiograph chest October 28, 2020 HISTORY: Pneumonia. TECHNIQUE: Single frontal view of the chest is obtained. FINDINGS: Patchy airspace opacities bilaterally right greater than left with minimally improved aerat ion bilaterally. Thinning of the right costophrenic angle. No pneumothorax. IMPRESSION: Multifocal pneumonia with moderate right effusion
[2020-10-29] MEDS: APIXABAN 5 MG TAB PO SCH ×2 (08:53→20:50)
[2020-10-29] MEDS: METOPROLOL TARTRATE 50 MG TAB PO SCH ×2 (08:53→20:50)
[2020-10-29] MEDS: ATORVASTATIN 40 MG TAB PO SCH (08:54)
[2020-10-29] MEDS: SPIRONOLACTONE 25 MG TAB PO SCH (08:54)
[2020-10-29] MEDS: FUROSEMIDE 10 MG/ML 4 ML VIAL IV SCH ×2 (08:54→20:50)
[2020-10-29] MEDS ORDERED: LEVOFLOXACIN 750MG-D5W PMX 750 MG in DEXTROSE/WATER 1 150ML.BAG IVPB SCH (09:00)
--- NOTE | 2020-10-29 10:21 | P.PN ---
Subjective Progress Note Date: 10/29/20 60-year-old male patient hospitalized for an acute shortness of breath and the pulmonary Pressure was requested. The patient is known to us. In fact the patient has had several hospitalization for development of bilateral pulmonary infiltrates and decompensated heart failure. He was discharged from the hospital on 10/25/2020 to be readmitted 3 days following his discharge and the patient was getting progressively more weak and short of breath especially with minimal amount of activity and sometimes even at rest. At that point, he decided to come into the hospital. He was unable to move or do any form of physical exertion. She has limited copyof his sputum production. No chest pain. No palpitations. No syncope. No swelling in lower extremities. Nevertheless, the patient is known to have coronary artery disease and the patient has undergone previous cardiac catheterization and stenting of the ramus intermedius and he is known to have [id number] nonobstructive disease involving mid to distal LAD and PLV. The patient also has cardiomyopathy with an ejection fraction of less than 25% and he was being contemplated for an AICD placement. At the same time the patient had issues with chronic persistent atrial fibrillation during an earlier admission, the patient underwent a cardioversion with subsequent A. fib ablation on 10/20/2020 and currently he is still in normal sinus rhythm. His EKG showing a left bundle branch block with sinus rhythm with frequent PACs. During this current admission, the patient was found to have an elevated proBNP level of 3160. Troponin was elevated at 0.119. Creatinine of 1.04 with a sodium level of 132 and a white cell count of 12.2. The patient has been essentially on the same medication. The chest x-ray showed diffuse bilateral pulmonary infiltrates. Furthermore, a computed tomography scan of the chest was done with contrast that showed diffuse bilateral infiltrates and some areas of increased density along with interstitial infiltrates and consolidation. There was small bilateral pleural effusion. The findings have obviously progressed since his last evaluation of CAT scan from 09/13/2020. The pleural effusions were small. No central pulmonary embolism. The patient's Prograf level is 0.11. COVID-19 testing is negative and the patient has been fully vaccinated 06/27. Lactic acid level is at 1.4. Normal coagulation profile.. Currently the patient on oxygen at 6 L per minute with a pulse ox of 92%. On 10/29/2020, the patient is being seen for a follow-up. The patient is feeling slightly better on today's evaluation compared to yesterday. The patient is on 4 L of oxygen by nasal cannula compared to 6 L. He has diuresed adequately over the past 24 hours and the chest x-ray showing some improvement in the bilateral pulmonary infiltrates. Discussed the case with cardiology. There is a possibility of this patient having amiodarone toxicity. He was taken amiodarone 200 mg twice a day prior to his cardiac ablation. He had some infiltrates and earlier as mentioned and it's possible that the patient has developed an acute interstitial lung pneumonitis or disease from amiodarone intake. As such, I'm going to start patient also on some IV Solu-Medrol. A repeat chest x-ray will be done tomorrow. He is still feeling exhausted although slightly improved compared to yesterday. Objective - Vital Signs Vital signs: Vital Signs Temp 98.2 F 10/29/20 04:40 Pulse 69 10/29/20 04:40 Resp 18 10/29/20 04:40 BP 98/55 10/29/20 04:40 Pulse Ox 97 10/29/20 08:44 Intake & Output 10/28/20 10/29/20 10/29/20 18:59 06:59 18:59 Intake Total 240 Output Total 700 2110 Balance -700 -2110 240 Weight 111.9 kg 110.1 kg Intake: Oral 240 Output: Urine 700 2110 Other: # Voids 4 - Exam CONSTITUTIONAL: No patient is a mild degree of respiratory distress even at rest. The patient is currently on 4 L of oxygen by nasal cannula with pulse ox of 92%. Not using excessive muscle breathing. Awake and alert and following commands and answering questions appropriately. Head exam was generally normal. There was no scleral icterus or corneal arcus. Mucous membranes were moist. HEENT: Head is normocephalic. Pupils are equal, round. Sclerae anicteric. Mucous membranes of the mouth are moist. No JVD. No carotid bruit. CHEST EXAMINATION: Lungs are showing cardiomegaly and lower lung priest bilaterally. No chest wall tenderness is noted on palpation or with deep breathing. HEART EXAMINATION: Regular rate and rhythm. S1, S2 heard. No murmurs, gallops or rub. ABDOMEN: Soft, nontender. Positive bowel sounds. EXTREMITIES: 2+ peripheral pulses, no lower extremity edema and no calf tenderness. Neurologically, the patient is awake and alert and the patient does not have any focal neurological deficit. Cranial nerves are essentially intact. - Labs CBC & Chem 7: 10/28/20 01:21 10/28/20 01:21 Labs: Microbiology - Last 24 Hours (Table) 10/28/20 01:21 Blood Culture - Preliminary Blood No Growth after 24 hours Assessment and Plan Plan: 1 acute hypoxic respiratory failure with development of extensive bilateral pulmonary infiltrates which has gone significantly worse since the last CAT scan of the chest from last month. The findings are most consistent with CHF/interstitial edema/groundglass pulmonary infiltrates in addition to areas of consolidation bilaterally rather than pneumonia. The patient's has a mildly elevated pro calcitonin level of 0.11. The proBNP level is elevated at 3160. He has responded nicely to diuretics in the past. No significant leukocytosis. No fever. No signs of septicemia. Another possibility is amiodarone toxicity knowing that the patient was taken higher doses of amiodarone earlier and the patient is currently off amiodarone post ablation of his AHI fibrillation. 2 coronary artery disease with previous coronary stenting. Please refer to the most recent cardiac catheterization. Currently has some troponin leaks without any acute EKG abnormalities 3 chronic atrial fibrillation post-ablation current cardiac rhythm is sinus 4 CHF with severe cardiomyopathy and ejection fraction of less than 20%, does not have an AICD for the time being. This is a nonischemic cardiomyopathy 5 5 history of prostate cancer with a previous prostatectomy 6 hypertension 7 hyperlipidemia maintained on Lipitor plan Continue Lasix 40 mg IV every 12 hours Start the patient IV Solu-Medrol 60 mg every 6 hours Monitor urine output and repeat chest x-ray in a.m. Monitor electrolytes monitor urine output and oxygenation Monitor chest x-ray findings Amiodarone is currently on hold Resume all medications from home We'll continue to follow
[2020-10-29 10:52] LABS: Basophils # (A) 0.1 k/uL (0-0.2); Basophils % (A) 1 %; Eosinophils # (A) 0.3 k/uL (0-0.7); Eosinophils % (A) 2 %; HCT 37.6 % (39.0-53.0); HGB 12.4 gm/dL (13.0-17.5); Lymphocytes # (A) 0.7 k/uL (1.0-4.8); Lymphocytes % (A) 7 %; MCH 31.4 pg (25.0-35.0); MCV 95.2 fL (80.0-100.0); Mean Platelet Volume 7.7; Monocytes # (A) 0.4 k/uL (0-1.0); Monocytes % (A) 4 %; Neutrophils # (A) 8.8 k/uL (1.3-7.7); Neutrophils % (A) 85 %; Platelet Count 333 k/uL (150-450); RBC 3.95 m/uL (4.30-5.90); RDW 14.2 % (11.5-15.5); WBC 10.3 k/uL (3.8-10.6)
[2020-10-29 11:07] LABS: Calcium 9.1 mg/dL (8.4-10.2); Phosphorus 4.1 mg/dL (2.5-4.5)
[2020-10-29] MEDS: methylPREDNISolone SOD SUCCI 125 MG/2 ML VIAL IV SCH ×3 (11:13→23:14)
--- NOTE | 2020-10-29 13:24 | P.PN ---
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 fib ablation Known cardiomyopathy and congestive heart failure Plan Discussed with primary attending and interlibrary loan specialist regarding management of amiodarone toxicity and possible use of steroids Continue other cardiac medications Amiodarone was discontinued earlier this month Objective - Vital Signs Vital signs: Vital Signs Temp 98.2 F 10/29/20 04:40 Pulse 69 10/29/20 04:40 Resp 18 10/29/20 04:40 BP 98/55 10/29/20 04:40 Pulse Ox 97 10/29/20 08:44 Intake & Output 10/28/20 10/29/20 10/29/20 18:59 06:59 18:59 Intake Total 240 Output Total 700 2110 300 Balance - -60 Weight 111.9 kg 110.1 kg Intake: Oral 240 Output: Urine 700 2110 300 Other: # Voids 4 - Labs CBC & Chem 7: 10/29/20 10:00 10/29/20 10:00 Labs: Abnormal Lab Results - Last 24 Hours (Table) 10/29/20 10/29/20 Range/Units 10:00 10:00 RBC 3.95 L (4.30-5.90) m/uL Hgb 12.4 L (13.0-17.5) gm/dL Hct 37.6 L (39.0-53.0) % Neutrophils # 8.8 H (1.3-7.7) k/uL Lymphocytes # 0.7 L (1.0-4.8) k/uL Sodium 135 L (137-145) mmol/L BUN 23 H (9-20) mg/dL Creatinine 1.49 H (0.66-1.25) mg/dL Glucose 159 H (74-99) mg/dL Microbiology - Last 24 Hours (Table) 10/28/20 01:21 Blood Culture - Preliminary Blood No Growth after 24 hours
--- NOTE | 2020-10-29 19:51 | P.PN ---
Progress Note - Text Progress Note Date: 10/29/20 Chief Complaint: Short of breath, tired History of presenting complaint: This is a very pleasant 70 year patient of . May 2017 had a coronary stent placed. May 2019 Ruled in acute NM. cardiac catheterization- Angioplasty stenting done to ramus intermedius. Recent admission for CHF and was cardioverted. Went back into A. fib. CHF EF less than 25% . 10/04/2020: Cardiac catheterization: Patent stent within the ramus intermedius. Mild to moderate nonobstructive disease involving the PLV and mid to distal LAD.10/21/2020 underwent successful outpatient ablation by Dr. Rudy Deal Admitted from October 22 through October 25. Treated with pneumonia with IV cefepime, discharge on Omnicef. Also treated for CHF [EF less than 20%] exacerbation. On the day of discharge, was feeling much better. It only a slight cough. Breathing much improved. No edema. Was cleared by currently. Patient now presented increase in shortness of breath. Slight cough. No fever no chills. Feels totally beat up. Very tired. No edema. October 29: Breathing a bit better. Diet. Laying in bed. Oral intake fair. Did sit up in a chair. Discussed with Dr. Flores and Dr. Rudy Deal from [facility]. 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 Does not felt to have had pneumonia. Antibiotics are being discontinued. Patient was IV steroids. Review of systems: Was done for constitutional, cardiovascular, GI, pulmonary. relevant finding as above Active Medications Acetaminophen (Acetaminophen Tab 325 Mg Tab) 650 mg PO Q6HR PRN PRN Reason: Mild Pain or Fever > 100.5 Apixaban (Apixaban 5 Mg Tab) 5 mg PO BID [facility]; Protocol Last Admin: 10/29/20 08:53 Dose: 5 mg Documented by: Atorvastatin Calcium (Atorvastatin 40 Mg Tab) 40 mg PO DAILY [facility] Last Admin: 10/29/20 08:54 Dose: 40 mg Documented by: Furosemide (Furosemide 10 Mg/Ml 4 Ml Vial) 40 mg IV Q12HR [facility] Last Admin: 10/29/20 08:54 Dose: 40 mg Documented by: Insulin Aspart (Insulin Aspart (Novolog) 100 Unit/Ml Vial) 0 unit SQ ACHS [facility]; Protocol Methylprednisolone Sodium Succinate (Methylprednisolone Sod Succi 125 Mg/2 Ml Vial) 60 mg IV Q6HR [facility] Last Admin: 10/29/20 17:08 Dose: 60 mg Documented by: Metoprolol Tartrate (Metoprolol Tartrate 50 Mg Tab) 50 mg PO BID [facility] Last Admin: 10/29/20 08:53 Dose: 50 mg Documented by: Miscellaneous Information (Rx Info: Iv Contrast Was Given 1 Each Misc) 1 each MISCELLANE DAILY PRN PRN Reason: Per Protocol Stop: 10/30/20 12:02 Naloxone HCl (Naloxone 0.4 Mg/Ml 1 Ml Vial) 0.2 mg IV Q2M PRN PRN Reason: Opioid Reversal Ondansetron HCl (Ondansetron 4 Mg/2 Ml Vial) 4 mg IVP Q8HR PRN PRN Reason: Nausea And Vomiting Spironolactone (Spironolactone 25 Mg Tab) 25 mg PO DAILY [facility] Last Admin: 10/29/20 08:54 Dose: 25 mg Documented by: Past medical history to include: Coronary artery disease with stent in May 2017, May 2019, prostate cancer treated with surgery, hyperlipidemia, low back pain, atrial fibrillation. CHF EF less than 20% Social history: Patient smoked for about 20 years stopped in 2012. . 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 Conjunctiva normal. HEENT: External appearance of nose and ears normal, oral cavity grossly normal. NECK: JVD raised; masses not palpable. HEART: First and second heart sounds are normal; no edema. LUNGS: Respiratory rate increased; decreased breath sound ABDOMEN: Soft, nontender, liver spleen not palpable, no masses palpable. PSYCH: Alert and oriented x3; mood and affect anxious INVESTIGATIONS, reviewed in the clinical context: October 29: White count 10.3 hemoglobin 12.4 potassium 4 BUN 23 creatinine 1.49 WBC 12.2, hemoglobin 12.9, platelets 325, potassium 4.6, creatinine 1.04 Troponin I 0.119, 0.110. ProBNP 3160 EKG tracing personally reviewed by me-sinus rhythm, left bundle-branch block Chest x-ray film personally reviewed by me-bilateral infiltrates, edema cannot be ruled out Computed tomography scan chest: Diffuse bilateral infiltrates and small bilateral pleural effusion. No obvious PE Previous testing 2-D echocardiogram [October 24]: EF less than 20%. No pericardial effusion. Assessment and plan: -Acute on chronic congestive heart failure exacerbation from systolic dysfunction. EF less than 20%,, secondary to ischemic cardiomyopathy IV Lasix 40 mg every 12. Fluid restriction. Aldactone. 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 Consult nephrology -Troponinemia, likely from CHF Not for further intervention -Chronic left bundle branch block -Paroxysmal atrial fibrillation,, ablation on October 21/2021. Sinus rhythm eliquis -Hyperlipidemia Lipitor -Obesity BMI 35.4 Weight loss measures, follow with PCP DC antibiotics to include Levaquin and Zosyn. Follow BMP. Consult nephrology. Discussed with the patient. Updated. Discussed with Dr. Sandra Deal. Total time spent about 40 minutes with over 20 minutes of discussion.
[2020-10-29 20:04] LABS: Glucose,Whole Blood 223 mg/dL (75-99)
[2020-10-29] MEDS: INSULIN ASPART (NovoLOG) 100 UNIT/ML VIAL SQ SCH (20:51)
[2020-10-30 06:11] LABS: Glucose,Whole Blood 172 mg/dL (75-99)
[2020-10-30] MEDS: methylPREDNISolone SOD SUCCI 125 MG/2 ML VIAL IV SCH ×2 (06:25→11:57)
[2020-10-30] MEDS: INSULIN ASPART (NovoLOG) 100 UNIT/ML VIAL SQ SCH ×4 (06:25→20:09)
--- NOTE | 2020-10-30 07:26 | XR ---
EXAMINATION TYPE: XR chest 1V DATE OF EXAM: 10/30/2020 COMPARISON: 10/29/2020 HISTORY: Pneumonia TECHNIQUE: Single frontal view of the chest is obtained. FINDINGS: There are multifocal partial airspace opacities unchanged since the prior study. Small pleural effusions are suspected there is no pneumothorax. Heart size is normal. The osseous str uctures are intact IMPRESSION: Acute cardiopulmonary disease as described above with no significant interval change.
[2020-10-30 08:03] LABS: Basophils % (A) 0 %; Eosinophils % (A) 0 %; HCT 40.6 % (39.0-53.0); HGB 13.5 gm/dL (13.0-17.5); Lymphocytes # (A) 0.7 k/uL (1.0-4.8); Lymphocytes % (A) 6 %; MCH 31.8 pg (25.0-35.0); MCHC 33.4 g/dL (31.0-37.0); MCV 95.4 fL (80.0-100.0); Mean Platelet Volume 8.6; Monocytes # (A) 0.3 k/uL (0-1.0); Monocytes % (A) 2 %; Neutrophils # (A) 12.2 k/uL (1.3-7.7); Neutrophils % (A) 92 %; Platelet Count 376 k/uL (150-450); RBC 4.26 m/uL (4.30-5.90); RDW 13.7 % (11.5-15.5); WBC 13.3 k/uL (3.8-10.6)
[2020-10-30 08:25] LABS: Albumin 3.7 g/dL (3.5-5.0); Calcium 9.4 mg/dL (8.4-10.2); Potassium 3.7 mmol/L (3.5-5.1); Total Bilirubin 0.6 mg/dL (0.2-1.3); Total Protein 6.9 g/dL (6.3-8.2)
[2020-10-30] MEDS: APIXABAN 5 MG TAB PO SCH ×2 (09:04→20:07)
[2020-10-30] MEDS: METOPROLOL TARTRATE 50 MG TAB PO SCH ×3 (09:04→23:04)
[2020-10-30] MEDS: SPIRONOLACTONE 25 MG TAB PO SCH (09:05)
[2020-10-30] MEDS: FUROSEMIDE 10 MG/ML 4 ML VIAL IV SCH ×2 (09:05→20:06)
[2020-10-30] MEDS: ATORVASTATIN 40 MG TAB PO SCH (09:05)
--- NOTE | 2020-10-30 09:40 | P.NPCON ---
History of Present Illness - Reason for Consult Consult date: 10/30/20 acute renal failure - Chief Complaint Shortness of breath - History of Present Illness This is a 70-year-old male seen in consultation because of acute kidney injury. His creatinine was 1.04 on 10/28/2020 and then yesterday on 10/29/2020 it was 1.49 and this morning is 1.5. He has been sick since August 2020 about 2 months ago with shortness of breath fatigue. He had a heart catheterization on 10/04/2020 no blockages of consequence were noted. It should be noted that he had a stent on 05/29/2019. His ejection fraction is 20% on echocardiogram dated 10/20/2020. He underwent ablation for his atrial fibrillation on 10/29/2020. Atrial fibrillation recurred. In the recent past on 09/12/2020, computed tomography scan of the chest showed possible pneumonia with bilateral airspace disease in the upper and lower lobes. A CT of the abdomen on 05/25/2020 showed 6.3 cm right pelvic mass possibility a lymphocele or seroma Recently he was admitted on 10/22/2016 with shortness of breath and discharged on 10/25/2020. Recently about a month ago he had 1 day of pain on the left flank radiating down to the suprapubic area, no history of kidney stones in the past did not have any hematuria. He does have some left flank pain on palpation. Chest x-ray shows multifocal partial airspace opacities. Patient denies any history of hematuria, hemoptysis skin rash. He has lost weight though. His loss of appetite. No nausea vomiting diarrhea. No abdominal pain otherwise Urinalysis is not available Past Medical History Past Medical History: Atrial Fibrillation, Cancer, Heart Failure, Hearing Disorder / Deafness, Hyperlipidemia, Hypertension, Myocardial Infarction ([place]), Pneumonia Additional Past Medical History / Comment(s): See Dr Deal's H&P. Hx Prostate cancer, right heel spur. Bilateral hearing aid use. Last Myocardial Infarction Date:: unknown History of Any Multi-Drug Resistant Organisms: None Reported Past Surgical History: Ablation, Heart Catheterization, Heart Catheterization With Stent, Prostate Surgery, Tonsillectomy Additional Past Surgical History / Comment(s): Heart cath w/2 stents (2017), heart stent 06/06/2018), Prostatectomy due to cancer (2012). Past Anesthesia/Blood Transfusion Reactions: No Reported Reaction Date of Last Stent Placement:: 2018 Past Psychological History: No Psychological Hx Reported Smoking Status: Former smoker Past Alcohol Use History: None Reported Additional Past Alcohol Use History / Comment(s): Started smoking 2000(cigars) and quit 2012. Past Drug Use History: None Reported - Past Family History Father Family Medical History: Hypertension, Myocardial Infarction ([place]) Additional Family Medical History / Comment(s): Father with myocardial infarction at age 75. Mother Family Medical History: No Reported History Additional Family Medical History / Comment(s): Broke her hip ended up in [facility]- age 95. Medications and Allergies Home Medications Medication Instructions Recorded Confirmed Type Nitroglycerin Sl Tabs [Nitrostat] 0.4 mg SUBLINGUAL Q5M PRN #25 tab 06/01/19 10/28/20 Rx Apixaban [Eliquis] 5 mg PO BID 09/09/20 10/28/20 History Atorvastatin [Lipitor] 40 mg PO DAILY 09/12/20 10/28/20 History Metoprolol Tartrate [Lopressor] 50 mg PO BID 09/12/20 10/28/20 History Spironolactone [Aldactone] 25 mg PO DAILY 30 Days #30 tab 09/16/20 10/28/20 Rx Cefdinir [Omnicef] 300 mg PO BID #6 cap 10/25/20 10/28/20 Rx Allergies Allergy/AdvReac Type Severity Reaction Status Date / Time No Known Allergies Allergy Verified 10/28/20 09:11 Physical Exam Vitals: Vital Signs Temp Pulse Resp BP Pulse Ox 10/30/20 09:00 93 L 10/30/20 04:00 97.9 F 76 16 91/54 95 10/30/20 02:00 16 10/29/20 23:15 97.9 F 103 H 16 90/52 93 L 10/29/20 20:42 98.0 F 111 H 16 92/54 92 L 10/29/20 16:00 98.9 F 68 16 100/55 90 L 10/29/20 14:00 66 16 10/29/20 12:00 98.0 F 66 16 103/56 91 L Intake and Output 10/29/20 10/30/20 10/30/20 22:59 06:59 14:59 Intake Total 440 Output Total 750 500 Balance -310 -500 Intake: Intake, IV Titration 200 Amount Levofloxacin 750Mg-D5w 100 Pmx 750 mg In Dextrose/ Water 1 150ml.bag @ 100 mls/hr IVPB Q24H [facility] Rx#: [id number] Piperacillin-Tazobactam 3 100 .375 gm In Sodium Chloride 0.9% 100 ml @ 25 mls/hr IVPB Q8H [facility] Rx#: [id number] Oral 240 Output: Urine 750 500 Other: # Voids 1 2 Weight 109.9 kg On examination is awake alert oriented comfortable HEENT exam no JVP neck is supple no facial asymmetry Lungs are significant for an occasional coarse crackle with good air entry bilaterally Heart sounds unremarkable for any murmur rub gallop he is in atrial fibrillation Abdomen is soft nontender obese No organomegaly noted. Extremity exam reveals no edema but cool and clammy feet. Both radials are very well felt Neurologically awake alert oriented No skin rash noted Results - Lab Results Most recent lab results Calcium 9.4 mg/dL (8.4-10.2) 10/30/20 07:28 Phosphorus 4.1 mg/dL (2.5-4.5) 10/29/20 10:00 Magnesium 2.0 mg/dL (1.6-2.3) 10/29/20 10:00 10/30/20 07:28 10/30/20 07:28 Assessment and Plan Assessment: Impression 1. Acute kidney injury likely from cardiorenal syndrome with poor ejection fraction in the 20-30% range on a recent echocardiogram. 2. Rule out on very renal syndrome because of the weight loss not feeling well for 20 half months and x-ray reports and the computed tomography scan report suggestive of pneumonitis. 3. History of C of the prostate with surgery 6 or 7 years ago 4. Coronary artery disease and stent in May 2019 and a recent catheterization dated 10/04/2020 no significant coronary artery disease noted 5. Possible nonischemic cardiomyopathy. 6. Atrial fibrillation, status post ablation on 10/20/2020 with recurrence of atrial fibrillation 7. Rule out kidney stone because of the history of left flank pain for a day. 8. Seroma noted in the pelvis on a computed tomography scan on 05/25/2020 Recommendation 1. Currently on Lasix 40 IV every 12 and spironolactone 25 daily. Agree with aggressive diuretic therapy to see if he'll respond 2. Obtain urinalysis urine protein to creatinine ratio, ANCA, DEANNE to rule out any pulmonary renal syndrome although considered to be unlikely. 3. Maintain strict I's and O's and aim for a urine output of about 2 L. 4. Ultrasound of the kidney to rule out kidney stone Thank you for this consultation and we'll continue to follow
--- NOTE | 2020-10-30 10:28 | P.PN ---
Subjective Progress Note Date: 10/30/20 60-year-old male patient hospitalized for an acute shortness of breath and the pulmonary Pressure was requested. The patient is known to us. In fact the patient has had several hospitalization for development of bilateral pulmonary infiltrates and decompensated heart failure. He was discharged from the hospital on 10/25/2020 to be readmitted 3 days following his discharge and the patient was getting progressively more weak and short of breath especially with minimal amount of activity and sometimes even at rest. At that point, he decided to come into the hospital. He was unable to move or do any form of physical exertion. She has limited copyof his sputum production. No chest pain. No palpitations. No syncope. No swelling in lower extremities. Nevertheless, the patient is known to have coronary artery disease and the patient has undergone previous cardiac catheterization and stenting of the ramus intermedius and he is known to have [id number] nonobstructive disease involving mid to distal LAD and PLV. The patient also has cardiomyopathy with an ejection fraction of less than 25% and he was being contemplated for an AICD placement. At the same time the patient had issues with chronic persistent atrial fibrillation during an earlier admission, the patient underwent a cardioversion with subsequent A. fib ablation on 10/20/2020 and currently he is still in normal sinus rhythm. His EKG showing a left bundle branch block with sinus rhythm with frequent PACs. During this current admission, the patient was found to have an elevated proBNP level of 3160. Troponin was elevated at 0.119. Creatinine of 1.04 with a sodium level of 132 and a white cell count of 12.2. The patient has been essentially on the same medication. The chest x-ray showed diffuse bilateral pulmonary infiltrates. Furthermore, a computed tomography scan of the chest was done with contrast that showed diffuse bilateral infiltrates and some areas of increased density along with interstitial infiltrates and consolidation. There was small bilateral pleural effusion. The findings have obviously progressed since his last evaluation of CAT scan from 09/13/2020. The pleural effusions were small. No central pulmonary embolism. The patient's Prograf level is 0.11. COVID-19 testing is negative and the patient has been fully vaccinated 06/27. Lactic acid level is at 1.4. Normal coagulation profile.. Currently the patient on oxygen at 6 L per minute with a pulse ox of 92%. On 10/29/2020, the patient is being seen for a follow-up. The patient is feeling slightly better on today's evaluation compared to yesterday. The patient is on 4 L of oxygen by nasal cannula compared to 6 L. He has diuresed adequately over the past 24 hours and the chest x-ray showing some improvement in the bilateral pulmonary infiltrates. Discussed the case with cardiology. There is a possibility of this patient having amiodarone toxicity. He was taken amiodarone 200 mg twice a day prior to his cardiac ablation. He had some infiltrates and earlier as mentioned and it's possible that the patient has developed an acute interstitial lung pneumonitis or disease from amiodarone intake. As such, I'm going to start patient also on some IV Solu-Medrol. A repeat chest x-ray will be done tomorrow. He is still feeling exhausted although slightly improved compared to yesterday. 10/30/2020, the patient is improving. He is currently on 3 L of oxygen by nasal cannula. 6 is also improving. He remains in a negative fluid balance. He is diuresing with IV Lasix. He is also on IV Solu-Medrol. Amiodarone toxicity is being considered. His cardiac rhythm remains sinus. No other new complaints for now. Antibiotics have been discontinued. He has better with any once to walk around today. Objective - Vital Signs Vital signs: Vital Signs Temp 97.9 F 10/30/20 04:00 Pulse 76 10/30/20 04:00 Resp 16 10/30/20 04:00 BP 91/54 10/30/20 04:00 Pulse Ox 93 L 10/30/20 09:00 Intake & Output 10/29/20 10/30/20 10/30/20 18:59 06:59 18:59 Intake Total 920 Output Total 950 600 Balance -30 -600 Weight 109.9 kg Intake: Intake, IV Titration 200 Amount Levofloxacin 750Mg-D5w 100 Pmx 750 mg In Dextrose/ Water 1 150ml.bag @ 100 mls/hr IVPB Q24H [facility] Rx#: [id number] Piperacillin-Tazobactam 3 100 .375 gm In Sodium Chloride 0.9% 100 ml @ 25 mls/hr IVPB Q8H [facility] Rx#: [id number] Oral 720 Output: Urine 950 600 Other: # Voids 2 - Exam CONSTITUTIONAL: No patient is a mild degree of respiratory distress even at rest . The patient is currently on 3 L of oxygen by nasal cannula with pulse ox of 92%. Not using excessive muscle breathing. Awake and alert and following commands and answering questions appropriately. Head exam was generally normal. There was no scleral icterus or corneal arcus. Mucous membranes were moist. HEENT: Head is normocephalic. Pupils are equal, round. Sclerae anicteric. Mucous membranes of the mouth are moist. No JVD. No carotid bruit. CHEST EXAMINATION: Lungs are showing cardiomegaly and lower lung priest bilaterally. No chest wall tenderness is noted on palpation or with deep br eathing. HEART EXAMINATION: Regular rate and rhythm. S1, S2 heard. No murmurs, gallops or rub. ABDOMEN: Soft, nontender. Positive bowel sounds. EXTREMITIES: 2+ peripheral pulses, no lower extremity edema and no calf tenderness. Neurologically, the patient is awake and alert and the patient does not have any focal neurological deficit. Cranial nerves are essentially intact. - Labs CBC & Chem 7: 10/30/20 07:28 10/30/20 07:28 Labs: Abnormal Lab Results - Last 24 Hours (Table) 10/28/20 10/29/20 10/29/20 Range/Units 01:21 10:00 10:00 WBC (3.8-10.6) k/uL RBC 3.95 L (4.30-5.90) m/uL Hgb 12.4 L (13.0-17.5) gm/dL Hct 37.6 L (39.0-53.0) % Neutrophils # 8.8 H (1.3-7.7) k/uL Lymphocytes # 0.7 L (1.0-4.8) k/uL Sodium (137-145) mmol/L Chloride (98-107) mmol/L BUN (9-20) mg/dL Creatinine (0.66-1.25) mg/dL Glucose (74-99) mg/dL POC Glucose (mg/dL) (75-99) mg/dL Procalcitonin 0.10 H 0.17 H (0.02-0.09) ng/mL 10/29/20 10/29/20 10/30/20 Range/Units 10:00 20:02 06:10 WBC (3.8-10.6) k/uL RBC (4.30-5.90) m/uL Hgb (13.0-17.5) gm/dL Hct (39.0-53.0) % Neutrophils # (1.3-7.7) k/uL Lymphocytes # (1.0-4.8) k/uL Sodium 135 L (137-145) mmol/L Chloride (98-107) mmol/L BUN 23 H (9-20) mg/dL Creatinine 1.49 H (0.66-1.25) mg/dL Glucose 159 H (74-99) mg/dL POC Glucose (mg/dL) 223 H 172 H (75-99) mg/dL Procalcitonin (0.02-0.09) ng/mL 10/30/20 10/30/20 Range/Units 07:28 07:28 WBC 13.3 H (3.8-10.6) k/uL RBC 4.26 L (4.30-5.90) m/uL Hgb (13.0-17.5) gm/dL Hct (39.0-53.0) % Neutrophils # 12.2 H (1.3-7.7) k/uL Lymphocytes # 0.7 L (1.0-4.8) k/uL Sodium 134 L (137-145) mmol/L Chloride 97 L (98-107) mmol/L BUN 38 H (9-20) mg/dL Creatinine 1.50 H (0.66-1.25) mg/dL Glucose 183 H (74-99) mg/dL POC Glucose (mg/dL) (75-99) mg/dL Procalcitonin (0.02-0.09) ng/mL Microbiology - Last 24 Hours (Table) 10/28/20 01:21 Blood Culture - Preliminary Blood No Growth after 48 hours Assessment and Plan Plan: 1 acute hypoxic respiratory failure with development of extensive bilateral pul monary infiltrates which has gone significantly worse since the last CAT scan of the chest from last month. The findings are most consistent with CHF/interstitial edema/groundglass pulmonary infiltrates in addition to areas of consolidation bilaterally rather than pneumonia. The patient's has a mildly elevated pro calcitonin level of 0.11. The proBNP level is elevated at 3160. He has responded nicely to diuretics in the past. No significant leukocytosis. No fever. No signs of septicemia. Another possibility is amiodarone toxicity knowing that the patient was taken higher doses of amiodarone earlier and the patient is currently off amiodarone post ablation of his Atrial fibrillation. 2 coronary artery disease with previous coronary stenting. Please refer to the most recent cardiac catheterization. Currently has some troponin leaks without any acute EKG abnormalities 3 chronic atrial fibrillation post-ablation current cardiac rhythm is sinus 4 CHF with severe cardiomyopathy and ejection fraction of less than 20%, does not have an AICD for the time being. This is a nonischemic cardiomyopathy 5 5 history of prostate cancer with a previous prostatectomy 6 hypertension 7 hyperlipidemia maintained on Lipitor plan Clinically improving Oxygen has been weaned down to 3 L Chest x-ray also showing improvement in the right the pulmonary infiltrates Diuretic management per cardiology Continue IV Solu-Medrol Amiodarone is currently on hold Resume all medications from home We'll continue to follow , may need home O2.
--- NOTE | 2020-10-30 11:21 | US ---
EXAMINATION TYPE: US kidneys/renal and bladder DATE OF EXAM: 10/30/2020 COMPARISON: CT 2020 CLINICAL HISTORY: CINDY . Exam done portable. EXAM MEASUREMENTS: Right Kidney: 10.3 x 4.2 x 4.5 cm Left Kidney: 10.4 x 5.0 x 5.0 cm Difficult and limited study due to overlying bowel gas Right Kidney: visualized portions show no hydronephrosis or masses seen Left Kidney: visualized portions show no hydronephrosis or masses seen Bladder: 4.9cm cystic structure to the right of patient's bladder, possible diverticulum vs. other Bilateral Jets seen: no There is no evidence for hydronephrosis at this point in time. No nephrolithiasis is seen. No chandler s are identified. The urinary bladder is anechoic. 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
[2020-10-30 11:56] LABS: Glucose,Whole Blood 200 mg/dL (75-99)
--- NOTE | 2020-10-30 12:54 | P.PN ---
Subjective Patient remains mildly short of breath seems better with lesser oxygen need Chest x-ray appears a little better. Discussed Dr. 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 for the abnormal CT and hypoxemia Suggest Increase metoprolol to 100 mg twice daily Continue ELIQUIS and Continue Aldactone Continue Solu-Medrol Normal amiodarone Objective - Vital Signs Vital signs: Vital Signs Temp 97.9 F 10/30/20 04:00 Pulse 76 10/30/20 04:00 Resp 16 10/30/20 04:00 BP 91/54 10/30/20 04:00 Pulse Ox 93 L 10/30/20 09:00 Intake & Output 10/29/20 10/30/20 10/30/20 18:59 06:59 18:59 Intake Total 920 Output Total 950 600 Balance -30 -600 Weight 109.9 kg Intake: Intake, IV Titration 200 Amount Levofloxacin 750Mg-D5w 100 Pmx 750 mg In Dextrose/ Water 1 150ml.bag @ 100 mls/hr IVPB Q24H [facility] Rx#: [id number] Piperacillin-Tazobactam 3 100 .375 gm In Sodium Chloride 0.9% 100 ml @ 25 mls/hr IVPB Q8H [facility] Rx#: [id number] Oral 720 Output: Urine 950 600 Other: # Voids 2 - Labs CBC & Chem 7: 10/30/20 07:28 10/30/20 07:28 Labs: Abnormal Lab Results - Last 24 Hours (Table) 10/28/20 10/29/20 10/29/20 Range/Units 01:21 10:00 20:02 WBC (3.8-10.6) k/uL RBC (4.30-5.90) m/uL Neutrophils # (1.3-7.7) k/uL Lymphocytes # (1.0-4.8) k/uL Sodium (137-145) mmol/L Chloride (98-107) mmol/L BUN (9-20) mg/dL Creatinine (0.66-1.25) mg/dL Glucose (74-99) mg/dL POC Glucose (mg/dL) 223 H (75-99) mg/dL Procalcitonin 0.10 H 0.17 H (0.02-0.09) ng/mL 10/30/20 10/30/20 10/30/20 Range/Units 06:10 07:28 07:28 WBC 13.3 H (3.8-10.6) k/uL RBC 4.26 L (4.30-5.90) m/uL Neutrophils # 12.2 H (1.3-7.7) k/uL Lymphocytes # 0.7 L (1.0-4.8) k/uL Sodium 134 L (137-145) mmol/L Chloride 97 L (98-107) mmol/L BUN 38 H (9-20) mg/dL Creatinine 1.50 H (0.66-1.25) mg/dL Glucose 183 H (74-99) mg/dL POC Glucose (mg/dL) 172 H (75-99) mg/dL Procalcitonin (0.02-0.09) ng/mL 10/30/20 Range/Units 11:50 WBC (3.8-10.6) k/uL RBC (4.30-5.90) m/uL Neutrophils # (1.3-7.7) k/uL Lymphocytes # (1.0-4.8) k/uL Sodium (137-145) mmol/L Chloride (98-107) mmol/L BUN (9-20) mg/dL Creatinine (0.66-1.25) mg/dL Glucose (74-99) mg/dL POC Glucose (mg/dL) 200 H (75-99) mg/dL Procalcitonin (0.02-0.09) ng/mL Microbiology - Last 24 Hours (Table) 10/28/20 01:21 Blood Culture - Preliminary Blood No Growth after 48 hours
--- NOTE | 2020-10-30 14:21 | P.PN ---
Progress Note - Text Progress Note Date: 10/30/20 Chief Complaint: Short of breath, tired History of presenting complaint: This is a very pleasant 70 year patient of . May 2017 had a coronary stent placed. May 2019 Ruled in acute [place]. cardiac catheterization- Angioplasty stenting done to ramus intermedius. Recent admission for CHF and was cardioverted. Went back into A. fib. CHF EF less than 25% . 10/04/2020: Cardiac catheterization: Patent stent within the ramus intermedius. Mild to moderate nonobstructive disease involving the PLV and mid to distal LAD.10/21/2020 underwent successful outpatient ablation by Dr. Rudy Deal Admitted from October 22 through October 25. Treated with pneumonia with IV cefepime, discharge on Omnicef. Also treated for CHF [EF less than 20%] exacerbation. On the day of discharge, was feeling much better. It only a slight cough. Breathing much improved. No edema. Was cleared by currently. Patient now presented increase in shortness of breath. Slight cough. No fever no chills. Feels totally beat up. Very tired. No edema. October 29: Breathing a bit better. Diet. Laying in bed. Oral intake fair. Did sit up in a chair. Discussed with Dr. Flores and Dr. Rudy Deal from [facility]. 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 Does not felt to have had pneumonia. Antibiotics are being discontinued. Patient was IV steroids. October 30: Sitting at the edge of the bed. Breathing a bit better. Oral intake fair. and daughter at the bedside. Care was discussed with the patient. On IV Solu-Medrol. Lasix 40 mg every 12. Aldactone 25 mg. Now also being seen by nephrology. Review of systems: Was done for constitutional, cardiovascular, GI, pulmonary. relevant finding as above Active Medications Acetaminophen (Acetaminophen Tab 325 Mg Tab) 650 mg PO Q6HR PRN PRN Reason: Mild Pain or Fever > 100.5 Apixaban (Apixaban 5 Mg Tab) 5 mg PO BID [facility]; Protocol Last Admin: 10/30/20 09:04 Dose: 5 mg Documented by: Atorvastatin Calcium (Atorvastatin 40 Mg Tab) 40 mg PO DAILY [facility] Last Admin: 10/30/20 09:05 Dose: 40 mg Documented by: Furosemide (Furosemide 10 Mg/Ml 4 Ml Vial) 40 mg IV Q12HR [facility] Last Admin: 10/30/20 09:05 Dose: 40 mg Documented by: Insulin Aspart (Insulin Aspart (Novolog) 100 Unit/Ml Vial) 0 unit SQ ACHS [facility]; Protocol Last Admin: 10/30/20 11:58 Dose: 3 unit Documented by: Methylprednisolone Sodium Succinate (Methylprednisolone Sod Succi 125 Mg/2 Ml Vial) 60 mg IV Q6HR [facility] Last Admin: 10/30/20 11:57 Dose: 60 mg Documented by: Metoprolol Tartrate (Metoprolol Tartrate 50 Mg Tab) 50 mg PO TID [facility] Last Admin: 10/30/20 09:04 Dose: 50 mg Documented by: Naloxone HCl (Naloxone 0.4 Mg/Ml 1 Ml Vial) 0.2 mg IV Q2M PRN PRN Reason: Opioid Reversal Ondansetron HCl (Ondansetron 4 Mg/2 Ml Vial) 4 mg IVP Q8HR PRN PRN Reason: Nausea And Vomiting Spironolactone (Spironolactone 25 Mg Tab) 25 mg PO DAILY [facility] Last Admin: 10/30/20 09:05 Dose: 25 mg Documented by: Past medical history to include: Coronary artery disease with stent in May 2017, May 2019, prostate cancer treated with surgery, hyperlipidemia, low back pain, atrial fibrillation. CHF EF less than 20% Social history: Patient smoked for about 20 years stopped in 2012. . Circulation Representative Physical examination: VITAL SIGNS: 97.9, 76, 16, 91/54, 93% on 4 L GENERAL: Sitting of the edge of the bed, slightly diet, awake EYES: Pupils equal. Conjunctiva normal. HEENT: External appearance of nose and ears normal, oral cavity grossly normal. NECK: JVD raised; masses not palpable. HEART: First and second heart sounds are normal; no edema. LUNGS: Respiratory rate increased; decreased breath sound, no crackles ABDOMEN: Soft, nontender, liver spleen not palpable, no masses palpable. PSYCH: Alert and oriented x3; mood and affect anxious INVESTIGATIONS, reviewed in the clinical context: October 30: WBC 13.3 hemoglobin 13.5in 3.7 BUN 38 creatinine 1.5 October 29: White count 10.3 hemoglobin 12.4 potassium 4 BUN 23 creatinine 1.49 WBC 12.2, hemoglobin 12.9, platelets 325, potassium 4.6, creatinine 1.04 Troponin I 0.119, 0.110. ProBNP 3160 EKG tracing personally reviewed by me-sinus rhythm, left bundle-branch block Chest x-ray film personally reviewed by me-bilateral infiltrates, edema cannot be ruled out Computed tomography scan chest: Diffuse bilateral infiltrates and small bilateral pleural effusion. No obvious PE Previous testing 2-D echocardiogram [October 24]: EF less than 20%. No pericardial effusion. Assessment and plan: -Acute on chronic congestive heart failure exacerbation from systolic dysfunction. EF less than 20%,, secondary to ischemic cardiomyopathy IV Lasix 40 mg every 12. Fluid restriction. Aldactone. 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 nephrology -Troponinemia, likely from CHF Not for further intervention -Chronic left bundle branch block -Paroxysmal atrial fibrillation,, ablation on October 21/2021. Sinus rhythm eliquis -Hyperlipidemia Lipitor -Obesity BMI 35.4 Weight loss measures, follow with PCP Continue with IV Lasix. Diuretics. IV steroids. Follow with pulmonary nephrology cardiology. Questions were answered.
[2020-10-30 15:33] LABS: Appearance,Urine Clear (Clear); Bilirubin,Urine Negative (Negative); Blood,Urine Negative (Negative); Color,Urine Yellow; Glucose,Urine (UA) Negative (Negative); Ketones,Urine Negative (Negative); Leukocyte Esterase,Urine Negative (Negative); Nitrite,Urine Negative (Negative); Protein,Urine Negative (Negative); Specific Gravity,Urine 1.013 (1.001-1.035); Urobilinogen,Urine <2.0 mg/dL (<2.0)
[2020-10-30 15:59] LABS: Creatinine,Urine Random 103.5 mg/dL; Protein/Creatinine Ratio,Urine 0.077
[2020-10-30 16:16] LABS: Glucose,Whole Blood 204 mg/dL (75-99)
[2020-10-30] MEDS: methylPREDNISolone SOD SUCCI 40 MG/ML 1 ML VIAL IV SCH ×2 (16:27→23:04)
[2020-10-30 20:02] LABS: Glucose,Whole Blood 217 mg/dL (75-99)
[2020-10-30] MEDS ORDERED: METOPROLOL TARTRATE 50 MG TAB PO SCH (22:00)
[2020-10-31 06:49] LABS: Glucose,Whole Blood 169 mg/dL (75-99)
[2020-10-31] MEDS: INSULIN ASPART (NovoLOG) 100 UNIT/ML VIAL SQ SCH ×4 (06:54→20:42)
[2020-10-31] MEDS: methylPREDNISolone SOD SUCCI 40 MG/ML 1 ML VIAL IV SCH (08:00)
--- NOTE | 2020-10-31 09:10 | P.PN ---
Subjective Patient is seen in follow-up for acute kidney injury. Creatinine 1.5 yesterday. Maintained on IV Lasix. Good urine output. Currently on 4 L nasal cannula. No chest pain or shortness of breath. Vital signs are stable. General: The patient appeared well nourished and normally developed. HEENT: Head exam is unremarkable. On nasal cannula. LUNGS: Breath sounds decreased. HEART: Rate and Rhythm are regular. ABDOMEN: Soft, obese. EXTREMITITES: No edema. Objective - Vital Signs Vital signs: Vital Signs Temp 98 F 10/31/20 08:00 Pulse 88 10/31/20 08:00 Resp 18 10/31/20 08:00 BP 111/68 10/31/20 08:00 Pulse Ox 94 L 10/31/20 08:00 Intake & Output 10/30/20 10/31/20 10/31/20 18:59 06:59 18:59 Intake Total 480 600 Output Total 300 300 Balance 480 300 -300 Weight 108.5 kg Intake: Oral 480 600 Output: Urine 300 300 Other: # Voids 1 1 - Labs CBC & Chem 7: 10/30/20 07:28 10/30/20 07:28 Labs: Abnormal Lab Results - Last 24 Hours (Table) 10/30/20 10/30/20 10/30/20 Range/Units 11:50 16:14 20:02 POC Glucose (mg/dL) 200 H 204 H 217 H (75-99) mg/dL 10/31/20 Range/Units 06:05 POC Glucose (mg/dL) 169 H (75-99) mg/dL Microbiology - Last 24 Hours (Table) 10/28/20 01:21 Blood Culture - Preliminary Blood No Growth after 72 hours Assessment and Plan Plan: Assessment: 1. Acute kidney injury secondary to ATN secondary to cardiorenal syndrome. Creatinine 1.5 yesterday. UA benign. No hydronephrosis on kidney ultrasound. 2. Acute on chronic systolic CHF with ejection fraction of 25-30%. 3. A. fib status post ablation on 10/20/2020. Plan: Maintain IV Lasix. Low-salt diet. Maintain fluid restriction. Continue to monitor renal function and urine output.
[2020-10-31] MEDS: SPIRONOLACTONE 25 MG TAB PO SCH (09:18)
[2020-10-31] MEDS: FUROSEMIDE 10 MG/ML 4 ML VIAL IV SCH (09:18)
[2020-10-31] MEDS: METOPROLOL TARTRATE 50 MG TAB PO SCH ×3 (09:19→20:42)
[2020-10-31] MEDS: ATORVASTATIN 40 MG TAB PO SCH (09:19)
[2020-10-31] MEDS: APIXABAN 5 MG TAB PO SCH ×2 (09:19→20:46)
[2020-10-31 10:00] LABS: Calcium 8.8 mg/dL (8.4-10.2); Magnesium 2.2 mg/dL (1.6-2.3); Potassium 3.7 mmol/L (3.5-5.1)
[2020-10-31 11:31] LABS: Glucose,Whole Blood 254 mg/dL (75-99)
--- NOTE | 2020-10-31 12:38 | P.PN ---
Subjective This is a pleasant 70-year-old male past medical history significant for chronic persistent atrial fibrillation (On Eliquis) s/p ablation 10/20/20, chronic systolic heart failure, hypertension, dyslipidemia and coronary artery disease s/p PCI of the ramus. He follows in the office with Dr. Cazares. We have been asked to see in consultation for elevated troponin. He presented to the hospital with worsening shortness of breath. He was seen and evaluated earlier this week for similar symptoms. He was sent home on antibiotics 3 days ago with no improvement. He is seen and examined resting comfortably in bed in no acute distress. He is coughing, no significant sputum production with associated shortness of breath. He was previously on amiodarone prior to his ablation on 10/20. It was discontinued thereafter. However, it was resumed on previous admission. So he had a 2 day break off amiodarone. EKG on arrival reveals SR with left bundle branch block. Chest xray reveals patchy bilateral pneumonia with small pleural effusion looks worse than previous exam. Echocardiogram obtained 10/24/2020 revealed severely impaired LV function with EF less than 20%, severely dilated LA, mild MR, mild TR. Patient's symptoms were likely related to amiodarone toxicity as a cause of his pulmonary infiltrates and this medication was stopped. Patient's ejection fraction has decreased to less than 20% by most recent echo 09/13/2020 with additional mild mitral regurgitation. Patient therefore had diagnostic left heart catheterization performed 10/04/2020 which showed patent stent ramus and mild to moderate nonobstructive disease of the PLV and distal LAD. Therefore he has been treated as a worsening nonischemic cardiomyopathy. 10/31/20: Patient seen and examined at bedside, no acute distress. He states his breathing has improved, he is feeling better each day. Does feel deconditioned. Telemetry reviewed patient in atrial fibrillation with controlled ventricular rates. US Kidneys on 10/30 no evidence of hydronephrosis. Urinary bladder is anechoic, possible diverticulum. Patient currently maintained on Eliquis 5 mg Saturday, atorvastatin 40 mg daily,IV Lasix 40 mg twice a day, metoprolol tartrate 50 mg 3 times a day, spironolactone 25 mg daily, IV Solu-medrol. Laboratory data reviewed sodium 131, potassium 3.7, BUN 63, serum creatinine 1.8, magnesium 2.2 PHYSICAL EXAMINATION Blood pressure 111/68 heart rate 88 afebrile and maintaining oxygen saturation on 2L nasal cannula. CONSTITUTIONAL: No apparent distress. HEENT: Head is normocephalic. Pupils are equal, round. Sclerae anicteric. Mucous membranes of the mouth are moist. No JVD. No carotid bruit. CHEST EXAMINATION: Lungs are clear to auscultation. No chest wall tenderness is noted on palpation or with deep breathing. HEART EXAMINATION: Irregular rate and rhythm. S1, S2 heard. No murmurs, gallops or rub. ABDOMEN: Soft, nontender. EXTREMITIES: 2+ peripheral pulses, no lower extremity edema and no calf tenderness. NEUROLOGIC EXAMINATION: Patient is awake, alert and oriented x3. ASSESSMENT Acute hypoxic respiratory failure with worsening extensive bilateral pulmonary infiltrates. Per pulmonary most consistent with CHF/interstitial edema/groundglass pulmonary infiltrates/Another possibility is amiodarone toxicity Acute on Chronic systolic heart failure Nonischemic cardiomyopathy Acute Kidney Injury Chronic persistent atrial fibrillation s/p pulmonary vein isolation ablation Coronary artery disease s/p PCI ramus Hypertension Dyslipidemia PLAN Continue current cardiac medications statin, Eliquis, aldactone, metoprolol tartrate IV Lasix 40mg BID I/Os, daily weights Monitor renal function and electrolytes Nephrology following, appreciate assistance in managing diuretics Pulmonary following Further recommendations based on clinical course Nurse Practitioner note has been reviewed, I agree with a documented findings and plan of care. Patient was seen and examined. Objective - Vital Signs Vital signs: Vital Signs Temp 98 F 10/31/20 08:00 Pulse 88 10/31/20 08:00 Resp 18 10/31/20 08:00 BP 111/68 10/31/20 08:00 Pulse Ox 94 L 10/31/20 08:00 Intake & Output 10/30/20 10/31/20 10/31/20 18:59 06:59 18:59 Intake Total 480 600 240 Output Total 300 300 Balance 480 300 -60 Weight 108.5 kg Intake: Oral 480 600 240 Output: Urine 300 300 Other: # Voids 1 1 - Labs CBC & Chem 7: 10/30/20 07:28 10/31/20 09:19 Labs: Abnormal Lab Results - Last 24 Hours (Table) 10/30/20 10/30/20 10/30/20 Range/Units 11:50 16:14 20:02 POC Glucose (mg/dL) 200 H 204 H 217 H (75-99) mg/dL 10/31/20 Range/Units 06:05 POC Glucose (mg/dL) 169 H (75-99) mg/dL Microbiology - Last 24 Hours (Table) 10/28/20 01:21 Blood Culture - Preliminary Blood No Growth after 72 hours
--- NOTE | 2020-10-31 12:51 | P.PN ---
Subjective Progress Note Date: 10/31/20 Principal diagnosis: Acute hypoxic respiratory failure related to acute exacerbation of CHF 60-year-old male patient hospitalized for an acute shortness of breath and the pulmonary Pressure was requested. The patient is known to us. In fact the patient has had several hospitalization for development of bilateral pulmonary infiltrates and decompensated heart failure. He was discharged from the hospital on 10/25/2020 to be readmitted 3 days following his discharge and the p atient was getting progressively more weak and short of breath especially with minimal amount of activity and sometimes even at rest. At that point, he decided to come into the hospital. He was unable to move or do any form of physical exertion. She has limited copyof his sputum production. No chest pain. No palpitations. No syncope. No swelling in lower extremities. Nevertheless, the patient is known to have coronary artery disease and the patient has undergone previous cardiac catheterization and stenting of the ramus intermedius and he is known to have [id number] nonobstructive disease involving mid to distal LAD and PLV. The patient also has cardiomyopathy with an ejection fraction of less than 25% and he was being contemplated for an AICD placement. At the same time the patient had issues with chronic persistent atrial fibrillation during an earlier admission, the patient underwent a cardioversion with subsequent A. fib ablation on 10/20/2020 and currently he is still in normal sinus rhythm. His EKG showing a left bundle branch block with sinus rhythm with frequent PACs. During this current admission, the patient was found to have an elevated proBNP level of 3160. Troponin was elevated at 0.119. Creatinine of 1.04 with a sodium level of 132 and a white cell count of 12.2. The patient has been essentially on the same medication. The chest x-ray showed diffuse bilateral pulmonary infiltrates. Furthermore, a computed tomography scan of the chest was done with contrast that showed diffuse bilateral infiltrates and some areas of increased density along with interstitial infiltrates and consolidation. There was small bilateral pleural effusion. The findings have obviously progressed since his last evaluation of CAT scan from 09/13/2020. The pleural effusions were small. No central pulmonary embolism. The patient's Prograf level is 0.11. COVID-19 testing is negative and the patient has been fully vaccinated 06/27. Lactic acid level is at 1.4. Normal coagulation profile.. Currently the patient on oxygen at 6 L per minute with a pulse ox of 92%. On 10/29/2020, the patient is being seen for a follow-up. The patient is feeling slightly better on today's evaluation compared to yesterday. The patient is on 4 L of oxygen by nasal cannula compared to 6 L. He has diuresed adequately over the past 24 hours and the chest x-ray showing some improvement in the bilateral pulmonary infiltrates. Discussed the case with cardiology. There is a possibility of this patient having amiodarone toxicity. He was taken amiodarone 200 mg twice a day prior to his cardiac ablation. He had some infiltrates and earlier as mentioned and it's possible that the patient has developed an acute interstitial lung pneumonitis or disease from amiodarone intake. As such, I'm going to start patient also on some IV Solu-Medrol. A repeat chest x-ray will be done tomorrow. He is still feeling exhausted although slightly improved compared to yesterday. 10/30/2020, the patient is improving. He is currently on 3 L of oxygen by nasal cannula. 6 is also improving. He remains in a negative fluid balance. He is diuresing with IV Lasix. He is also on IV Solu-Medrol. Amiodarone toxicity is being considered. His cardiac rhythm remains sinus. No other new complaints for now. Antibiotics have been discontinued. He has better with any once to wa lk around today. On 10/31/2020 patient seen in follow-up on selective care unit, he remains on IV Lasix, weight is down by 1.4 kg in the last 24 hours, he is breathing much easier, he remains on 4 L of oxygen with a pulse ox of 94%. No fever or chills. His breathing is nonlabored. On today's labs his creatinine is up to 1.8, and BUN is 63, exhalation is still on IV steroids with Solu-Medrol 40 mg every 8 hours. Chest discomfort, overall he denies any acute complaints, his FiO2 has been dropped down to 2 L, his pulse ox is 94%. Ultrasound of his kidneys showed no evidence of hydronephrosis, and 4.9 cm cystic structure in the right of the patient's bladder possible diverticulum. Nephrology is following. No other acute events overnight. Patient remains on Eliquis for chronic atrial f ibrillation, currently patient is in sinus mechanism with a controlled rate. No acute events overnight. No nausea vomiting diarrhea, no cough or wheezing, no chest congestion. His lungs are clear to auscultation. Objective - Vital Signs Vital signs: Vital Signs Temp 98 F 10/31/20 08:00 Pulse 88 10/31/20 08:00 Resp 18 10/31/20 09:35 BP 111/68 10/31/20 08:00 Pulse Ox 94 L 10/31/20 09:35 Intake & Output 10/30/20 10/31/20 10/31/20 18:59 06:59 18:59 Intake Total 480 600 240 Output Total 300 525 Balance 480 300 -285 Weight 108.5 kg Intake: Oral 480 600 240 Output: Urine 300 525 Other: # Voids 1 1 - Exam GENERAL EXAM: Alert, active, 70-year-old white male, 4 L of oxygen and the pulse ox of 94% comfortable in no apparent distress. HEAD: Normocephalic/atraumatic. EYES: Normal reaction of pupils, equal size. Conjunctiva pink, sclera white. NOSE: Clear with pink turbinates. THROAT: No erythema or exudates. NECK: No masses, no JVD, no thyroid enlargement, no adenopathy. CHEST: No chest wall deformity. Symmetrical expansion. LUNGS: Equal air entry with no crackles, wheeze, rhonchi or dullness. CVS: Irregular rate and rhythm, normal S1 and S2, no gallops, no murmurs, no rubs ABDOMEN: Soft, nontender. No hepatosplenomegaly, normal bowel sounds, no guarding or rigidity. EXTREMITIES: No clubbing, no edema, no cyanosis, 2+ pulses and upper and lower extremities. MUSCULOSKELETAL: Muscle strength and tone normal. SPINE: No scoliosis or deformity SKIN: No rashes CENTRAL NERVOUS SYSTEM: Alert and oriented -3. No focal deficits, tone is normal in all 4 extremities. PSYCHIATRIC: Alert and oriented -3. Appropriate affect. Intact judgment and insight. - Labs CBC & Chem 7: 10/30/20 07:28 10/31/20 09:19 Labs: Abnormal Lab Results - Last 24 Hours (Table) 10/30/20 10/30/20 10/31/20 Range/Units 16:14 20:02 06:05 Sodium (137-145) mmol/L Chloride (98-107) mmol/L BUN (9-20) mg/dL Creatinine (0.66-1.25) mg/dL Glucose (74-99) mg/dL POC Glucose (mg/dL) 204 H 217 H 169 H (75-99) mg/dL 10/31/20 10/31/20 Range/Units 09:19 11:30 Sodium 131 L (137-145) mmol/L Chloride 96 L (98-107) mmol/L BUN 63 H (9-20) mg/dL Creatinine 1.80 H (0.66-1.25) mg/dL Glucose 318 H (74-99) mg/dL POC Glucose (mg/dL) 254 H (75-99) mg/dL Microbiology - Last 24 Hours (Table) 10/28/20 01:21 Blood Culture - Preliminary Blood No Growth after 72 hours Assessment and Plan Plan: Assessment: 1 acute hypoxic respiratory failure with development of extensive bilateral pulmonary infiltrates which has gone significantly worse since the last CAT scan of the chest from last month. The findings are most consistent with CHF/interstitial edema/groundglass pulmonary infiltrates in addition to areas of consolidation bilaterally rather than pneumonia. The patient's has a mildly elevated pro calcitonin level of 0.11. The proBNP level is elevated at 3160. He has responded nicely to diuretics in the past. No significant leukocytosis. No fever. No signs of septicemia. Another possibility is amiodarone toxicity knowing that the patient was taken higher doses of amiodarone earlier and the patient is currently off amiodarone post ablation of his Atrial fibrillation. 2 coronary artery disease with previous coronary stenting. Please refer to the most recent cardiac catheterization. Currently has some troponin leaks without any acute EKG abnormalities 3 chronic atrial fibrillation post-ablation current cardiac rhythm is sinus 4 CHF with severe cardiomyopathy and ejection fraction of less than 20%, does not have an AICD for the time being. This is a nonischemic cardiomyopathy 5 5 history of prostate cancer with a previous prostatectomy 6 hypertension 7 hyperlipidemia maintained on Lipitor 8 acute kidney injury related to ATN, and cardiorenal syndrome Plan: We will discontinue the Lasix Continue monitoring electrolytes and renal profile Clinically patient's breathing has improved Switch IV Solu-Medrol to oral prednisone 30 mg Patient remains on fluid restriction Continue weaning FiO2 Increase activity as tolerated I performed a history & physical examination of the patient and discussed their management with my nurse practitioner, Felicity Fuentes. I reviewed the nurse practitioner's note and agree with the documented findings and plan of care. Lung sounds are positive for clear breath sounds throughout the lung priest. The findings and the impression was discussed with the patient. I attest to the documentation by the nurse practitioner. Time with Patient: Less than 30
--- NOTE | 2020-10-31 13:28 | XR ---
EXAMINATION TYPE: XR chest 2V DATE OF EXAM: 10/31/2020 COMPARISON: 10/30/2020 HISTORY: Shortness of breath TECHNIQUE: Frontal and lateral views of the chest are obtained. FINDINGS: Scattered senescent parenchymal changes noted. Hyperinflation compatible with COPD. Patchy perihilar and basilar filtrates cyst. Correlate for pneumonia. Heart size is stable. Mediastinal structures are stable and grossly unremarkable. No evidence for hilar prominence. Degenerative changes dorsal spine. IMPRESSION: 1. Patchy perihilar and basilar filtrates cyst. Correlate for pneumonia.
[2020-10-31 13:53] VITALS: BMI 34.3
[2020-10-31 16:35] LABS: Glucose,Whole Blood 171 mg/dL (75-99)
[2020-10-31 20:13] LABS: Glucose,Whole Blood 151 mg/dL (75-99)
[2020-11-01 06:08] LABS: Glucose,Whole Blood 137 mg/dL (75-99)
[2020-11-01 08:09] LABS: Calcium 9.1 mg/dL (8.4-10.2); Magnesium 2.5 mg/dL (1.6-2.3)
[2020-11-01] MEDS: INSULIN ASPART (NovoLOG) 100 UNIT/ML VIAL SQ SCH ×4 (08:28→21:26)
[2020-11-01] MEDS: APIXABAN 5 MG TAB PO SCH ×2 (08:28→21:25)
[2020-11-01] MEDS: FAMOTIDINE 20 MG/2 ML VIAL IV SCH ×2 (08:29→21:25)
[2020-11-01] MEDS: predniSONE 10 MG TAB PO SCH (08:29)
[2020-11-01] MEDS: METOPROLOL TARTRATE 50 MG TAB PO SCH ×3 (08:29→21:25)
[2020-11-01] MEDS: SPIRONOLACTONE 25 MG TAB PO SCH (08:29)
[2020-11-01] MEDS: ATORVASTATIN 40 MG TAB PO SCH (08:29)
--- NOTE | 2020-11-01 09:17 | P.PN ---
Subjective Patient is seen in follow-up for acute kidney injury. Renal function better. Lasix stopped October 31. Good urine output. On room air. No chest pain or shortness of breath. Vital signs are stable. General: The patient appeared well nourished and normally developed. HEENT: Head exam is unremarkable. On nasal cannula. LUNGS: Breath sounds decreased. HEART: Rate and Rhythm are regular. ABDOMEN: Soft, obese. EXTREMITITES: No edema. Objective - Vital Signs Vital signs: Vital Signs Temp 98 F 11/01/20 08:00 Pulse 100 11/01/20 08:00 Resp 16 11/01/20 08:00 BP 123/75 11/01/20 08:00 Pulse Ox 94 L 11/01/20 08:00 Intake & Output 10/31/20 11/01/20 11/01/20 18:59 06:59 18:59 Intake Total 600 Output Total 525 725 Balance 75 -725 Weight 108.5 kg 105.3 kg Intake: Oral 600 Output: Urine 525 725 Other: # Voids 1 1 - Labs CBC & Chem 7: 10/30/20 07:28 11/01/20 07:34 Labs: Abnormal Lab Results - Last 24 Hours (Table) 10/31/20 10/31/20 10/31/20 Range/Units 09:19 11:30 16:34 Sodium 131 L (137-145) mmol/L Chloride 96 L (98-107) mmol/L Carbon Dioxide (22-30) mmol/L BUN 63 H (9-20) mg/dL Creatinine 1.80 H (0.66-1.25) mg/dL Glucose 318 H (74-99) mg/dL POC Glucose (mg/dL) 254 H 171 H (75-99) mg/dL Magnesium (1.6-2.3) mg/dL 10/31/20 11/01/20 11/01/20 Range/Units 20:13 06:07 07:34 Sodium 132 L (137-145) mmol/L Chloride (98-107) mmol/L Carbon Dioxide 21 L (22-30) mmol/L BUN 66 H (9-20) mg/dL Creatinine 1.44 H (0.66-1.25) mg/dL Glucose 134 H (74-99) mg/dL POC Glucose (mg/dL) 151 H 137 H (75-99) mg/dL Magnesium 2.5 H (1.6-2.3) mg/dL Microbiology - Last 24 Hours (Table) 10/28/20 01:21 Blood Culture - Preliminary Blood No Growth after 96 hours Assessment and Plan Plan: Assessment: 1. Acute kidney injury secondary to ATN secondary to cardiorenal syndrome. Renal function better - creatinine 1.44 today. UA benign. No hydronephrosis on kidney ultrasound. 2. Acute on chronic systolic CHF with ejection fraction of 25-30%. 3. A. fib status post ablation on 10/20/2020. Plan: Resume Lasix 40 mg orally once daily. Low-salt diet. Maintain fluid restriction. Continue to monitor renal function and urine output.
--- NOTE | 2020-11-01 11:09 | P.PN ---
Subjective This is a pleasant 70-year-old male past medical history significant for chronic persistent atrial fibrillation (On Eliquis) s/p ablation 10/20/20, chronic systolic heart failure, hypertension, dyslipidemia and coronary artery disease s/p PCI of the ramus. He follows in the office with Dr. Cazares. We have been asked to see in consultation for elevated troponin. He presented to the hospital with worsening shortness of breath. He was seen and evaluated earlier this week for similar symptoms. He was sent home on antibiotics 3 days ago with no improvement. He is seen and examined resting comfortably in bed in no acute distress. He is coughing, no significant sputum production with associated shortness of breath. He was previously on amiodarone prior to his ablation on 10/20. It was discontinued thereafter. However, it was resumed on previous admission. So he had a 2 day break off amiodarone. EKG on arrival reveals SR with left bundle branch block. Chest xray reveals patchy bilateral pneumonia with small pleural effusion looks worse than previous exam. Echocardiogram obtained 10/24/2020 revealed severely impaired LV function with EF less than 20%, severely dilated LA, mild MR, mild TR. Patient's symptoms were likely related to amiodarone toxicity as a cause of his pulmonary infiltrates and this medication was stopped. Of note, patient's ejection fraction has decreased to less than 20% by most recent echo 09/13/2020 with additional mild mitral regurgitation. Patient therefore had diagnostic left heart catheterization performed 10/04/2020 which showed patent stent ramus and mild to moderate nonobstructive disease of the PLV and distal LAD. Therefore he has been treated as a worsening nonischemic cardiomyopathy. Ablation was on 10/20/20. Echocardiogram obtained 10/24/2020 revealed severely impaired LV function with EF less than 20%. US Kidneys on 10/30 no evidence of hydronephrosis. Urinary bladder is anechoic, possible diverticulum. 11/01/20: Patient seen and examined at bedside, no acute distress. Sitting up in the bedside chair. He states his breathing has improved, he is feeling better each day. 1.2L urine output over the past 24 hours. Telemetry reviewed patient in atrial fibrillation with HR 80-low 100s. Patient currently maintained on Eliquis 5 mg Saturday, atorvastatin 40 mg daily, Lasix PO 40mg daily per nephrology, metoprolol tartrate 50 mg TID, spironolactone 25 mg daily. Renal function is improving. Laboratory data reviewed Sodium 132, K 4.0, BUN 66, sCr 1.44, Mag 2.5 . Patient currently being evaluated for home oxygen. PHYSICAL EXAMINATION Blood pressure 123/75 heart rate 100 afebrile and maintaining oxygen saturation 94% on room air CONSTITUTIONAL: No apparent distress. HEENT: Head is normocephalic. Neck Supple. No JVD. CHEST EXAMINATION: Lungs are clear to auscultation. No chest wall tenderness is noted on palpation or with deep breathing. HEART EXAMINATION: Irregular rate and rhythm. S1, S2 heard. Systolic murmur at apex. ABDOMEN: Soft, nontender. EXTREMITIES: 2+ peripheral pulses, no lower extremity edema and no calf tenderness. NEUROLOGIC EXAMINATION: Patient is awake, alert and oriented x3. ASSESSMENT Acute hypoxic respiratory failure with worsening extensive bilateral pulmonary infiltrates. Per pulmonary most consistent with CHF/interstitial edema/groundglass pulmonary infiltrates/Another possibility is amiodarone toxicity Acute on Chronic systolic heart failure Nonischemic cardiomyopathy Acute Kidney Injury- improving Chronic persistent atrial fibrillation s/p pulmonary vein isolation ablation on 10/20 Coronary artery disease s/p PCI ramus History of Hypertension Dyslipidemia PLAN Patient is at risk for sudden cardiac due to cardiomyopathy, recommend LifeVest prior to discharge, however, patient is not agreeable to having a LifeVest at this time. Discussed with patient the risk of sudden cardiac when not wearing a LifeVest. Nephrology following, transitioned to PO Lasix today Continue current cardiac medications Statin, Eliquis, Aldactone, Metoprolol tartrate, and Lasix Patient appears hemodynamically stable continue current regimen. No further cardiac workup at this time. Patient recently could not tolerate MARIEL/ARB or entresto due to hypotension. Possibly can be initiated with Dr. Cazares in the office down the line. Further recommendations based on clinical course Nurse Practitioner note has been reviewed, I agree with a documented findings and plan of care. Patient was seen and examined. Objective - Vital Signs Vital signs: Vital Signs Temp 98 F 11/01/20 08:00 Pulse 100 11/01/20 08:00 Resp 16 11/01/20 08:00 BP 123/75 11/01/20 08:00 Pulse Ox 94 L 11/01/20 08:00 Intake & Output 10/31/20 11/01/20 11/01/20 18:59 06:59 18:59 Intake Total 600 Output Total 525 725 Balance 75 -725 Weight 108.5 kg 105.3 kg Intake: Oral 600 Output: Urine 525 725 Other: # Voids 1 1 - Labs CBC & Chem 7: 10/30/20 07:28 11/01/20 07:34 Labs: Abnormal Lab Results - Last 24 Hours (Table) 10/31/20 10/31/20 10/31/20 Range/Units 09:19 11:30 16:34 Sodium 131 L (137-145) mmol/L Chloride 96 L (98-107) mmol/L Carbon Dioxide (22-30) mmol/L BUN 63 H (9-20) mg/dL Creatinine 1.80 H (0.66-1.25) mg/dL Glucose 318 H (74-99) mg/dL POC Glucose (mg/dL) 254 H 171 H (75-99) mg/dL Magnesium (1.6-2.3) mg/dL 10/31/20 11/01/20 11/01/20 Range/Units 20:13 06:07 07:34 Sodium 132 L (137-145) mmol/L Chloride (98-107) mmol/L Carbon Dioxide 21 L (22-30) mmol/L BUN 66 H (9-20) mg/dL Creatinine 1.44 H (0.66-1.25) mg/dL Glucose 134 H (74-99) mg/dL POC Glucose (mg/dL) 151 H 137 H (75-99) mg/dL Magnesium 2.5 H (1.6-2.3) mg/dL Microbiology - Last 24 Hours (Table) 10/28/20 01:21 Blood Culture - Preliminary Blood No Growth after 96 hours
[2020-11-01 11:58] LABS: Glucose,Whole Blood 115 mg/dL (75-99)
--- NOTE | 2020-11-01 12:30 | P.PN ---
Subjective Progress Note Date: 11/01/20 Principal diagnosis: Acute hypoxic respiratory failure related to acute exacerbation of CHF 60-year-old male patient hospitalized for an acute shortness of breath and the pulmonary Pressure was requested. The patient is known to us. In fact the patient has had several hospitalization for development of bilateral pulmonary infiltrates and decompensated heart failure. He was discharged from the hospital on 10/25/2020 to be readmitted 3 days following his discharge and the p atient was getting progressively more weak and short of breath especially with minimal amount of activity and sometimes even at rest. At that point, he decided to come into the hospital. He was unable to move or do any form of physical exertion. She has limited copyof his sputum production. No chest pain. No palpitations. No syncope. No swelling in lower extremities. Nevertheless, the patient is known to have coronary artery disease and the patient has undergone previous cardiac catheterization and stenting of the ramus intermedius and he is known to have [id number] nonobstructive disease involving mid to distal LAD and PLV. The patient also has cardiomyopathy with an ejection fraction of less than 25% and he was being contemplated for an AICD placement. At the same time the patient had issues with chronic persistent atrial fibrillation during an earlier admission, the patient underwent a cardioversion with subsequent A. fib ablation on 10/20/2020 and currently he is still in normal sinus rhythm. His EKG showing a left bundle branch block with sinus rhythm with frequent PACs. During this current admission, the patient was found to have an elevated proBNP level of 3160. Troponin was elevated at 0.119. Creatinine of 1.04 with a sodium level of 132 and a white cell count of 12.2. The patient has been essentially on the same medication. The chest x-ray showed diffuse bilateral pulmonary infiltrates. Furthermore, a computed tomography scan of the chest was done with contrast that showed diffuse bilateral infiltrates and some areas of increased density along with interstitial infiltrates and consolidation. There was small bilateral pleural effusion. The findings have obviously progressed since his last evaluation of CAT scan from 09/13/2020. The pleural effusions were small. No central pulmonary embolism. The patient's Prograf level is 0.11. COVID-19 testing is negative and the patient has been fully vaccinated 06/27. Lactic acid level is at 1.4. Normal coagulation profile.. Currently the patient on oxygen at 6 L per minute with a pulse ox of 92%. On 10/29/2020, the patient is being seen for a follow-up. The patient is feeling slightly better on today's evaluation compared to yesterday. The patient is on 4 L of oxygen by nasal cannula compared to 6 L. He has diuresed adequately over the past 24 hours and the chest x-ray showing some improvement in the bilateral pulmonary infiltrates. Discussed the case with cardiology. There is a possibility of this patient having amiodarone toxicity. He was taken amiodarone 200 mg twice a day prior to his cardiac ablation. He had some infiltrates and earlier as mentioned and it's possible that the patient has developed an acute interstitial lung pneumonitis or disease from amiodarone intake. As such, I'm going to start patient also on some IV Solu-Medrol. A repeat chest x-ray will be done tomorrow. He is still feeling exhausted although slightly improved compared to yesterday. 10/30/2020, the patient is improving. He is currently on 3 L of oxygen by nasal cannula. 6 is also improving. He remains in a negative fluid balance. He is diuresing with IV Lasix. He is also on IV Solu-Medrol. Amiodarone toxicity is being considered. His cardiac rhythm remains sinus. No other new complaints for now. Antibiotics have been discontinued. He has better with any once to wa lk around today. On 10/31/2020 patient seen in follow-up on selective care unit, he remains on IV Lasix, weight is down by 1.4 kg in the last 24 hours, he is breathing much easier, he remains on 4 L of oxygen with a pulse ox of 94%. No fever or chills. His breathing is nonlabored. On today's labs his creatinine is up to 1.8, and BUN is 63, exhalation is still on IV steroids with Solu-Medrol 40 mg every 8 hours. Chest discomfort, overall he denies any acute complaints, his FiO2 has been dropped down to 2 L, his pulse ox is 94%. Ultrasound of his kidneys showed no evidence of hydronephrosis, and 4.9 cm cystic structure in the right of the patient's bladder possible diverticulum. Nephrology is following. No other acute events overnight. Patient remains on Eliquis for chronic atrial f ibrillation, currently patient is in sinus mechanism with a controlled rate. No acute events overnight. No nausea vomiting diarrhea, no cough or wheezing, no chest congestion. His lungs are clear to auscultation. On 11/01/2000 patient seen in follow-up on selective care unit, he sitting up and into the bed, he is currently on room air, tested off the oxygen, room air pulse ox at rest was 95%, patient did desaturate to 86% with exercise. Currently breathing comfortably, lung sounds are diminished, no crackles, no rhonchi or wheezes on today's exam, no fever or chills, vital signs have been stable, his Lasix remains on hold, his creatinine is slightly improved compared to yesterday. Nephrology is following. Patient continues on oral prednisone, yesterday chest x-ray showed patchy perihilar and basilar infiltrates. All cultures have been negative, no cough, no phlegm production, patient is tolerating ablation, no complaints of chest pain. Objective - Vital Signs Vital signs: Vital Signs Temp 97 F L 11/01/20 12:00 Pulse 98 11/01/20 12:00 Resp 17 11/01/20 12:00 BP 122/77 11/01/20 12:00 Pulse Ox 94 L 11/01/20 12:00 Intake & Output 10/31/20 11/01/20 11/01/20 18:59 06:59 18:59 Intake Total 600 Output Total 525 725 Balance 75 -725 Weight 108.5 kg 105.3 kg Intake: Oral 600 Output: Urine 525 725 Other: # Voids 1 1 - Exam GENERAL EXAM: Alert, active, 70-year-old white male, room air pulse ox is 94%comfortable in no apparent distress. HEAD: Normocephalic/atraumatic. EYES: Normal reaction of pupils, equal size. Conjunctiva pink, sclera white. NOSE: Clear with pink turbinates. THROAT: No erythema or exudates. NECK: No masses, no JVD, no thyroid enlargement, no adenopathy. CHEST: No chest wall deformity. Symmetrical expansion. LUNGS: Equal air entry with no crackles, wheeze, rhonchi or dullness. CVS: Irregular rate and rhythm, normal S1 and S2, no gallops, no murmurs, no rubs ABDOMEN: Soft, nontender. No hepatosplenomegaly, normal bowel sounds, no guarding or rigidity. EXTREMITIES: No clubbing, no edema, no cyanosis, 2+ pulses and upper and lower extremities. MUSCULOSKELETAL: Muscle strength and tone normal. SPINE: No scoliosis or deformity SKIN: No rashes CENTRAL NERVOUS SYSTEM: Alert and oriented -3. No focal deficits, tone is normal in all 4 extremities. PSYCHIATRIC: Alert and oriented -3. Appropriate affect. Intact judgment and insight. - Labs CBC & Chem 7: 10/30/20 07:28 11/01/20 07:34 Labs: Abnormal Lab Results - Last 24 Hours (Table) 10/31/20 10/31/20 11/01/20 Range/Units 16:34 20:13 06:07 Sodium (137-145) mmol/L Carbon Dioxide (22-30) mmol/L BUN (9-20) mg/dL Creatinine (0.66-1.25) mg/dL Glucose (74-99) mg/dL POC Glucose (mg/dL) 171 H 151 H 137 H (75-99) mg/dL Magnesium (1.6-2.3) mg/dL 11/01/20 11/01/20 Range/Units 07:34 11:52 Sodium 132 L (137-145) mmol/L Carbon Dioxide 21 L (22-30) mmol/L BUN 66 H (9-20) mg/dL Creatinine 1.44 H (0.66-1.25) mg/dL Glucose 134 H (74-99) mg/dL POC Glucose (mg/dL) 115 H (75-99) mg/dL Magnesium 2.5 H (1.6-2.3) mg/dL Microbiology - Last 24 Hours (Table) 10/28/20 01:21 Blood Culture - Preliminary Blood No Growth after 96 hours Assessment and Plan Plan: Assessment: 1 acute hypoxic respiratory failure with development of extensive bilateral pulmonary infiltrates which has gone significantly worse since the last CAT scan of the chest from last month. The findings are most consistent with CHF/interstitial edema/groundglass pulmonary infiltrates in addition to areas of consolidation bilaterally rather than pneumonia. The patient's has a mildly elevated pro calcitonin level of 0.11. The proBNP level is elevated at 3160. He has responded nicely to diuretics in the past. No significant leukocytosis. No fever. No signs of septicemia. Another possibility is amiodarone toxicity knowing that the patient was taken higher doses of amiodarone earlier and the patient is currently off amiodarone post ablation of his Atrial fibrillation. 2 coronary artery disease with previous coronary stenting. Please refer to the most recent cardiac catheterization. Currently has some troponin leaks without any acute EKG abnormalities 3 chronic atrial fibrillation post-ablation current cardiac rhythm is sinus 4 CHF with severe cardiomyopathy and ejection fraction of less than 20%, does not have an AICD for the time being. This is a nonischemic cardiomyopathy 5 5 history of prostate cancer with a previous prostatectomy 6 hypertension 7 hyperlipidemia maintained on Lipitor 8 acute kidney injury related to ATN, and cardiorenal syndrome Plan: Continue oral prednisone Lasix remains on hold Breathing comfortably Vital signs are stable From pulmonary perspective patient is stable for discharge from pulmonary perspective, he will complete prednisone taper for the next 3 weeks starting at 30 mg, 30 mg for 7 days, 20 mg for 7 days, 10 mg for 7 days for groundglass pulmonary infiltrates possibly related to amiodarone toxicity Will need outpatient follow-up with Dr. Flores in the office in 7-10 days. I performed a history & physical examination of the patient and discussed their management with my nurse practitioner, Felicity Fuentes. I reviewed the nurse practitioner's note and agree with the documented findings and plan of care. Lung sounds are positive for clear breath sounds throughout the lung priest. The findings and the impression was discussed with the patient. I attest to the documentation by the nurse practitioner. Time with Patient: Less than 30
[2020-11-01 14:08] LABS: C-ANCA <1:20 Titer (<1:20)
[2020-11-01 16:48] LABS: Glucose,Whole Blood 154 mg/dL (75-99)
[2020-11-01] MEDS ORDERED: guaiFENesin-DM 100-10MG/5ML 10 ML CUP PO PRN (18:56)
[2020-11-01 20:10] VITALS: RESP 18
[2020-11-01 20:10] LABS: Glucose,Whole Blood 175 mg/dL (75-99)
--- NOTE | 2020-11-01 20:22 | P.PN ---
Subjective This is a pleasant 70 years old male who presents with signs symptoms of respiratory distress secondary to severe acute systolic CHF exacerbation with ejection fraction less than 20% with evidence of acute kidney injury on chronic kidney disease, however his creatinine improved today after switching his Lasix to orally by nephrology team were following the patient closely Amiodarone toxicity with a groundglass up was T is also suspected for the patient by pulmonary team which is discontinuing now Patient also with history of chronic A. fib status post ablation. He refuses life vest recommended by cardiology service, risk of are explained to him Physical therapy recommended to rehab however patient declined, repeat evaluation today showing patient is doing better and he can go home with home health care. He is currently on room air at 95% oxygen saturation. He kept on Eliquis and prednisone 30 mg with prolonged taper Labs reviewed showing mild leukocytosis of 13 K however patient is also on steroids. Creatinine improved to 1.8 down to 1.4. procalcitonin was elevated 0.10 and 0.17, repeat calcitonin is pending MB is elevated at 3160. C-reactive protein is elevated at 17.2 Objective - Vital Signs Vital signs: Vital Signs Temp 97 F L 11/01/20 12:00 Pulse 98 11/01/20 13:52 Resp 17 11/01/20 13:52 BP 122/77 11/01/20 12:00 Pulse Ox 94 L 11/01/20 12:00 Intake & Output 10/31/20 11/01/20 11/01/20 18:59 06:59 18:59 Intake Total 600 Output Total 525 725 Balance 75 -725 Weight 108.5 kg 105.3 kg Intake: Oral 600 Output: Urine 525 725 Other: # Voids 1 1 - Exam GENERAL: The patient is alert and oriented x3, not in any acute distress. Well developed, well nourished. HEENT: Pupils are round and equally reacting to light. EOMI. No scleral icterus. No conjunctival pallor. Normocephalic, atraumatic. No pharyngeal erythema. No thyromegaly. CARDIOVASCULAR: S1 and S2 present. No murmurs, rubs, or gallops. -PULMONARY: Chest is clear to auscultation, no wheezing or crackles. Patient is mildly tachypneic with some mild basal crepitation ABDOMEN: Soft, nontender, nondistended, normoactive bowel sounds. No palpable organomegaly. MUSCULOSKELETAL: No joint swelling or deformity. EXTREMITIES: No cyanosis, clubbing, or pedal edema. NEUROLOGICAL: Gross neurological examination did not reveal any focal deficits. SKIN: No rashes. no petechiae. - Labs CBC & Chem 7: 10/30/20 07:28 11/01/20 07:34 Labs: Abnormal Lab Results - Last 24 Hours (Table) 10/31/20 10/31/20 11/01/20 Range/Units 16:34 20:13 06:07 Sodium (137-145) mmol/L Carbon Dioxide (22-30) mmol/L BUN (9-20) mg/dL Creatinine (0.66-1.25) mg/dL Glucose (74-99) mg/dL POC Glucose (mg/dL) 171 H 151 H 137 H (75-99) mg/dL Magnesium (1.6-2.3) mg/dL 11/01/20 11/01/20 Range/Units 07:34 11:52 Sodium 132 L (137-145) mmol/L Carbon Dioxide 21 L (22-30) mmol/L BUN 66 H (9-20) mg/dL Creatinine 1.44 H (0.66-1.25) mg/dL Glucose 134 H (74-99) mg/dL POC Glucose (mg/dL) 115 H (75-99) mg/dL Magnesium 2.5 H (1.6-2.3) mg/dL Microbiology - Last 24 Hours (Table) 10/28/20 01:21 Blood Culture - Preliminary Blood No Growth after 96 hours Assessment and Plan Assessment: Acute systolic CHF with ejection fraction less than 20%. Patient declined life vest recommended by [employer] Ground glass opacities suspected secondary to amiodarone toxicity per early childhood education specialist Acute hypoxic respiratory failure secondary to above Acute kidney injury secondary to cardiorenal syndrome with evidence of chronic kidney disease stage III Troponin leak or a [employer] Neck A. fib status post ablation Noncompliance Plan: This is a pleasant 70-year-old male who presents with CHF and AK I and chronic A. fib status post ablation Switch Lasix to once daily orally at 40 mg. Patient will need oxygen upon discharge, discussed with social psychologist With the [facility] Prednisone with slow taper over 3 weeks Patient was cleared for discharge by several consultants including pulmonary, cardiology and nephrology Follow-up repeat procalcitonin Labs and medication were reviewed.. Continue same treatment. Continue with symptomatic treatment. Resume home medication. Monitor lytes and vitals. DVT and GI prophylaxis. Further recommendationsas per clinical course of the patient DVT prophylaxis: Eliquis GI Prophylaxis: Pepcid PT/OT: Home with home health care Overall Prognosis is guarded Possible discharge in 24-48 hours if he keeps improving
[2020-11-02 06:09] LABS: Glucose,Whole Blood 103 mg/dL (75-99)
[2020-11-02 08:40] VITALS: BP 99/61; TEMP 98.1
[2020-11-02] MEDS: INSULIN ASPART (NovoLOG) 100 UNIT/ML VIAL SQ SCH (08:40)
[2020-11-02] MEDS: FAMOTIDINE 20 MG/2 ML VIAL IV SCH (08:40)
[2020-11-02] MEDS: SPIRONOLACTONE 25 MG TAB PO SCH (08:41)
[2020-11-02] MEDS: METOPROLOL TARTRATE 50 MG TAB PO SCH (08:41)
[2020-11-02] MEDS: predniSONE 10 MG TAB PO SCH (08:41)
[2020-11-02] MEDS: ATORVASTATIN 40 MG TAB PO SCH (08:41)
[2020-11-02] MEDS: APIXABAN 5 MG TAB PO SCH (08:41)
--- NOTE | 2020-11-02 08:53 | P.PN ---
Subjective Patient is seen in follow-up for acute kidney injury. Renal function better - creatinine 1.44 yesterday. On oral Lasix. Good urine output. On room air. No chest pain or shortness of breath. Vital signs are stable. General: The patient appeared well nourished and normally developed. HEENT: Head exam is unremarkable. On nasal cannula. LUNGS: Breath sounds decreased. HEART: Rate and Rhythm are regular. ABDOMEN: Soft, obese. EXTREMITITES: No edema. Objective - Vital Signs Vital signs: Vital Signs Temp 98.1 F 11/02/20 08:00 Pulse 78 11/02/20 08:00 Resp 18 11/02/20 08:00 BP 99/61 11/02/20 08:00 Pulse Ox 94 L 11/02/20 08:00 Intake & Output 11/01/20 11/02/20 11/02/20 18:59 06:59 18:59 Intake Total 590 347 Output Total 775 Balance 590 -775 347 Weight 109 kg Intake: Oral 590 347 Output: Urine 775 - Labs CBC & Chem 7: 10/30/20 07:28 11/01/20 07:34 Labs: Abnormal Lab Results - Last 24 Hours (Table) 11/01/20 11/01/20 11/01/20 Range/Units 11:52 16:47 20:09 POC Glucose (mg/dL) 115 H 154 H 175 H (75-99) mg/dL 11/02/20 Range/Units 06:07 POC Glucose (mg/dL) 103 H (75-99) mg/dL Microbiology - Last 24 Hours (Table) 10/28/20 01:21 Blood Culture - Preliminary Blood No Growth after 120 hours Assessment and Plan Plan: Assessment: 1. Acute kidney injury secondary to ATN secondary to cardiorenal syndrome. Renal function better - creatinine 1.44 yesterday. UA benign. No hydronephrosis on kidney ultrasound. 2. Acute on chronic systolic CHF with ejection fraction of 25-30%. 3. A. fib status post ablation on 10/20/2020. 4. Acute hypoxic respiratory failure due to volume overload. Also noted to have bilateral pulmonary infiltrates. Concern for amiodarone toxicity. Pulmonology is following Plan: Maintain Lasix 40 mg orally once daily. Low-salt diet. Maintain fluid restriction. Continue to monitor renal function and urine output. Morning labs pending.
[2020-11-02] MEDS ORDERED: FUROSEMIDE 40 MG TAB PO SCH (09:00)
[2020-11-02 09:51] LABS: Calcium 8.5 mg/dL (8.4-10.2); Magnesium 2.6 mg/dL (1.6-2.3); Potassium 3.8 mmol/L (3.5-5.1)
[2020-11-02 11:51] LABS: Glucose,Whole Blood 183 mg/dL (75-99)
--- NOTE | 2020-11-02 12:19 | P.PN ---
Subjective This is a pleasant 70-year-old male past medical history significant for chronic persistent atrial fibrillation (On Eliquis) s/p ablation 10/20/20, chronic systolic heart failure, hypertension, dyslipidemia and coronary artery disease s/p PCI of the ramus. He follows in the office with Dr. Cazares. We have been asked to see in consultation for elevated troponin. He presented to the hospital with worsening shortness of breath. He was seen and evaluated earlier this week for similar symptoms. He was sent home on antibiotics 3 days ago with no improvement. He is seen and examined resting comfortably in bed in no acute distress. He is coughing, no significant sputum production with associated shortness of breath. He was previously on amiodarone prior to his ablation on 10/20. It was discontinued thereafter. However, it was resumed on previous admission. So he had a 2 day break off amiodarone. EKG on arrival reveals SR with left bundle branch block. Chest xray reveals patchy bilateral pneumonia with small pleural effusion looks worse than previous exam. Echocardiogram obtained 10/24/2020 revealed severely impaired LV function with EF less than 20%, severely dilated LA, mild MR, mild TR. Patient's symptoms were likely related to amiodarone toxicity as a cause of his pulmonary infiltrates and this medication was stopped. Of note, patient's ejection fraction has decreased to less than 20% by most recent echo 09/13/2020 with additional mild mitral regurgitation. Patient therefore had diagnostic left heart catheterization performed 10/04/2020 which showed patent stent ramus and mild to moderate nonobstructive disease of the PLV and distal LAD. Therefore he has been treated as a worsening nonischemic cardiomyopathy. Ablation was on 10/20/20. Echocardiogram obtained 10/24/2020 revealed severely impaired LV function with EF less than 20%. US Kidneys on 10/30 no evidence of hydronephrosis. Urinary bladder is anechoic, possible diverticulum. 11/02/20: Patient seen and examined at bedside, no acute distress. He states he slept well, no complaints at this time. He denies chest pain or shortness of breath. He states he has been able to ambulate in the halls with no issues. He states his breathing has improved, he is feeling better each day. Telemetry reviewed patient in atrial fibrillation with HR 70-90s. Patient currently maintained on Eliquis 5 mg BID, atorvastatin 40 mg daily, Lasix PO 40mg daily per nephrology, metoprolol tartrate 50 mg TID, spironolactone 25 mg daily. Patient did receive home oxygen . Laboratory reviewed sodium 1:30, potassium 3.8, BUN 52, serum creatinine 1.2, magnesium 2.6 PHYSICAL EXAMINATION Blood pressure 101/59, heart rate 78, afebrile, maintaining oxygen saturations 94% on room air. CONSTITUTIONAL: No apparent distress. HEENT: Head is normocephalic. Neck Supple. No JVD. CHEST EXAMINATION: Lungs are clear to auscultation. No chest wall tenderness is noted on palpation or with deep breathing. HEART EXAMINATION: Irregular rate and rhythm. S1, S2 heard. Systolic murmur at apex. ABDOMEN: Soft, nontender. EXTREMITIES: 2+ peripheral pulses, no lower extremity edema and no calf tenderness. NEUROLOGIC EXAMINATION: Patient is awake, alert and oriented x3. ASSESSMENT Acute hypoxic respiratory failure with worsening extensive bilateral pulmonary i nfiltrates. Per pulmonary most consistent with CHF/interstitial edema/groundglass pulmonary infiltrates/Another possibility is amiodarone toxicity Acute on Chronic systolic heart failure Nonischemic cardiomyopathy Acute Kidney Injury- improving Chronic persistent atrial fibrillation s/p pulmonary vein isolation ablation on 10/20 Coronary artery disease s/p PCI ramus History of Hypertension Dyslipidemia PLAN Patient is at risk for sudden cardiac due to cardiomyopathy, recommend LifeVest prior to discharge, however, patient is not agreeable to having a LifeVest at this time. Discussed with patient the risk of sudden cardiac when not wearing a LifeVest. Continue current cardiac medications Statin, Eliquis, Aldactone, Metoprolol tartrate, and Lasix Patient appears hemodynamically stable continue current regimen. No further cardiac workup at this time. Patient is stable for discharge from a cardiology perspective. Patient recently could not tolerate MARIEL/ARB or entresto due to hypotension. Possibly can be initiated with Dr. Cazares in the office down the line. Nurse Practitioner note has been reviewed, I agree with a documented findings and plan of care. Patient was seen and examined. Objective - Vital Signs Vital signs: Vital Signs Temp 98.1 F 11/02/20 08:00 Pulse 78 11/02/20 08:00 Resp 18 11/02/20 08:00 BP 99/61 11/02/20 08:00 Pulse Ox 94 L 11/02/20 08:00 Intake & Output 11/01/20 11/02/20 11/02/20 18:59 06:59 18:59 Intake Total 590 347 Output Total 775 Balance 590 -775 347 Weight 109 kg Intake: Oral 590 347 Output: Urine 775 - Labs CBC & Chem 7: 10/30/20 07:28 11/02/20 09:13 Labs: Abnormal Lab Results - Last 24 Hours (Table) 11/01/20 11/01/20 11/01/20 Range/Units 11:52 16:47 20:09 Sodium (137-145) mmol/L BUN (9-20) mg/dL Glucose (74-99) mg/dL POC Glucose (mg/dL) 115 H 154 H 175 H (75-99) mg/dL Magnesium (1.6-2.3) mg/dL 11/02/20 11/02/20 Range/Units 06:07 09:13 Sodium 130 L (137-145) mmol/L BUN 52 H (9-20) mg/dL Glucose 206 H (74-99) mg/dL POC Glucose (mg/dL) 103 H (75-99) mg/dL Magnesium 2.6 H (1.6-2.3) mg/dL Microbiology - Last 24 Hours (Table) 10/28/20 01:21 Blood Culture - Preliminary Blood No Growth after 120 hours
--- NOTE | 2020-11-02 13:13 | P.PN ---
Subjective Progress Note Date: 11/02/20 Principal diagnosis: Acute hypoxic respiratory failure related to acute exacerbation of CHF 60-year-old male patient hospitalized for an acute shortness of breath and the pulmonary Pressure was requested. The patient is known to us. In fact the patient has had several hospitalization for development of bilateral pulmonary infiltrates and decompensated heart failure. He was discharged from the hospital on 10/25/2020 to be readmitted 3 days following his discharge and the p atient was getting progressively more weak and short of breath especially with minimal amount of activity and sometimes even at rest. At that point, he decided to come into the hospital. He was unable to move or do any form of physical exertion. She has limited copyof his sputum production. No chest pain. No palpitations. No syncope. No swelling in lower extremities. Nevertheless, the patient is known to have coronary artery disease and the patient has undergone previous cardiac catheterization and stenting of the ramus intermedius and he is known to have [id number] nonobstructive disease involving mid to distal LAD and PLV. The patient also has cardiomyopathy with an ejection fraction of less than 25% and he was being contemplated for an AICD placement. At the same time the patient had issues with chronic persistent atrial fibrillation during an earlier admission, the patient underwent a cardioversion with subsequent A. fib ablation on 10/20/2020 and currently he is still in normal sinus rhythm. His EKG showing a left bundle branch block with sinus rhythm with frequent PACs. During this current admission, the patient was found to have an elevated proBNP level of 3160. Troponin was elevated at 0.119. Creatinine of 1.04 with a sodium level of 132 and a white cell count of 12.2. The patient has been essentially on the same medication. The chest x-ray showed diffuse bilateral pulmonary infiltrates. Furthermore, a computed tomography scan of the chest was done with contrast that showed diffuse bilateral infiltrates and some areas of increased density along with interstitial infiltrates and consolidation. There was small bilateral pleural effusion. The findings have obviously progressed since his last evaluation of CAT scan from 09/13/2020. The pleural effusions were small. No central pulmonary embolism. The patient's Prograf level is 0.11. COVID-19 testing is negative and the patient has been fully vaccinated 06/27. Lactic acid level is at 1.4. Normal coagulation profile.. Currently the patient on oxygen at 6 L per minute with a pulse ox of 92%. On 10/29/2020, the patient is being seen for a follow-up. The patient is feeling slightly better on today's evaluation compared to yesterday. The patient is on 4 L of oxygen by nasal cannula compared to 6 L. He has diuresed adequately over the past 24 hours and the chest x-ray showing some improvement in the bilateral pulmonary infiltrates. Discussed the case with cardiology. There is a possibility of this patient having amiodarone toxicity. He was taken amiodarone 200 mg twice a day prior to his cardiac ablation. He had some infiltrates and earlier as mentioned and it's possible that the patient has developed an acute interstitial lung pneumonitis or disease from amiodarone intake. As such, I'm going to start patient also on some IV Solu-Medrol. A repeat chest x-ray will be done tomorrow. He is still feeling exhausted although slightly improved compared to yesterday. 10/30/2020, the patient is improving. He is currently on 3 L of oxygen by nasal cannula. 6 is also improving. He remains in a negative fluid balance. He is diuresing with IV Lasix. He is also on IV Solu-Medrol. Amiodarone toxicity is being considered. His cardiac rhythm remains sinus. No other new complaints for now. Antibiotics have been discontinued. He has better with any once to wa lk around today. On 10/31/2020 patient seen in follow-up on selective care unit, he remains on IV Lasix, weight is down by 1.4 kg in the last 24 hours, he is breathing much easier, he remains on 4 L of oxygen with a pulse ox of 94%. No fever or chills. His breathing is nonlabored. On today's labs his creatinine is up to 1.8, and BUN is 63, exhalation is still on IV steroids with Solu-Medrol 40 mg every 8 hours. Chest discomfort, overall he denies any acute complaints, his FiO2 has been dropped down to 2 L, his pulse ox is 94%. Ultrasound of his kidneys showed no evidence of hydronephrosis, and 4.9 cm cystic structure in the right of the patient's bladder possible diverticulum. Nephrology is following. No other acute events overnight. Patient remains on Eliquis for chronic atrial f ibrillation, currently patient is in sinus mechanism with a controlled rate. No acute events overnight. No nausea vomiting diarrhea, no cough or wheezing, no chest congestion. His lungs are clear to auscultation. On 11/01/2000 patient seen in follow-up on selective care unit, he sitting up and into the bed, he is currently on room air, tested off the oxygen, room air pulse ox at rest was 95%, patient did desaturate to 86% with exercise. Currently breathing comfortably, lung sounds are diminished, no crackles, no rhonchi or wheezes on today's exam, no fever or chills, vital signs have been stable, his Lasix remains on hold, his creatinine is slightly improved compared to yesterday. Nephrology is following. Patient continues on oral prednisone, yesterday chest x-ray showed patchy perihilar and basilar infiltrates. All cultures have been negative, no cough, no phlegm production, patient is tolerating ablation, no complaints of chest pain. On 11/02/2020 patient seen in follow-up on selective care unit, he is sitting up on and the bed, breathing comfortably, he has had no acute events overnight, no complaints of chest pain, no worsening dyspnea, room air pulse ox is 94%. Lung sounds are positive for minimal bibasilar crackles, patient remains on oral steroids in the form of prednisone 30 mg daily, she was restarted on oral dose of Lasix 40 mg daily, nephrology is following, today's labs show improvement of his renal function and creatinine 1.2. Objective - Vital Signs Vital signs: Vital Signs Temp 98.1 F 11/02/20 08:00 Pulse 78 11/02/20 08:00 Resp 18 11/02/20 11:16 BP 99/61 11/02/20 08:00 Pulse Ox 94 L 11/02/20 08:00 Intake & Output 11/01/20 11/02/20 11/02/20 18:59 06:59 18:59 Intake Total 590 347 Output Total 775 Balance 590 -775 347 Weight 109 kg Intake: Oral 590 347 Output: Urine 775 - Exam GENERAL EXAM: Alert, active, 70-year-old white male, room air pulse ox is 94%comfortable in no apparent distress. HEAD: Normocephalic/atraumatic. EYES: Normal reaction of pupils, equal size. Conjunctiva pink, sclera white. NOSE: Clear with pink turbinates. THROAT: No erythema or exudates. NECK: No masses, no JVD, no thyroid enlargement, no adenopathy. CHEST: No chest wall deformity. Symmetrical expansion. LUNGS: Equal air entry with no crackles, wheeze, rhonchi or dullness. CVS: Irregular rate and rhythm, normal S1 and S2, no gallops, no murmurs, no rubs ABDOMEN: Soft, nontender. No hepatosplenomegaly, normal bowel sounds, no guarding or rigidity. EXTREMITIES: No clubbing, no edema, no cyanosis, 2+ pulses and upper and lower extremities. MUSCULOSKELETAL: Muscle strength and tone normal. SPINE: No scoliosis or deformity SKIN: No rashes CENTRAL NERVOUS SYSTEM: Alert and oriented -3. No focal deficits, tone is normal in all 4 extremities. PSYCHIATRIC: Alert and oriented -3. Appropriate affect. Intact judgment and insight. - Labs CBC & Chem 7: 10/30/20 07:28 11/02/20 09:13 Labs: Abnormal Lab Results - Last 24 Hours (Table) 11/01/20 11/01/20 11/02/20 Range/Units 16:47 20:09 06:07 Sodium (137-145) mmol/L BUN (9-20) mg/dL Glucose (74-99) mg/dL POC Glucose (mg/dL) 154 H 175 H 103 H (75-99) mg/dL Magnesium (1.6-2.3) mg/dL 11/02/20 11/02/20 Range/Units 09:13 11:48 Sodium 130 L (137-145) mmol/L BUN 52 H (9-20) mg/dL Glucose 206 H (74-99) mg/dL POC Glucose (mg/dL) 183 H (75-99) mg/dL Magnesium 2.6 H (1.6-2.3) mg/dL Microbiology - Last 24 Hours (Table) 10/28/20 01:21 Blood Culture - Preliminary Blood No Growth after 120 hours Assessment and Plan Plan: Assessment: 1 acute hypoxic respiratory failure with development of extensive bilateral pulmonary infiltrates which has gone significantly worse since the last CAT scan of the chest from last month. The findings are most consistent with CHF/interstitial edema/groundglass pulmonary infiltrates in addition to areas of consolidation bilaterally rather than pneumonia. The patient's has a mildly elevated pro calcitonin level of 0.11. The proBNP level is elevated at 3160. He has responded nicely to diuretics in the past. No significant leukocytosis. No fever. No signs of septicemia. Another possibility is amiodarone toxicity knowing that the patient was taken higher doses of amiodarone earlier and the patient is currently off amiodarone post ablation of his Atrial fibrillation. 2 coronary artery disease with previous coronary stenting. Please refer to the most recent cardiac catheterization. Currently has some troponin leaks without any acute EKG abnormalities 3 chronic atrial fibrillation post-ablation current cardiac rhythm is sinus 4 CHF with severe cardiomyopathy and ejection fraction of less than 20%, does not have an AICD for the time being. This is a nonischemic cardiomyopathy 5 5 history of prostate cancer with a previous prostatectomy 6 hypertension 7 hyperlipidemia maintained on Lipitor 8 acute kidney injury related to ATN, and cardiorenal syndrome, improved Plan: No acute events overnight No worsening dyspnea, Patient is on room air Lasix has been restarted today Renal function has improved on today's labs From pulmonary perspective patient is stable for discharge from pulmonary perspective, he will complete prednisone taper for the next 3 weeks starting at 30 mg, 30 mg for 7 days, 20 mg for 7 days, 10 mg for 7 days for groundglass pulmonary infiltrates possibly related to amiodarone toxicity Will need outpatient follow-up with Dr. Flores in the office in 7-10 days. I performed a history & physical examination of the patient and discussed their management with my nurse practitioner, Felicity Fuentes. I reviewed the nurse practitioner's note and agree with the documented findings and plan of care. Lung sounds are positive for clear breath sounds throughout the lung priest. The findings and the impression was discussed with the patient. I attest to the documentation by the nurse practitioner. Time with Patient: Less than 30
[2020-11-02 13:33] VITALS: PULSE 83
--- NOTE | 2020-11-03 00:02 | P.DS ---
Providers Date of admission: 10/28/20 02:26 Attending physician: Salvador Lorenzo Consults: 10/28/20 02:26 Consult Physician Routine Consulting Provider: Loida Flores Consult Reason/Comments: hypoxia Do you want consulting provider notified?: Yes 10/28/20 10:08 Consult Physician Routine Consulting Provider: Rudy Deal Consult Reason/Comments: pos troponin Do you want consulting provider notified?: Yes 10/29/20 19:49 Consult Physician Routine Consulting Provider: Rekha Kim Consult Reason/Comments: CINDY Do you want consulting provider notified?: Yes Primary care physician: Chad Anders Hospital Course: Diagnoses: Acute systolic CHF with ejection fraction less than 20%. Patient declined life vest recommended by social worker clinical Ground glass opacities suspected secondary to amiodarone toxicity per elevator builder Acute hypoxic respiratory failure secondary to above Acute kidney injury secondary to cardiorenal syndrome with evidence of chronic kidney disease stage III Troponin leak or a social worker clinical Neck A. fib status post ablation Noncompliance Hospital course: This is a pleasant 70 years old male who presents with signs symptoms of respiratory distress secondary to severe acute systolic CHF exacerbation with ejection fraction less than 20% with evidence of acute kidney injury on chronic kidney disease, however his creatinine improved today after switching his Lasix to orally by nephrology team were following the patient closely Amiodarone toxicity with a groundglass up was suspected and treatment is discontinuing now Patient also with history of chronic A. fib status post ablation. He refuses life vest recommended by cardiology service, risk of are explained to him Physical therapy recommended to rehab however patient declined, repeat evaluation today showing patient is doing better and he can go home with home health care. He is currently on room air at 95% oxygen saturation. He kept on Eliquis and prednisone 30 mg with prolonged taper. Oral Lasix was resumed upon discharge procalcitonin was elevated 0.10 and 0.17, repeat calcitonin is normal Patient has only minimal tachypnea on discharge, no dyspnea, no chest pain, no change in urine or bowel habits. No fever He was cleared for discharge by all consultants including cardiology, pulmonary and nephrology Patient is eager to go home today Problems and management plan were discussed with the patient and he verbalized understanding and acceptance Patient was found stable and can be discharged home however he needs follow-up as an outpatient. Patient was instructed to follow up with PCP Dr. Jacob within one week and patient agrees with the appointments made for him on 11/04 Patient was instructed to follow up with nephrology, cardiology and pulmonary in 1-2 weeks and he agrees with the appointments made for him with Dr. Deluna on 12/[address] Cazares on 11/[address] Flores on 11/16 and states he will follow-up Physical exam Gen: patient is a AAOx3, no distress CVS: S1-S2, RRR, no murmur Lungs: B/L CTA, no wheezing Abdomen: soft, no distention, no tenderness, positive bowel sounds Extremity: no leg edema or induration Time spent more than 35 minutes Patient Condition at Discharge: Serious Plan - Discharge Summary New Discharge Prescriptions: New predniSONE 0 mg PO DIRECTED 21 Days #42 tab Furosemide [Lasix] 40 mg PO DAILY #30 tab Metoprolol Tartrate [Lopressor] 50 mg PO TID #90 tab Continue Nitroglycerin Sl Tabs [Nitrostat] 0.4 mg SUBLINGUAL Q5M PRN #25 tab PRN Reason: Chest Pain Apixaban [Eliquis] 5 mg PO BID Spironolactone [Aldactone] 25 mg PO DAILY 30 Days #30 tab Atorvastatin [Lipitor] 40 mg PO DAILY Discontinued Metoprolol Tartrate [Lopressor] 50 mg PO BID Amiodarone [Cordarone] 400 mg PO DAILY #180 tab Cefdinir [Omnicef] 300 mg PO BID #6 cap Discharge Medication List Nitroglycerin Sl Tabs [Nitrostat] 0.4 mg SUBLINGUAL Q5M PRN #25 tab 06/01/19 [Rx] Apixaban [Eliquis] 5 mg PO BID 09/09/20 [History] Atorvastatin [Lipitor] 40 mg PO DAILY 09/12/20 [History] Spironolactone [Aldactone] 25 mg PO DAILY 30 Days #30 tab 09/16/20 [Rx] predniSONE 0 mg PO DIRECTED 21 Days #42 tab 11/01/20 [Rx] Furosemide [Lasix] 40 mg PO DAILY #30 tab 11/02/20 [Rx] Metoprolol Tartrate [Lopressor] 50 mg PO TID #90 tab 11/02/20 [Rx] Follow up Appointment(s)/Referral(s): [facility], [NON-STAFF] - Chad Anders DO [Primary Care Provider] - 11/04/20 2:00 pm (Saturday With Dr. Chavarria) Neel Davison DO [STAFF PHYSICIAN] - 12/01/20 9:20 am ( With Veronika CORDERO) Mateo Cazares MD [STAFF PHYSICIAN] - 11/17/20 3:00 pm () Loida Flores MD [STAFF PHYSICIAN] - 11/16/20 3:15 pm (Saturday Appointment with Dr. Yesenia Ybarra) Patient Instructions/Handouts: ARDS (Acute Respiratory Distress Syndrome) (GEN), Pneumonia (DC) Activity/Diet/Wound Care/Special Instructions: heart healthy diet activity is retricted till you see your doctor Discharge Disposition: HOME WITH HOME HEALTH SERVICES
== END 2020-11-02 14:00 | disposition home health service (06) | DRG 291 ==
LOC: EC 00:22 → 4SSUR 02:26 → 3SCARD 03:02
PROVIDERS: ADMIT Hospitalist; ATTEND Hospitalist
DX: I13.0 Hypertensive heart and chronic kidney disease with heart failure and stage 1 through stage 4 chronic kidney disease, or unspecified chronic kidney disease (principal); I50.23 Acute on chronic systolic (congestive) heart failure; J18.9 Pneumonia, unspecified organism; J96.01 Acute respiratory failure with hypoxia; N17.0 Acute kidney failure with tubular necrosis; I48.19 Other persistent atrial fibrillation; E66.9 Obesity, unspecified; E78.5 Hyperlipidemia, unspecified; F41.9 Anxiety disorder, unspecified; H91.90 Unspecified hearing loss, unspecified ear; I25.10 Atherosclerotic heart disease of native coronary artery without angina pectoris; I25.2 Old myocardial infarction; I25.5 Ischemic cardiomyopathy; I42.8 Other cardiomyopathies; I44.7 Left bundle-branch block, unspecified; I89.8 Other specified noninfective disorders of lymphatic vessels and lymph nodes; M54.5 Low back pain; T46.2X5A Adverse effect of other antidysrhythmic drugs, initial encounter; N18.30 Chronic kidney disease, stage 3 unspecified; I08.1 Rheumatic disorders of both mitral and tricuspid valves; R77.8 Other specified abnormalities of plasma proteins; Z20.822 Contact with and (suspected) exposure to COVID-19; Z68.35 Body mass index [BMI] 35.0-35.9, adult; Z79.01 Long term (current) use of anticoagulants; Z85.46 Personal history of malignant neoplasm of prostate; Z79.899 Other long term (current) drug therapy; Z82.49 Family history of ischemic heart disease and other diseases of the circulatory system; Z87.01 Personal history of pneumonia (recurrent); Z87.891 Personal history of nicotine dependence; Z90.79 Acquired absence of other genital organ(s); Z91.19 Patient's noncompliance with other medical treatment and regimen; Z95.5 Presence of coronary angioplasty implant and graft; Z97.4 Presence of external hearing-aid; Z90.89 Acquired absence of other organs
CPT/HCPCS: 36415; 71045; 71046; 71270; 76770; 80048; 80053; 81003; 82550; 82570; 83605; 83615; 83735; 83880; 84100; 84145; 84156; 84484; 85025; 85610; 85730; 86038; 86140; 86255; 87040; 87635; 93005; 94760; 99291

== ENCOUNTER → 2020-11-17 | Outpatient (CLI) | payer MEDICARE ==
[2020-11-17 09:29] LABS: Anisocytosis Slight; HCT 43.4 % (39.0-53.0); HGB 14.3 gm/dL (13.0-17.5); MCH 32.2 pg (25.0-35.0); MCHC 32.9 g/dL (31.0-37.0); MCV 98.1 fL (80.0-100.0); Macrocytosis Slight; Platelet Count 208 k/uL (150-450); RBC 4.43 m/uL (4.30-5.90); RDW 16.3 % (11.5-15.5)
[2020-11-17 09:58] LABS: Potassium 4.4 mmol/L (3.5-5.1)
== END | disposition home or self-care (01) ==
LOC: LABPAT 08:35
PROVIDERS: ATTEND Internal Medicine Cardiovascular Disease
DX: Z01.818 Encounter for other preprocedural examination (principal); I48.11 Longstanding persistent atrial fibrillation
CPT/HCPCS: 36415; 80051; 82565; 84520; 85027

== ENCOUNTER 2020-11-23 06:38 | Day surgery (SDC) | payer MEDICARE ==
[2020-11-18 14:01] VITALS: BMI 33.7
[2020-11-23] MEDS ORDERED: SODIUM CHLORIDE 0.9% 1,000 ML IV SCH ×2 (06:45→09:30)
[2020-11-23] MEDS ORDERED: LACTATED RINGERS 1,000 ML IV SCH (06:45)
[2020-11-23 07:32] LABS: Basophils % (A) 0 %; Eosinophils # (A) 0.3 k/uL (0-0.7); Eosinophils % (A) 3 %; HCT 40.3 % (39.0-53.0); HGB 13.3 gm/dL (13.0-17.5); Lymphocytes # (A) 1.1 k/uL (1.0-4.8); Lymphocytes % (A) 11 %; MCHC 33.1 g/dL (31.0-37.0); MCV 96.7 fL (80.0-100.0); Macrocytosis Slight; Monocytes # (A) 0.5 k/uL (0-1.0); Monocytes % (A) 5 %; Neutrophils # (A) 7.8 k/uL (1.3-7.7); Neutrophils % (A) 79 %; Platelet Count 187 k/uL (150-450); RBC 4.17 m/uL (4.30-5.90); WBC 9.8 k/uL (3.8-10.6)
[2020-11-23 08:20] VITALS: TEMP 98
[2020-11-23] MEDS ORDERED: PHENYLEPHRINE-0.9% NACL SYG 1,000 MCG/10 ML SYRINGE ONE (08:25)
[2020-11-23] MEDS ORDERED: PROPOFOL 10 MG/ML 20 ML VIAL IV ONE (08:25)
[2020-11-23 17:42] VITALS: RESP 16
[2020-11-23 17:43] VITALS: PULSE 70
[2020-11-23 17:44] VITALS: BP 102/63
== END 2020-11-23 11:00 | disposition home or self-care (01) ==
LOC: CATHCVL 06:38
PROVIDERS: ATTEND Internal Medicine Cardiovascular Disease
DX: I48.11 Longstanding persistent atrial fibrillation (principal); E78.2 Mixed hyperlipidemia; I25.118 Atherosclerotic heart disease of native coronary artery with other forms of angina pectoris; I25.5 Ischemic cardiomyopathy; I11.0 Hypertensive heart disease with heart failure; I50.22 Chronic systolic (congestive) heart failure; Z79.01 Long term (current) use of anticoagulants; Z79.899 Other long term (current) drug therapy; I25.2 Old myocardial infarction; Z87.891 Personal history of nicotine dependence; Z87.01 Personal history of pneumonia (recurrent); Z95.5 Presence of coronary angioplasty implant and graft; Z85.46 Personal history of malignant neoplasm of prostate
CPT/HCPCS: 93312; 93320; 93005; 93325; 92960; 85025; J2370; J2704

== ENCOUNTER → 2020-12-30 | Outpatient (CLI) | payer MEDICARE ==
[2020-12-30 18:47] LABS: HCT 37.8 % (39.6-50.0); HGB 11.8 g/dL (13.0-17.0); MCH 30.3 pg (27.0-32.0); MCHC 31.2 g/dL (32.0-37.0); MCV 96.9 fL (80.0-97.0); Platelet Count 230 X 10*3/uL (140-440); RDW 17.2 % (11.5-14.5)
[2020-12-30 20:32] LABS: African American GFR (CKD) 100.6 (60.0-200.0); Anion Gap 13.2 mmol/L (4.00-12.00); Blood Urea Nitrogen 15.3 mg/dL (9.0-27.0); Carbon Dioxide 20.8 mmol/L (21.6-31.8); Non-African American GFR(CKD) 86.8 (60.0-200.0); Potassium 4.2 mmol/L (3.5-5.5)
== END | disposition home or self-care (01) ==
LOC: LABWHC1 12:22
PROVIDERS: ATTEND Internal Medicine Cardiovascular Disease
DX: R06.02 Shortness of breath (principal)
CPT/HCPCS: 36415; 80048; 83880; 84443; 85027

== ENCOUNTER 2021-05-15 11:37 | Day surgery (SDC) | payer MEDICARE ==
[2021-05-12 10:29] VITALS: BMI 40.8
[~2021-05-15 11:37] MED LIST changes: -SODIUM CHLORIDE 0.9% 1,000 ML IV SCH
[2021-05-15] MEDS ORDERED: SODIUM CHLORIDE 0.9% 1,000 ML IV ONE (13:31)
[2021-05-15] MEDS ORDERED: ceFAZolin 1 GM in SODIUM CHLORIDE 0.9% IRRIG BTL 250 ML IRRIGATION PRN (15:39)
[2021-05-15] MEDS ORDERED: IOPAMIDOL-370 50ML BTL INJ ONE ×2 (15:44→16:55)
[2021-05-15] MEDS ORDERED: SODIUM CHLORIDE 0.9% 1,000 ML IV SCH (15:45)
[2021-05-15] MEDS ORDERED: LIDOCAINE 1% INJ 10MG/ML (20 ML MDV) ONE ×2 (15:58→16:11)
[2021-05-15] MEDS ORDERED: LIDOCAINE 1% INJ 10MG/ML (20 ML MDV) SQ ONE (16:00)
[2021-05-15] MEDS ORDERED: ACETAMINOPHEN TAB 325 MG TAB PO PRN (18:29)
--- NOTE | 2021-05-15 18:31 | P.PCN ---
Preoperative Diagnosis: Left upper extremity venogram 10 mL every dye injected in the left arm Patent left axillary and left subclavian vein Plan Proceed with biventricular ICD
--- NOTE | 2021-05-15 18:43 | P.EPPROC ---
- EP Procedure Note Electrophysiology Procedure Note: Diagnosis Sick Sinus Syndrome, left bundle branch block, ischemic adenopathy class II CHF left ventricular ejection fraction 20-25% History of atrial fibrillation status post ablation On guideline planning director treatment, no improvement in LV function despite A. fib ablation and medical treatment Procedure LV/ biventricular ICD implantation Details Patient was brought to the EP lab in a fasting state. Written informed consent was obtained prior to the procedure. Conscious sedation provided by anesthesia team IV antibiotics administered. Local anesthesia administered. A 4 cm incision made in the pectoral area. Subfascial pocket made. Venous access obtained Venous sheaths placed. Leads placed in the right heart Atrial lead position the right atrial appendage. [facility], tendril STS, 2088 TC, 52 cm in length active fix 0.75 V at 0.5 ms, P waves greater than 5 mV, pacing impedance 450 ohms 10 V test negative RV lead position in the mid RV septum. Active fix single coil ICD lead, [facility], R waves 12 mV pacing impedance 500 ohms and pacing threshold 0.5 V at 0.5 ms, 10 V test is negative. LV lead positioned in the LV vein This part of the procedure was the challenging pot and took longer than usual on account of the anatomy of the coronary veins Coronary sinus was accessed. Tortuosity noted at the os of the coronary sinus making coronary sinus cannulation somewhat challenging CS venogram successfully performed No anterior vein no lateral vein of an adequate caliber at all Large middle cardiac vein and large posterior lateral vein However in trying to access the posterior lateral vein main coronary sinus sheath was slipped out of the os into the right atrium repeatedly as the patient to take a breath in A subselect in catheter was used and finally we were able to cannulate this vein A vein pic was then placed deep to this vein and main CS sheath was then placed within the posterior lateral vein The subselect in cath was removed LV lead was placed in a very stable position However the bipolar thresholds were high and especially so proximally. In addition in the proximal poles diaphragmatic pacing was noted Later with the RV coil-LV pull with the thresholds were somewhat better The best threshold was noted with LV to pacing, 2.2 V at 0.5 ms pacing impedance 630 ohms High-voltage impedance 74 ohms The biventricular device was then placed, [facility] Youssef,GALLANT HF LV 2-RV coil had the best pacing threshold LV offset 50 ms DDD 50-1:30, AV synch on [facility] programming Biventricular pacemaker device connected to the leads and placed in the subfascial pocket Patient tolerance the procedure well without acute complications Plan Increase the dose of metoprolol 200 mg by mouth daily, long-acting
--- NOTE | 2021-05-15 18:55 | P.PRLE ---
RE: Andrea Parnell Dear Dr. Chago Murray underwent a biventricular ICD implant for ischemic cardio myopathy the left ventricular ejection fraction of 20-25% successfully Hopefully this will result in improvement in his heart failure symptoms and LV function I am increasing the dose of Toprol XL to 100 mg by mouth daily He will continue all his other medications unchanged Thank you for entrusting me with the care of the patient Warm regards Sincerely Rudy Deal
[2021-05-15] MEDS: ACETAMINOPHEN IV (For NPO) 1,000 MG in EMPTY BAG 1 BAG IVPB ONE ×2 (19:13→19:28)
[2021-05-15] MEDS: APIXABAN 5 MG TAB PO SCH (20:18)
[2021-05-15] MEDS ORDERED: ATORVASTATIN 40 MG TAB PO SCH (21:00)
[2021-05-16 07:33] VITALS: BP 132/81; PULSE 71; RESP 18; TEMP 98
[2021-05-16] MEDS: APIXABAN 5 MG TAB PO SCH (08:33)
[2021-05-16] MEDS ORDERED: METOPROLOL SUCCINATE (ER) 100 MG TAB.ER.24H PO SCH (09:00)
[2021-05-16] MEDS ORDERED: SPIRONOLACTONE 25 MG TAB PO SCH (09:00)
--- NOTE | 2021-05-16 11:29 | XR ---
EXAMINATION TYPE: XR chest 2V DATE OF EXAM: 05/16/2021 COMPARISON: 10/31/2020 and 11/24/2020 HISTORY: 70-year-old male being placement check TECHNIQUE: Frontal and lateral views FINDINGS: Left anterior chest wall AICD generator with right atrial, right ventricular, and coronary sinus lead s. Heart borderline in size. Mild interstitial densities remain throughout the lungs though with impr ovement compared to 11/24/2020. No progressive consolidation. No pneumothorax or pleural effusion. IMPRESSION: 1. Left anterior chest wall AICD generator with 3 leads. No pneumothorax. 2. Borderline heart size unchanged. 3. Some residual interstitial changes are present though there has been improvement compared to 2020. Correlate for possible postinfectious scarring.
--- NOTE | 2021-05-16 13:15 | P.DS ---
Providers Attending physician: Rudy Deal Primary care physician: [facility] Course: Patient sitting comfortably in a chair No chest discomfort dizziness lightheadedness no palpitations ICD site is healing well no bleeding no hematoma Blood pressure 132/81 mmHg pulse rate in 70s Afebrile Heart sounds S1 and S2 are normal no murmurs Lungs are clear Impression Status post biventricular ICD implantation for cardio myopathy History of atrial fibrillation status post ablation Underlying sick sinus syndrome and bradycardia Plan Increase metoprolol succinate 200 mg by mouth daily at noontime Patient is currently on lisinopril After one week he will stop lisinopril and start ENTRESTO He understands I'll Isuprel must be held for a minimum of 2 days before starting ENTRESTO He'll follow Dr. Cazares as previously scheduled He will continue all his other cardiac medications Plan - Discharge Summary New Discharge Prescriptions: New Metoprolol Succinate (ER) [Toprol XL] 100 mg PO DAILY #90 tab Discontinued Metoprolol Tartrate [Lopressor] 75 mg PO DAILY No Action Apixaban [Eliquis] 5 mg PO BID Spironolactone 12.5 mg PO DAILY Atorvastatin [Lipitor] 40 mg PO HS lisinopriL 2.5 mg PO DAILY Discharge Medication List Apixaban [Eliquis] 5 mg PO BID 09/09/20 [History] Atorvastatin [Lipitor] 40 mg PO HS 09/12/20 [History] Spironolactone 12.5 mg PO DAILY 05/12/21 [History] lisinopriL 2.5 mg PO DAILY 05/12/21 [History] Metoprolol Succinate (ER) [Toprol XL] 100 mg PO DAILY #90 tab 05/15/21 [Rx] Follow up Appointment(s)/Referral(s): Rudy Deal MD [STAFF PHYSICIAN] - 1 Week (Device clinic follow-up in 1 week, attention Dr. Pandya Follow-up with Dr. Pandya as scheduled Follow Dr. Deal only as needed) Mateo Cazares MD [STAFF PHYSICIAN] - 05/22/21 11:00 am (Appointment for device check at 11:00am and then appointment with Dr. Cazares is at 11:15am.) Activity/Diet/Wound Care/Special Instructions: PATIENT EDUCATION MATERIAL Instructions following a heart rhythm device implant. 1. Keep dressing DRY for 5 DAYS. You may cover the area with Saran or Cling Wrap, prior to a shower. 2. The dressing will be removed in the Device Clinic at [facility]. Absorbable sutures were used to close the wound. 3. Avoid raising the left arm above the shoulder level. 4 week restriction 4. Avoid arm movements, like backscratching, rubbing the head, or pulling on a cord. 4 weeks restriction 5. Gentle range of motion movements of the shoulder, closest to the incision should be performed to avoid a frozen shoulder. (Pendulum exercises of the shoulder) 6. The opposite arm may be used freely. 7. Avoid driving for 7 days. 8. Avoid activities such as golfing, swimming, weed whacking, lifting more than 10 pounds weight, bowling, gymnastics and weight training/lifting. (6 weeks restriction) 9. Activities such as wood chopping with an axe, pull-ups in the gymnasium, power lifting, arc-welding, being close to home induction cooktops will always be a problem. 10. Arm sling is only a reminder not to raise the arm above the head. You do not need to keep the arm completely immobilized. Your free to move the arm and use it and for normal activities. In case of any problems, please call [facility], [place], @ [phone], Attention: Device Clinic Device clinic follow-up in 5 days Follow-up with primary tobacco grower in 3 months Increase metoprolol succinate to 100 mg by mouth daily Discharge Disposition: HOME SELF-CARE
== END 2021-05-16 13:41 | disposition home or self-care (01) ==
LOC: CATHEP 11:37 → 6NMEDSUR 18:15 → CATHEP 05-16 13:41
PROVIDERS: ATTEND Internal Medicine Clinical Cardiac Electrophysiology
DX: R00.1 Bradycardia, unspecified (principal); I44.7 Left bundle-branch block, unspecified; I49.5 Sick sinus syndrome; Z20.822 Contact with and (suspected) exposure to COVID-19; I49.3 Ventricular premature depolarization; R59.9 Enlarged lymph nodes, unspecified; I48.19 Other persistent atrial fibrillation; I25.5 Ischemic cardiomyopathy; Z79.01 Long term (current) use of anticoagulants; Z79.899 Other long term (current) drug therapy; I25.10 Atherosclerotic heart disease of native coronary artery without angina pectoris; I11.0 Hypertensive heart disease with heart failure; I50.9 Heart failure, unspecified; E78.5 Hyperlipidemia, unspecified; Z85.46 Personal history of malignant neoplasm of prostate; Z98.890 Other specified postprocedural states
CPT/HCPCS: 33225; 33208; 87635; 71046; C1769 ×4; C1882; C1730; C1887; C1898; C1900; C1777; J0690 ×2; J2001; J0131; Q9967